=== PATIENT | male | born 1990 | race African-American/Black ===

== ENCOUNTER 2018-01-08 19:04 | Inpatient (IN) | payer OTHER ==
[2018-01-08] MEDS ORDERED: SODIUM CHLORIDE 0.9% 1000 ML INFUS.BAG IV STA (20:13)
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
[2018-01-08] MEDS ORDERED: VANCOMYCIN 2,000 MG in DEXTROSE 5%-WATER - 250 ML IVPB ONE ×2 (20:24→22:30)
[2018-01-08] MEDS ORDERED: PIPERACILLIN/TAZOB 4.5 GM 4.5 GM in DEXTROSE 5%-WATER 100 ML IVPB ONE (20:25)
[2018-01-08] MEDS ORDERED: PIPERACILLIN/TAZOB 4.5 GM 4.5 GM/100 ML BAG IVPB ONE (21:28)
[2018-01-08] MEDS ORDERED: morphine CARPU-JECT 4 MG/1 ML DISP.SYRIN IVPUSH ONE (22:14)
[2018-01-08] MEDS ORDERED: SODIUM CHLORIDE 0.9% 500 ML INFUS.BAG IV ONE (22:19)
[2018-01-08] MEDS ORDERED: morphine SULFATE 4 MG/ML VIAL ONE (22:28)
[2018-01-08] MEDS ORDERED: VANCOMYCIN 2,000 MG in DEXTROSE 5%-WATER - 500 ML IVPB ONE (22:30)
[2018-01-08] MEDS ORDERED: diphenhydrAMINE HCL 25 MG CAPSULE (FP) PO ONE ×2 (23:06)
[2018-01-08] MEDS ORDERED: ONDANSETRON 4 MG/2 ML VIAL IVPUSH ONE (23:10)
[2018-01-08] MEDS ORDERED: ONDANSETRON 4 MG/2 ML VIAL ONE (23:10)
[2018-01-08 23:13] LABS: EOS % 0.2 % (0-4.5); HEMATOCRIT 24.7 % (35.4-49); LYMPH % 13.5 % (8-40); MCH 26.9 pg (25.7-33.7); MCHC 32.4 g/dl (32.0-35.9); MEAN CELL VOLUME 83.1 fl (80-96); MEAN PLT VOLUME 7.8 fl (7.5-11.1); MONO % 5.1 % (3.8-10.2); NEUT % 80.2 % (42.8-82.8); PLATELET COUNT 456 K/MM3 (134-434); RBC 2.97 M/mm3 (4.00-5.60); RDW 19.1 % (11.9-15.9); WHITE BLOOD COUNT 14.6 K/mm3 (4.0-10.0)
[2018-01-08] MEDS ORDERED: FAMOTIDINE 20 MG/50 ML IVPB 20 MG/50 ML MG IVPB ONE (23:22)
[2018-01-08] MEDS ORDERED: methylPREDNISolone NA SUCC 125 MG/2 ML VIAL ONE (23:22)
[2018-01-08 23:24] LABS: INR 1.12 (0.83-1.09); PROTHROMBIN TIME (PATIENT) 12.7 SEC (9.7-13.0)
[2018-01-08 23:27] LABS: ACTIVATED PTT 36.8 SECONDS (25.2-36.5)
[2018-01-08 23:34] LABS: ALBUMIN 1.5 g/dl (3.4-5.0); ANION GAP 10 MMOL/L (8-16); BILIRUBIN,TOTAL 0.3 mg/dL (0.2-1.0); BLOOD UREA NITROGEN 55 mg/dL (7-18); CALCIUM 7.9 mg/dL (8.5-10.1); CHLORIDE 96 mmol/L (98-107); CO2 29 mmol/L (21-32); CREATININE 7.4 mg/dL (0.7-1.3); GLUCOSE,RANDOM 146 mg/dL (74-106); POTASSIUM 4.2 mmol/L (3.5-5.1); SGOT/AST 26 U/L (15-37); SGPT/ALT 17 U/L (12-78); SODIUM 135 mmol/L (136-145)
[2018-01-08 23:35] LABS: ALK PHOS 359 U/L (45-117)
[2018-01-08] MEDS ORDERED: EPINEPHrine 1:1,000 0.3 MG/0.3 ML SYR IM ONE (23:44)
[2018-01-08] MEDS ORDERED: RACEPINEPHRINE IH SOL 2.25% 11.25 MG/0.5 ML VIAL IH ONE (23:45)
[2018-01-08] MEDS ORDERED: EPINEPHrine/PF 1 MG/1 ML (1:1,000) AMPULE ONE (23:55)
[2018-01-09] MEDS ORDERED: methylPREDNISolone NA SUCC 125 MG/2 ML VIAL IVPUSH ONE (00:32)
[2018-01-09] MEDS ORDERED: ACETAMINOPHEN 1000 MG/100 ML VIAL (NON FORMULARY) IVPB ONE ×2 (01:17→17:11)
--- NOTE | 2018-01-09 01:27 | HP ---
CHIEF COMPLAINT: sacral wound ulcers with increased drainage and pain PCP: HISTORY OF PRESENT ILLNESS: 27 y/o male with PMH of ESRD on HD (T//), HTN, HLD, IDDM, presented to the ED from [facility] with increased drainage and tenderness of his sacral/buttock wounds. Patient was originally at [facility] 2 months where he got a AKA, where he started to feel fevers and chills and a boil developing. He was then started on vanc and zosyn at the hospital, then switched to gentamycin. He was discharged to [facility], where they noticed he was having increased drainage from the regions. According to the patient, [facility] does not have the proper supplies to properly take care of his wound care needs. Patient is no longer experiencing any fevers or chills, denies any N/V or diarrhea. Patient was supposed to have dialysis yesterday however he refused. Patient received morphine for pain in the ED and shortly after developed an allergic reaction with angioedema of the lips and tongue with associated nausea. Patient states that he has gotten morphine in the past and this has never happened to him before. ER course was notable for: (1)WBC 14.6 (2)patient received vanc and zosyn (3) patient received morphine for pain and soon developed an allergic reaction with associated angioedema of lips and swelling of tongue; no associated dyspnea Recent Travel: none PAST MEDICAL HISTORY: see above PAST SURGICAL HISTORY: R AKA; R permacath for dialysis Social History: Smoking:none Alcohol:none Drugs: none Family History: both mother and father have DM and HTN Allergies No Known Allergies Allergy (Verified 01/08/18 19:31) HOME MEDICATIONS: Home Medications Medication Instructions Recorded Acetaminophen [Pain Relief] 650 mg PO DAILY 01/08/18 Ascorbic Acid [C-500] 500 mg PO DAILY 01/08/18 Atorvastatin Calcium 80 mg PO DAILY 01/08/18 Calcium Acetate [Phoslo -] 667 mg PO TIDCM 01/08/18 Ergocalciferol (Vitamin D2) 50,000 unit PO DAILY 01/08/18 [Drisdol] Folic Acid 1 mg PO DAILY 01/08/18 Gabapentin 100 mg PO DAILY 01/08/18 Gentamicin in NaCl, Iso-Osm 80 mg IV DAILY 01/08/18 [Gentamicin 80 mg/Ns 100 ml Pb] Hydralazine HCl 50 mg PO DAILY 01/08/18 Insulin (Levemir) [Levemir Vial] 12 unit SQ DAILY 01/08/18 Isosorbide Mononitrate [Isosorbide 30 mg PO DAILY 01/08/18 Mononitrate ER] Levothyroxine [Synthroid -] 50 mcg PO DAILY 01/08/18 Metoprolol Succinate 200 mg PO DAILY 01/08/18 Multivitamin [One Daily] 1 each PO DAILY 01/08/18 Oxycodone HCl 10 mg PO QID 01/08/18 Sennosides [Senna] 8.6 mg PO DAILY 01/08/18 Tuberculin,Purif.prot.deriv. 5 tub ID DAILY 01/08/18 [Tubersol] REVIEW OF SYSTEMS CONSTITUTIONAL: Absent: fever, chills, diaphoresis, generalized weakness, malaise, loss of appetite, weight change HEENT: Absent: rhinorrhea, nasal congestion, throat pain, throat swelling, difficulty swallowing, mouth swelling, ear pain, eye pain, visual changes CARDIOVASCULAR: Absent: chest pain, syncope, palpitations, irregular heart rate, lightheadedness , peripheral edema RESPIRATORY: Absent: cough, shortness of breath, dyspnea with exertion, orthopnea, wheezing, stridor, hemoptysis GASTROINTESTINAL: Absent: abdominal pain, abdominal distension, nausea, vomiting, diarrhea, constipation, melena, hematochezia GENITOURINARY: Present: sacral pain Absent: dysuria, frequency, urgency, hesitancy, hematuria, flank pain, genital pain MUSCULOSKELETAL: Absent: myalgia, arthralgia, joint swelling, back pain, neck pain SKIN: Absent: rash, itching, pallor HEMATOLOGIC/IMMUNOLOGIC: Absent: easy bleeding, easy bruising, lymphadenopathy, frequent infections ENDOCRINE: Absent: unexplained weight gain, unexplained weight loss, heat intolerance, cold intolerance NEUROLOGIC: Absent: headache, focal weakness or paresthesias, dizziness, unsteady gait, seizure, mental status changes, bladder or bowel incontinence PSYCHIATRIC: Absent: anxiety, depression, suicidal or homicidal ideation, hallucinations. PHYSICAL EXAMINATION Vital Signs - 24 hr 01/08/18 19:31 Temperature 99.0 F Pulse Rate 96 H Respiratory 18 Rate Blood Pressure 123/43 O2 Sat by Pulse 96 Oximetry (%) GENERAL: Awake, alert, and fully oriented, in no acute distress. EYES: Pupils equal, round and reactive to light, extraocular movements intact, sclera anicteric, conjunctiva clear. No lid lag. EARS, NOSE, THROAT: lip and tongue swelling, NECK:no JVD appreciated LUNGS: lungs CTA B/L; no rales,rhonchi or wheezing HEART: Regular rate and rhythm, normal S1 and S2 without murmur, rub or gallop. ABDOMEN: soft; N/T, N/D +BS in all four quadrants . BACK: deep gluteal cleft wound with surrounding erythema and yellow/white fluid draining; left buttock wound with slight erythema and tenderness packed with krillex MUSCULOSKELETAL: no CVA tenderness; EXTREMITIES: R aka healing well skin intact no surrounding erythema or drainage ; L leg- warm; well perfused trace edema NEUROLOGICAL: Cranial nerves II-XII intact. Normal speech. Normal gait. PSYCHIATRIC: Cooperative. Good eye contact. Appropriate mood and affect. SKIN: Warm, dry, normal turgor, no rashes or lesions noted, normal capillary refill. Laboratory Results - last 24 hr 01/08/18 01/08/18 01/08/18 22:56 22:56 22:56 WBC 14.6 H RBC 2.97 L Hgb 8.0 L Hct 24.7 L MCV 83.1 MCH 26.9 MCHC 32.4 RDW 19.1 H Plt Count 456 H MPV 7.8 Absolute Neuts (auto) 11.7 H Neutrophils % 80.2 Lymphocytes % 13.5 Monocytes % 5.1 Eosinophils % 0.2 Basophils % 1.0 Nucleated RBC % 0 PT with INR 12.70 INR 1.12 H PTT (Actin FS) 36.8 H Sodium 135 L Potassium 4.2 Chloride 96 L Carbon Dioxide 29 Anion Gap 10 BUN 55 H Creatinine 7.4 H Creat Clearance w eGFR 8.83 Random Glucose 146 H Lactic Acid Calcium 7.9 L Total Bilirubin 0.3 AST 26 ALT 17 Alkaline Phosphatase 359 H Troponin I Total Protein 6.0 L Albumin 1.5 L 01/08/18 01/08/18 22:56 22:56 WBC RBC Hgb Hct MCV MCH MCHC RDW Plt Count MPV Absolute Neuts (auto) Neutrophils % Lymphocytes % Monocytes % Eosinophils % Basophils % Nucleated RBC % PT with INR INR PTT (Actin FS) Sodium Potassium Chloride Carbon Dioxide Anion Gap BUN #Creatinine Creat Clearance w eGFR Random Glucose Lactic Acid 0.6 Calcium Total Bilirubin AST ALT Alkaline Phosphatase Troponin I 0.02 Total Protein Albumin ASSESSMENT/PLAN: 27 y.o male with PMH of ESRD on HD, HTN, HLD, IDDM presents to the ED from [facility] with increased drainage and tenderness from sacral/ buttock ulcers. #1: Sacral/buttock ulcers -patient received zosyn 4.5g and vancomycin 2grams in the ED -not giving patient anymore abx until ID sees him given his ESRD -blood and wound cx pending -CT pelvis w.o contrast -ESR/CRP pending -wound care consulted -will try and have day team get records from [facility] #2: ESRD -patient usually on a // schedule however he refused dialysis yesterday -nephro consulted -avoid nephrotoxic drugs #3: Anemia -patient came in with a Hgb of 8 and baseline Hgb is unknown -iron/ferritin/ retic studies ordered #4 Diabetes: -started patient on ISS -restarting levemir 12 units -HBA1c is ordered #5: HTN -restarting patient on metoprolol succiante 200 and hydralazine 50 #6: HLD -restarting patient on atorvastatin 80 F/E/N not on standing fluids replete electrolytes diabetic diet dispo: ICU monitoring given severe reaction to morphine Problem List - Problem (1) Allergic reaction Code(s): T78.40XA - ALLERGY, UNSPECIFIED, INITIAL ENCOUNTER (2) ESRD on hemodialysis Code(s): N18.6 - END STAGE RENAL DISEASE; Z99.2 - DEPENDENCE ON RENAL DIALYSIS (3) Wound of buttock Code(s): S31.809A - UNSPECIFIED OPEN WOUND OF UNSPECIFIED BUTTOCK, INIT ENCNTR Visit type - Emergency Visit Emergency Visit: Yes ED Registration Date: 01/08/18 Care time: The patient presented to the Emergency Department on the above date and was hospitalized for further evaluation of their emergent condition. - New Patient This patient is new to me today: Yes Date on this admission: 01/09/18 - Critical Care Critical Care patient: No Hospitalist Screening - Colonoscopy Questionnaire Colonoscopy Questionnaire: Colonoscopy Questionnaire - Patient: 50 - 75 years old and never had a screening colonoscopy: Unknown History of colon or rectal polyps, or CA: Unknown History of IBD, Crohn's disease or UC: Unknown History of abdominal radiation therapy as a child: Unknown - Relative: 1 with colon or rectal CA, or polyps at age 60 or younger: Unknown Colon or rectal CA diagnosed at age 45 or younger: Unknown Multiple relatives with colon or rectal CA: Unknown - Outcome: Screening Result: Negative Screen
[2018-01-09] MEDS ORDERED: ACETAMINOPHEN INJECTION 100 ML IVPB ONE (01:54)
--- NOTE | 2018-01-09 02:16 | PN ---
Teaching Attending Note Name of Resident: Sofía Hernandez ATTENDING PHYSICIAN STATEMENT I saw and evaluated the patient. Chart, data, imaging reviewed. I reviewed the resident's note and discussed the case with the resident. I agree with the resident's findings and plan as documented. SUBJECTIVE: 27 YOM with h/o ESRD on HD right permacath and right AKA, HD T//Sa at [facility] , HTN, HLD, IDDM sent from [facility] for buttock/sacral wound infection and discharge. Recently admitted at [facility] x 2 months, s/p course of IV abx (vancomycin and zosyn, then on gentamicin. Unclear treatment course as we do not have any records from [facility]. Sent from [facility] to this hospital because of inability to perform proper wound care. Here in ER, patient developed angioedema of face and tongue after receiving morphine, subsequently received solumedrol, benadryl, epinephrine IV. OBJECTIVE: Last Vital Signs Temp Pulse Resp BP Pulse Ox 100.6 F H 114 H 19 160/84 95 01/09/18 01:05 01/09/18 01:05 01/09/18 01:05 01/09/18 01:05 01/09/18 01:05 general - nontoxic, morbidly obese heent- angioedema involving face, tongue cv -s1+s2+rrr chest- clear, no wheezing, right permacath abdomen - obese ext - right AKA, healing well sacrum - 2 sacrum ulcers left one is packed with gauze, visible puss, right sided one also with visible discharge Abnormal Lab Results 01/08/18 01/08/18 01/08/18 22:56 22:56 22:56 WBC 14.6 H RBC 2.97 L Hgb 8.0 L Hct 24.7 L RDW 19.1 H Plt Count 456 H Absolute Neuts (auto) 11.7 H INR 1.12 H PTT (Actin FS) 36.8 H Sodium 135 L Chloride 96 L BUN 55 H Creatinine 7.4 H Random Glucose 146 H Calcium 7.9 L Alkaline Phosphatase 359 H Total Protein 6.0 L Albumin 1.5 L ASSESSMENT AND PLAN: 27yo man with 2 infected sacral decubitus ulcers. Osteomyelitis should be ruled out. S/p Zosyn and vancomycin IV in ER. -obtain medial records from [facility] -ID consult -blood cultures x2 -wound culture from sacral ulcer -esr, crp -CT of abdomen/pelvis -local wound care #Severe angioedema to morphine -swelling to face and tongue. Currently protecting airway. S/p Epinephrine IM, IV solumedrol, benadryl. -admit to ICU for airway monitoring -solumedrol 40mg IV q8hrs -benadryl 25mg IV q8hrs -monitor VS closely -avoid opiates #ESRD -renal consult to continue HD -continue home renal meds -c/w regular home meds for chronic medical problems, see resident note for details -heparin sc for dvt ppx
--- NOTE | 2018-01-09 02:27 | CONSULT ---
Consultation: CONSULT REQUEST: We have been asked to medically evaluate this patient for critical care. HISTORY OF PRESENT ILLNESS: 27 y/o M w/PMH of ESRD (HD TTS), HTN, HLD, DM, chronic LE edema presented to ER from [facility] for further management of his gluteal and L buttock wound. He was treated at [facility] for 2 months before being discharged to [facility] and he states that they did not have the supplies to take care of his wounds there and they sent him here. During that hospitalization he also had a R AKA. He gets dialyzed thru a permacath in R chest wall and does not have a fistula or graft. Permacath placed 4 months ago and has been getting dialysis for 3 months. He had been having fevers and chills prior to arrival. Pt received morphine in the ER (which he states he's gotten in the past) after which he developed angioedema. He was treated in the ER with IV and PO benadryl , Epi-pen, Pepcid 20mg IV, epi inhalation, solu-medrol 125 mg IV. Currently he states that he feels better, he is breathing without issue, not drooling, able to swallow without issue, and feels as though the swelling has improved since it first occurred. Denies N/V, CP, SOB, dysuria, penile discharge, abd pain. REVIEW OF SYSTEMS: CONSTITUTIONAL: +fevers, chills HEENT: +angioedema. CARDIOVASCULAR: +chronic peripheral LE edema Absent: chest pain RESPIRATORY: Absent: cough, shortness of breath GASTROINTESTINAL: Absent: abdominal pain GENITOURINARY: Absent: dysuria, discharge SKIN: +L buttock and gluteal wound PHYSICAL EXAMINATION Vital Signs - 24 hr 01/08/18 01/09/18 19:31 01:05 Temperature 99.0 F 100.6 F H Pulse Rate 96 H Pulse Rate [ 114 H Right Apical] Respiratory 18 19 Rate Blood Pressure 123/43 Blood Pressure 160/84 [Right Arm] O2 Sat by Pulse 96 95 Oximetry (%) GENERAL: Awake, alert, and fully oriented, in no acute distress. +Angioedema. Able to speak in full sentences without issue. HEAD: Normal with no signs of trauma. +Angioedema EYES: +Periorobital edema EARS, NOSE, THROAT: +angioedema LUNGS: Breath sounds equal, clear to auscultation bilaterally. HEART: Regular rate and rhythm ABDOMEN: Soft, nontender, not distended LOWER EXTREMITIES: warm, well-perfused. No calf tenderness. 2+ LLE edema. RLE s/ p AKA. PSYCHIATRIC: Cooperative. SKIN: L gluteal wound approximately 2.5 by 0.5 inches, tender, packed. Sacral/ gluteal cleft wound approximately 1 inch by 0.75 inches - with yellow non- viscous drainage within wound. Laboratory Results - last 24 hr 01/08/18 01/08/18 01/08/18 22:56 22:56 22:56 WBC 14.6 H RBC 2.97 L Hgb 8.0 L Hct 24.7 L MCV 83.1 MCH 26.9 MCHC 32.4 RDW 19.1 H Plt Count 456 H MPV 7.8 Absolute Neuts (auto) 11.7 H Neutrophils % 80.2 Lymphocytes % 13.5 Monocytes % 5.1 Eosinophils % 0.2 Basophils % 1.0 Nucleated RBC % 0 PT with INR 12.70 INR 1.12 H PTT (Actin FS) 36.8 H Sodium 135 L Potassium 4.2 Chloride 96 L Carbon Dioxide 29 Anion Gap 10 BUN 55 H Creatinine 7.4 H Creat Clearance w eGFR 8.83 Random Glucose 146 H Lactic Acid Calcium 7.9 L Total Bilirubin 0.3 AST 26 ALT 17 Alkaline Phosphatase 359 H Troponin I Total Protein 6.0 L Albumin 1.5 L 01/08/18 01/08/18 22:56 22:56 WBC RBC Hgb Hct MCV MCH MCHC RDW Plt Count MPV Absolute Neuts (auto) Neutrophils % Lymphocytes % Monocytes % Eosinophils % Basophils % Nucleated RBC % PT with INR INR PTT (Actin FS) Sodium Potassium Chloride Carbon Dioxide Anion Gap BUN Creatinine Creat Clearance w eGFR Random Glucose Lactic Acid 0.6 Calcium Total Bilirubin AST ALT Alkaline Phosphatase Troponin I 0.02 Total Protein Albumin Active Medications Generic Name Dose Route Start Last Admin Trade Name Freq PRN Reason Stop Dose Admin Chlorhexidine Gluconate 1 applic 01/09/18 22:00 Hibiclens For Decolonization - TP HS NOA Heparin Sodium (Porcine) 5,000 unit 01/09/18 06:00 Heparin - SQ TID NOA Vancomycin HCl 2,000 mg/ 500 mls @ 250 mls/2 hr 01/08/18 22:30 01/08/18 22:54 Dextrose IVPB 01/09/18 02:29 250 mls/2 hr ONCE ONE Administration Protocol Insulin Aspart 1 vial 01/09/18 07:00 Novolog Vial Sliding Scale - SQ ACHS [facility] Protocol Insulin Detemir 12 units 01/09/18 22:00 Levemir Vial SQ HS [facility] Mupirocin 1 applic 01/09/18 10:00 Bactroban Ointment (For Decolonization) - NS 01/14/18 09:59 BID [facility] ASSESSMENT/PLAN: 27 y/o M w/PMH of ESRD (HD TTS), HTN, HLD, DM, chronic LE edema presented to ER from [facility] for further management of his gluteal and L buttock wound. Admitted to ICU for airway monitoring s/p angioedema likely secondary to morphine. -Neuro: -AAOx3 -C/V -HTN: c/w hzn, metoprolol -HLD: c/w atorvastatin -Resp: -Angioedema secondary to morphine -Monitor airway -resolving. s/p epi IH and IM, solu-medrol, benadryl IV and PO, Pepcid IV in ER -O2 supplementation to keep O2 saturation above 90% -ID -L buttock and sacral/gluteal cleft wounds -given zosyn and vanco -ID on board -c/w abx as per ID -pain control. No morphine. -wound care consult -Renal -ESRD on HD TTS -HD per nephro -Endocrine -DM -ISS, BGM, Levemir -Hypothyroidism -c/w synthroid -FEN -no fluids at this time -Monitor electrolytes -diabetic diet -Dispo: Will monitor in the ICU. If airway remains stable/improves can likely transfer to floors soon. Visit type - Emergency Visit Emergency Visit: Yes ED Registration Date: 01/08/18 Care time: The patient presented to the Emergency Department on the above date and was hospitalized for further evaluation of their emergent condition. - New Patient This patient is new to me today: Yes Date on this admission: 01/09/18 - Critical Care Critical Care patient: Yes Total Critical Care Time (in minutes): 48 Critical Care Statement: The care of this patient involved high complexity decision making to prevent further life threatening deterioration of the patient 's condition and/or to evaluate & treat vital organ system(s) failure or risk of failure.
[2018-01-09 02:59] LABS: VENOUS PC02 46.4 mmHg (38-52); VENOUS PH 7.36 (7.32-7.42)
[2018-01-09 03:00] LABS: VENOUS PO2 45.6 mmHg (28-48)
[2018-01-09] MEDS ORDERED: methylPREDNISolone NA SUCC 40 MG/1 ML VIAL ONE (03:18)
[2018-01-09] MEDS: methylPREDNISolone NA SUCC 40 MG/1 ML VIAL IVPUSH SCH ×3 (03:22→18:00)
[2018-01-09] MEDS ORDERED: INSULIN (NOVOLOG) ASPART 100 UNITS/ML 10ML VIAL ONE ×3 (06:07→13:34)
[2018-01-09] MEDS: INSULIN SLIDING SCALE (NOVOLOG) 1 VIAL SQ SCH ×4 (06:08→21:35)
[2018-01-09] MEDS: LEVOTHYROXINE NA 25 MCG TABLET (FP) PO SCH (06:09)
[2018-01-09] MEDS: HEPARIN NA (PORCINE) 5,000 UNITS/ML 1ML VIAL SQ SCH ×3 (06:09→21:36)
[2018-01-09 06:20] LABS: BASO % 0.2 % (0-2.0); HEMATOCRIT 29.7 % (35.4-49); HEMOGLOBIN 9.2 GM/dL (11.7-16.9); LYMPH % 1.6 % (8-40); MCH 26.2 pg (25.7-33.7); MCHC 31.1 g/dl (32.0-35.9); MEAN CELL VOLUME 84.1 fl (80-96); MONO % 0.6 % (3.8-10.2); NEUT % 97.6 % (42.8-82.8); PLATELET COUNT 475 K/MM3 (134-434); RBC 3.53 M/mm3 (4.00-5.60); RDW 19.2 % (11.9-15.9)
[2018-01-09 06:46] LABS: ALBUMIN 1.6 g/dl (3.4-5.0); ANION GAP 12 MMOL/L (8-16); BLOOD UREA NITROGEN 57 mg/dL (7-18); CHLORIDE 95 mmol/L (98-107); CO2 26 mmol/L (21-32); GLUCOSE,RANDOM 259 mg/dL (74-106); POTASSIUM 5.1 mmol/L (3.5-5.1); SODIUM 133 mmol/L (136-145)
[2018-01-09] MEDS ORDERED: INSULIN REGULAR HUMAN 100 UNITS/ML *VIAL ONE (06:46)
[2018-01-09] MEDS ORDERED: PT OWN MED DRAWER 7, Y5N ONE ×4 (06:47→20:44)
[2018-01-09 06:50] LABS: ALK PHOS 358 U/L (45-117); BILIRUBIN,TOTAL 0.4 mg/dL (0.2-1.0); CHOLESTEROL 86 mg/dL (50-200); HDL CHOLESTEROL 37 mg/dL (40-60); PHOSPHOROUS 5.1 mg/dL (2.5-4.9); SGOT/AST 26 U/L (15-37); SGPT/ALT 17 U/L (12-78); TOT PROT 6.4 g/dl (6.4-8.2); TRIGLYCERIDES 82 mg/dL (35-160)
[2018-01-09 07:11] LABS: CREATININE 7.6 mg/dL (0.7-1.3)
--- NOTE | 2018-01-09 07:30 | PN ---
Physical Exam: SUBJECTIVE: Patient seen and examined this morning. Pt was sleeping prone with snoring respirations, appearing diaphoretic. Pt awoken easily, he states he was sleeping prone so that he would not be lying on the wound area. Pt states the facial and oral swelling has decreased, and he has no SOB, difficulty breathing or swallowing, drooling, or chest pain. He denies any pain near the sacral area nor on his penis. Pt missed dialysis on Sunday. He refused treatment because "they kept switching his dialysis days". OBJECTIVE: Vital Signs Period Temp Pulse Resp BP Sys/Chan Pulse Ox Last 24 Hr 98.4 F-100.6 F 92-114 10-19 123-160/43-89 95-96 GENERAL: The patient is awake, alert, and fully oriented. He is diaphoretic, but can speak clearly in full sentences and handling secretions. Vitals stable. HEAD: Normal with no signs of trauma. EYES: PERRL, extraocular movements intact, sclera anicteric, conjunctiva clear. No ptosis. periorbital edema. ENT: External ears normal, nares patent, oropharynx clear without exudates, moist mucous membranes. perioral edema, no significant pharyngeal erythema. NECK: Trachea midline, full range of motion, supple. LUNGS: Breath sounds equal, clear to auscultation bilaterally, no accessory muscle use. Wheezing in posterior bases b/l. R permacath in R chest wall. HEART: Regular rate and rhythm, S1, S2 without murmur, rub or gallop. ABDOMEN: Soft, nontender, nondistended, normoactive bowel sounds, no guarding, no rebound, no hepatosplenomegaly, no masses. EXTREMITIES: 2+ pulses, warm, well-perfused, no edema. R AKA. NEUROLOGICAL: Cranial nerves II through XII grossly intact. Normal speech, gait not observed. PSYCH: Normal mood, normal affect. SKIN: Warm, dry, normal turgor. Bandages over sacrum and gluteus clean and dry. Induration over surrounding tissue, no crepitus. Laboratory Results - last 24 hr 01/08/18 01/08/18 01/08/18 22:56 22:56 22:56 WBC 14.6 H RBC 2.97 L Hgb 8.0 L Hct 24.7 L MCV 83.1 MCH 26.9 MCHC 32.4 RDW 19.1 H Plt Count 456 H MPV 7.8 Absolute Neuts (auto) 11.7 H Neutrophils % 80.2 Lymphocytes % 13.5 Monocytes % 5.1 Eosinophils % 0.2 Basophils % 1.0 Nucleated RBC % 0 PT with INR 12.70 INR 1.12 H PTT (Actin FS) 36.8 H VBG pH POC VBG pCO2 POC VBG pO2 Mixed VBG HCO3 Sodium 135 L Potassium 4.2 Chloride 96 L Carbon Dioxide 29 Anion Gap 10 BUN 55 H Creatinine 7.4 H Creat Clearance w eGFR 8.83 POC Glucometer Random Glucose 146 H Hemoglobin A1c % Lactic Acid Calcium 7.9 L Phosphorus Magnesium Ferritin Total Bilirubin 0.3 AST 26 ALT 17 Alkaline Phosphatase 359 H Troponin I C-Reactive Protein Total Protein 6.0 L Albumin 1.5 L Triglycerides Cholesterol Total LDL Cholesterol HDL Cholesterol 01/08/18 01/08/18 01/09/18 22:56 22:56 02:49 WBC RBC Hgb Hct MCV MCH MCHC RDW Plt Count MPV Absolute Neuts (auto) Neutrophils % Lymphocytes % Monocytes % Eosinophils % Basophils % Nucleated RBC % PT with INR INR PTT (Actin FS) VBG pH 7.36 POC VBG pCO2 46.4 POC VBG pO2 45.6 Mixed VBG HCO3 25.2 H Sodium Potassium Chloride Carbon Dioxide Anion Gap BUN Creatinine Creat Clearance w eGFR POC Glucometer Random Glucose Hemoglobin A1c % Lactic Acid 0.6 Calcium Phosphorus Magnesium Ferritin Total Bilirubin AST ALT Alkaline Phosphatase Troponin I 0.02 C-Reactive Protein Total Protein Albumin Triglycerides Cholesterol Total LDL Cholesterol HDL Cholesterol 01/09/18 01/09/18 01/09/18 02:49 05:30 05:30 WBC 29.0 H RBC 3.53 L Hgb 9.2 L Hct 29.7 L D MCV 84.1 MCH 26.2 MCHC 31.1 L RDW 19.2 H Plt Count 475 H MPV 8.0 Absolute Neuts (auto) 28.4 H Neutrophils % 97.6 H D Lymphocytes % 1.6 L D Monocytes % 0.6 L D Eosinophils % 0.0 D Basophils % 0.2 Nucleated RBC % 0 PT with INR INR PTT (Actin FS) VBG pH POC VBG pCO2 POC VBG pO2 Mixed VBG HCO3 Sodium 133 L Potassium 5.1 D Chloride 95 L Carbon Dioxide 26 Anion Gap 12 BUN 57 H Creatinine 7.6 H* Creat Clearance w eGFR 8.57 POC Glucometer Random Glucose 259 H D Hemoglobin A1c % Lactic Acid 0.8 Calcium 8.0 L Phosphorus 5.1 H Magnesium 2.0 Ferritin 1451.0 H Total Bilirubin 0.4 AST 26 ALT 17 Alkaline Phosphatase 358 H Troponin I C-Reactive Protein Total Protein 6.4 Albumin 1.6 L Triglycerides 82 Cholesterol 86 Total LDL Cholesterol 47 HDL Cholesterol 37 L 01/09/18 01/09/18 01/09/18 05:30 05:30 05:30 WBC RBC Hgb Hct MCV MCH MCHC RDW Plt Count MPV Absolute Neuts (auto) Neutrophils % Lymphocytes % Monocytes % Eosinophils % Basophils % Nucleated RBC % PT with INR INR PTT (Actin FS) VBG pH POC VBG pCO2 POC VBG pO2 Mixed VBG HCO3 Sodium Potassium Chloride Carbon Dioxide Anion Gap BUN Creatinine Creat Clearance w eGFR POC Glucometer Random Glucose Hemoglobin A1c % 7.2 H Lactic Acid Calcium Phosphorus Magnesium Ferritin Cancelled Total Bilirubin AST ALT Alkaline Phosphatase Troponin I C-Reactive Protein 8.2 H Total Protein Albumin Triglycerides Cholesterol Total LDL Cholesterol HDL Cholesterol 01/09/18 01/09/18 05:30 05:36 WBC RBC Hgb Hct MCV MCH MCHC RDW Plt Count MPV Absolute Neuts (auto) Neutrophils % Lymphocytes % Monocytes % Eosinophils % Basophils % Nucleated RBC % PT with INR INR PTT (Actin FS) VBG pH POC VBG pCO2 POC VBG pO2 Mixed VBG HCO3 Sodium Potassium Chloride Carbon Dioxide Anion Gap BUN Creatinine Creat Clearance w eGFR POC Glucometer [phone] Random Glucose Hemoglobin A1c % Lactic Acid Calcium Phosphorus Magnesium Ferritin Total Bilirubin AST ALT Alkaline Phosphatase Troponin I C-Reactive Protein Total Protein Albumin Triglycerides Cancelled Cholesterol Cancelled Total LDL Cholesterol Cancelled HDL Cholesterol Cancelled Active Medications Generic Name Dose Route Start Last Admin Trade Name Freq PRN Reason Stop Dose Admin Acetaminophen 650 mg 01/09/18 10:00 Tylenol - PO DAILY [facility] Ascorbic Acid 500 mg 01/09/18 10:00 Vitamin C - PO DAILY [facility] Atorvastatin Calcium 80 mg 01/09/18 22:00 Lipitor - PO HS [facility] Chlorhexidine Gluconate 1 applic 01/09/18 22:00 Hibiclens For Decolonization - TP HS [facility] Diphenhydramine HCl 25 mg 01/09/18 02:33 Benadryl Injection - IVPUSH Q8H PRN FOR ITCHING Folic Acid 1 mg 01/09/18 10:00 Folic Acid - PO DAILY [facility] Gabapentin 100 mg 01/09/18 10:00 Neurontin - PO DAILY [facility] Heparin Sodium (Porcine) 5,000 unit 01/09/18 06:00 01/09/18 06:09 Heparin - SQ 5,000 unit TID NOA Administration Hydralazine HCl 50 mg 01/09/18 10:00 Apresoline - PO DAILY NOA Insulin Aspart 1 vial 01/09/18 07:00 01/09/18 06:08 Novolog Vial Sliding Scale - SQ 8 units ACHS NOA Administration Protocol Insulin Detemir 12 units 01/09/18 22:00 Levemir Vial SQ HS NOA Isosorbide Mononitrate 30 mg 01/09/18 10:00 Imdur - PO DAILY [facility] Levothyroxine Sodium 50 mcg 01/09/18 07:00 01/09/18 06:09 Synthroid - PO 50 mcg 0700 NOA Administration Methylprednisolone Sodium Succinate 40 mg 01/09/18 02:45 01/09/18 03:22 Solu-Medrol - IVPUSH 40 mg Q8H-IV NOA Administration Metoprolol Succinate 200 mg 01/09/18 10:00 Toprol Xl - PO DAILY [facility] Multivitamins/Minerals/Vitamin C 1 tab 01/09/18 10:00 Tab-A-Vit - PO DAILY [facility] Mupirocin 1 applic 01/09/18 10:00 Bactroban Ointment (For Decolonization) - NS 01/14/18 09:59 BID [facility] ASSESSMENT/PLAN: Pt is a 27 yo M with PMH of ESRD (HD T//Sat w/ R chest permacath), R AKA, HTN, HLD, and DM, who presented to the ER from [facility] with leukocytosis likely 2/2 to pilonidal and gluteal abscess, complicated by angioedema 2/2 to morphine administration. 1. Angioedema -Benadryl, Epi, Epi-pen, Pepcid, and 125 mg Solumedrol provided in ER -40 Solumedrol Q8Hr -Pt states periorbital and perioral swelling has improved 2. Sacral/Gluteal Ulcer/MSK -2 g Vanc and 4.5 g Zosyn provided in ER with 4 L NS; Providing Zosyn 2.25 g Q8hr. -ID following (Dr. Ratliff/[place]) -No surgical intervention at this point, Dr. Olson to follow. Wound vac in place with sterile dressings applied. -Lactic acid has been WNL. Blood, urine, and wound site cultures pending. -Leukocytosis 29 today. -ESR [address] Pelvis showed no sign of osteomyelitis. 2 areas of air bubbles/soft tissue swelling w/n L buttocks and L gluteus radha. -Gabapentin 100 mg Qday -R AKA site clean and intact. 3. ESRD -HD today, pt currently receiving. -BUN/Cr 57/7.6 today, pt states Cr was 2.1 after last HD session on Sunday -Hep B and Hep C Panels pending -Continue to monitor BUN/Cr and electrolytes, will replete or reduce as needed. 4. HTN/HLD -Atorvastatin 80 mg HS -Hydralazine 50 mg Qday and Metoprolol 200 Qday -BP meds held for HD today 5. DM -Insulin sliding scale and Levemir 12 u HS -Glucose from CMP 239 today. Following with bedside glucose checks. -Diabetic diet until any surgical intervention, will switch to NPO if needed 6. Prophylaxis -Heparin 5000 TID Problem List - Problems (1) Allergic reaction Code(s): T78.40XA - ALLERGY, UNSPECIFIED, INITIAL ENCOUNTER (2) ESRD on hemodialysis Code(s): N18.6 - END STAGE RENAL DISEASE; Z99.2 - DEPENDENCE ON RENAL DIALYSIS (3) HTN (hypertension) Code(s): I10 - ESSENTIAL (PRIMARY) HYPERTENSION (4) Wound of buttock Code(s): S31.809A - UNSPECIFIED OPEN WOUND OF UNSPECIFIED BUTTOCK, INIT ENCNTR (5) Wound of sacral region Code(s): S31.000A - UNSP OPN WND LOW BACK AND PELV W/O PENET RETROPERITON, INIT Visit type - Emergency Visit Emergency Visit: Yes ED Registration Date: 01/08/18 Care time: The patient presented to the Emergency Department on the above date and was hospitalized for further evaluation of their emergent condition. - New Patient This patient is new to me today: Yes Date on this admission: 01/09/18 - Critical Care Critical Care patient: Yes Total Critical Care Time (in minutes): 35 Critical Care Statement: The care of this patient involved high complexity decision making to prevent further life threatening deterioration of the patient 's condition and/or to evaluate & treat vital organ system(s) failure or risk of failure. - Discharge Referral Referred to [facility].: Yes
--- NOTE | 2018-01-09 08:19 | CONSULT ---
- Consultation REQUESTING PROVIDER: Ankit Rivas - Wound Care CONSULT REQUEST: We have been asked to surgically evaluate this patient for Sacral & buttock wounds PCP: Darshana Park HPI: Called to eval 27 yo male with PMHx as noted below. Presents to [facility] ER from [facility] for further management of his gluteal and L buttock wound s/p I& P ([facility] for 2 months ago). Patient had a Pelvic CT Scan which showed 2 areas of increased soft tissue and air bubbles w/i the LEFT buttock region with extensive involvement of the LEFT gluteus muscle consistent with infectious process. No drainable abscess identified. PMHx: ESRD on HD (//), HTN, HLD, IDDM PSHx: RLE AKA October 1017, Permacath September 2017, Pilonidal & Left Buttock I & D October 2017 Home Meds: 3 Acetaminophen [Pain Relief] 650 mg PO DAILY 01/08/18 Ascorbic Acid [C-500] 500 mg PO DAILY 01/08/18 Atorvastatin Calcium 80 mg PO DAILY 01/08/18 Calcium Acetate [Phoslo -] 667 mg PO TIDCM 01/08/18 Ergocalciferol (Vitamin D2) 50,000 unit PO DAILY 01/08/18 Folic Acid 1 mg PO DAILY 01/08/18 Gabapentin 100 mg PO DAILY 01/08/18 Gentamicin in NaCl, Iso-Osm 80 mg IV DAILY 01/08/18 Hydralazine HCl 50 mg PO DAILY 01/08/18 Insulin (Levemir) [Levemir Vial] 12 unit SQ DAILY 01/08/18 Isosorbide Mononitrate [Isosorbide 30 mg PO DAILY 01/08/18 Levothyroxine [Synthroid -] 50 mcg PO DAILY 01/08/18 Metoprolol Succinate 200 mg PO DAILY 01/08/18 Multivitamin [One Daily] 1 each PO DAILY 01/08/18 Oxycodone HCl 10 mg PO QID 01/08/18 Sennosides [Senna] 8.6 mg PO DAILY 01/08/18 Tuberculin,Purif.prot.deriv. 5 tub ID DAILY 01/08/18 Allergies: Morphine (angioedema) ROS: CONSTITUTIONAL: +fevers, chills HEENT: +angioedema (while in ER) CARDIOVASCULAR: +chronic peripheral LE edema, Absent: chest pain RESPIRATORY: Absent: cough, shortness of breath GASTROINTESTINAL:Absent: abdominal pain GENITOURINARY: Absent: dysuria, discharge SKIN: See HPI PE: GENERAL: A&O HEAD: NC. AT. EYES: PERRL, sclera anicteric, conjunctiva clear. NECK: Normal ROM, supple without lymphadenopathy, JVD, or masses. LUNGS: CTA bilat anteriorly HEART: RRR ABDOMEN: Obese habitus. Soft, NT. ND. MUSCULOSKELETAL: Normal ROM at all joints. No bony deformities or tenderness. No CVA tenderness. UE: 2+ pulses, warm, well-perfused. No cyanosis. Cap refill <2 seconds. No peripheral edema. LE: RLE AKA clean. LLE with chronic edema. DP 2+, warm, well-perfused. No calf tenderness. PSYCH: Cooperative. Good eye contact. Appropriate mood and affect. SKIN: Pilonidal cleft wound packing removed...probes down to bone and undermining to 9 o'clock position. ~ 2.54 cm x 2 cm x 3.5 cm. Clean. No signs of erythema, no drainage. No foul odor emenating from wound. Left buttock wound (transverse incision) open, probes down to muscle. No undermining. No drainage or streaking erythema. No soft tissue induration/bogginess/fluctuance/crepitus. ~ 5.2 cm x 0.75 cm x 3 cm Last Vital Signs Temp Pulse Resp BP Pulse Ox 98.4 F 92 H 10 L 140/68 95 01/09/18 05:47 01/09/18 05:47 01/09/18 05:47 01/09/18 05:47 01/09/18 05:28 CBC, BMP 01/09/18 05:30 01/09/18 05:30 Hepatic Panel Total Bilirubin 0.4 mg/dL (0.2-1.0) 01/09/18 05:30 AST 26 U/L (15-37) 01/09/18 05:30 ALT 17 U/L (12-78) 01/09/18 05:30 Alkaline Phosphatase 358 U/L (45-117) H 01/09/18 05:30 Albumin 1.6 g/dl (3.4-5.0) L 01/09/18 05:30 INR, PTT INR 1.12 (0.83-1.09) H 01/08/18 22:56 Problem List - Problems (1) Wound of buttock Assessment/Plan: Patient s/p I & D pilonidal and Left gluteal abscess approx 2 months ago at [facility]. CT scan shows some air in the soft tisse (left gluteal extending laterally). At time of study, wound was packed with moist kerlix which could have trapped air. Clinically, patients wounds look clean. However, his WBC did jump significantly from 14 to 29. T max of 100F. Dressing changed on rounds with wet to dry General Surgery Consult placed for Dr. Olson Will make patient NPO in case Dr. Olson decides to take patient to OR for wound exploration/debridement/antibiotic washout Medical optimization Tight glycemic control Could benefit from wound VAC therapy Frequwnt repositioning Offload all pressure sensitive areas. Above discussed with Dr. Rivas and agrees. Code(s): S31.809A - UNSPECIFIED OPEN WOUND OF UNSPECIFIED BUTTOCK, INIT ENCNTR (2) ESRD on hemodialysis Assessment/Plan: Cont via Permacath per patient's schedule Code(s): N18.6 - END STAGE RENAL DISEASE; Z99.2 - DEPENDENCE ON RENAL DIALYSIS Visit type - Case Type Case Type: ED Admission - Emergency Emergency Visit: Yes ED Registration Date: 01/08/18 Care time: The patient presented to the Emergency Department on the above date and was hospitalized for further evaluation of their emergent condition. - New patient This patient is new to me today: Yes Date on this admission: 01/09/18
[2018-01-09] MEDS: ISOSORBIDE MONONITRATE 30 MG TAB.SR.24H (FP) PO SCH (09:51)
[2018-01-09] MEDS: ASCORBIC ACID 500 MG TABLET (FP) PO SCH (09:51)
[2018-01-09] MEDS: GABAPENTIN 100 MG CAPSULE (FP) PO SCH (09:51)
[2018-01-09] MEDS: ACETAMINOPHEN 325 MG TABLET (FP) PO SCH (09:51)
[2018-01-09] MEDS: FOLIC ACID 1 MG TABLET (FP) PO SCH (09:52)
[2018-01-09] MEDS: MULTIVITAMINS (DAILY MVI) TABLET (FP) PO SCH (09:52)
[2018-01-09] MEDS: MUPIROCIN 2% TOPICAL OINTMENT FOR DECOLONIZATION NS SCH ×2 (09:54→21:37)
[2018-01-09] MEDS ORDERED: PATIENT'S OWN MEDICATION (NON-FORMULARY) (Oxycodone Hcl [Oxycodone Hcl] 10 MG) PO SCH (10:00)
[2018-01-09] MEDS ORDERED: ERGOCALCIFEROL (VITAMIN D2) 50,000 UNIT CAPSULE (FP) PO SCH (10:00)
--- NOTE | 2018-01-09 10:02 | PN ---
Progress Note, Physician Chief Complaint: Chart noted Pt received IV Morphine in ER and developed angioedema Was recent admission to [facility] on Jan 06-- was in [facility] for 2 months - s/p right AKA and on long-term antibiotics ate food yesterday without issues No SOB states his facial swelling has decreased - Current Medication List Current Medications: Active Medications Acetaminophen (Tylenol -) 650 mg PO DAILY [facility] Ascorbic Acid (Vitamin C -) 500 mg PO DAILY [facility] Atorvastatin Calcium (Lipitor -) 80 mg PO HS [facility] Chlorhexidine Gluconate (Hibiclens For Decolonization -) 1 applic TP HS [facility] Diphenhydramine HCl (Benadryl Injection -) 25 mg IVPUSH Q8H PRN PRN Reason: FOR ITCHING Folic Acid (Folic Acid -) 1 mg PO DAILY [facility] Gabapentin (Neurontin -) 100 mg PO DAILY [facility] Heparin Sodium (Porcine) (Heparin -) 5,000 unit SQ TID [facility] Last Admin: 01/09/18 06:09 Dose: 5,000 unit Hydralazine HCl (Apresoline -) 50 mg PO DAILY [facility] Insulin Aspart (Novolog Vial Sliding Scale -) 1 vial SQ ACHS [facility]; Protocol Last Admin: 01/09/18 06:08 Dose: 8 units Insulin Detemir (Levemir Vial) 12 units SQ HS [facility] Isosorbide Mononitrate (Imdur -) 30 mg PO DAILY [facility] Levothyroxine Sodium (Synthroid -) 50 mcg PO 0700 [facility] Last Admin: 01/09/18 06:09 Dose: 50 mcg Methylprednisolone Sodium Succinate (Solu-Medrol -) 40 mg IVPUSH Q8H-IV [facility] Last Admin: 01/09/18 03:22 Dose: 40 mg Metoprolol Succinate (Toprol Xl -) 200 mg PO DAILY [facility] Multivitamins/Minerals/Vitamin C (Tab-A-Vit -) 1 tab PO DAILY [facility] Mupirocin (Bactroban Ointment (For Decolonization) -) 1 applic NS BID [facility] Stop: 01/14/18 09:59 - Objective Vital Signs: Vital Signs Temperature 97.8 F 01/09/18 08:00 Pulse Rate 90 01/09/18 08:00 Respiratory Rate 10 L 01/09/18 08:00 Blood Pressure 143/64 01/09/18 08:00 O2 Sat by Pulse Oximetry (%) 95 01/09/18 05:28 Constitutional: Yes: No Distress, Calm Eyes: Yes: Other (periorbital edema, lips edema+) Cardiovascular: Yes: Regular Rate and Rhythm Respiratory: Yes: Diminished Gastrointestinal: Yes: Normal Bowel Sounds, Soft. No: Tenderness Extremities: Yes: Amputation (right AKA) Edema: Yes Edema: LLE: 2+ Labs: CBC, BMP 01/09/18 05:30 01/09/18 05:30 INR, PTT INR 1.12 (0.83-1.09) H 01/08/18 22:56 Problem List - Problems (1) Allergic reaction Code(s): T78.40XA - ALLERGY, UNSPECIFIED, INITIAL ENCOUNTER (2) ESRD on hemodialysis Code(s): N18.6 - END STAGE RENAL DISEASE; Z99.2 - DEPENDENCE ON RENAL DIALYSIS (3) Wound of buttock Code(s): S31.809A - UNSPECIFIED OPEN WOUND OF UNSPECIFIED BUTTOCK, INIT ENCNTR (4) Wound of sacral region Code(s): S31.000A - UNSP OPN WND LOW BACK AND PELV W/O PENET RETROPERITON, INIT Assessment/Plan PLAN CT pelvis noted-- pt on long term care administrator antibiotics in [place] On Solumedrol IV ICU monitoring continue with current care DM control HD today as his last one was on Sunday
--- NOTE | 2018-01-09 10:57 | PN ---
Progress Note (short form) - Note Progress Note: records reviewed--patient was followed by Dr Pearce at [facility] [facility] will refer back to him for followup
--- NOTE | 2018-01-09 11:29 | CONSULT ---
Consult Consult Specialty:: Nephrology Reason for Consultation:: ESRD - History of Present Illness Chief Complaint: sent in for sacral infection History of Present Illness: Pt is a 27 year old male with pmhx of ESRD, right AKA, HTN an DM who was sent in from the [place] for a sacral infection. He says he was last dialyzed on Sunday. He missed HD yesterday. He denies shortness of breath or chest pain. He does not know the etiology of his kidney disease. He says the sacral infection started as a boil he sebsequently developed fevers. He says that he was getting HD in the hospital but did not get it in [facility] yet. - History Source History Provided By: Patient, Medical Record - Past Medical History Cardio/Vascular: Yes: HTN Renal/: Yes: Renal Failure, Hemodialysis Heme/Onc: Yes: Anemia Endocrine: Yes: Diabetes Mellitus - Past Surgical History Additional Surgical History: right AKA - Alcohol/Substance Use Hx Alcohol Use: No - Smoking History Smoking history: Never smoked Have you smoked in the past 12 months: No Home Medications - Allergies Allergies/Adverse Reactions: Allergies Allergy/AdvReac Type Severity Reaction Status Date / Time morphine Allergy Severe Swelling Verified 01/09/18 01:24 - Home Medications Home Medications: Ambulatory Orders Acetaminophen [Pain Relief] 650 mg PO DAILY 01/08/18 Ascorbic Acid [C-500] 500 mg PO DAILY 01/08/18 Atorvastatin Calcium 80 mg PO DAILY 01/08/18 Calcium Acetate [Phoslo -] 667 mg PO TIDCM 01/08/18 Ergocalciferol (Vitamin D2) [Drisdol] 50,000 unit PO DAILY 01/08/18 Folic Acid 1 mg PO DAILY 01/08/18 Gabapentin 100 mg PO DAILY 01/08/18 Gentamicin in NaCl, Iso-Osm [Gentamicin 80 mg/Ns 100 ml Pb] 80 mg IV DAILY 01/08 Hydralazine HCl 50 mg PO DAILY 01/08/18 Insulin (Levemir) [Levemir Vial] 12 unit SQ DAILY 01/08/18 Isosorbide Mononitrate [Isosorbide Mononitrate ER] 30 mg PO DAILY 01/08/18 Levothyroxine [Synthroid -] 50 mcg PO DAILY 01/08/18 Metoprolol Succinate 200 mg PO DAILY 01/08/18 Multivitamin [One Daily] 1 each PO DAILY 01/08/18 Oxycodone HCl 10 mg PO QID 01/08/18 Sennosides [Senna] 8.6 mg PO DAILY 01/08/18 Tuberculin,Purif.prot.deriv. [Tubersol] 5 tub ID DAILY 01/08/18 Family Disease History - Family Disease History Family History: Denies Other Family History: DM Review of Systems - Review of Systems Constitutional: reports: Malaise Eyes: reports: No Symptoms HENT: reports: No Symptoms Neck: reports: No Symptoms Cardiovascular: reports: No Symptoms Respiratory: reports: No Symptoms Gastrointestinal: reports: No Symptoms Genitourinary: reports: No Symptoms Musculoskeletal: reports: Other (right aka) Neurological: reports: No Symptoms Endocrine: reports: No Symptoms Hematology/Lymphatic: reports: No Symptoms Psychiatric: reports: No Symptoms Physical Exam Vital Signs: Vital Signs Temperature 97.8 F 01/09/18 08:00 Pulse Rate 90 01/09/18 08:00 Respiratory Rate 10 L 01/09/18 08:00 Blood Pressure 143/64 01/09/18 08:00 O2 Sat by Pulse Oximetry (%) 95 01/09/18 05:28 Constitutional: Yes: Calm Eyes: Yes: Conjunctiva Clear HENT: Yes: Atraumatic Cardiovascular: Yes: S1, S2 Respiratory: Yes: CTA Bilaterally Gastrointestinal: Yes: Soft, Abdomen, Obese Renal/: Yes: WNL Musculoskeletal: Yes: Other (right aka) Edema: Yes Edema: LLE: Trace Neurological: Yes: Oriented Psychiatric: Yes: Oriented Labs: CBC, BMP 01/09/18 05:30 01/09/18 05:30 Laboratory Tests 01/09/18 01/09/18 05:30 05:30 Sodium 133 L Potassium 5.1 D Chloride 95 L Carbon Dioxide 26 Anion Gap 12 BUN 57 H Creatinine 7.6 H* Random Glucose 259 H D Iron Pending TIBC Pending Iron Saturation Pending Imaging - Results Cat Scan: Report Reviewed Problem List - Problems (1) HTN (hypertension) Code(s): I10 - ESSENTIAL (PRIMARY) HYPERTENSION (2) ESRD on hemodialysis Code(s): N18.6 - END STAGE RENAL DISEASE; Z99.2 - DEPENDENCE ON RENAL DIALYSIS (3) Wound of buttock Code(s): S31.809A - UNSPECIFIED OPEN WOUND OF UNSPECIFIED BUTTOCK, INIT ENCNTR Assessment/Plan Current Medications Generic Name Dose Route Start Last Admin Trade Name Freq PRN Reason Stop Dose Admin Acetaminophen 650 mg 01/09/18 10:00 01/09/18 09:51 Tylenol - PO 650 mg DAILY NO[facility] Administration Ascorbic Acid 500 mg 01/09/18 10:00 01/09/18 09:51 Vitamin C - PO 500 mg DAILY NOA Administration Atorvastatin Calcium 80 mg 01/09/18 22:00 Lipitor - PO HS [facility] Chlorhexidine Gluconate 1 applic 01/09/18 22:00 Hibiclens For Decolonization - TP HS [facility] Diphenhydramine HCl 25 mg 01/09/18 02:33 Benadryl Injection - IVPUSH Q8H PRN FOR ITCHING Folic Acid 1 mg 01/09/18 10:00 01/09/18 09:52 Folic Acid - PO 1 mg DAILY NO[facility] Administration Gabapentin 100 mg 01/09/18 10:00 01/09/18 09:51 Neurontin - PO 100 mg DAILY [facility] Administration Heparin Sodium (Porcine) 5,000 unit 01/09/18 06:00 01/09/18 06:09 Heparin - SQ 5,000 unit TID [facility] Administration Hydralazine HCl 50 mg 01/09/18 10:00 Apresoline - PO DAILY [facility] Piperacillin Sod/Tazobactam 50 mls @ 100 mls/hr 01/09/18 11:15 Sod 2.25 gm/ Dextrose IVPB Q8H-IV [facility] Protocol Gentamicin Sulfate/Sodium Chloride 80 mg in 100 mls @ 100 mls/hr 01/09/18 10: 57 Garamycin 80 Mg Premixed Ivpb - IVPB 01/09/18 11:56 ONCE ONE Protocol Insulin Aspart 1 vial 01/09/18 07:00 01/09/18 06:08 Novolog Vial Sliding Scale - SQ 8 units ACHS [facility] Administration Protocol Insulin Detemir 12 units 01/09/18 22:00 Levemir Vial SQ HS [facility] Isosorbide Mononitrate 30 mg 01/09/18 10:00 01/09/18 09:51 Imdur - PO 30 mg DAILY [facility] Administration Levothyroxine Sodium 50 mcg 01/09/18 07:00 01/09/18 06:09 Synthroid - PO 50 mcg 0700 [facility] Administration Methylprednisolone Sodium Succinate 40 mg 01/09/18 02:45 01/09/18 09:52 Solu-Medrol - IVPUSH 40 mg Q8H-IV [facility] Administration Metoprolol Succinate 200 mg 01/09/18 10:00 Toprol Xl - PO DAILY [facility] Multivitamins/Minerals/Vitamin C 1 tab 01/09/18 10:00 01/09/18 09:52 Tab-A-Vit - PO 1 tab DAILY [facility] Administration Mupirocin 1 applic 01/09/18 10:00 01/09/18 09:54 Bactroban Ointment (For Decolonization) - NS 01/14/18 09:59 1 applic BID [facility] Administration Impression 1. ESRD 2. DM 3. HTN 4. anemia 5. buttock wound Plan - will arrange for HD today - called [facility] however they have not dialyzed pt - surgery eval for wound - ID eval for abx - monitor BP - will follow Dr Apodaca
--- NOTE | 2018-01-09 11:48 | PN ---
Teaching Attending Note Name of Resident: Zulma Pedroza ATTENDING PHYSICIAN STATEMENT I saw and evaluated the patient. I reviewed the resident's note and discussed the case with the resident. I agree with the resident's findings and plan as documented. SUBJECTIVE: Pt seen and examined in the ICU. States periorbital and perioral swelling improved. No dysphagia or shortness of breath. OBJECTIVE: Vital Signs Period Temp Pulse Resp BP Sys/Chan Pulse Ox Last 24 Hr 97.8 F-100.6 F 90-114 10-19 123-160/43-89 95-96 Intake & Output 01/06/18 01/07/18 01/08/18 01/09/18 23:59 23:59 23:59 23:59 Intake Total 500 Output Total 0 Balance 500 Weight 111.13 kg 115.258 kg Gen: NAD in prone position Heart: RRR Lung: decreased breath sounds at the bases Abd: soft, nontender Ext: R AKA, dressings clean CBC, BMP 01/09/18 05:30 01/09/18 05:30 Active Medications Acetaminophen (Tylenol -) 650 mg PO DAILY [facility] Last Admin: 01/09/18 09:51 Dose: 650 mg Ascorbic Acid (Vitamin C -) 500 mg PO DAILY [facility] Last Admin: 01/09/18 09:51 Dose: 500 mg Atorvastatin Calcium (Lipitor -) 80 mg PO HS [facility] Chlorhexidine Gluconate (Hibiclens For Decolonization -) 1 applic TP HS [facility] Diphenhydramine HCl (Benadryl Injection -) 25 mg IVPUSH Q8H PRN PRN Reason: FOR ITCHING Folic Acid (Folic Acid -) 1 mg PO DAILY [facility] Last Admin: 01/09/18 09:52 Dose: 1 mg Gabapentin (Neurontin -) 100 mg PO DAILY [facility] Last Admin: 01/09/18 09:51 Dose: 100 mg Heparin Sodium (Porcine) (Heparin -) 5,000 unit SQ TID [facility] Last Admin: 01/09/18 06:09 Dose: 5,000 unit Hydralazine HCl (Apresoline -) 50 mg PO DAILY [facility] Piperacillin Sod/Tazobactam (Sod 2.25 gm/ Dextrose) 50 mls @ 100 mls/hr IVPB Q8H-IV [facility]; Protocol Gentamicin Sulfate/Sodium Chloride (Garamycin 80 Mg Premixed Ivpb -) 80 mg in 100 mls @ 100 mls/hr IVPB ONCE ONE; Protocol Stop: 01/09/18 11:56 Sodium Chloride (Normal Saline -) 250 mls @ 3,000 mls/hr IV PRN PRN PRN Reason: Hypotension during Dialysis Stop: 01/10/18 11:38 Insulin Aspart (Novolog Vial Sliding Scale -) 1 vial SQ ACHS [facility]; Protocol Last Admin: 01/09/18 06:08 Dose: 8 units Insulin Detemir (Levemir Vial) 12 units SQ [facility] Isosorbide Mononitrate (Imdur -) 30 mg PO DAILY [facility] Last Admin: 01/09/18 09:51 Dose: 30 mg Levothyroxine Sodium (Synthroid -) 50 mcg PO 0700 [facility] Last Admin: 01/09/18 06:09 Dose: 50 mcg Methylprednisolone Sodium Succinate (Solu-Medrol -) 40 mg IVPUSH Q8H-IV [facility] Last Admin: 01/09/18 09:52 Dose: 40 mg Metoprolol Succinate (Toprol Xl -) 200 mg PO DAILY [facility] Multivitamins/Minerals/Vitamin C (Tab-A-Vit -) 1 tab PO DAILY [facility] Last Admin: 01/09/18 09:52 Dose: 1 tab Mupirocin (Bactroban Ointment (For Decolonization) -) 1 applic NS BID [facility] Stop: 01/14/18 09:59 Last Admin: 01/09/18 09:54 Dose: 1 applic ASSESSMENT AND PLAN: Allergic Reaction/Angioedema Sacral Decubitus/L Buttock Ulcer ESRD on HD HTN DM Hyperlipidemia - continue antibiotics - f/u cultures - wound care - HD per renal - can stop steroids after today - continue antihistamines - glucose control - DVT prophylaxis
[2018-01-09 12:03] LABS: ACANTHOCYTES 0; ANISOCYTOSIS 0; HELMET CELLS 0; HOWELL-JOLLY BODIES 0; MACROCYTOSIS 0; OVALOCYTE 0; PLATELET ESTIMATE NORMAL; ROULEAU 0; SICKELED CELLS 0; TARGET CELLS 0; TEAR DROP CELLS 0; TOXIC GRANULATION 0
[2018-01-09] MEDS ORDERED: SODIUM CHLORIDE 250 ML IV PRN (12:44)
[2018-01-09] MEDS ORDERED: GENTAMICIN 80 MG PREMIXED IVPB 80 MG/100 ML BAG IVPB ONE (12:45)
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
[2018-01-09] MEDS: hydrALAZINE HCL 50 MG TABLET (FP) PO SCH (15:21)
[2018-01-09] MEDS ORDERED: PIPERACILLIN/TAZOBACTAM 2.25 GM VIAL IVPB ONE (17:53)
[2018-01-09] MEDS ORDERED: DEXTROSE 5%-WATER - 50 ML IVPB ONE (17:54)
[2018-01-09] MEDS: PIPERACILLIN/TAZOB 2.25 GM 2.25 GM in DEXTROSE 5%-WATER - 50 ML IVPB SCH (18:00)
[2018-01-09] MEDS: CHLORHEXIDINE GLUCONATE 4% CLEANSER FOR DECOLONIZATION TP SCH (21:36)
[2018-01-09] MEDS: ATORVASTATIN CA 80 MG TABLET (FP) PO SCH (21:36)
[2018-01-09] MEDS: INSULIN (LEVEMIR) 100 UNITS/ML UNITS SQ SCH (21:36)
[2018-01-10] MEDS: methylPREDNISolone NA SUCC 40 MG/1 ML VIAL IVPUSH SCH ×2 (03:13→12:46)
[2018-01-10] MEDS ORDERED: PIPERACILLIN/TAZOBACTAM 2.25 GM VIAL IVPB ONE ×3 (03:21→17:51)
[2018-01-10] MEDS ORDERED: DEXTROSE 5%-WATER - 50 ML IVPB ONE ×3 (03:22→17:51)
[2018-01-10] MEDS: PIPERACILLIN/TAZOB 2.25 GM 2.25 GM in DEXTROSE 5%-WATER - 50 ML IVPB SCH ×4 (03:26→17:50)
[2018-01-10 06:06] LABS: HBSAG SCREEN Negative (Negative); HEP B CORE AB, TOT Negative (Negative)
[2018-01-10 06:06] LABS: SERUM IRON SATURATION 6 % (15-55); TOTAL IRON BINDING CAPACITY 205 ug/dL (250-450); UIBC 192 ug/dL (111-343)
[2018-01-10] MEDS: LEVOTHYROXINE NA 25 MCG TABLET (FP) PO SCH (06:35)
[2018-01-10 06:36] LABS: BASO % 0.3 % (0-2.0); HEMATOCRIT 26.3 % (35.4-49); HEMOGLOBIN 8.3 GM/dL (11.7-16.9); LYMPH % 6.6 % (8-40); MCH 26.4 pg (25.7-33.7); MCHC 31.6 g/dl (32.0-35.9); MEAN CELL VOLUME 83.4 fl (80-96); MEAN PLT VOLUME 7.5 fl (7.5-11.1); MONO % 2.2 % (3.8-10.2); NEUT % 90.9 % (42.8-82.8); PLATELET COUNT 464 K/MM3 (134-434); RBC 3.15 M/mm3 (4.00-5.60); RDW 19.1 % (11.9-15.9); WHITE BLOOD COUNT 16.8 K/mm3 (4.0-10.0)
[2018-01-10] MEDS: INSULIN SLIDING SCALE (NOVOLOG) 1 VIAL SQ SCH ×4 (06:37→22:01)
[2018-01-10] MEDS: HEPARIN NA (PORCINE) 5,000 UNITS/ML 1ML VIAL SQ SCH ×3 (06:37→21:56)
[2018-01-10 06:53] LABS: ALBUMIN 1.6 g/dl (3.4-5.0); ANION GAP 11 MMOL/L (8-16); BLOOD UREA NITROGEN 37 mg/dL (7-18); CALCIUM 7.7 mg/dL (8.5-10.1); CHLORIDE 100 mmol/L (98-107); CO2 28 mmol/L (21-32); GLUCOSE,RANDOM 217 mg/dL (74-106); MAGNESIUM 2.1 mg/dL (1.8-2.4); POTASSIUM 4.3 mmol/L (3.5-5.1); SODIUM 139 mmol/L (136-145)
[2018-01-10 06:58] LABS: ALK PHOS 293 U/L (45-117); BILIRUBIN,TOTAL 0.3 mg/dL (0.2-1.0); CREATININE 5.3 mg/dL (0.7-1.3); PHOSPHOROUS 4.7 mg/dL (2.5-4.9); SGOT/AST 18 U/L (15-37); SGPT/ALT 15 U/L (12-78)
[2018-01-10 07:09] LABS: INR 1.17 (0.83-1.09); PROTHROMBIN TIME (PATIENT) 13.2 SEC (9.7-13.0)
--- NOTE | 2018-01-10 07:13 | PN ---
Physical Exam: SUBJECTIVE: Patient seen and examined this morning. Pt was sleeping on his side , there was no diaphoresis today. Pt awoken easily, he says the facial and oral swelling has decreased, and he has no SOB, difficulty breathing or swallowing, drooling, or chest pain. He denies any pain near the sacral area nor on his penis. He has not had any urine or a BM in 2 days, which he states is normal for him. Pt received dialysis yesterday (Sunday). Pt missed dialysis on Sunday. He refused treatment because "they kept switching his dialysis days". OBJECTIVE: Vital Signs Period Temp Pulse Resp BP Sys/Chan Pulse Ox Last 24 Hr 97.8 F-98.9 F 75-99 10-18 119-171/46-102 100 GENERAL: The patient is awake, alert, and fully oriented. Pt can speak clearly in full sentences and handling secretions. Vitals stable. Pt agitated because we woke him for the exam. HEAD: Normal with no signs of trauma. EYES: PERRL, extraocular movements intact, sclera anicteric, conjunctiva clear. No ptosis. No periorbital edema (improved from yesterday). ENT: External ears normal, nares patent, oropharynx clear without exudates, moist mucous membranes. No perioral edema, no significant pharyngeal erythema ( improved from yesterday). NECK: Trachea midline, full range of motion, supple. LUNGS: Breath sounds equal, clear to auscultation bilaterally, no accessory muscle use. No wheezing today, anterior or posterior b/l. R permacath in R chest wall. HEART: Regular rate and rhythm, S1, S2 without murmur, rub or gallop. ABDOMEN: Soft, nontender, nondistended, normoactive bowel sounds, no guarding, no rebound, no hepatosplenomegaly, no masses. EXTREMITIES: 2+ pulses, warm, well-perfused, no edema. R AKA. NEUROLOGICAL: Cranial nerves II through XII grossly intact. Normal speech, gait not observed. PSYCH: Normal mood, normal affect. SKIN: Warm, dry, normal turgor. Wound vac over sacrum and gluteus clean and dry. Induration over surrounding tissue, no crepitus. Wound vac drained ~5 mL serosanguineous fluid. Laboratory Results - last 24 hr 01/09/18 01/09/18 01/09/18 05:30 05:30 05:30 WBC RBC Hgb Hct MCV MCH MCHC RDW Plt Count MPV Absolute Neuts (auto) Neutrophils % Neutrophils % (Manual) 97.9 H Band Neutrophils % 1.1 Lymphocytes % Lymphocytes % (Manual) 0.0 L Monocytes % Monocytes % (Manual) 0 L Eosinophils % Eosinophils % (Manual) 0.0 Basophils % Basophils % (Manual) 1.0 Myelocytes % (Man) 0 Promyelocytes % (Man) 0 Blast Cells % (Manual) 0 Nucleated RBC % Metamyelocytes 0 Hypochromia 0 Toxic Granulation 0 Dohle Bodies 0 Platelet Estimate Normal Polychromasia 0 Poikilocytosis 0 Basophilic Stippling 0 Anisocytosis 0 Microcytosis 0 Macrocytosis 0 Spherocytes 0 Sickle Cells 0 Target Cells 0 Tear Drop Cells 0 Ovalocytes 0 Stomatocytes 0 Helmet Cells 0 [place] Bodies 0 [place] Rings 0 Baylee Cells 0 Acanthocytes (Spur) 0 Rouleaux 0 Fragmented RBCs 0 Schistocytes 0 ESR Iron 13 L TIBC 205 L Iron Saturation 6 L Vitamin B12 1846 H Hepatitis A Ab Total Hep Bs Antigen Hep Bs Antibody Hep B Core Total Ab Hep C Ab Diagnostic Liver Fibrosis Interp 01/09/18 01/09/18 01/09/18 05:30 12:00 12:00 WBC RBC Hgb Hct MCV MCH MCHC RDW Plt Count MPV Absolute Neuts (auto) Neutrophils % Neutrophils % (Manual) Band Neutrophils % Lymphocytes % Lymphocytes % (Manual) Monocytes % Monocytes % (Manual) Eosinophils % Eosinophils % (Manual) Basophils % Basophils % (Manual) Myelocytes % (Man) Promyelocytes % (Man) Blast Cells % (Manual) Nucleated RBC % Metamyelocytes Hypochromia Toxic Granulation Dohle Bodies Platelet Estimate Polychromasia Poikilocytosis Basophilic Stippling Anisocytosis Microcytosis Macrocytosis Spherocytes Sickle Cells Target Cells Tear Drop Cells Ovalocytes Stomatocytes Helmet Cells [place] Bodies [place] Rings [place] Cells Acanthocytes (Spur) Rouleaux Fragmented RBCs Schistocytes ESR 113 H Iron TIBC Iron Saturation Vitamin B12 Hepatitis A Ab Total Negative Hep Bs Antigen Negative Hep Bs Antibody Non reactive Hep B Core Total Ab Negative Hep C Ab Diagnostic 0.2 Liver Fibrosis Interp 09/06/18 05:30 WBC 16.8 H RBC 3.15 L Hgb 8.3 L Hct 26.3 L MCV 83.4 MCH 26.4 MCHC 31.6 L RDW 19.1 H Plt Count 464 H MPV 7.5 Absolute Neuts (auto) 15.2 H Neutrophils % 90.9 H Neutrophils % (Manual) Band Neutrophils % Lymphocytes % 6.6 L D Lymphocytes % (Manual) Monocytes % 2.2 L D Monocytes % (Manual) Eosinophils % 0.0 Eosinophils % (Manual) Basophils % 0.3 Basophils % (Manual) Myelocytes % (Man) Promyelocytes % (Man) Blast Cells % (Manual) Nucleated RBC % 0 Metamyelocytes Hypochromia Toxic Granulation Dohle Bodies Platelet Estimate Polychromasia Poikilocytosis Basophilic Stippling Anisocytosis Microcytosis Macrocytosis Spherocytes Sickle Cells Target Cells Tear Drop Cells Ovalocytes Stomatocytes Helmet Cells [place] Bodies Leon Rings [place] Cells Acanthocytes (Spur) Rouleaux Fragmented RBCs Schistocytes ESR Iron TIBC Iron Saturation Vitamin B12 Hepatitis A Ab Total Hep Bs Antigen Hep Bs Antibody Hep B Core Total Ab Hep C Ab Diagnostic Liver Fibrosis Interp Active Medications Generic Name Dose Route Start Last Admin Trade Name Freq PRN Reason Stop Dose Admin Acetaminophen 650 mg 01/09/18 10:00 01/09/18 09:51 Tylenol - PO 650 mg DAILY NOA Administration Ascorbic Acid 500 mg 01/09/18 10:00 01/09/18 09:51 Vitamin C - PO 500 mg DAILY NOA Administration Atorvastatin Calcium 80 mg 01/09/18 22:00 01/09/18 21:36 Lipitor - PO 80 mg HS NOA Administration Chlorhexidine Gluconate 1 applic 01/09/18 22:00 01/09/18 21:36 Hibiclens For Decolonization - TP 1 applic HS NOA Administration Diphenhydramine HCl 25 mg 01/09/18 02:33 Benadryl Injection - IVPUSH Q8H PRN FOR ITCHING Folic Acid 1 mg 01/09/18 10:00 01/09/18 09:52 Folic Acid - PO 1 mg DAILY NOA Administration Gabapentin 100 mg 01/09/18 10:00 01/09/18 09:51 Neurontin - PO 100 mg DAILY NOA Administration Heparin Sodium (Porcine) 5,000 unit 01/09/18 06:00 01/10/18 06:37 Heparin - SQ 5,000 unit TID NOA Administration Hydralazine HCl 50 mg 01/09/18 10:00 01/09/18 15:21 Apresoline - PO 50 mg DAILY NOA Administration Piperacillin Sod/Tazobactam 50 mls @ 100 mls/hr 01/09/18 11:15 01/10/18 03:27 Sod 2.25 gm/ Dextrose IVPB 100 mls/hr Q8H-IV NOA Administration Protocol Sodium Chloride 250 mls @ 3,000 mls/hr 01/09/18 12:44 Normal Saline - IV 01/10/18 12:43 PRN PRN Hypotension during Dialysis Insulin Aspart 1 vial 01/09/18 07:00 01/10/18 06:37 Novolog Vial Sliding Scale - SQ 4 units ACHS NOA Administration Protocol Insulin Detemir 12 units 01/09/18 22:00 01/09/18 21:36 Levemir Vial SQ 12 units HS NOA Administration Isosorbide Mononitrate 30 mg 01/09/18 10:00 01/09/18 09:51 Imdur - PO 30 mg DAILY NOA Administration Levothyroxine Sodium 50 mcg 01/09/18 07:00 01/10/18 06:35 Synthroid - PO 50 mcg 0700 NOA Administration Methylprednisolone Sodium Succinate 40 mg 01/09/18 02:45 01/10/18 03:13 Solu-Medrol - IVPUSH 40 mg Q8H-IV NOA Administration Metoprolol Succinate 200 mg 01/09/18 10:00 01/09/18 15:20 Toprol Xl - PO 200 mg DAILY NOA Administration Multivitamins/Minerals/Vitamin C 1 tab 01/09/18 10:00 01/09/18 09:52 Tab-A-Vit - PO 1 tab DAILY NOA Administration Mupirocin 1 applic 01/09/18 10:00 01/09/18 21:37 Bactroban Ointment (For Decolonization) - NS 01/14/18 09:59 1 applic BID NOA Administration ASSESSMENT/PLAN: Pt is a 27 yo M with PMH of ESRD (HD T/Th/Sat w/ R chest permacath), R AKA, HTN, HLD, and DM, who presented to the ER from [facility] with leukocytosis likely 2/2 to pilonidal and gluteal abscess, complicated by angioedema 2/2 to morphine administration. 1. Angioedema (resolved) -Benadryl, Epi, Epi-pen, Pepcid, and 125 mg Solumedrol provided in ER -40 Solumedrol Q8Hr -Periorbital and perioral swelling has improved 2. Sacral/Gluteal Ulcer/MSK -2 g Vanc and 4.5 g Zosyn provided in ER with 4 L NS; Providing Zosyn 2.25 g Q8hr. Micro showed gram+ cocci in clusters; Added 1 g IV Vanc once. Spoke with Dr. Tabor (ID) who agreed. -ID following (Dr. Ratliff/[place]) -No surgical intervention at this point, Dr. Olson to follow. Wound vac in place with sterile dressings applied. Draining small amount of serosanguineous fluid. -Lactic acid has been WNL. Blood and wound site cultures grew Pseuodomonas and gram + cocci in clusters. Will repeat cultures tomorrow per ID. -Leukocytosis 16.8 today (improved from 29 yesterday) -- spike likely due to steroids given for angioedema. -ESR [address] Pelvis showed no sign of osteomyelitis. 2 areas of air bubbles/soft tissue swelling w/n L buttocks and L gluteus radha. -Gabapentin 100 mg Qday -R AKA site clean and intact. 3. ESRD -HD yesterday, will receive HD tomorrow. -BUN/Cr 37/5.3 today, (improved from 57/7.6 yesterday) pt states Cr was 2.1 after last HD session on Sunday. -Hep A/B/C Panels negative. -Will call [facility] for kidney biopsy results, requested by Dr. Apodaca. Request being faxed. -Continue to monitor BUN/Cr and electrolytes, will replete or reduce as needed. 4. HTN/HLD -Atorvastatin 80 mg HS -Hydralazine 50 mg Qday and Metoprolol 200 Qday 5. DM -Insulin sliding scale and Levemir 12 u HS -Glucose from CMP 217 today. Following with bedside glucose checks. -Diabetic diet until any surgical intervention, will switch to NPO if needed 6. Prophylaxis -Heparin 5000 TID Problem List - Problems (1) Allergic reaction Code(s): T78.40XA - ALLERGY, UNSPECIFIED, INITIAL ENCOUNTER (2) ESRD on hemodialysis Code(s): N18.6 - END STAGE RENAL DISEASE; Z99.2 - DEPENDENCE ON RENAL DIALYSIS (3) HTN (hypertension) Code(s): I10 - ESSENTIAL (PRIMARY) HYPERTENSION (4) Wound of buttock Code(s): S31.809A - UNSPECIFIED OPEN WOUND OF UNSPECIFIED BUTTOCK, INIT ENCNTR (5) Wound of sacral region Code(s): S31.000A - UNSP OPN WND LOW BACK AND PELV W/O PENET RETROPERITON, INIT Visit type - Emergency Visit Emergency Visit: Yes ED Registration Date: 01/08/18 Care time: The patient presented to the Emergency Department on the above date and was hospitalized for further evaluation of their emergent condition. - New Patient This patient is new to me today: No - Critical Care Critical Care patient: Yes Total Critical Care Time (in minutes): 35 Critical Care Statement: The care of this patient involved high complexity decision making to prevent further life threatening deterioration of the patient 's condition and/or to evaluate & treat vital organ system(s) failure or risk of failure. - Discharge Referral Referred to [facility] Yes
[2018-01-10] MEDS: ASCORBIC ACID 500 MG TABLET (FP) PO SCH (10:00)
[2018-01-10] MEDS: MULTIVITAMINS (DAILY MVI) TABLET (FP) PO SCH (10:00)
[2018-01-10] MEDS: ACETAMINOPHEN 325 MG TABLET (FP) PO SCH (10:00)
[2018-01-10] MEDS: FOLIC ACID 1 MG TABLET (FP) PO SCH (10:00)
--- NOTE | 2018-01-10 10:09 | PN ---
Progress Note (short form) - Note Progress Note: Progress Note, Physician Chief Complaint: no complaints No SOB states his facial swelling has decreased was seen by Surgeon yesterday-- no surgery planned-- local wound care/dressing changes Vital Signs - 24 hr 01/09/18 01/09/18 01/09/18 12:00 12:10 12:40 Temperature Pulse Rate 83 75 90 Respiratory 18 18 18 Rate Blood Pressure 149/66 143/53 119/94 O2 Sat by Pulse Oximetry (%) 01/09/18 01/09/18 01/09/18 13:10 13:40 14:00 Temperature Pulse Rate 95 H 99 H 96 H Respiratory 18 18 15 Rate Blood Pressure 127/46 127/70 170/56 O2 Sat by Pulse Oximetry (%) 01/09/18 01/09/18 01/09/18 14:10 14:40 15:10 Temperature Pulse Rate 95 H 96 H 96 H Respiratory 18 18 18 Rate Blood Pressure 171/72 157/65 162/92 O2 Sat by Pulse Oximetry (%) 01/09/18 01/09/18 01/09/18 15:25 15:45 16:00 Temperature 98.9 F Pulse Rate 96 H 93 H 93 H Respiratory 18 18 14 Rate Blood Pressure 148/80 144/59 146/61 O2 Sat by Pulse Oximetry (%) 01/09/18 01/09/18 01/09/18 18:00 20:00 21:00 Temperature Pulse Rate 98 H 85 Respiratory 13 15 15 Rate Blood Pressure 130/70 126/54 O2 Sat by Pulse 100 Oximetry (%) 01/09/18 01/10/18 01/10/18 22:00 00:00 02:00 Temperature 98.3 F 98 F Pulse Rate 81 81 78 Respiratory 15 16 15 Rate Blood Pressure 141/102 150/71 152/72 O2 Sat by Pulse Oximetry (%) 01/10/18 01/10/18 01/10/18 04:00 06:00 08:00 Temperature 98.4 F Pulse Rate 78 80 81 Respiratory 16 15 15 Rate Blood Pressure 147/74 137/67 137/67 O2 Sat by Pulse Oximetry (%) 01/10/18 08:57 Temperature 98.4 F Pulse Rate 80 Respiratory 15 Rate Blood Pressure 137/67 O2 Sat by Pulse Oximetry (%) Current Medications Generic Name Dose Route Start Last Admin Trade Name Freq PRN Reason Stop Dose Admin Acetaminophen 650 mg 01/09/18 10:00 01/09/18 09:51 Tylenol - PO 650 mg DAILY NOA Administration Ascorbic Acid 500 mg 01/09/18 10:00 01/09/18 09:51 Vitamin C - PO 500 mg DAILY NOA Administration Atorvastatin Calcium 80 mg 01/09/18 22:00 01/09/18 21:36 Lipitor - PO 80 mg HS NOA Administration Chlorhexidine Gluconate 1 applic 01/09/18 22:00 01/09/18 21:36 Hibiclens For Decolonization - TP 1 applic HS NOA Administration Diphenhydramine HCl 25 mg 01/09/18 02:33 Benadryl Injection - IVPUSH Q8H PRN FOR ITCHING Folic Acid 1 mg 01/09/18 10:00 01/09/18 09:52 Folic Acid - PO 1 mg DAILY NOA Administration Gabapentin 100 mg 01/09/18 10:00 01/09/18 09:51 Neurontin - PO 100 mg DAILY NOA Administration Heparin Sodium (Porcine) 5,000 unit 01/09/18 06:00 01/10/18 06:37 Heparin - SQ 5,000 unit TID NOA Administration Hydralazine HCl 50 mg 01/09/18 10:00 01/09/18 15:21 Apresoline - PO 50 mg DAILY NOA Administration Piperacillin Sod/Tazobactam 50 mls @ 100 mls/hr 01/09/18 11:15 01/10/18 03:27 Sod 2.25 gm/ Dextrose IVPB 100 mls/hr Q8H-IV NOA Administration Protocol Sodium Chloride 250 mls @ 3,000 mls/hr 01/09/18 12:44 Normal Saline - IV 01/10/18 12:43 PRN PRN Hypotension during Dialysis Insulin Aspart 1 vial 01/09/18 07:00 01/10/18 06:37 Novolog Vial Sliding Scale - SQ 4 units ACHS NOA Administration Protocol Insulin Detemir 12 units 01/09/18 22:00 01/09/18 21:36 Levemir Vial SQ 12 units HS NOA Administration Isosorbide Mononitrate 30 mg 01/09/18 10:00 01/09/18 09:51 Imdur - PO 30 mg DAILY NOA Administration Levothyroxine Sodium 50 mcg 01/09/18 07:00 01/10/18 06:35 Synthroid - PO 50 mcg 0700 NOA Administration Methylprednisolone Sodium Succinate 40 mg 01/09/18 02:45 01/10/18 03:13 Solu-Medrol - IVPUSH 40 mg Q8H-IV NOA Administration Metoprolol Succinate 200 mg 01/09/18 10:00 01/09/18 15:20 Toprol Xl - PO 200 mg DAILY NOA Administration Multivitamins/Minerals/Vitamin C 1 tab 01/09/18 10:00 01/09/18 09:52 Tab-A-Vit - PO 1 tab DAILY NOA Administration Mupirocin 1 applic 01/09/18 10:00 01/09/18 21:37 Bactroban Ointment (For Decolonization) - NS 01/14/18 09:59 1 applic BID NOA Administration Laboratory Results - last 24 hr 01/09/18 01/09/18 01/09/18 05:30 05:30 12:00 WBC RBC Hgb Hct MCV MCH MCHC RDW Plt Count MPV Absolute Neuts (auto) Neutrophils % Neutrophils % (Manual) 97.9 H Band Neutrophils % 1.1 Lymphocytes % Lymphocytes % (Manual) 0.0 L Monocytes % Monocytes % (Manual) 0 L Eosinophils % Eosinophils % (Manual) 0.0 Basophils % Basophils % (Manual) 1.0 Myelocytes % (Man) 0 Promyelocytes % (Man) 0 Blast Cells % (Manual) 0 Nucleated RBC % Metamyelocytes 0 Hypochromia 0 Toxic Granulation 0 Dohle Bodies 0 Platelet Estimate Normal Polychromasia 0 Poikilocytosis 0 Basophilic Stippling 0 Anisocytosis 0 Microcytosis 0 Macrocytosis 0 Spherocytes 0 Sickle Cells 0 Target Cells 0 Tear Drop Cells 0 Ovalocytes 0 Stomatocytes 0 Helmet Cells 0 [place] Bodies 0 [place] Rings 0 Baylee Cells 0 Acanthocytes (Spur) 0 Rouleaux 0 Fragmented RBCs 0 Schistocytes 0 PT with INR INR Sodium Potassium Chloride Carbon Dioxide Anion Gap BUN Creatinine Creat Clearance w eGFR Random Glucose Calcium Phosphorus Magnesium Iron 13 L TIBC 205 L Iron Saturation 6 L Total Bilirubin AST ALT Alkaline Phosphatase Total Protein Albumin Random Vancomycin Hepatitis A Ab Total Hep Bs Antigen Hep Bs Antibody Hep B Core Total Ab Hep C Ab Diagnostic 0.2 Liver Fibrosis Interp 01/09/18 01/10/18 01/10/18 12:00 05:30 05:30 WBC RBC Hgb Hct MCV MCH MCHC RDW Plt Count MPV Absolute Neuts (auto) Neutrophils % Neutrophils % (Manual) Band Neutrophils % Lymphocytes % Lymphocytes % (Manual) Monocytes % Monocytes % (Manual) Eosinophils % Eosinophils % (Manual) Basophils % Basophils % (Manual) Myelocytes % (Man) Promyelocytes % (Man) Blast Cells % (Manual) Nucleated RBC % Metamyelocytes Hypochromia Toxic Granulation Dohle Bodies Platelet Estimate Polychromasia Poikilocytosis Basophilic Stippling Anisocytosis Microcytosis Macrocytosis Spherocytes Sickle Cells Target Cells Tear Drop Cells Ovalocytes Stomatocytes Helmet Cells [place] Bodies [place] Rings [place] Cells Acanthocytes (Spur) Rouleaux Fragmented RBCs Schistocytes PT with INR 13.20 H INR 1.17 H Sodium Potassium Chloride Carbon Dioxide Anion Gap BUN Creatinine Creat Clearance w eGFR Random Glucose Calcium Phosphorus Magnesium Iron TIBC Iron Saturation Total Bilirubin AST ALT Alkaline Phosphatase Total Protein Albumin Random Vancomycin 14.49 Hepatitis A Ab Total Negative Hep Bs Antigen Negative Hep Bs Antibody Non reactive Hep B Core Total Ab Negative Hep C Ab Diagnostic Liver Fibrosis Interp 01/10/18 01/10/18 05:30 05:30 WBC 16.8 H RBC 3.15 L Hgb 8.3 L Hct 26.3 L MCV 83.4 MCH 26.4 MCHC 31.6 L RDW 19.1 H Plt Count 464 H MPV 7.5 Absolute Neuts (auto) 15.2 H Neutrophils % 90.9 H Neutrophils % (Manual) Band Neutrophils % Lymphocytes % 6.6 L D Lymphocytes % (Manual) Monocytes % 2.2 L D Monocytes % (Manual) Eosinophils % 0.0 Eosinophils % (Manual) Basophils % 0.3 Basophils % (Manual) Myelocytes % (Man) Promyelocytes % (Man) Blast Cells % (Manual) Nucleated RBC % 0 Metamyelocytes Hypochromia Toxic Granulation Dohle Bodies Platelet Estimate Polychromasia Poikilocytosis Basophilic Stippling Anisocytosis Microcytosis Macrocytosis Spherocytes Sickle Cells Target Cells Tear Drop Cells Ovalocytes Stomatocytes Helmet Cells [place] Bodies [place] Rings [place] Cells Acanthocytes (Spur) Rouleaux Fragmented RBCs Schistocytes PT with INR INR Sodium 139 Potassium 4.3 Chloride 100 Carbon Dioxide 28 Anion Gap 11 BUN 37 H Creatinine 5.3 H Creat Clearance w eGFR 12.99 Random Glucose 217 H Calcium 7.7 L Phosphorus 4.7 Magnesium 2.1 Iron TIBC Iron Saturation Total Bilirubin 0.3 AST 18 D ALT 15 Alkaline Phosphatase 293 H D Total Protein 6.0 L Albumin 1.6 L Random Vancomycin Hepatitis A Ab Total Hep Bs Antigen Hep Bs Antibody Hep B Core Total Ab Hep C Ab Diagnostic Liver Fibrosis Interp Constitutional: Yes: No Distress, Calm Eyes: Yes: Other (periorbital edema, lips edema+)-- decreased Cardiovascular: Yes: Regular Rate and Rhythm Respiratory: Yes: Diminished Gastrointestinal: Yes: Normal Bowel Sounds, Soft. No: Tenderness Extremities: Yes: Amputation (right AKA) Edema: Yes Edema: LLE: 2+ Labs: Problem List - Problems (1) Allergic reaction Code(s): T78.40XA - ALLERGY, UNSPECIFIED, INITIAL ENCOUNTER (2) ESRD on hemodialysis Code(s): N18.6 - END STAGE RENAL DISEASE; Z99.2 - DEPENDENCE ON RENAL DIALYSIS (3) Wound of buttock Code(s): S31.809A - UNSPECIFIED OPEN WOUND OF UNSPECIFIED BUTTOCK, INIT ENCNTR (4) Wound of sacral region Code(s): S31.000A - UNSP OPN WND LOW BACK AND PELV W/O PENET RETROPERITON, INIT Assessment/Plan PLAN CT pelvis noted-- pt on receiving checker antibiotics in [place] No surgical interventions planned had reviewed records from [facility]-- seen by ID - Dr Pearce there - - on GM during HD x 3 weeks On Solumedrol IV ok to transfer to the floors clinically better continue with current care DM control dialyzed yesterday Problem List - Problems (1) Allergic reaction Code(s): T78.40XA - ALLERGY, UNSPECIFIED, INITIAL ENCOUNTER (2) ESRD on hemodialysis Code(s): N18.6 - END STAGE RENAL DISEASE; Z99.2 - DEPENDENCE ON RENAL DIALYSIS (3) Wound of buttock Code(s): S31.809A - UNSPECIFIED OPEN WOUND OF UNSPECIFIED BUTTOCK, INIT ENCNTR (4) Wound of sacral region Code(s): S31.000A - UNSP OPN WND LOW BACK AND PELV W/O PENET RETROPERITON, INIT
[2018-01-10] MEDS ORDERED: VANCOMYCIN 1,500 MG in DEXTROSE 5%-WATER - 500 ML IVPB ONE (12:00)
--- NOTE | 2018-01-10 12:05 | PN ---
Teaching Attending Note Name of Resident: Zulma Pedroza ATTENDING PHYSICIAN STATEMENT I saw and evaluated the patient. I reviewed the resident's note and discussed the case with the resident. I agree with the resident's findings and plan as documented. SUBJECTIVE: Pt seen and examined in the ICU. Facial swelling resolved. No dysphagia or shortness of breath. No intervention planned by surgery. Wound vac placed. OBJECTIVE: Vital Signs Period Temp Pulse Resp BP Sys/Chan Pulse Ox Last 24 Hr 98 F-98.9 F 75-99 1018 110-171/46-102 100-100 Intake & Output 01/07/18 01/08/18 01/09/18 01/10/18 23:59 23:59 23:59 23:59 Intake Total 5280 100 Output Total 0 100 Balance 5280 0 Weight 111.13 kg 115.258 kg 113.534 kg Gen: NAD at rest Heart: RRR Lung: decreased breath sounds at the bases Abd: soft, nontender Ext: R AKA CBC, BMP 01/10/18 05:30 01/10/18 05:30 Active Medications Acetaminophen (Tylenol -) 650 mg PO DAILY [facility] Last Admin: 01/09/18 09:51 Dose: 650 mg Ascorbic Acid (Vitamin C -) 500 mg PO DAILY [facility] Last Admin: 01/09/18 09:51 Dose: 500 mg Atorvastatin Calcium (Lipitor -) 80 mg PO HS [facility] Last Admin: 01/09/18 21:36 Dose: 80 mg Chlorhexidine Gluconate (Hibiclens For Decolonization -) 1 applic TP HS [facility] Last Admin: 01/09/18 21:36 Dose: 1 applic Diphenhydramine HCl (Benadryl Injection -) 25 mg IVPUSH Q8H PRN PRN Reason: FOR ITCHING Folic Acid (Folic Acid -) 1 mg PO DAILY [facility] Last Admin: 01/09/18 09:52 Dose: 1 mg Gabapentin (Neurontin -) 100 mg PO DAILY [facility] Last Admin: 01/09/18 09:51 Dose: 100 mg Heparin Sodium (Porcine) (Heparin -) 5,000 unit SQ TID [facility] Last Admin: 01/10/18 06:37 Dose: 5,000 unit Hydralazine HCl (Apresoline -) 50 mg PO DAILY [facility] Last Admin: 01/09/18 15:21 Dose: 50 mg Piperacillin Sod/Tazobactam (Sod 2.25 gm/ Dextrose) 50 mls @ 100 mls/hr IVPB Q8H-IV NOA; Protocol Last Admin: 01/10/18 03:27 Dose: 100 mls/hr Sodium Chloride (Normal Saline -) 250 mls @ 3,000 mls/hr IV PRN PRN PRN Reason: Hypotension during Dialysis Stop: 01/10/18 12:43 Vancomycin HCl 1,500 mg/ (Dextrose) 500 mls @ 250 mls/hr IVPB ONCE ONE; Protocol Stop: 01/10/18 13:59 Insulin Aspart (Novolog Vial Sliding Scale -) 1 vial SQ ACHS [facility]; Protocol Last Admin: 01/10/18 06:37 Dose: 4 units Insulin Detemir (Levemir Vial) 12 units SQ HS [facility] Last Admin: 01/09/18 21:36 Dose: 12 units Isosorbide Mononitrate (Imdur -) 30 mg PO DAILY [facility] Last Admin: 01/09/18 09:51 Dose: 30 mg Levothyroxine Sodium (Synthroid -) 50 mcg PO 0700 [facility] Last Admin: 01/10/18 06:35 Dose: 50 mcg Methylprednisolone Sodium Succinate (Solu-Medrol -) 40 mg IVPUSH Q8H-IV [facility] Last Admin: 01/10/18 03:13 Dose: 40 mg Metoprolol Succinate (Toprol Xl -) 200 mg PO DAILY [facility] Last Admin: 01/09/18 15:20 Dose: 200 mg Multivitamins/Minerals/Vitamin C (Tab-A-Vit -) 1 tab PO DAILY [facility] Last Admin: 01/09/18 09:52 Dose: 1 tab Mupirocin (Bactroban Ointment (For Decolonization) -) 1 applic NS BID [facility] Stop: 01/14/18 09:59 Last Admin: 01/09/18 21:37 Dose: 1 applic ASSESSMENT AND PLAN: Allergic Reaction/Angioedema resolved Sacral Decubitus/L Buttock Ulcer ESRD on HD HTN DM Hyperlipidemia - continue antibiotics - f/u cultures - wound care - HD per renal - can d/c medrol - antihistamines as needed - glucose control - DVT prophylaxis - can monitor on floor
[2018-01-10] MEDS: hydrALAZINE HCL 50 MG TABLET (FP) PO SCH (12:36)
[2018-01-10] MEDS: MUPIROCIN 2% TOPICAL OINTMENT FOR DECOLONIZATION NS SCH (12:36)
[2018-01-10] MEDS: GABAPENTIN 100 MG CAPSULE (FP) PO SCH (12:38)
--- NOTE | 2018-01-10 14:39 | PN ---
Progress Note, Physician History of Present Illness: Pt seen and examined at bedside. He is awake and alert. He did have a kidney biopsy in July however says that he does not know what the results were. He was started on HD shortly after that. - Current Medication List Current Medications: Active Medications Acetaminophen (Tylenol -) 650 mg PO DAILY [facility] Last Admin: 01/10/18 10:00 Dose: 650 mg Ascorbic Acid (Vitamin C -) 500 mg PO DAILY [facility] Last Admin: 01/10/18 10:00 Dose: 500 mg Atorvastatin Calcium (Lipitor -) 80 mg PO HS [facility] Last Admin: 01/09/18 21:36 Dose: 80 mg Chlorhexidine Gluconate (Hibiclens For Decolonization -) 1 applic TP HS [facility] Last Admin: 01/09/18 21:36 Dose: 1 applic Diphenhydramine HCl (Benadryl Injection -) 25 mg IVPUSH Q8H PRN PRN Reason: FOR ITCHING Folic Acid (Folic Acid -) 1 mg PO DAILY [facility] Last Admin: 01/10/18 10:00 Dose: 1 mg Gabapentin (Neurontin -) 100 mg PO DAILY [facility] Last Admin: 01/10/18 12:38 Dose: 100 mg Heparin Sodium (Porcine) (Heparin -) 5,000 unit SQ TID [facility] Last Admin: 01/10/18 06:37 Dose: 5,000 unit Hydralazine HCl (Apresoline -) 50 mg PO DAILY [facility] Last Admin: 01/10/18 12:36 Dose: 50 mg Piperacillin Sod/Tazobactam (Sod 2.25 gm/ Dextrose) 50 mls @ 100 mls/hr IVPB Q8H-IV [facility]; Protocol Last Admin: 01/10/18 10:00 Dose: 100 mls/hr Insulin Aspart (Novolog Vial Sliding Scale -) [address] [facility]; Protocol Last Admin: 01/10/18 12:42 Dose: 8 units Insulin Detemir (Levemir Vial) 12 units SQ [facility] Last Admin: 01/09/18 21:36 Dose: 12 units Isosorbide Mononitrate (Imdur -) 30 mg PO DAILY [facility] Last Admin: 01/09/18 09:51 Dose: 30 mg Levothyroxine Sodium (Synthroid -) 50 mcg PO 0700 [facility] Last Admin: 01/10/18 06:35 Dose: 50 mcg Metoprolol Succinate (Toprol Xl -) 200 mg PO DAILY [facility] Last Admin: 01/09/18 15:20 Dose: 200 mg Multivitamins/Minerals/Vitamin C (Tab-A-Vit -) 1 tab PO DAILY [facility] Last Admin: 01/10/18 10:00 Dose: 1 tab Mupirocin (Bactroban Ointment (For Decolonization) -) 1 applic NS BID [facility] Stop: 01/14/18 09:59 Last Admin: 01/10/18 12:36 Dose: 1 applic - Objective Vital Signs: Vital Signs Temperature 98.4 F 01/10/18 08:57 Pulse Rate 82 01/10/18 13:00 Respiratory Rate 16 01/10/18 13:00 Blood Pressure 120/88 01/10/18 13:00 O2 Sat by Pulse Oximetry (%) 100 01/10/18 09:00 Constitutional: Yes: Calm Eyes: Yes: Conjunctiva Clear HENT: Yes: Atraumatic Cardiovascular: Yes: S1, S2 Respiratory: Yes: CTA Bilaterally Gastrointestinal: Yes: Soft, Abdomen, Obese Genitourinary: Yes: WNL Musculoskeletal: Yes: WNL Edema: No Integumentary: Yes: Tattoos Neurological: Yes: Oriented Psychiatric: Yes: Oriented Labs: CBC, BMP 01/10/18 05:30 01/10/18 05:30 INR, PTT INR 1.17 (0.83-1.09) H 01/10/18 05:30 Problem List - Problems (1) HTN (hypertension) Code(s): I10 - ESSENTIAL (PRIMARY) HYPERTENSION (2) ESRD on hemodialysis Code(s): N18.6 - END STAGE RENAL DISEASE; Z99.2 - DEPENDENCE ON RENAL DIALYSIS (3) Wound of buttock Code(s): S31.809A - UNSPECIFIED OPEN WOUND OF UNSPECIFIED BUTTOCK, INIT ENCNTR Assessment/Plan Current Medications Generic Name Dose Route Start Last Admin Trade Name Freq PRN Reason Stop Dose Admin Acetaminophen 650 mg 01/09/18 10:00 01/10/18 10:00 Tylenol - PO 650 mg DAILY [facility] Administration Ascorbic Acid 500 mg 01/09/18 10:00 01/10/18 10:00 Vitamin C - PO 500 mg DAILY [facility] Administration Atorvastatin Calcium 80 mg 01/09/18 22:00 01/09/18 21:36 Lipitor - PO 80 mg HS [facility] Administration Chlorhexidine Gluconate 1 applic 01/09/18 22:00 01/09/18 21:36 Hibiclens For Decolonization - TP 1 applic HS [facility] Administration Diphenhydramine HCl 25 mg 01/09/18 02:33 Benadryl Injection - IVPUSH Q8H PRN FOR ITCHING Folic Acid 1 mg 01/09/18 10:00 01/10/18 10:00 Folic Acid - PO 1 mg DAILY [facility] Administration Gabapentin 100 mg 01/09/18 10:00 01/10/18 12:38 Neurontin - PO 100 mg DAILY [facility] Administration Heparin Sodium (Porcine) 5,000 unit 01/09/18 06:00 01/10/18 06:37 Heparin - SQ 5,000 unit TID [facility] Administration Hydralazine HCl 50 mg 01/09/18 10:00 01/10/18 12:36 Apresoline - PO 50 mg DAILY [facility] Administration Piperacillin Sod/Tazobactam 50 mls @ 100 mls/hr 01/09/18 11:15 01/10/18 10:00 Sod 2.25 gm/ Dextrose IVPB 100 mls/hr Q8H-IV [facility] Administration Protocol Insulin Aspart 1 vial 01/09/18 07:00 01/10/18 12:42 Novolog Vial Sliding Scale - SQ 8 units ACHS [facility] Administration Protocol Insulin Detemir 12 units 01/09/18 22:00 01/09/18 21:36 Levemir Vial SQ 12 units HS [facility] Administration Isosorbide Mononitrate 30 mg 01/09/18 10:00 01/09/18 09:51 Imdur - PO 30 mg DAILY [facility] Administration Levothyroxine Sodium 50 mcg 01/09/18 07:00 01/10/18 06:35 Synthroid - PO 50 mcg 0700 [facility] Administration Metoprolol Succinate 200 mg 01/09/18 10:00 01/09/18 15:20 Toprol Xl - PO 200 mg DAILY [facility] Administration Multivitamins/Minerals/Vitamin C 1 tab 01/09/18 10:00 01/10/18 10:00 Tab-A-Vit - PO 1 tab DAILY [facility] Administration Mupirocin 1 applic 01/09/18 10:00 01/10/18 12:36 Bactroban Ointment (For Decolonization) - NS 01/14/18 09:59 1 applic BID [facility] Administration Microbiology 01/08/18 23:38 Buttock - Left Gram Stain - Final 01/08/18 23:38 Back Gram Stain - Final 01/08/18 23:38 Buttock - Left Wound Culture - Preliminary Pseudomonas Species 01/08/18 23:38 Back Wound Culture - Preliminary Pseudomonas Species Lactose Fermenting Neg Bacilli 01/08/18 22:56 Blood - Peripheral Venous Blood Culture - Preliminary Pending Organism 01/08/18 22:56 Blood - Peripheral Venous Blood Culture - Preliminary Pending Organism Impression 1. ESRD 2. DM 3. HTN 4. anemia 5. buttock wound 6. allergic reaction Plan - next HD tomorrow - will try to get records from facility [facility] to see what kidney biopsy showed - will need a fistula once infection is clear - abx per ID - ICU monitoring - discussed with family - monitor BP - will follow Dr Apodaca
[2018-01-10] MEDS: ISOSORBIDE MONONITRATE 30 MG TAB.SR.24H (FP) PO SCH (15:23)
--- NOTE | 2018-01-10 15:28 | CON.ID ---
Consult - History of Present Illness History of Present Illness: Asked to evaluate this 27 yr old male with PMH of ESRD on HD (//Sun) via permacath, HTN, HLD, IDDM, s/p Rt AKA who was hospitalized for an extended period of time at [facility] during which he underwent debridement of Lt buttock/midline DU/Abscess. He was discharged on Zosyn/Vancomycin/Gentamicin as per pt to complete 3 more weeks of antibiotics. Pt was transferred to [facility] but wound care was not available and pt came to the ER. In the interim pt missed one HD session. In the ER pt noted to develop periorbital/perioral swelling/rash after morphine administration. Pt is currently in the ICU with resolution of symptoms. He is alert, afebrile, without acute distress. He has been evaluated by surgery who decided no further surgical management was necessary. A wound vac has been applied to the Lt buttock/sacral region. - History Source History Provided By: Patient Limitations to Obtaining History: No Limitations - Past Medical History Cardio/Vascular: Yes: HTN Renal/: Yes: Renal Failure, Hemodialysis Endocrine: Yes: Diabetes Mellitus - Past Surgical History Additional Surgical History: right AKA - Alcohol/Substance Use Hx Alcohol Use: No - Smoking History Smoking history: Never smoked Have you smoked in the past 12 months: No Home Medications - Allergies Allergies/Adverse Reactions: Allergies Allergy/AdvReac Type Severity Reaction Status Date / Time morphine Allergy Severe Swelling Verified 01/09/18 01:24 - Home Medications Home Medications: Ambulatory Orders Acetaminophen [Pain Relief] 650 mg PO DAILY 01/08/18 Ascorbic Acid [C-500] 500 mg PO DAILY 01/08/18 Atorvastatin Calcium 80 mg PO DAILY 01/08/18 Calcium Acetate [Phoslo -] 667 mg PO TIDCM 01/08/18 Ergocalciferol (Vitamin D2) [Drisdol] 50,000 unit PO DAILY 01/08/18 Folic Acid 1 mg PO DAILY 01/08/18 Gabapentin 100 mg PO DAILY 01/08/18 Gentamicin in NaCl, Iso-Osm [Gentamicin 80 mg/Ns 100 ml Pb] 80 mg IV DAILY 01/08 Hydralazine HCl 50 mg PO DAILY 01/08/18 Insulin (Levemir) [Levemir Vial] 12 unit SQ DAILY 01/08/18 Isosorbide Mononitrate [Isosorbide Mononitrate ER] 30 mg PO DAILY 01/08/18 Levothyroxine [Synthroid -] 50 mcg PO DAILY 01/08/18 Metoprolol Succinate 200 mg PO DAILY 01/08/18 Multivitamin [One Daily] 1 each PO DAILY 01/08/18 Oxycodone HCl 10 mg PO QID 01/08/18 Sennosides [Senna] 8.6 mg PO DAILY 01/08/18 Tuberculin,Purif.prot.deriv. [Tubersol] 5 tub ID DAILY 01/08/18 Family Disease History - Family Disease History Other Family History: DM Review of Systems - Review of Systems Constitutional: reports: No Symptoms Eyes: reports: No Symptoms HENT: reports: No Symptoms Neck: reports: No Symptoms Cardiovascular: reports: No Symptoms Respiratory: reports: No Symptoms Gastrointestinal: reports: No Symptoms Genitourinary: reports: No Symptoms Musculoskeletal: reports: No Symptoms Integumentary: reports: Other (Sacral/Lt buttock wound) Neurological: reports: No Symptoms Endocrine: reports: No Symptoms Psychiatric: reports: No Symptoms Physical Exam Vital Signs: Vital Signs Temperature 98.4 F 01/10/18 08:57 Pulse Rate 82 01/10/18 13:00 Respiratory Rate 16 01/10/18 13:00 Blood Pressure 120/88 01/10/18 13:00 O2 Sat by Pulse Oximetry (%) 100 01/10/18 09:00 Constitutional: Yes: No Distress, Calm Cardiovascular: Yes: Regular Rate and Rhythm Respiratory: Yes: CTA Bilaterally Gastrointestinal: Yes: Normal Bowel Sounds, Soft Musculoskeletal: Yes: WNL Extremities: Yes: Amputation (Rt AKA stump healed) Edema: No Integumentary: Yes: WNL Wound/Incision: Yes: Other (wound vac to left buttock/sacral region) Neurological: Yes: Alert, Oriented Psychiatric: Yes: Alert Labs: CBC, BMP 01/10/18 05:30 01/10/18 05:30 Laboratory Results - last 24 hr 01/09/18 01/09/18 01/09/18 05:30 12:00 12:00 WBC RBC Hgb Hct MCV MCH MCHC RDW Plt Count MPV Absolute Neuts (auto) Neutrophils % Lymphocytes % Monocytes % Eosinophils % Basophils % Nucleated RBC % PT with INR INR Sodium Potassium Chloride Carbon Dioxide Anion Gap BUN Creatinine Creat Clearance w eGFR POC Glucometer Random Glucose Calcium Phosphorus Magnesium Iron 13 L TIBC 205 L Iron Saturation 6 L Total Bilirubin AST ALT Alkaline Phosphatase Total Protein Albumin Random Vancomycin Hepatitis A Ab Total Negative Hep Bs Antigen Negative Hep Bs Antibody Non reactive Hep B Core Total Ab Negative Hep C Ab Diagnostic 0.2 Liver Fibrosis Interp 01/09/18 01/09/18 01/09/18 13:11 18:03 21:27 WBC RBC Hgb Hct MCV MCH MCHC RDW Plt Count MPV Absolute Neuts (auto) Neutrophils % Lymphocytes % Monocytes % Eosinophils % Basophils % Nucleated RBC % PT with INR INR Sodium Potassium Chloride Carbon Dioxide Anion Gap BUN Creatinine Creat Clearance w eGFR POC Glucometer [phone] Random Glucose Calcium Phosphorus Magnesium Iron TIBC Iron Saturation Total Bilirubin AST ALT Alkaline Phosphatase Total Protein Albumin Random Vancomycin Hepatitis A Ab Total Hep Bs Antigen Hep Bs Antibody Hep B Core Total Ab Hep C Ab Diagnostic Liver Fibrosis Interp 01/10/18 01/10/18 01/10/18 05:30 05:30 05:30 WBC 16.8 H RBC 3.15 L Hgb 8.3 L Hct 26.3 L MCV 83.4 MCH 26.4 MCHC 31.6 L RDW 19.1 H Plt Count 464 H MPV 7.5 Absolute Neuts (auto) 15.2 H Neutrophils % 90.9 H Lymphocytes % 6.6 L D Monocytes % 2.2 L D Eosinophils % 0.0 Basophils % 0.3 Nucleated RBC % 0 PT with INR 13.20 H INR 1.17 H Sodium Potassium Chloride Carbon Dioxide Anion Gap BUN Creatinine Creat Clearance w eGFR POC Glucometer Random Glucose Calcium Phosphorus Magnesium Iron TIBC Iron Saturation Total Bilirubin AST ALT Alkaline Phosphatase Total Protein Albumin Random Vancomycin 14.49 Hepatitis A Ab Total Hep Bs Antigen Hep Bs Antibody Hep B Core Total Ab Hep C Ab Diagnostic Liver Fibrosis Interp 01/10/18 01/10/18 01/10/18 05:30 06:07 12:14 WBC RBC Hgb Hct MCV MCH MCHC RDW Plt Count MPV Absolute Neuts (auto) Neutrophils % Lymphocytes % Monocytes % Eosinophils % Basophils % Nucleated RBC % PT with INR INR Sodium 139 Potassium 4.3 Chloride 100 Carbon Dioxide 28 Anion Gap 11 BUN 37 H Creatinine 5.3 H Creat Clearance w eGFR 12.99 POC Glucometer [phone] Random Glucose 217 H Calcium 7.7 L Phosphorus 4.7 Magnesium 2.1 Iron TIBC Iron Saturation Total Bilirubin 0.3 AST 18 D ALT 15 Alkaline Phosphatase 293 H D Total Protein 6.0 L Albumin 1.6 L Random Vancomycin Hepatitis A Ab Total Hep Bs Antigen Hep Bs Antibody Hep B Core Total Ab Hep C Ab Diagnostic Liver Fibrosis Interp Microbiology 01/08/18 22:56 Blood - Peripheral Venous Blood Culture - Preliminary Pending Organism 01/08/18 22:56 Blood - Peripheral Venous Blood Culture - Preliminary Pending Organism 01/08/18 23:38 Back Gram Stain - Final 01/08/18 23:38 Back Wound Culture - Preliminary Pseudomonas Species Lactose Fermenting Neg Bacilli 01/08/18 23:38 Buttock - Left Gram Stain - Final 01/08/18 23:38 Buttock - Left Wound Culture - Preliminary Pseudomonas Species Imaging - Results Cat Scan: Report Reviewed Problem List - Problems (1) Allergic reaction Code(s): T78.40XA - ALLERGY, UNSPECIFIED, INITIAL ENCOUNTER (2) ESRD on hemodialysis Code(s): N18.6 - END STAGE RENAL DISEASE; Z99.2 - DEPENDENCE ON RENAL DIALYSIS (3) HTN (hypertension) Code(s): I10 - ESSENTIAL (PRIMARY) HYPERTENSION (4) Wound of buttock Code(s): S31.809A - UNSPECIFIED OPEN WOUND OF UNSPECIFIED BUTTOCK, INIT ENCNTR (5) Wound of sacral region Code(s): S31.000A - UNSP OPN WND LOW BACK AND PELV W/O PENET RETROPERITON, INIT Assessment/Plan 27 y.o. male with PMH of ESRD on HD, HTN, HLD, Rt AKA, IDDM with Lt buttock/ sacral abscess/wounds s/p debridement at [facility] who has been on IV Antibiotics initially transferred for wound care supplies noted to have fever 100.6 and leukocytosis. Pt given dose of morphine and developed facial edema and transferred to the ICU. He is currently stable, afebrile, with resolution of allergic symptoms. Infected Sacral DU/Lt gluteal abscess s/p drainage/debridement Angioedema ESRD on HD IDDM -- continue Zosyn IV Q8hr, Vancomycin/Gentamicin post HD -- surgical consult noted -- wound vac applied -- f/u wound culture results -- continue monitor wbc/vitals pt appears stable at this time
[2018-01-10] MEDS: ATORVASTATIN CA 80 MG TABLET (FP) PO SCH (21:56)
[2018-01-10] MEDS: INSULIN (LEVEMIR) 100 UNITS/ML UNITS SQ SCH (22:02)
[2018-01-10] MEDS: CHLORHEXIDINE GLUCONATE 4% CLEANSER FOR DECOLONIZATION TP SCH (22:02)
[2018-01-11] MEDS ORDERED: DEXTROSE 5%-WATER - 50 ML IVPB ONE ×3 (02:19→20:51)
[2018-01-11] MEDS ORDERED: PIPERACILLIN/TAZOBACTAM 2.25 GM VIAL IVPB ONE ×3 (02:19→20:51)
[2018-01-11] MEDS: PIPERACILLIN/TAZOB 2.25 GM 2.25 GM in DEXTROSE 5%-WATER - 50 ML IVPB SCH ×3 (02:51→20:53)
[2018-01-11 06:10] LABS: BASO % 0.4 % (0-2.0); EOS % 0.1 % (0-4.5); HEMOGLOBIN 8.4 GM/dL (11.7-16.9); LYMPH % 13.3 % (8-40); MCH 26.1 pg (25.7-33.7); MCHC 31.3 g/dl (32.0-35.9); MEAN CELL VOLUME 83.4 fl (80-96); MEAN PLT VOLUME 7.4 fl (7.5-11.1); MONO % 4.8 % (3.8-10.2); NEUT % 81.4 % (42.8-82.8); PLATELET COUNT 485 K/MM3 (134-434); RBC 3.24 M/mm3 (4.00-5.60); RDW 18.9 % (11.9-15.9); WHITE BLOOD COUNT 19.3 K/mm3 (4.0-10.0)
[2018-01-11] MEDS: LEVOTHYROXINE NA 25 MCG TABLET (FP) PO SCH (06:13)
[2018-01-11] MEDS: HEPARIN NA (PORCINE) 5,000 UNITS/ML 1ML VIAL SQ SCH ×3 (06:13→21:13)
[2018-01-11] MEDS: INSULIN SLIDING SCALE (NOVOLOG) 1 VIAL SQ SCH ×4 (06:14→21:29)
[2018-01-11 06:32] LABS: ALBUMIN 1.6 g/dl (3.4-5.0); ANION GAP 11 MMOL/L (8-16); BLOOD UREA NITROGEN 52 mg/dL (7-18); CALCIUM 7.6 mg/dL (8.5-10.1); CHLORIDE 100 mmol/L (98-107); CO2 27 mmol/L (21-32); CREATININE 6.1 mg/dL (0.7-1.3); GLUCOSE,RANDOM 241 mg/dL (74-106); SGOT/AST 17 U/L (15-37); SODIUM 138 mmol/L (136-145)
[2018-01-11 06:39] LABS: ALK PHOS 267 U/L (45-117); BILIRUBIN,TOTAL 0.2 mg/dL (0.2-1.0); SGPT/ALT 15 U/L (12-78)
--- NOTE | 2018-01-11 08:26 | PROC ---
Procedure Note Procedure: WOUND VAC APPLICATION Black sponge placed within pilonidal cleft wound as well as left glute incision to help encourage wound contracture along with granulation. Occlusive dressing applied. Foam bridge then applied to connect both wounds and traverse to patient's right hip as he lays on his left hip. Suction disc applied. Wound VAC set to 125mmHg. Good seal as evidenced by black sponge collapse. Change VAC -- (ordered)
--- NOTE | 2018-01-11 09:37 | PN ---
Physical Exam: SUBJECTIVE: Patient seen and examined this morning. Pt has been sleeping on his left side, no diaphoresis. Pt awoken easily, he says the facial and oral swelling has decreased, and he has no SOB, difficulty breathing or swallowing, drooling, or chest pain. He denies any pain near the sacral area nor on his penis. He produced urine yesterday into the urinal (~200 mL yellow urine). He has not had a BM. Pt will receive dialysis today. His wound vac was repositioned today as it had not been draining properly. It has now drained ~40- 50 mL serosanguineous fluid. Pt did feel "itchy in his throat" ~11:00 am today, was provided 25 mg Benadryl and he improved. No facial swelling or difficulty swallowing noted. I/O: 843/200 OBJECTIVE: Vital Signs Period Temp Pulse Resp BP Sys/Chan Pulse Ox Last 24 Hr 97.8 F-98.5 F 70-88 9-20 110-155/59-94 100 GENERAL: The patient is awake, alert, and fully oriented. Pt can speak clearly in full sentences and handling secretions. Vitals stable. Pt agitated because we woke him for the exam. HEAD: Normal with no signs of trauma. EYES: Extraocular movements intact, sclera anicteric, conjunctiva clear. No ptosis. No periorbital edema (improved from yesterday). ENT: External ears normal, nares patent, oropharynx clear without exudates, moist mucous membranes. No perioral edema, no significant pharyngeal erythema ( improved from yesterday). NECK: Trachea midline, full range of motion, supple. LUNGS: Breath sounds equal, clear to auscultation bilaterally, no accessory muscle use. No wheezing today, anterior or posterior b/l. R permacath in R chest wall. HEART: Regular rate and rhythm, S1, S2 without murmur, rub or gallop. ABDOMEN: Soft, nontender, nondistended, normoactive bowel sounds, no guarding, no rebound, no hepatosplenomegaly, no masses. EXTREMITIES: 2+ pulses, warm, well-perfused, no edema. R AKA. NEUROLOGICAL: Cranial nerves II through XII grossly intact. Normal speech, gait not observed. PSYCH: Normal mood, normal affect. SKIN: Warm, dry, normal turgor. Wound vac over sacrum and gluteus clean and dry. Induration over surrounding tissue, no crepitus. Wound vac drained ~40-50 mL serosanguineous fluid. Laboratory Results - last 24 hr 01/09/18 01/09/18 01/09/18 13:11 18:03 21:27 WBC RBC Hgb Hct MCV MCH MCHC RDW Plt Count MPV Absolute Neuts (auto) Neutrophils % Lymphocytes % Monocytes % Eosinophils % Basophils % Nucleated RBC % Sodium Potassium Chloride Carbon Dioxide Anion Gap BUN Creatinine Creat Clearance w eGFR POC Glucometer [phone] Random Glucose Calcium Phosphorus Magnesium Total Bilirubin AST ALT Alkaline Phosphatase Total Protein Albumin Vancomycin Pre-Dose 01/10/18 01/10/18 01/10/18 06:07 12:14 17:19 WBC RBC Hgb Hct MCV MCH MCHC RDW Plt Count MPV Absolute Neuts (auto) Neutrophils % Lymphocytes % Monocytes % Eosinophils % Basophils % Nucleated RBC % Sodium Potassium Chloride Carbon Dioxide Anion Gap BUN Creatinine Creat Clearance w eGFR POC Glucometer [phone] Random Glucose Calcium Phosphorus Magnesium Total Bilirubin AST ALT Alkaline Phosphatase Total Protein Albumin Vancomycin Pre-Dose 01/10/18 01/11/18 01/11/18 22:01 05:30 05:30 WBC 19.3 H RBC 3.24 L Hgb 8.4 L Hct 27.0 L MCV 83.4 MCH 26.1 MCHC 31.3 L RDW 18.9 H Plt Count 485 H MPV 7.4 L Absolute Neuts (auto) 15.7 H Neutrophils % 81.4 Lymphocytes % 13.3 D Monocytes % 4.8 D Eosinophils % 0.1 D Basophils % 0.4 Nucleated RBC % 0 Sodium Potassium Chloride Carbon Dioxide Anion Gap BUN Creatinine Creat Clearance w eGFR POC Glucometer [phone] Random Glucose Calcium Phosphorus Magnesium Total Bilirubin AST ALT Alkaline Phosphatase Total Protein Albumin Vancomycin Pre-Dose 27.30 H* 01/11/18 01/11/18 05:30 05:55 WBC RBC Hgb Hct MCV MCH MCHC RDW Plt Count MPV Absolute Neuts (auto) Neutrophils % Lymphocytes % Monocytes % Eosinophils % Basophils % Nucleated RBC % Sodium 138 Potassium 4.0 Chloride 100 Carbon Dioxide 27 Anion Gap 11 BUN 52 H Creatinine 6.1 H Creat Clearance w eGFR 11.04 POC Glucometer [phone] Random Glucose 241 H Calcium 7.6 L Phosphorus 5.0 H Magnesium 2.0 Total Bilirubin 0.2 AST 17 ALT 15 Alkaline Phosphatase 267 H D Total Protein 6.0 L Albumin 1.6 L Vancomycin Pre-Dose Active Medications Generic Name Dose Route Start Last Admin Trade Name Freq PRN Reason Stop Dose Admin Acetaminophen 650 mg 01/09/18 10:00 01/10/18 10:00 Tylenol - PO 650 mg DAILY NOA Administration Ascorbic Acid 500 mg 01/09/18 10:00 01/10/18 10:00 Vitamin C - PO 500 mg DAILY NOA Administration Atorvastatin Calcium 80 mg 01/09/18 22:00 01/10/18 21:56 Lipitor - PO 80 mg HS NOA Administration Chlorhexidine Gluconate 1 applic 01/09/18 22:00 01/10/18 22:02 Hibiclens For Decolonization - TP 1 applic HS NOA Administration Diphenhydramine HCl 25 mg 01/09/18 02:33 Benadryl Injection - IVPUSH Q8H PRN FOR ITCHING Folic Acid 1 mg 01/09/18 10:00 01/10/18 10:00 Folic Acid - PO 1 mg DAILY NOA Administration Gabapentin 100 mg 01/09/18 10:00 01/10/18 12:38 Neurontin - PO 100 mg DAILY NOA Administration Heparin Sodium (Porcine) 5,000 unit 01/09/18 06:00 01/11/18 06:13 Heparin - SQ 5,000 unit TID NOA Administration Hydralazine HCl 50 mg 01/09/18 10:00 01/10/18 12:36 Apresoline - PO 50 mg DAILY NOA Administration Piperacillin Sod/Tazobactam 50 mls @ 100 mls/hr 01/09/18 11:15 01/11/18 02:51 Sod 2.25 gm/ Dextrose IVPB 100 mls/hr Q8H-IV NOA Administration Protocol Vancomycin HCl 1,500 mg/ 500 mls @ 250 mls/hr 01/11/18 12:00 Dextrose IVPB [facility] Protocol Gentamicin Sulfate/Sodium Chloride 80 mg in 100 mls @ 100 mls/hr 01/11/18 12: 00 Garamycin 80 Mg Premixed Ivpb - IVPB [facility] Protocol Insulin Aspart 1 vial 01/09/18 07:00 01/11/18 06:14 Novolog Vial Sliding Scale - SQ 6 units ACHS NOA Administration Protocol Insulin Detemir 12 units 01/09/18 22:00 01/10/18 22:02 Levemir Vial SQ 12 units HS NOA Administration Isosorbide Mononitrate 30 mg 01/09/18 10:00 01/10/18 15:23 Imdur - PO 30 mg DAILY NOA Administration Levothyroxine Sodium 50 mcg 01/09/18 07:00 01/11/18 06:13 Synthroid - PO 50 mcg 0700 NOA Administration Metoprolol Succinate 200 mg 01/09/18 10:00 01/10/18 15:22 Toprol Xl - PO 200 mg DAILY NOA Administration Multivitamins/Minerals/Vitamin C 1 tab 01/09/18 10:00 01/10/18 10:00 Tab-A-Vit - PO 1 tab DAILY NOA Administration Mupirocin 1 applic 01/09/18 10:00 01/11/18 00:00 Bactroban Ointment (For Decolonization) - NS 01/14/18 09:59 1 applic BID NOA Administration ASSESSMENT/PLAN: Pt is a 27 yo M with PMH of ESRD (HD T/Th/Sat w/ R chest permacath), R AKA, HTN, HLD, and DM, who presented to the ER from [facility] with leukocytosis likely 2/2 to pilonidal and gluteal abscess, complicated by angioedema 2/2 to morphine administration (resolved). 1. Angioedema (resolved) -Benadryl, Epi, Epi-pen, Pepcid, and 125 mg Solumedrol provided in ER -40 Solumedrol Q8Hr -Periorbital and perioral swelling has improved Pt had "itchy throat" today, was provided 25 mg PO benadryl and it improved 2. Sacral/Gluteal Ulcer/MSK -2 g Vanc and 4.5 g Zosyn provided in ER with 4 L NS; Providing Zosyn 2.25 g Q8hr. Micro showed gram+ cocci in clusters; Added 1.5 g IV Vanc, and 80 Gentamycin (double coverage for pseudomonas). Vanc trough today was 27.3. Vanc held before hemodialysis. Dr. Tabor will see the pt and possibly give reduced Vanc dose if necessary. Dr. Tabor will follow. Vanc trough will be monitored in conjunction with hemodialysis to determine frequency of Vanc doses. -ID following (Dr. Pearce/Sharona) -No surgical intervention at this point, Dr. Olson to follow. Wound vac in place with sterile dressings applied. Draining more serosanguineous fluid (~40- 50 mL) after wound vac was repositioned. -Lactic acid has been WNL. Wound site cultures grew Pseuodomonas/lactose fermenting neg bacilli. Blood culture grew Staph coagulase negative. Repeated blood cultures, pending. -Leukocytosis 19.3 today (16.8 yesterday) - ID following -ESR [address] Pelvis showed no sign of osteomyelitis. 2 areas of air bubbles/soft tissue swelling w/n L buttocks and L gluteus radha. -Gabapentin 100 mg Qday -R AKA site clean and intact. 3. ESRD -Will receive HD today -BUN/Cr 37/5.3 today, (improved from 57/7.6 yesterday) pt states Cr was 2.1 after last HD session on Sunday. -Hep A/B/C Panels negative. -Will call [facility] for kidney biopsy results, requested by Dr. Apodaca. Request was faxed, waiting for results. -Continue to monitor BUN/Cr and electrolytes, will replete or reduce as needed. 4. HTN/HLD -Atorvastatin 80 mg HS -Hydralazine 50 mg Qday and Metoprolol 200 Qday -BP today 129/63. Will hold metoprolol before the HD today and will reassess. 5. Endocrine - IDDM and Hypothyroidism -Insulin sliding scale and Levemir 12 u HS -Glucose from CMP 241 today. Following with bedside glucose checks and ISS. -Diabetic diet until any surgical intervention, will switch to NPO if needed -Levothyroxine 50 mcg Qday 6. Prophylaxis -Heparin 5000 TID Problem List - Problems (1) Allergic reaction Code(s): T78.40XA - ALLERGY, UNSPECIFIED, INITIAL ENCOUNTER (2) ESRD on hemodialysis Code(s): N18.6 - END STAGE RENAL DISEASE; Z99.2 - DEPENDENCE ON RENAL DIALYSIS (3) HTN (hypertension) Code(s): I10 - ESSENTIAL (PRIMARY) HYPERTENSION (4) Wound of buttock Code(s): S31.809A - UNSPECIFIED OPEN WOUND OF UNSPECIFIED BUTTOCK, INIT ENCNTR (5) Wound of sacral region Code(s): S31.000A - UNSP OPN WND LOW BACK AND PELV W/O PENET RETROPERITON, INIT Visit type - Emergency Visit Emergency Visit: Yes ED Registration Date: 01/08/18 Care time: The patient presented to the Emergency Department on the above date and was hospitalized for further evaluation of their emergent condition. - New Patient This patient is new to me today: No - Critical Care Critical Care patient: Yes Total Critical Care Time (in minutes): 30 Critical Care Statement: The care of this patient involved high complexity decision making to prevent further life threatening deterioration of the patient 's condition and/or to evaluate & treat vital organ system(s) failure or risk of failure. - Discharge Referral Referred to [facility] Med P.C.: Yes
--- NOTE | 2018-01-11 09:41 | PN ---
Teaching Attending Note Name of Resident: Zulma Pedroza ATTENDING PHYSICIAN STATEMENT I saw and evaluated the patient. I reviewed the resident's note and discussed the case with the resident. I agree with the resident's findings and plan as documented. SUBJECTIVE: Pt seen and examined in the ICU. No fevers overnight. Wound vac re-adjusted. Blood cultures growing gram positive cocci. OBJECTIVE: Vital Signs Period Temp Pulse Resp BP Sys/Chan Pulse Ox Last 24 Hr 97.8 F-98.5 F 70-88 9-20 110-155/59-94 100 Intake & Output 01/08/18 01/09/18 01/10/18 01/11/18 23:59 23:59 23:59 23:59 Intake Total 5280 843 50 Output Total 0 200 Balance 5280 643 50 Weight 111.13 kg 115.258 kg 113.398 kg 118 kg Gen: NAD at rest Heart: RRR Lung: decreased breath sounds at the bases Abd: soft, nontender Ext: R AKA CBC, BMP 01/11/18 05:30 01/11/18 05:30 Active Medications Acetaminophen (Tylenol -) 650 mg PO DAILY [facility] Last Admin: 01/10/18 10:00 Dose: 650 mg Ascorbic Acid (Vitamin C -) 500 mg PO DAILY [facility] Last Admin: 01/10/18 10:00 Dose: 500 mg Atorvastatin Calcium (Lipitor -) 80 mg PO HS [facility] Last Admin: 01/10/18 21:56 Dose: 80 mg Chlorhexidine Gluconate (Hibiclens For Decolonization -) 1 applic TP HS [facility] Last Admin: 01/10/18 22:02 Dose: 1 applic Diphenhydramine HCl (Benadryl Injection -) 25 mg IVPUSH Q8H PRN PRN Reason: FOR ITCHING Folic Acid (Folic Acid -) 1 mg PO DAILY [facility] Last Admin: 01/10/18 10:00 Dose: 1 mg Gabapentin (Neurontin -) 100 mg PO DAILY [facility] Last Admin: 01/10/18 12:38 Dose: 100 mg Heparin Sodium (Porcine) (Heparin -) 5,000 unit SQ TID [facility] Last Admin: 01/11/18 06:13 Dose: 5,000 unit Hydralazine HCl (Apresoline -) 50 mg PO DAILY [facility] Last Admin: 01/10/18 12:36 Dose: 50 mg Piperacillin Sod/Tazobactam (Sod 2.25 gm/ Dextrose) 50 mls @ 100 mls/hr IVPB Q8H-IV [facility]; Protocol Last Admin: 01/11/18 02:51 Dose: 100 mls/hr Vancomycin HCl 1,500 mg/ (Dextrose) 500 mls @ 250 mls/hr IVPB [facility]; Protocol Gentamicin Sulfate/Sodium Chloride (Garamycin 80 Mg Premixed Ivpb -) 80 mg in 100 mls @ 100 mls/hr IVPB [facility]; Protocol Insulin Aspart (Novolog Vial Sliding Scale -) 1 vial SQ ACHS [facility]; Protocol Last Admin: 01/11/18 06:14 Dose: 6 units Insulin Detemir (Levemir Vial) 12 units SQ HS [facility] Last Admin: 01/10/18 22:02 Dose: 12 units Isosorbide Mononitrate (Imdur -) 30 mg PO DAILY [facility] Last Admin: 01/10/18 15:23 Dose: 30 mg Levothyroxine Sodium (Synthroid -) 50 mcg PO 0700 [facility] Last Admin: 01/11/18 06:13 Dose: 50 mcg Metoprolol Succinate (Toprol Xl -) 200 mg PO DAILY [facility] Last Admin: 01/10/18 15:22 Dose: 200 mg Multivitamins/Minerals/Vitamin C (Tab-A-Vit -) 1 tab PO DAILY [facility] Last Admin: 01/10/18 10:00 Dose: 1 tab Mupirocin (Bactroban Ointment (For Decolonization) -) 1 applic NS BID [facility] Stop: 01/14/18 09:59 Last Admin: 01/11/18 00:00 Dose: 1 applic ASSESSMENT AND PLAN: Allergic Reaction/Angioedema resolved Sacral Decubitus/L Buttock Ulcer ESRD on HD HTN DM Hyperlipidemia - continue antibiotics - f/u cultures - wound care - HD per renal - antihistamines as needed - glucose control - DVT prophylaxis - can monitor on floor
[2018-01-11] MEDS: ISOSORBIDE MONONITRATE 30 MG TAB.SR.24H (FP) PO SCH (09:49)
[2018-01-11] MEDS: MUPIROCIN 2% TOPICAL OINTMENT FOR DECOLONIZATION NS SCH ×2 (09:49)
[2018-01-11] MEDS: ASCORBIC ACID 500 MG TABLET (FP) PO SCH (09:49)
[2018-01-11] MEDS: FOLIC ACID 1 MG TABLET (FP) PO SCH (09:49)
[2018-01-11] MEDS: ACETAMINOPHEN 325 MG TABLET (FP) PO SCH (09:49)
[2018-01-11] MEDS: GABAPENTIN 100 MG CAPSULE (FP) PO SCH (09:49)
[2018-01-11] MEDS: hydrALAZINE HCL 50 MG TABLET (FP) PO SCH (09:49)
[2018-01-11] MEDS ORDERED: INSULIN (LEVEMIR) 100 UNITS/ML UNITS SQ SCH (09:54)
--- NOTE | 2018-01-11 09:57 | PN ---
Progress Note (short form) - Note Progress Note: Pt seen/ examined in icu chart reviewed. awake/ comfortable no complains Vital Signs Temp 97.8 F 01/11/18 06:00 Pulse 74 01/11/18 08:00 Resp 18 01/11/18 08:00 BP 139/59 01/11/18 08:00 Pulse Ox 100 01/10/18 20:42 Intake & Output 01/10/18 01/10/18 01/11/18 11:59 23:59 11:59 Intake Total 100 743 50 Output Total 100 100 Balance 0 643 50 Weight 250 lb 4.8 oz 250 lb 260 lb 2.327 oz Intake: IVPB 50 743 50 Oral 50 Output: Urine 100 100 Void 100 100 Other: Voiding Method Urinal Urinal # Unmeasured Voids Void 1 1 Bowel Movement No No Height 5 ft 9 in Body Mass Index (BMI) 36.9 Weight Measurement Method Built in Bedscale Built in Bedscale Active Medications Acetaminophen (Tylenol -) 650 mg PO DAILY [facility] Last Admin: 01/10/18 10:00 Dose: 650 mg Ascorbic Acid (Vitamin C -) 500 mg PO DAILY [facility] Last Admin: 01/10/18 10:00 Dose: 500 mg Atorvastatin Calcium (Lipitor -) 80 mg PO HS [facility] Last Admin: 01/10/18 21:56 Dose: 80 mg Chlorhexidine Gluconate (Hibiclens For Decolonization -) 1 applic TP HS [facility] Last Admin: 01/10/18 22:02 Dose: 1 applic Diphenhydramine HCl (Benadryl Injection -) 25 mg IVPUSH Q8H PRN PRN Reason: FOR ITCHING Folic Acid (Folic Acid -) 1 mg PO DAILY [facility] Last Admin: 01/10/18 10:00 Dose: 1 mg Gabapentin (Neurontin -) 100 mg PO DAILY [facility] Last Admin: 01/10/18 12:38 Dose: 100 mg Heparin Sodium (Porcine) (Heparin -) 5,000 unit SQ TID [facility] Last Admin: 01/11/18 06:13 Dose: 5,000 unit Hydralazine HCl (Apresoline -) 50 mg PO DAILY [facility] Last Admin: 01/10/18 12:36 Dose: 50 mg Piperacillin Sod/Tazobactam (Sod 2.25 gm/ Dextrose) 50 mls @ 100 mls/hr IVPB Q8H-IV [facility]; Protocol Last Admin: 01/11/18 02:51 Dose: 100 mls/hr Vancomycin HCl 1,500 mg/ (Dextrose) 500 mls @ 250 mls/hr IVPB [facility]; Protocol Gentamicin Sulfate/Sodium Chloride (Garamycin 80 Mg Premixed Ivpb -) 80 mg in 100 mls @ 100 mls/hr IVPB [facility]; Protocol Insulin Aspart (Novolog Vial Sliding Scale -) 1 vial SQ ACHS [facility]; Protocol Last Admin: 01/11/18 06:14 Dose: 6 units Insulin Detemir (Levemir Vial) 15 units SQ [facility] Isosorbide Mononitrate (Imdur -) 30 mg PO DAILY [facility] Last Admin: 01/10/18 15:23 Dose: 30 mg Levothyroxine Sodium (Synthroid -) 50 mcg PO 0700 [facility] Last Admin: 01/11/18 06:13 Dose: 50 mcg Metoprolol Succinate (Toprol Xl -) 200 mg PO DAILY [facility] Last Admin: 01/10/18 15:22 Dose: 200 mg Multivitamins/Minerals/Vitamin C (Tab-A-Vit -) 1 tab PO DAILY [facility] Last Admin: 01/10/18 10:00 Dose: 1 tab Mupirocin (Bactroban Ointment (For Decolonization) -) 1 applic NS BID [facility] Stop: 01/14/18 09:59 Last Admin: 01/11/18 00:00 Dose: 1 applic CBC, BMP 01/11/18 05:30 01/11/18 05:30 Microbiology 01/08/18 22:56 Blood Culture - Preliminary Blood - Peripheral Venous Pending Organism 01/08/18 22:56 Blood Culture - Preliminary Blood - Peripheral Venous Pending Organism 01/08/18 23:38 Gram Stain - Final Back Wound Culture - Preliminary Pseudomonas Species Lactose Fermenting Neg Bacilli 01/08/18 23:38 Gram Stain - Final Buttock - Left Wound Culture - Preliminary Pseudomonas Species bgm - reviewed-- uncontrolled Physical Exam Gen: Comfortable. Obese Heart: S1, S2 rrr Lung: decreased breath sounds at the bases Abd: soft, obese . Ext: R AKA. Neuro- Alert/ awake. ASSESSMENT AND PLAN: Allergic Reaction/Angioedema --resolved Sacral Decubitus/L Buttock Ulcer ESRD on HD HTN DM Hyperlipidemia - continue antibiotics - - wound care - HD per renal - antihistamines as needed-- pt complains of itching -Increase levemir - Monitor bgm - off steroids - DVT prophylaxis - continue other meds - will follow - can transfer to floor - discussed with nursing staff Problem List - Problems (1) Allergic reaction Code(s): T78.40XA - ALLERGY, UNSPECIFIED, INITIAL ENCOUNTER (2) ESRD on hemodialysis Code(s): N18.6 - END STAGE RENAL DISEASE; Z99.2 - DEPENDENCE ON RENAL DIALYSIS (3) HTN (hypertension) Code(s): I10 - ESSENTIAL (PRIMARY) HYPERTENSION (4) Wound of buttock Code(s): S31.809A - UNSPECIFIED OPEN WOUND OF UNSPECIFIED BUTTOCK, INIT ENCNTR (5) Wound of sacral region Code(s): S31.000A - UNSP OPN WND LOW BACK AND PELV W/O PENET RETROPERITON, INIT
[2018-01-11] MEDS: MULTIVITAMINS (DAILY MVI) TABLET (FP) PO SCH (10:02)
[2018-01-11] MEDS ORDERED: GENTAMICIN 80 MG PREMIXED IVPB 80 MG/100 ML BAG IVPB SCH ×3 (12:00→18:00)
[2018-01-11] MEDS ORDERED: VANCOMYCIN 1,500 MG in DEXTROSE 5%-WATER - 500 ML IVPB SCH (12:00)
--- NOTE | 2018-01-11 12:10 | PN ---
Progress Note, Physician History of Present Illness: Pt is doing well. Remains afebrile. Has no new complaints. Wound vac changed, reported to be draining serosanguinous fluid. - Current Medication List Current Medications: Active Medications Acetaminophen (Tylenol -) 650 mg PO DAILY [facility] Last Admin: 01/11/18 09:49 Dose: 650 mg Ascorbic Acid (Vitamin C -) 500 mg PO DAILY [facility] Last Admin: 01/11/18 09:49 Dose: 500 mg Atorvastatin Calcium (Lipitor -) 80 mg PO [facility] Last Admin: 01/10/18 21:56 Dose: 80 mg Chlorhexidine Gluconate (Hibiclens For Decolonization -) 1 applic TP [facility] Last Admin: 01/10/18 22:02 Dose: 1 applic Diphenhydramine HCl (Benadryl Injection -) 25 mg IVPUSH Q8H PRN PRN Reason: FOR ITCHING Last Admin: 01/11/18 10:21 Dose: 25 mg Folic Acid (Folic Acid -) 1 mg PO DAILY [facility] Last Admin: 01/11/18 09:49 Dose: 1 mg Gabapentin (Neurontin -) 100 mg PO DAILY [facility] Last Admin: 01/11/18 09:49 Dose: 100 mg Heparin Sodium (Porcine) (Heparin -) 5,000 unit SQ TID [facility] Last Admin: 01/11/18 06:13 Dose: 5,000 unit Hydralazine HCl (Apresoline -) 50 mg PO DAILY [facility] Last Admin: 01/11/18 09:49 Dose: 50 mg Piperacillin Sod/Tazobactam (Sod 2.25 gm/ Dextrose) 50 mls @ 100 mls/hr IVPB Q8H-IV [facility]; Protocol Last Admin: 01/11/18 09:50 Dose: 100 mls/hr Vancomycin HCl 1,500 mg/ (Dextrose) 500 mls @ 250 mls/hr IVPB [facility]; Protocol Gentamicin Sulfate/Sodium Chloride (Garamycin 80 Mg Premixed Ivpb -) 80 mg in 100 mls @ 100 mls/hr IVPB [facility]; Protocol Insulin Aspart (Novolog Vial Sliding Scale -) 1 vial SQ [facility]; Protocol Last Admin: 01/11/18 06:14 Dose: 6 units Insulin Detemir (Levemir Vial) 15 units SQ [facility] Isosorbide Mononitrate (Imdur -) 30 mg PO DAILY [facility] Last Admin: 01/11/18 09:49 Dose: 30 mg Levothyroxine Sodium (Synthroid -) 50 mcg PO 0700 [facility] Last Admin: 01/11/18 06:13 Dose: 50 mcg Metoprolol Succinate (Toprol Xl -) 200 mg PO DAILY [facility] Last Admin: 01/10/18 15:22 Dose: 200 mg Multivitamins/Minerals/Vitamin C (Tab-A-Vit -) 1 tab PO DAILY [facility] Last Admin: 01/11/18 10:02 Dose: 1 tab Mupirocin (Bactroban Ointment (For Decolonization) -) 1 applic NS BID [facility] Stop: 01/14/18 09:59 Last Admin: 01/11/18 09:49 Dose: 1 applic - Objective Vital Signs: Vital Signs Temperature 97.8 F 01/11/18 06:00 Pulse Rate 82 01/11/18 11:52 Respiratory Rate 20 01/11/18 11:52 Blood Pressure 129/63 01/11/18 11:52 O2 Sat by Pulse Oximetry (%) 100 01/11/18 11:46 Constitutional: Yes: No Distress, Calm Cardiovascular: Yes: Regular Rate and Rhythm Respiratory: Yes: CTA Bilaterally Gastrointestinal: Yes: Normal Bowel Sounds, Soft Extremities: Yes: Amputation (AKA site healed) Wound/Incision: Yes: Other (wound vac in sacral and buttock areas) Labs: CBC, BMP 01/11/18 05:30 01/11/18 05:30 INR, PTT INR 1.17 (0.83-1.09) H 01/10/18 05:30 Microbiology 01/08/18 22:56 Blood - Peripheral Venous Blood Culture - Preliminary Staphylococcus Coagulase Neg 01/08/18 22:56 Blood - Peripheral Venous Blood Culture - Preliminary Staphylococcus Coagulase Neg 01/08/18 23:38 Back Gram Stain - Final 01/08/18 23:38 Back Wound Culture - Preliminary Pseudomonas Species Lactose Fermenting Neg Bacilli 01/08/18 23:38 Buttock - Left Gram Stain - Final 01/08/18 23:38 Buttock - Left Wound Culture - Preliminary Pseudomonas Species - ....Imaging Chest X-ray: Report Reviewed Problem List - Problems (1) Allergic reaction Code(s): T78.40XA - ALLERGY, UNSPECIFIED, INITIAL ENCOUNTER (2) ESRD on hemodialysis Code(s): N18.6 - END STAGE RENAL DISEASE; Z99.2 - DEPENDENCE ON RENAL DIALYSIS (3) HTN (hypertension) Code(s): I10 - ESSENTIAL (PRIMARY) HYPERTENSION (4) Wound of buttock Code(s): S31.809A - UNSPECIFIED OPEN WOUND OF UNSPECIFIED BUTTOCK, INIT ENCNTR (5) Wound of sacral region Code(s): S31.000A - UNSP OPN WND LOW BACK AND PELV W/O PENET RETROPERITON, INIT Assessment/Plan 27 y.o. male with PMH of ESRD on HD, HTN, HLD, Rt AKA, IDDM with Lt buttock/ sacral abscess/wounds s/p debridement at [facility] who has been on IV Antibiotics initially transferred for wound care supplies noted to have fever 100.6 and leukocytosis. Pt given dose of morphine and developed facial edema and transferred to the ICU. He is currently stable, afebrile, with resolution of allergic symptoms. Infected Sacral DU/ gluteal abscess s/p drainage/debridement Angioedema ESRD on HD IDDM Gram + bacteremia - coag neg. Staph, suspect contamination -- continue Zosyn IV Q8hr -- Vancomycin level above target range this a.m., Vancomycin held for now -- draw Vancomycin/Gentamicin level during HD prior to gentamicin dose -- monitor wbc trend -- wound vac applied -- f/u wound culture results(pseudomonas isolated so far) , repeat blood culture results -- continue monitor vitals pt appears stable at this time
--- NOTE | 2018-01-11 16:01 | ECHO ---
Name: WOODY, LILIA Exam:Adult Echocardiogram Study Date: 01/11/2018 02:06 PM Age: 27 yrs Reason For Study: BACTEREMIA Height: 69 in Weight: 260 lb BSA: 2.3 m2 BP: 65/32 mmHg MMode/2D Measurements & Calculations IVSd: 1.6 cm LA dimension: 3.2 cm LVIDd: 4.7 cm LVIDs: 3.5 cm LVPWd: 1.8 cm EDV(Teich): 102.4 ml ESV(Teich): 49.4 ml Doppler Measurements & Calculations TR max miguel: 300.0 cm/sec PI end-d miguel: 183.2 cm/sec TR max P.2 mmHg Med Peak E' Miguel: 5.1 cm/sec Lat Peak E' Miguel: 6.6 cm/sec Left Ventricle There is moderate concentric left ventricular hypertrophy. Left ventricular systolic function is bord adrián reduced. Ejection Fraction = 45-50%. Right Ventricle The right ventricle is grossly normal size. The right ventricular systolic function is normal. Atria Normal left and right atrial size and function. Mitral Valve The mitral valve is grossly normal. There is no mitral valve stenosis. There is no mitral regurgitati on noted. Tricuspid Valve The tricuspid valve is normal in structure and function. There is mild to moderate tricuspid regurgit ation. Right ventricular systolic pressure is elevated at 40-50mmHg. Aortic Valve The aortic valve opens well. No hemodynamically significant valvular aortic stenosis. No aortic regur gitation is present. Pulmonic Valve The pulmonic valve is not well seen, but is grossly normal. There is no pulmonic valvular stenosis. T race pulmonic valvular regurgitation. Great Vessels The aortic root is normal size. Pericardium/Pleura Small pericardial effusion (<1cm). Interpretation Summary There is moderate concentric left ventricular hypertrophy. Left ventricular systolic function is borderline reduced. Ejection Fraction = 45-50%. There is mild to moderate tricuspid regurgitation. Right ventricular systolic pressure is elevated at 40-50mmHg. Small pericardial effusion (<1cm) MD Cristhian Meyers 01/11/2018 03:37 PM
--- NOTE | 2018-01-11 16:15 | PN ---
Progress Note, Physician History of Present Illness: Pt seen and examined at bedside. He is awake and alert. He denies shortness of breath. - Current Medication List Current Medications: Active Medications Acetaminophen (Tylenol -) 650 mg PO DAILY [facility] Ascorbic Acid (Vitamin C -) 500 mg PO DAILY [facility] Atorvastatin Calcium (Lipitor -) 80 mg PO HS NO[facility] Chlorhexidine Gluconate (Hibiclens For Decolonization -) 1 applic TP HS NO[facility] Diphenhydramine HCl (Benadryl Injection -) 25 mg IVPUSH Q8H PRN PRN Reason: FOR ITCHING Folic Acid (Folic Acid -) 1 mg PO DAILY [facility] Gabapentin (Neurontin -) 100 mg PO DAILY [facility] Heparin Sodium (Porcine) (Heparin -) 5,000 unit SQ TID NO[facility] Hydralazine HCl (Apresoline -) 50 mg PO DAILY [facility] Piperacillin Sod/Tazobactam (Sod 2.25 gm/ Dextrose) 50 mls @ 100 mls/hr IVPB Q8H-IV [facility]; Protocol Vancomycin HCl 1,500 mg/ (Dextrose) 500 mls @ 250 mls/hr IVPB MOWEFR [facility]; Protocol Gentamicin Sulfate/Sodium Chloride (Garamycin 80 Mg Premixed Ivpb -) 80 mg in 100 mls @ 100 mls/hr IVPB MOWEFR [facility]; Protocol Insulin Aspart (Novolog Vial Sliding Scale -) 1 vial SQ ACHS [facility]; Protocol Insulin Detemir (Levemir Vial) 15 units SQ HS [facility] Isosorbide Mononitrate (Imdur -) 30 mg PO DAILY [facility] Levothyroxine Sodium (Synthroid -) 50 mcg PO 0700 [facility] Metoprolol Succinate (Toprol Xl -) 200 mg PO DAILY [facility] Multivitamins/Minerals/Vitamin C (Tab-A-Vit -) 1 tab PO DAILY [facility] Mupirocin (Bactroban Ointment (For Decolonization) -) 1 applic NS BID [facility] Stop: 01/14/18 09:59 - Objective Vital Signs: Vital Signs Temperature 98.3 F 01/11/18 14:00 Pulse Rate 79 01/11/18 14:00 Respiratory Rate 20 01/11/18 14:00 Blood Pressure 133/57 01/11/18 14:00 O2 Sat by Pulse Oximetry (%) 100 01/11/18 11:46 Constitutional: Yes: Calm Eyes: Yes: Conjunctiva Clear HENT: Yes: Atraumatic Neck: Yes: Supple Cardiovascular: Yes: S1, S2 Respiratory: Yes: CTA Bilaterally Gastrointestinal: Yes: Normal Bowel Sounds, Soft, Abdomen, Obese Genitourinary: Yes: WNL Edema: Yes Integumentary: Yes: Tattoos Neurological: Yes: Oriented Psychiatric: Yes: Oriented Labs: CBC, BMP 01/11/18 05:30 01/11/18 05:30 INR, PTT INR 1.17 (0.83-1.09) H 01/10/18 05:30 Problem List - Problems (1) HTN (hypertension) Code(s): I10 - ESSENTIAL (PRIMARY) HYPERTENSION (2) ESRD on hemodialysis Code(s): N18.6 - END STAGE RENAL DISEASE; Z99.2 - DEPENDENCE ON RENAL DIALYSIS (3) Wound of buttock Code(s): S31.809A - UNSPECIFIED OPEN WOUND OF UNSPECIFIED BUTTOCK, INIT ENCNTR Assessment/Plan Current Medications Generic Name Dose Route Start Last Admin Trade Name Freq PRN Reason Stop Dose Admin Acetaminophen 650 mg 01/12/18 10:00 Tylenol - PO DAILY [facility] Ascorbic Acid 500 mg 01/12/18 10:00 Vitamin C - PO DAILY [facility] Atorvastatin Calcium 80 mg 01/11/18 22:00 Lipitor - PO HS [facility] Chlorhexidine Gluconate 1 applic 01/11/18 22:00 Hibiclens For Decolonization - TP HS [facility] Diphenhydramine HCl 25 mg 01/11/18 14:13 Benadryl Injection - IVPUSH Q8H PRN FOR ITCHING Folic Acid 1 mg 01/12/18 10:00 Folic Acid - PO DAILY [facility] Gabapentin 100 mg 01/12/18 10:00 Neurontin - PO DAILY [facility] Heparin Sodium (Porcine) 5,000 unit 01/11/18 22:00 Heparin - SQ TID [facility] Hydralazine HCl 50 mg 01/12/18 10:00 Apresoline - PO DAILY [facility] Piperacillin Sod/Tazobactam 50 mls @ 100 mls/hr 01/11/18 18:00 Sod 2.25 gm/ Dextrose IVPB Q8H-IV [facility] Protocol Vancomycin HCl 1,500 mg/ 500 mls @ 250 mls/hr 01/14/18 18:00 Dextrose IVPB MOWEFR [facility] Protocol Gentamicin Sulfate/Sodium Chloride 80 mg in 100 mls @ 100 mls/hr 01/11/18 18: 00 Garamycin 80 Mg Premixed Ivpb - IVPB MOWEFR [facility] Protocol Sodium Chloride 250 mls @ 3,000 mls/hr 01/11/18 16:10 Normal Saline - IV 01/12/18 16:10 PRN PRN Hypotension during Dialysis Insulin Aspart 1 vial 01/11/18 16:30 Novolog Vial Sliding Scale - SQ ACHS [facility] Protocol Insulin Detemir 15 units 01/11/18 22:00 Levemir Vial SQ HS [facility] Isosorbide Mononitrate 30 mg 01/12/18 10:00 Imdur - PO DAILY [facility] Levothyroxine Sodium 50 mcg 01/12/18 07:00 Synthroid - PO 0700 [facility] Metoprolol Succinate 200 mg 01/12/18 10:00 Toprol Xl - PO DAILY [facility] Multivitamins/Minerals/Vitamin C 1 tab 01/12/18 10:00 Tab-A-Vit - PO DAILY [facility] Mupirocin 1 applic 01/11/18 22:00 Bactroban Ointment (For Decolonization) - NS 01/14/18 09:59 BID NOA Impression 1. ESRD 2. DM 3. HTN 4. anemia 5. buttock wound 6. allergic reaction Plan - HD today - abx per ID - waiting for chart from [facility] - will need a fistula once infection is clear - monitor BP - epogen for anemia - will follow Dr Apodaca
[2018-01-11] MEDS ORDERED: SODIUM CHLORIDE 250 ML IV PRN (17:20)
[2018-01-11] MEDS ORDERED: EPOETIN ALFA 3,000 UNIT/1 ML ML IVPUSH ONE (17:30)
[2018-01-11] MEDS: ATORVASTATIN CA 80 MG TABLET (FP) PO SCH (21:13)
[2018-01-11] MEDS ORDERED: POLYETHYLENE GLYCOL 3350 119 GM BTL PO ONE (21:16)
[2018-01-11] MEDS: INSULIN (LEVEMIR) 100 UNITS/ML UNITS SQ SCH (21:28)
[2018-01-11] MEDS ORDERED: SENNOSIDES/DOCUSATE COMBO (SENNA PLUS) TABLET (UD) PO PRN (23:23)
[2018-01-12] MEDS ORDERED: PIPERACILLIN/TAZOBACTAM 2.25 GM VIAL IVPB ONE ×3 (03:23→14:28)
[2018-01-12] MEDS ORDERED: DEXTROSE 5%-WATER - 50 ML IVPB ONE ×3 (03:23→14:28)
[2018-01-12] MEDS: PIPERACILLIN/TAZOB 2.25 GM 2.25 GM in DEXTROSE 5%-WATER - 50 ML IVPB SCH ×3 (03:27→17:38)
[2018-01-12] MEDS: LEVOTHYROXINE NA 25 MCG TABLET (FP) PO SCH (06:20)
[2018-01-12] MEDS: HEPARIN NA (PORCINE) 5,000 UNITS/ML 1ML VIAL SQ SCH ×3 (06:20→21:56)
[2018-01-12 06:33] LABS: BASO % 0.8 % (0-2.0); EOS % 0.5 % (0-4.5); HEMATOCRIT 27.8 % (35.4-49); HEMOGLOBIN 8.7 GM/dL (11.7-16.9); LYMPH % 16.1 % (8-40); MCH 26.1 pg (25.7-33.7); MCHC 31.2 g/dl (32.0-35.9); MEAN CELL VOLUME 83.6 fl (80-96); MEAN PLT VOLUME 7.4 fl (7.5-11.1); MONO % 6.5 % (3.8-10.2); NEUT % 76.1 % (42.8-82.8); PLATELET COUNT 437 K/MM3 (134-434); RBC 3.33 M/mm3 (4.00-5.60); WHITE BLOOD COUNT 15.8 K/mm3 (4.0-10.0)
[2018-01-12] MEDS: INSULIN SLIDING SCALE (NOVOLOG) 1 VIAL SQ SCH ×4 (06:41→22:04)
[2018-01-12 06:50] LABS: ALBUMIN 1.5 g/dl (3.4-5.0); ALK PHOS 233 U/L (45-117); ANION GAP 10 MMOL/L (8-16); BILIRUBIN,TOTAL 0.3 mg/dL (0.2-1.0); BLOOD UREA NITROGEN 36 mg/dL (7-18); CALCIUM 7.2 mg/dL (8.5-10.1); CHLORIDE 101 mmol/L (98-107); CO2 31 mmol/L (21-32); CREATININE 4.2 mg/dL (0.7-1.3); GLUCOSE,RANDOM 126 mg/dL (74-106); MAGNESIUM 1.7 mg/dL (1.8-2.4); PHOSPHOROUS 3.1 mg/dL (2.5-4.9); POTASSIUM 3.8 mmol/L (3.5-5.1); SGOT/AST 18 U/L (15-37); SGPT/ALT 15 U/L (12-78); SODIUM 142 mmol/L (136-145); TOT PROT 5.6 g/dl (6.4-8.2)
--- NOTE | 2018-01-12 08:25 | PN ---
Progress Note (short form) - Note Progress Note: Seen and examined in the ICU Remains afebrile and hemodynamically stable awaiting blood culture speciation repeat blood cultures cleared wound w/ PSA Denies: CABRERA/CP/n/v/c/f/SOB Active Medications Acetaminophen (Tylenol -) 650 mg PO DAILY [facility] Ascorbic Acid (Vitamin C -) 500 mg PO DAILY [facility] Atorvastatin Calcium (Lipitor -) 80 mg PO HS [facility] Last Admin: 01/11/18 21:13 Dose: 80 mg Chlorhexidine Gluconate (Hibiclens For Decolonization -) 1 applic TP HS [facility] Last Admin: 01/12/18 00:00 Dose: 1 applic Diphenhydramine HCl (Benadryl Injection -) 25 mg IVPUSH Q8H PRN PRN Reason: FOR ITCHING Last Admin: 01/12/18 04:27 Dose: 25 mg Folic Acid (Folic Acid -) 1 mg PO DAILY [facility] Gabapentin (Neurontin -) 100 mg PO DAILY [facility] Heparin Sodium (Porcine) (Heparin -) 5,000 unit SQ TID [facility] Last Admin: 01/12/18 06:20 Dose: 5,000 unit Hydralazine HCl (Apresoline -) 50 mg PO DAILY [facility] Piperacillin Sod/Tazobactam (Sod 2.25 gm/ Dextrose) 50 mls @ 100 mls/hr IVPB Q8H-IV [facility]; Protocol Last Admin: 01/12/18 03:27 Dose: 100 mls/hr Vancomycin HCl 1,500 mg/ (Dextrose) 500 mls @ 250 mls/hr IVPB MOWEFR [facility]; Protocol Gentamicin Sulfate/Sodium Chloride (Garamycin 80 Mg Premixed Ivpb -) 80 mg in 100 mls @ 100 mls/hr IVPB MOWEFR [facility]; Protocol Last Admin: 01/11/18 20:53 Dose: 100 mls/hr Sodium Chloride (Normal Saline -) 250 mls @ 3,000 mls/hr IV PRN PRN PRN Reason: Hypotension during Dialysis Stop: 01/12/18 17:19 Insulin Aspart (Novolog Vial Sliding Scale -) 1 vial SQ ACHS [facility]; Protocol Last Admin: 01/12/18 06:41 Dose: 2 units Insulin Detemir (Levemir Vial) 15 units SQ HS [facility] Last Admin: 01/11/18 21:28 Dose: 15 units Isosorbide Mononitrate (Imdur -) 30 mg PO DAILY [facility] Levothyroxine Sodium (Synthroid -) 50 mcg PO 0700 [facility] Last Admin: 01/12/18 06:20 Dose: 50 mcg Metoprolol Succinate (Toprol Xl -) 200 mg PO DAILY [facility] Multivitamins/Minerals/Vitamin C (Tab-A-Vit -) 1 tab PO DAILY [facility] Mupirocin (Bactroban Ointment (For Decolonization) -) 1 applic NS BID [facility] Stop: 01/14/18 09:59 Last Admin: 01/12/18 00:00 Dose: 1 applic Senna/Docusate Sodium (Pericolace -) 2 tablet PO HS PRN PRN Reason: CONSTIPATION Last Admin: 01/11/18 23:35 Dose: 2 tablet Vital Signs Period Temp Pulse Resp BP Sys/Chan Pulse Ox Last 24 Hr 98.2 F-98.3 F 79-89 18-20 125-158/57-98 100-100 Intake & Output 01/09/18 01/10/18 01/11/18 01/12/18 23:59 23:59 23:59 23:59 Intake Total 5280 843 200 200 Output Total 0 200 100 50 Balance 5280 643 100 150 Weight 115.258 kg 113.398 kg 118 kg 117.5 kg Exam: in bed w/o distress General: in bed without distress HEENT: PERRL CV: RRR Pulm: CTA Abd: SNTND Ext: WWP, stump c/d/i Skin: wound vac in place Neuro: AOx3, RACHEL CBC, BMP 01/12/18 05:30 01/12/18 05:30 Microbiology 01/11/18 07:35 Blood - Peripheral Venous Blood Culture - Preliminary NO GROWTH OBTAINED AFTER 24 HOURS, INCUBATION TO CONTINUE FOR 4 DAYS. 01/11/18 05:30 Blood - Peripheral Venous Blood Culture - Preliminary NO GROWTH OBTAINED AFTER 24 HOURS, INCUBATION TO CONTINUE FOR 4 DAYS. 01/08/18 23:38 Buttock - Left Gram Stain - Final 01/08/18 23:38 Buttock - Left Wound Culture - Final Pseudomonas Aeruginosa 01/08/18 23:38 Back Gram Stain - Final 01/08/18 23:38 Back Wound Culture - Preliminary Pseudomonas Aeruginosa Lactose Fermenting Neg Bacilli 01/08/18 22:56 Blood - Peripheral Venous Blood Culture - Preliminary Staphylococcus Coagulase Neg 01/08/18 22:56 Blood - Peripheral Venous Blood Culture - Preliminary Staphylococcus Coagulase Neg ASSESSMENT AND PLAN: Allergic Reaction/Angioedema resolved Sacral Decubitus/L Buttock Ulcer ESRD on HD HTN DM Hyperlipidemia - continue antibiotics per ID - dose vanco post HD - f/u cultures - wound care-> vac dressing - HD per renal - antihistamines as needed - glucose control - DVT prophylaxis - can monitor on floor Boerem ACNP Pulm/CCM CCT: 35m
[2018-01-12] MEDS: MUPIROCIN 2% TOPICAL OINTMENT FOR DECOLONIZATION NS SCH ×3 (09:57→22:00)
[2018-01-12] MEDS: MULTIVITAMINS (DAILY MVI) TABLET (FP) PO SCH (09:58)
[2018-01-12] MEDS: ACETAMINOPHEN 325 MG TABLET (FP) PO SCH (09:58)
[2018-01-12] MEDS: ASCORBIC ACID 500 MG TABLET (FP) PO SCH (09:59)
[2018-01-12] MEDS: FOLIC ACID 1 MG TABLET (FP) PO SCH (09:59)
[2018-01-12] MEDS: hydrALAZINE HCL 50 MG TABLET (FP) PO SCH (10:00)
[2018-01-12] MEDS: ISOSORBIDE MONONITRATE 30 MG TAB.SR.24H (FP) PO SCH (10:00)
[2018-01-12] MEDS: GABAPENTIN 100 MG CAPSULE (FP) PO SCH (10:00)
--- NOTE | 2018-01-12 10:00 | PN ---
Progress Note (short form) - Note Progress Note: Progress Note, Physician Chief Complaint: no complaints No SOB wants to go back to [place] has slight itching at iv site when he gets Zosyn constipated Vital Signs - 24 hr 01/11/18 01/11/18 01/11/18 11:46 11:52 12:00 Temperature Pulse Rate 82 80 Respiratory 18 20 20 Rate Blood Pressure 129/63 131/98 O2 Sat by Pulse 100 Oximetry (%) 01/11/18 01/11/18 01/11/18 14:00 15:50 16:00 Temperature 98.3 F Pulse Rate 79 80 84 Respiratory 20 18 20 Rate Blood Pressure 133/57 145/69 147/70 O2 Sat by Pulse Oximetry (%) 01/11/18 01/11/18 01/11/18 16:30 17:00 17:30 Temperature Pulse Rate 83 83 84 Respiratory 18 18 18 Rate Blood Pressure 145/59 152/81 147/70 O2 Sat by Pulse Oximetry (%) 01/11/18 01/11/18 01/11/18 18:00 18:30 19:00 Temperature Pulse Rate 85 85 85 Respiratory 18 18 18 Rate Blood Pressure 140/61 146/81 134/95 O2 Sat by Pulse Oximetry (%) 01/11/18 01/11/18 01/11/18 19:15 19:40 19:56 Temperature Pulse Rate 85 87 89 Respiratory 18 18 18 Rate Blood Pressure 155/78 145/64 155/78 O2 Sat by Pulse Oximetry (%) 01/11/18 01/11/18 01/12/18 19:57 22:00 00:00 Temperature 98.2 F Pulse Rate 88 85 Respiratory 20 18 Rate Blood Pressure 158/69 146/77 O2 Sat by Pulse 100 Oximetry (%) 01/12/18 01/12/18 01/12/18 02:00 04:00 06:43 Temperature 98.3 F Pulse Rate 85 88 80 Respiratory 20 18 20 Rate Blood Pressure 142/71 125/60 O2 Sat by Pulse Oximetry (%) Current Medications Generic Name Dose Route Start Last Admin Trade Name Freq PRN Reason Stop Dose Admin Acetaminophen 650 mg 01/12/18 10:00 01/12/18 09:58 Tylenol - PO 650 mg DAILY NO[facility] Administration Ascorbic Acid 500 mg 01/12/18 10:00 01/12/18 09:59 Vitamin C - PO 500 mg DAILY NO[facility] Administration Atorvastatin Calcium 80 mg 01/11/18 22:00 01/11/18 21:13 Lipitor - PO 80 mg HS NOA Administration Chlorhexidine Gluconate 1 applic 01/11/18 22:00 01/12/18 00:00 Hibiclens For Decolonization - TP 1 applic HS NOA Administration Diphenhydramine HCl 25 mg 01/11/18 14:13 01/12/18 09:54 Benadryl Injection - IVPUSH 25 mg Q8H PRN Administration FOR ITCHING Folic Acid 1 mg 01/12/18 10:00 01/12/18 09:59 Folic Acid - PO 1 mg DAILY NO[facility] Administration Gabapentin 100 mg 01/12/18 10:00 01/12/18 10:00 Neurontin - PO 100 mg DAILY NO[facility] Administration Heparin Sodium (Porcine) 5,000 unit 01/11/18 22:00 01/12/18 06:20 Heparin - SQ 5,000 unit TID NOA Administration Hydralazine HCl 50 mg 01/12/18 10:00 01/12/18 10:00 Apresoline - PO 50 mg DAILY [facility] Administration Piperacillin Sod/Tazobactam 50 mls @ 100 mls/hr 01/11/18 18:00 01/12/18 10:01 Sod 2.25 gm/ Dextrose IVPB 100 mls/hr Q8H-IV NOA Administration Protocol Vancomycin HCl 1,500 mg/ 500 mls @ 250 mls/hr 01/14/18 18:00 Dextrose IVPB MOWEFR [facility] Protocol Gentamicin Sulfate/Sodium Chloride 80 mg in 100 mls @ 100 mls/hr 01/11/18 18: 00 01/11/18 20:53 Garamycin 80 Mg Premixed Ivpb - IVPB 100 mls/hr MOWEFR NO[facility] Administration Protocol Sodium Chloride 250 mls @ 3,000 mls/hr 01/11/18 17:20 Normal Saline - IV 01/12/18 17:19 PRN PRN Hypotension during Dialysis Insulin Aspart 1 vial 01/11/18 16:30 01/12/18 06:41 Novolog Vial Sliding Scale - SQ 2 units ACHS NOA Administration Protocol Insulin Detemir 15 units 01/11/18 22:00 01/11/18 21:28 Levemir Vial SQ 15 units HS NOA Administration Isosorbide Mononitrate 30 mg 01/12/18 10:00 01/12/18 10:00 Imdur - PO 30 mg DAILY NO[facility] Administration Levothyroxine Sodium 50 mcg 01/12/18 07:00 01/12/18 06:20 Synthroid - PO 50 mcg 0700 NO[facility] Administration Metoprolol Succinate 200 mg 01/12/18 10:00 01/12/18 09:59 Toprol Xl - PO 200 mg DAILY NO[facility] Administration Multivitamins/Minerals/Vitamin C 1 tab 01/12/18 10:00 01/12/18 09:58 Tab-A-Vit - PO 1 tab DAILY [facility] Administration Mupirocin 1 applic 01/11/18 22:00 01/12/18 09:57 Bactroban Ointment (For Decolonization) - NS 01/14/18 09:59 1 applic BID NOA Administration Senna/Docusate Sodium 2 tablet 01/11/18 23:23 01/11/18 23:35 Pericolace - PO 2 tablet HS PRN Administration CONSTIPATION Constitutional: Yes: No Distress, Calm Eyes: Yes: Other (periorbital edema, lips edema+)-- decreased Cardiovascular: Yes: Regular Rate and Rhythm Respiratory: Yes: Diminished Gastrointestinal: Yes: Normal Bowel Sounds, Soft. 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-- seen by ID - Dr Pearce there - - on GM during HD x 3 weeks On Solumedrol IV-- dc ok to transfer to the floors clinically better po benadryl psuedomonas sensitive to Gentamicin and tobramycin repeat blood cultures negative continue with current care DM control dialyzed yesterday Problem List - Problems (1) Allergic reaction Code(s): T78.40XA - ALLERGY, UNSPECIFIED, INITIAL ENCOUNTER (2) ESRD on hemodialysis Code(s): N18.6 - END STAGE RENAL DISEASE; Z99.2 - DEPENDENCE ON RENAL DIALYSIS (3) Wound of buttock Code(s): S31.809A - UNSPECIFIED OPEN WOUND OF UNSPECIFIED BUTTOCK, INIT ENCNTR (4) Wound of sacral region Code(s): S31.000A - UNSP OPN WND LOW BACK AND PELV W/O PENET RETROPERITON, INIT
[2018-01-12] MEDS ORDERED: diphenhydrAMINE HCL 25 MG CAPSULE (FP) PO PRN (10:16)
--- NOTE | 2018-01-12 10:21 | PN ---
Progress Note (short form) - Note Progress Note: 1. ESRD 2. DM 3. HTN 4. anemia 5. buttock wound 6. allergic reaction Active Medications Acetaminophen (Tylenol -) 650 mg PO DAILY [facility] Last Admin: 01/12/18 09:58 Dose: 650 mg Ascorbic Acid (Vitamin C -) 500 mg PO DAILY [facility] Last Admin: 01/12/18 09:59 Dose: 500 mg Atorvastatin Calcium (Lipitor -) 80 mg PO HS [facility] Last Admin: 01/11/18 21:13 Dose: 80 mg Chlorhexidine Gluconate (Hibiclens For Decolonization -) 1 applic TP HS [facility] Last Admin: 01/12/18 00:00 Dose: 1 applic Diphenhydramine HCl (Benadryl Injection -) 25 mg IVPUSH Q8H PRN PRN Reason: FOR ITCHING Last Admin: 01/12/18 09:54 Dose: 25 mg Folic Acid (Folic Acid -) 1 mg PO DAILY [facility] Last Admin: 01/12/18 09:59 Dose: 1 mg Gabapentin (Neurontin -) 100 mg PO DAILY [facility] Last Admin: 01/12/18 10:00 Dose: 100 mg Heparin Sodium (Porcine) (Heparin -) 5,000 unit SQ TID [facility] Last Admin: 01/12/18 06:20 Dose: 5,000 unit Hydralazine HCl (Apresoline -) 50 mg PO DAILY [facility] Last Admin: 01/12/18 10:00 Dose: 50 mg Piperacillin Sod/Tazobactam (Sod 2.25 gm/ Dextrose) 50 mls @ 100 mls/hr IVPB Q8H-IV [facility]; Protocol Last Admin: 01/12/18 10:01 Dose: 100 mls/hr Vancomycin HCl 1,500 mg/ (Dextrose) 500 mls @ 250 mls/hr IVPB MOWEFR [facility]; Protocol Gentamicin Sulfate/Sodium Chloride (Garamycin 80 Mg Premixed Ivpb -) 80 mg in 100 mls @ 100 mls/hr IVPB MOWEFR [facility]; Protocol Last Admin: 01/11/18 20:53 Dose: 100 mls/hr Sodium Chloride (Normal Saline -) 250 mls @ 3,000 mls/hr IV PRN PRN PRN Reason: Hypotension during Dialysis Stop: 01/12/18 17:19 Insulin Aspart (Novolog Vial Sliding Scale -) 1 vial SQ ACHS [facility]; Protocol Last Admin: 01/12/18 06:41 Dose: 2 units Insulin Detemir (Levemir Vial) 15 units SQ HS [facility] Last Admin: 01/11/18 21:28 Dose: 15 units Isosorbide Mononitrate (Imdur -) 30 mg PO DAILY [facility] Last Admin: 01/12/18 10:00 Dose: 30 mg Levothyroxine Sodium (Synthroid -) 50 mcg PO 0700 [facility] Last Admin: 01/12/18 06:20 Dose: 50 mcg Metoprolol Succinate (Toprol Xl -) 200 mg PO DAILY [facility] Last Admin: 01/12/18 09:59 Dose: 200 mg Multivitamins/Minerals/Vitamin C (Tab-A-Vit -) 1 tab PO DAILY [facility] Last Admin: 01/12/18 09:58 Dose: 1 tab Mupirocin (Bactroban Ointment (For Decolonization) -) 1 applic NS BID [facility] Stop: 01/14/18 09:59 Last Admin: 01/12/18 09:57 Dose: 1 applic Senna/Docusate Sodium (Pericolace -) 2 tablet PO PRN PRN Reason: CONSTIPATION Last Admin: 01/11/18 23:35 Dose: 2 tablet Last Vital Signs Temp Pulse Resp BP Pulse Ox 98.3 F 80 20 125/60 100 01/12/18 06:43 01/12/18 06:43 01/12/18 06:43 01/12/18 06:43 01/11/18 19:57 Lungs clear Heart reg Ext LLE chronic edema CBC, BMP 01/12/18 05:30 01/12/18 05:30 IMP- stable esrd For HD on Sunday
[2018-01-12] MEDS: DOCUSATE SODIUM 100 MG CAPSULE (FP) PO SCH ×2 (14:37→22:00)
--- NOTE | 2018-01-12 15:41 | PN ---
Progress Note, Physician History of Present Illness: Pt remains alert, afebrile, without distress. Has no specific complaints. - Current Medication List Current Medications: Active Medications Acetaminophen (Tylenol -) 650 mg PO DAILY [facility] Last Admin: 01/12/18 09:58 Dose: 650 mg Ascorbic Acid (Vitamin C -) 500 mg PO DAILY [facility] Last Admin: 01/12/18 09:59 Dose: 500 mg Atorvastatin Calcium (Lipitor -) 80 mg PO [facility] Last Admin: 01/11/18 21:13 Dose: 80 mg Chlorhexidine Gluconate (Hibiclens For Decolonization -) 1 applic TP HS [facility] Last Admin: 01/12/18 00:00 Dose: 1 applic Diphenhydramine HCl (Benadryl -) 25 mg PO Q6H PRN PRN Reason: FOR ITCHING Docusate Sodium (Colace -) 100 mg PO TID [facility] Last Admin: 01/12/18 14:37 Dose: 100 mg Folic Acid (Folic Acid -) 1 mg PO DAILY [facility] Last Admin: 01/12/18 09:59 Dose: 1 mg Gabapentin (Neurontin -) 100 mg PO DAILY [facility] Last Admin: 01/12/18 10:00 Dose: 100 mg Heparin Sodium (Porcine) (Heparin -) 5,000 unit SQ TID [facility] Last Admin: 01/12/18 14:36 Dose: 5,000 unit Hydralazine HCl (Apresoline -) 50 mg PO DAILY [facility] Last Admin: 01/12/18 10:00 Dose: 50 mg Piperacillin Sod/Tazobactam (Sod 2.25 gm/ Dextrose) 50 mls @ 100 mls/hr IVPB Q8H-IV [facility]; Protocol Last Admin: 01/12/18 10:01 Dose: 100 mls/hr Vancomycin HCl 1,500 mg/ (Dextrose) 500 mls @ 250 mls/hr IVPB MOWEFR [facility]; Protocol Gentamicin Sulfate/Sodium Chloride (Garamycin 80 Mg Premixed Ivpb -) 80 mg in 100 mls @ 100 mls/hr IVPB MOWEFR [facility]; Protocol Last Admin: 01/11/18 20:53 Dose: 100 mls/hr Sodium Chloride (Normal Saline -) 250 mls @ 3,000 mls/hr IV PRN PRN PRN Reason: Hypotension during Dialysis Stop: 01/12/18 17:19 Insulin Aspart (Novolog Vial Sliding Scale -) 1 vial SQ [facility]; Protocol Last Admin: 01/12/18 11:45 Dose: 2 units Insulin Detemir (Levemir Vial) 15 units SQ [facility] Last Admin: 01/11/18 21:28 Dose: 15 units Isosorbide Mononitrate (Imdur -) 30 mg PO DAILY [facility] Last Admin: 01/12/18 10:00 Dose: 30 mg Levothyroxine Sodium (Synthroid -) 50 mcg PO 0700 [facility] Last Admin: 01/12/18 06:20 Dose: 50 mcg Metoprolol Succinate (Toprol Xl -) 200 mg PO DAILY [facility] Last Admin: 01/12/18 09:59 Dose: 200 mg Multivitamins/Minerals/Vitamin C (Tab-A-Vit -) 1 tab PO DAILY [facility] Last Admin: 01/12/18 09:58 Dose: 1 tab Mupirocin (Bactroban Ointment (For Decolonization) -) 1 applic NS BID [facility] Stop: 01/14/18 09:59 Last Admin: 01/12/18 09:57 Dose: 1 applic Senna/Docusate Sodium (Pericolace -) 2 tablet PO PRN PRN Reason: CONSTIPATION Last Admin: 01/11/18 23:35 Dose: 2 tablet - Objective Vital Signs: Vital Signs Temperature 98.4 F 01/12/18 14:00 Pulse Rate 85 01/12/18 14:00 Respiratory Rate 17 01/12/18 14:00 Blood Pressure 130/50 01/12/18 14:00 O2 Sat by Pulse Oximetry (%) 100 01/12/18 09:00 Constitutional: Yes: No Distress, Calm Cardiovascular: Yes: Regular Rate and Rhythm Respiratory: Yes: Regular Gastrointestinal: Yes: Normal Bowel Sounds, Soft Musculoskeletal: Yes: WNL Extremities: Yes: Amputation Wound/Incision: Yes: Other (sacral/buttock wound vax) Neurological: Yes: Alert, Oriented Labs: CBC, BMP 01/12/18 05:30 01/12/18 05:30 INR, PTT INR 1.17 (0.83-1.09) H 01/10/18 05:30 Microbiology 01/08/18 23:38 Back Gram Stain - Final 01/08/18 23:38 Back Wound Culture - Final Pseudomonas Aeruginosa Escherichia Coli 01/08/18 22:56 Blood - Peripheral Venous Blood Culture - Preliminary Staphylococcus Coagulase Neg 01/11/18 07:35 Blood - Peripheral Venous Blood Culture - Preliminary NO GROWTH OBTAINED AFTER 24 HOURS, INCUBATION TO CONTINUE FOR 4 DAYS. 01/11/18 05:30 Blood - Peripheral Venous Blood Culture - Preliminary NO GROWTH OBTAINED AFTER 24 HOURS, INCUBATION TO CONTINUE FOR 4 DAYS. 01/08/18 23:38 Buttock - Left Gram Stain - Final 01/08/18 23:38 Buttock - Left Wound Culture - Final Pseudomonas Aeruginosa 01/08/18 22:56 Blood - Peripheral Venous Blood Culture - Preliminary Staphylococcus Coagulase Neg Problem List - Problems (1) Allergic reaction Code(s): T78.40XA - ALLERGY, UNSPECIFIED, INITIAL ENCOUNTER (2) ESRD on hemodialysis Code(s): N18.6 - END STAGE RENAL DISEASE; Z99.2 - DEPENDENCE ON RENAL DIALYSIS (3) HTN (hypertension) Code(s): I10 - ESSENTIAL (PRIMARY) HYPERTENSION (4) Wound of buttock Code(s): S31.809A - UNSPECIFIED OPEN WOUND OF UNSPECIFIED BUTTOCK, INIT ENCNTR (5) Wound of sacral region Code(s): S31.000A - UNSP OPN WND LOW BACK AND PELV W/O PENET RETROPERITON, INIT Assessment/Plan 27 y.o. male with PMH of ESRD on HD, HTN, HLD, Rt AKA, IDDM with Lt buttock/ sacral abscess/wounds s/p debridement at [facility] who has been on IV Antibiotics initially transferred for wound care supplies noted to have fever 100.6 and leukocytosis. Pt given dose of morphine and developed facial edema and transferred to the ICU. He is currently stable, afebrile, with resolution of allergic symptoms. Infected Sacral DU/ gluteal abscess s/p drainage/debridement Angioedema ESRD on HD IDDM Gram + bacteremia - coag neg. Staph, suspect contamination, repeat blood cultures no growth 24hr -- wound/blood culture results reviewed -- continue Zosyn IV Q8hr -- Gentamicin, Vancomycin by level, give post HD -- monitor wbc trend - decreased from yesterday -- wound vac applied -- continue monitor vitals cc time: 40 min
[2018-01-12] MEDS: INSULIN (LEVEMIR) 100 UNITS/ML UNITS SQ SCH (21:58)
[2018-01-12] MEDS: ATORVASTATIN CA 80 MG TABLET (FP) PO SCH (21:58)
[2018-01-12] MEDS: CHLORHEXIDINE GLUCONATE 4% CLEANSER FOR DECOLONIZATION TP SCH ×2 (22:00)
[2018-01-13] MEDS: PIPERACILLIN/TAZOB 2.25 GM 2.25 GM in DEXTROSE 5%-WATER - 50 ML IVPB SCH ×3 (02:00→17:04)
[2018-01-13] MEDS ORDERED: DEXTROSE 5%-WATER - 50 ML IVPB ONE ×3 (03:18→16:04)
[2018-01-13] MEDS ORDERED: PIPERACILLIN/TAZOBACTAM 2.25 GM VIAL IVPB ONE ×3 (03:18→16:04)
[2018-01-13] MEDS: HEPARIN NA (PORCINE) 5,000 UNITS/ML 1ML VIAL SQ SCH ×3 (05:51→22:19)
[2018-01-13 06:29] LABS: HEMATOCRIT 25.1 % (35.4-49); HEMOGLOBIN 7.8 GM/dL (11.7-16.9); MCH 26.1 pg (25.7-33.7); MCHC 31.2 g/dl (32.0-35.9); MEAN CELL VOLUME 83.7 fl (80-96); MEAN PLT VOLUME 7.3 fl (7.5-11.1); PLATELET COUNT 405 K/MM3 (134-434); RBC 2.99 M/mm3 (4.00-5.60); RDW 19.1 % (11.9-15.9); WHITE BLOOD COUNT 14.5 K/mm3 (4.0-10.0)
[2018-01-13 06:41] LABS: ANION GAP 11 MMOL/L (8-16); BLOOD UREA NITROGEN 48 mg/dL (7-18); CALCIUM 7.5 mg/dL (8.5-10.1); CHLORIDE 102 mmol/L (98-107); CO2 29 mmol/L (21-32); CREATININE 5.4 mg/dL (0.7-1.3); GLUCOSE,RANDOM 105 mg/dL (74-106); MAGNESIUM 1.7 mg/dL (1.8-2.4); PHOSPHOROUS 3.6 mg/dL (2.5-4.9); SODIUM 142 mmol/L (136-145)
[2018-01-13] MEDS: INSULIN SLIDING SCALE (NOVOLOG) 1 VIAL SQ SCH ×4 (06:46→22:36)
[2018-01-13] MEDS: DOCUSATE SODIUM 100 MG CAPSULE (FP) PO SCH ×3 (06:46→22:21)
[2018-01-13] MEDS: LEVOTHYROXINE NA 25 MCG TABLET (FP) PO SCH (06:47)
[2018-01-13] MEDS: MULTIVITAMINS (DAILY MVI) TABLET (FP) PO SCH (09:09)
[2018-01-13] MEDS: FOLIC ACID 1 MG TABLET (FP) PO SCH (09:09)
[2018-01-13] MEDS: ACETAMINOPHEN 325 MG TABLET (FP) PO SCH (09:10)
[2018-01-13] MEDS: GABAPENTIN 100 MG CAPSULE (FP) PO SCH (09:10)
[2018-01-13] MEDS: ASCORBIC ACID 500 MG TABLET (FP) PO SCH (09:14)
[2018-01-13] MEDS: ISOSORBIDE MONONITRATE 30 MG TAB.SR.24H (FP) PO SCH (09:15)
[2018-01-13] MEDS: hydrALAZINE HCL 50 MG TABLET (FP) PO SCH (09:16)
[2018-01-13] MEDS: MUPIROCIN 2% TOPICAL OINTMENT FOR DECOLONIZATION NS SCH ×2 (09:17→22:57)
--- NOTE | 2018-01-13 09:31 | PN ---
Progress Note (short form) - Note Progress Note: Seen and examined in the ICU remains afebrile awaiting floor bed Current Medications Acetaminophen (Tylenol -) 650 mg PO DAILY [facility] Last Admin: 01/13/18 09:10 Dose: 650 mg Ascorbic Acid (Vitamin C -) 500 mg PO DAILY [facility] Last Admin: 01/13/18 09:14 Dose: 500 mg Atorvastatin Calcium (Lipitor -) 80 mg PO [facility] Last Admin: 01/12/18 21:58 Dose: 80 mg Chlorhexidine Gluconate (Hibiclens For Decolonization -) 1 applic TP [facility] Last Admin: 01/12/18 22:00 Dose: 1 applic Diphenhydramine HCl (Benadryl -) 25 mg PO Q6H PRN PRN Reason: FOR ITCHING Last Admin: 01/13/18 03:28 Dose: 25 mg Docusate Sodium (Colace -) 100 mg PO TID [facility] Last Admin: 01/13/18 06:46 Dose: Not Given Folic Acid (Folic Acid -) 1 mg PO DAILY [facility] Last Admin: 01/13/18 09:09 Dose: 1 mg Gabapentin (Neurontin -) 100 mg PO DAILY [facility] Last Admin: 01/13/18 09:10 Dose: 100 mg Heparin Sodium (Porcine) (Heparin -) 5,000 unit SQ TID [facility] Last Admin: 01/13/18 05:51 Dose: 5,000 unit Hydralazine HCl (Apresoline -) 50 mg PO DAILY [facility] Last Admin: 01/13/18 09:16 Dose: 50 mg Piperacillin Sod/Tazobactam (Sod 2.25 gm/ Dextrose) 50 mls @ 100 mls/hr IVPB Q8H-IV [facility]; Protocol Last Admin: 01/13/18 09:06 Dose: 100 mls/hr Vancomycin HCl 1,500 mg/ (Dextrose) 500 mls @ 250 mls/hr IVPB MOWEFR [facility]; Protocol Gentamicin Sulfate/Sodium Chloride (Garamycin 80 Mg Premixed Ivpb -) 80 mg in 100 mls @ 100 mls/hr IVPB MOWEFR [facility]; Protocol Last Admin: 01/11/18 20:53 Dose: 100 mls/hr Insulin Aspart (Novolog Vial Sliding Scale -) 1 vial SQ ACHS [facility]; Protocol Last Admin: 01/13/18 06:46 Dose: Not Given Insulin Detemir (Levemir Vial) 15 units SQ HS [facility] Last Admin: 01/12/18 21:58 Dose: 15 units Isosorbide Mononitrate (Imdur -) 30 mg PO DAILY [facility] Last Admin: 01/13/18 09:15 Dose: 30 mg Levothyroxine Sodium (Synthroid -) 50 mcg PO 0700 [facility] Last Admin: 01/13/18 06:47 Dose: 50 mcg Metoprolol Succinate (Toprol Xl -) 200 mg PO DAILY [facility] Last Admin: 01/13/18 09:08 Dose: 200 mg Multivitamins/Minerals/Vitamin C (Tab-A-Vit -) 1 tab PO DAILY [facility] Last Admin: 01/13/18 09:09 Dose: 1 tab Mupirocin (Bactroban Ointment (For Decolonization) -) 1 applic NS BID [facility] Stop: 01/14/18 09:59 Last Admin: 01/13/18 09:17 Dose: 1 applic Senna/Docusate Sodium (Pericolace -) 2 tablet PO PRN PRN Reason: CONSTIPATION Last Admin: 01/11/18 23:35 Dose: 2 tablet Vital Signs Period Temp Pulse Resp BP Sys/Chan Pulse Ox Last 24 Hr 98 F-98.6 F 78-89 16-20 116-150/50-109 100 Intake & Output 01/10/18 01/11/18 01/12/18 01/13/18 23:59 23:59 23:59 23:59 Intake Total 843 200 960 200 Output Total 200 100 50 650 Balance 643 100 910 -450 Weight 113.398 kg 118 kg 117.5 kg 117.5 kg Exam: in bed w/o distress General: in bed without distress HEENT: PERRL CV: RRR Pulm: CTA Abd: SNTND Ext: WWP, stump c/d/i Skin: wound vac in place Neuro: AOx3, RACHEL CBC, BMP 01/13/18 05:30 01/13/18 05:30 Microbiology 01/11/18 07:35 Blood - Peripheral Venous Blood Culture - Preliminary NO GROWTH OBTAINED AFTER 24 HOURS, INCUBATION TO CONTINUE FOR 4 DAYS. 01/11/18 05:30 Blood - Peripheral Venous Blood Culture - Preliminary NO GROWTH OBTAINED AFTER 24 HOURS, INCUBATION TO CONTINUE FOR 4 DAYS. 01/08/18 23:38 Buttock - Left Gram Stain - Final 01/08/18 23:38 Buttock - Left Wound Culture - Final Pseudomonas Aeruginosa 01/08/18 23:38 Back Gram Stain - Final 01/08/18 23:38 Back Wound Culture - Preliminary Pseudomonas Aeruginosa Lactose Fermenting Neg Bacilli 01/08/18 22:56 Blood - Peripheral Venous Blood Culture - Preliminary Staphylococcus Coagulase Neg 01/08/18 22:56 Blood - Peripheral Venous Blood Culture - Preliminary Staphylococcus Coagulase Neg ASSESSMENT AND PLAN: Allergic Reaction/Angioedema resolved Sacral Decubitus/L Buttock Ulcer ESRD on HD HTN DM Hyperlipidemia - continue antibiotics per ID - dose vanco post HD - f/u cultures - wound care-> vac dressing - HD per renal - antihistamines as needed - glucose control - DVT prophylaxis - can monitor on floor Ashley BOCANEGRA Pulm/CCM CCT: 35m
--- NOTE | 2018-01-13 11:58 | PN ---
Progress Note (short form) - Note Progress Note: Progress Note, Physician Chief Complaint: no complaints No SOB [place] to go back to [place] has slight itching at iv site when he gets Zosyn- better with Benadryl had a bm yesterday Vital Signs - 24 hr 01/12/18 01/12/18 01/12/18 14:00 17:34 20:00 Temperature 98.4 F 98.0 F Pulse Rate 85 78 87 Respiratory 17 17 16 Rate Blood Pressure 130/50 131/61 116/94 O2 Sat by Pulse Oximetry (%) 01/12/18 01/12/18 01/13/18 21:00 22:00 00:00 Temperature 98 F Pulse Rate 87 87 Respiratory 16 17 17 Rate Blood Pressure 129/90 O2 Sat by Pulse 100 Oximetry (%) 01/13/18 01/13/18 01/13/18 02:00 04:00 06:00 Temperature 98.6 F Pulse Rate 85 86 86 Respiratory 17 17 17 Rate Blood Pressure 125/109 O2 Sat by Pulse Oximetry (%) 01/13/18 08:00 Temperature Pulse Rate 83 Respiratory 18 Rate Blood Pressure 145/79 O2 Sat by Pulse Oximetry (%) Current Medications Generic Name Dose Route Start Last Admin Trade Name Freq PRN Reason Stop Dose Admin Acetaminophen 650 mg 01/12/18 10:00 01/13/18 09:10 Tylenol - PO 650 mg DAILY [facility] Administration Ascorbic Acid 500 mg 01/12/18 10:00 01/13/18 09:14 Vitamin C - PO 500 mg DAILY [facility] Administration Atorvastatin Calcium 80 mg 01/11/18 22:00 01/12/18 21:58 Lipitor - PO 80 mg HS [facility] Administration Chlorhexidine Gluconate 1 applic 01/11/18 22:00 01/12/18 22:00 Hibiclens For Decolonization - TP 1 applic HS [facility] Administration Diphenhydramine HCl 25 mg 01/12/18 10:16 01/13/18 03:28 Benadryl - PO 25 mg Q6H PRN Administration FOR ITCHING Docusate Sodium 100 mg 01/12/18 14:00 01/13/18 06:46 Colace - PO Not Given TID [facility] Folic Acid 1 mg 01/12/18 10:00 01/13/18 09:09 Folic Acid - PO 1 mg DAILY [facility] Administration Gabapentin 100 mg 01/12/18 10:00 01/13/18 09:10 Neurontin - PO 100 mg DAILY [facility] Administration Heparin Sodium (Porcine) 5,000 unit 01/11/18 22:00 01/13/18 05:51 Heparin - SQ 5,000 unit TID [facility] Administration Hydralazine HCl 50 mg 01/12/18 10:00 01/13/18 09:16 Apresoline - PO 50 mg DAILY [facility] Administration Piperacillin Sod/Tazobactam 50 mls @ 100 mls/hr 01/11/18 18:00 01/13/18 09:06 Sod 2.25 gm/ Dextrose IVPB 100 mls/hr Q8H-IV [facility] Administration Protocol Vancomycin HCl 1,500 mg/ 500 mls @ 250 mls/hr 01/14/18 18:00 Dextrose IVPB MOWEFR [facility] Protocol Gentamicin Sulfate/Sodium Chloride 80 mg in 100 mls @ 100 mls/hr 01/11/18 18: 00 01/11/18 20:53 Garamycin 80 Mg Premixed Ivpb - IVPB 100 mls/hr MOWEFR [facility] Administration Protocol Insulin Aspart 1 vial 01/11/18 16:30 01/13/18 06:46 Novolog Vial Sliding Scale - SQ Not Given ACHS [facility] Protocol Insulin Detemir 15 units 01/11/18 22:00 01/12/18 21:58 Levemir Vial SQ 15 units HS [facility] Administration Isosorbide Mononitrate 30 mg 01/12/18 10:00 01/13/18 09:15 Imdur - PO 30 mg DAILY [facility] Administration Levothyroxine Sodium 50 mcg 01/12/18 07:00 01/13/18 06:47 Synthroid - PO 50 mcg 0700 [facility] Administration Metoprolol Succinate 200 mg 01/12/18 10:00 01/13/18 09:08 Toprol Xl - PO 200 mg DAILY [facility] Administration Multivitamins/Minerals/Vitamin C 1 tab 01/12/18 10:00 01/13/18 09:09 Tab-A-Vit - PO 1 tab DAILY [facility] Administration Mupirocin 1 applic 01/11/18 22:00 01/13/18 09:17 Bactroban Ointment (For Decolonization) - NS 01/14/18 09:59 1 applic BID [facility] Administration Senna/Docusate Sodium 2 tablet 01/11/18 23:23 01/11/18 23:35 Pericolace - PO 2 tablet HS PRN Administration CONSTIPATION Laboratory Results - last 24 hr 01/13/18 01/13/18 05:30 05:30 WBC 14.5 H RBC 2.99 L Hgb 7.8 L Hct 25.1 L MCV 83.7 MCH 26.1 MCHC 31.2 L RDW 19.1 H Plt Count 405 MPV 7.3 L Sodium 142 Potassium 4.0 Chloride 102 Carbon Dioxide 29 Anion Gap 11 BUN 48 H Creatinine 5.4 H Creat Clearance w eGFR 12.71 Random Glucose 105 Calcium 7.5 L Phosphorus 3.6 Magnesium 1.7 L Constitutional: Yes: No Distress, Calm Eyes: Yes: Other (periorbital edema, lips edema+)-- decreased Cardiovascular: Yes: Regular Rate and Rhythm Respiratory: Yes: Diminished Gastrointestinal: Yes: Normal Bowel Sounds, Soft. No: Tenderness Extremities: Yes: Amputation (right AKA) Edema: Yes Edema: LLE: decreased no rash noted on right hand Labs: Problem List - Problems (1) Allergic reaction Code(s): T78.40XA - ALLERGY, UNSPECIFIED, INITIAL ENCOUNTER (2) ESRD on hemodialysis Code(s): N18.6 - END STAGE RENAL DISEASE; Z99.2 - DEPENDENCE ON RENAL DIALYSIS (3) Wound of buttock Code(s): S31.809A - UNSPECIFIED OPEN WOUND OF UNSPECIFIED BUTTOCK, INIT ENCNTR (4) Wound of sacral region Code(s): S31.000A - UNSP OPN WND LOW BACK AND PELV W/O PENET RETROPERITON, INIT Assessment/Plan PLAN CT pelvis noted-- pt on snf antibiotics in [place] No surgical interventions planned continue with local wound care po benadryl wound cultures--psuedomonas sensitive to Gentamicin and tobramycin repeat blood cultures negative continue with current care DM control Problem List - Problems (1) Allergic reaction Code(s): T78.40XA - ALLERGY, UNSPECIFIED, INITIAL ENCOUNTER (2) ESRD on hemodialysis Code(s): N18.6 - END STAGE RENAL DISEASE; Z99.2 - DEPENDENCE ON RENAL DIALYSIS (3) Wound of buttock Code(s): S31.809A - UNSPECIFIED OPEN WOUND OF UNSPECIFIED BUTTOCK, INIT ENCNTR (4) Wound of sacral region Code(s): S31.000A - UNSP OPN WND LOW BACK AND PELV W/O PENET RETROPERITON, INIT
--- NOTE | 2018-01-13 13:17 | PN ---
Progress Note (short form) - Note Progress Note: 1. ESRD 2. DM 3. HTN 4. anemia 5. buttock wound 6. allergic reaction Current Medications Acetaminophen (Tylenol -) 650 mg PO DAILY [facility] Last Admin: 01/13/18 09:10 Dose: 650 mg Ascorbic Acid (Vitamin C -) 500 mg PO DAILY [facility] Last Admin: 01/13/18 09:14 Dose: 500 mg Atorvastatin Calcium (Lipitor -) 80 mg PO HS [facility] Last Admin: 01/12/18 21:58 Dose: 80 mg Chlorhexidine Gluconate (Hibiclens For Decolonization -) 1 applic TP HS [facility] Last Admin: 01/12/18 22:00 Dose: 1 applic Diphenhydramine HCl (Benadryl -) 25 mg PO Q6H PRN PRN Reason: FOR ITCHING Last Admin: 01/13/18 03:28 Dose: 25 mg Docusate Sodium (Colace -) 100 mg PO TID [facility] Last Admin: 01/13/18 06:46 Dose: Not Given Epoetin Horacio (Procrit -) 10,000 unit SQ ONCE ONE Stop: 01/13/18 13:09 Folic Acid (Folic Acid -) 1 mg PO DAILY [facility] Last Admin: 01/13/18 09:09 Dose: 1 mg Gabapentin (Neurontin -) 100 mg PO DAILY [facility] Last Admin: 01/13/18 09:10 Dose: 100 mg Heparin Sodium (Porcine) (Heparin -) 5,000 unit SQ TID [facility] Last Admin: 01/13/18 05:51 Dose: 5,000 unit Hydralazine HCl (Apresoline -) 50 mg PO DAILY [facility] Last Admin: 01/13/18 09:16 Dose: 50 mg Piperacillin Sod/Tazobactam (Sod 2.25 gm/ Dextrose) 50 mls @ 100 mls/hr IVPB Q8H-IV [facility]; Protocol Last Admin: 01/13/18 09:06 Dose: 100 mls/hr Vancomycin HCl 1,500 mg/ (Dextrose) 500 mls @ 250 mls/hr IVPB MOWEFR [facility]; Protocol Gentamicin Sulfate/Sodium Chloride (Garamycin 80 Mg Premixed Ivpb -) 80 mg in 100 mls @ 100 mls/hr IVPB MOWEFR [facility]; Protocol Last Admin: 01/11/18 20:53 Dose: 100 mls/hr Sodium Chloride (Normal Saline -) 250 mls @ 3,000 mls/hr IV PRN PRN PRN Reason: Hypotension during Dialysis Stop: 01/14/18 13:09 Insulin Aspart (Novolog Vial Sliding Scale -) [address] [facility]; Protocol Last Admin: 01/13/18 06:46 Dose: Not Given Insulin Detemir (Levemir Vial) 15 units SQ HS [facility] Last Admin: 01/12/18 21:58 Dose: 15 units Isosorbide Mononitrate (Imdur -) 30 mg PO DAILY [facility] Last Admin: 01/13/18 09:15 Dose: 30 mg Levothyroxine Sodium (Synthroid -) 50 mcg PO 0700 [facility] Last Admin: 01/13/18 06:47 Dose: 50 mcg Metoprolol Succinate (Toprol Xl -) 200 mg PO DAILY [facility] Last Admin: 01/13/18 09:08 Dose: 200 mg Multivitamins/Minerals/Vitamin C (Tab-A-Vit -) 1 tab PO DAILY [facility] Last Admin: 01/13/18 09:09 Dose: 1 tab Mupirocin (Bactroban Ointment (For Decolonization) -) 1 applic NS BID [facility] Stop: 01/14/18 09:59 Last Admin: 01/13/18 09:17 Dose: 1 applic Senna/Docusate Sodium (Pericolace -) 2 tablet PO HS PRN PRN Reason: CONSTIPATION Last Admin: 01/11/18 23:35 Dose: 2 tablet Last Vital Signs Temp Pulse Resp BP Pulse Ox 98.2 F 81 17 146/71 100 01/13/18 12:00 01/13/18 12:00 01/13/18 12:00 01/13/18 12:00 01/13/18 09:00 Lungs clear Heart reg Ext LLE chronic edema CBC, BMP 01/13/18 05:30 01/13/18 05:30 IMP- stable esrd anemia For HD on Sunday
[2018-01-13] MEDS: CHLORHEXIDINE GLUCONATE 4% CLEANSER FOR DECOLONIZATION TP SCH (22:21)
[2018-01-13] MEDS: INSULIN (LEVEMIR) 100 UNITS/ML UNITS SQ SCH (22:22)
[2018-01-13] MEDS: ATORVASTATIN CA 80 MG TABLET (FP) PO SCH (22:22)
[2018-01-14] MEDS ORDERED: PIPERACILLIN/TAZOBACTAM 2.25 GM VIAL IVPB ONE ×3 (00:12→16:13)
[2018-01-14] MEDS ORDERED: DEXTROSE 5%-WATER - 50 ML IVPB ONE ×3 (00:12→16:13)
[2018-01-14] MEDS: PIPERACILLIN/TAZOB 2.25 GM 2.25 GM in DEXTROSE 5%-WATER - 50 ML IVPB SCH ×3 (01:26→17:22)
[2018-01-14] MEDS: LEVOTHYROXINE NA 25 MCG TABLET (FP) PO SCH (06:03)
[2018-01-14] MEDS: HEPARIN NA (PORCINE) 5,000 UNITS/ML 1ML VIAL SQ SCH ×3 (06:03→22:20)
[2018-01-14] MEDS: DOCUSATE SODIUM 100 MG CAPSULE (FP) PO SCH ×3 (06:04→22:20)
[2018-01-14] MEDS: INSULIN SLIDING SCALE (NOVOLOG) 1 VIAL SQ SCH ×4 (06:17→22:22)
[2018-01-14 06:51] LABS: HEMOGLOBIN 8.9 GM/dL (11.7-16.9); MCH 26.5 pg (25.7-33.7); MCHC 31.6 g/dl (32.0-35.9); MEAN CELL VOLUME 83.6 fl (80-96); MEAN PLT VOLUME 7.4 fl (7.5-11.1); PLATELET COUNT 478 K/MM3 (134-434); RBC 3.35 M/mm3 (4.00-5.60); RDW 19.4 % (11.9-15.9); WHITE BLOOD COUNT 16.4 K/mm3 (4.0-10.0)
[2018-01-14 07:16] LABS: ANION GAP 8 MMOL/L (8-16); BLOOD UREA NITROGEN 62 mg/dL (7-18); CALCIUM 7.9 mg/dL (8.5-10.1); CHLORIDE 101 mmol/L (98-107); CO2 30 mmol/L (21-32); GLUCOSE,RANDOM 100 mg/dL (74-106); MAGNESIUM 1.9 mg/dL (1.8-2.4); POTASSIUM 4.2 mmol/L (3.5-5.1); SODIUM 139 mmol/L (136-145)
[2018-01-14 07:19] LABS: PHOSPHOROUS 4.2 mg/dL (2.5-4.9)
--- NOTE | 2018-01-14 08:19 | PN ---
Progress Note (short form) - Note Progress Note: No acute events per RN notes. Resting in position of comfort. Now able to lay supine. Still prefers not to use any pain meds as he is terrified of what morphine did to him in the ED (angioedema). Denies n/v/f/c, CP, SOB Last Vital Signs Temp Pulse Resp BP Pulse Ox 98.3 F 85 13 136/82 100 01/14/18 06:00 01/14/18 06:00 01/14/18 06:00 01/14/18 06:00 01/13/18 20:59 WBC / BUN/Cr TREND 01/12/18 01/13/18 01/13/18 01/14/18 05:30 05:30 05:30 05:30 WBC 14.5 H 16.4 BUN 36 H 48 H 62 Creatinine 4.2 H 5.4 H 7.0 Gen: nad Skin: VAC removed on rounds and wound inspected. Pilonidal 2.25 cm x 1 cm x 4 cm --> clean, beefy red with + granulation tissue. Left glute 7.25 cm x 1.2 cm x 2 cm --> clean, beefy red with + granulation tissue. Problem List - Problems (1) Wound of buttock Assessment/Plan: New VAC dressing applied to Lt gluteal and Pilonidal regions and bridged over to his right hip so he doesn't lay on suction disc. VAC dressing orders (M-W-F) placed. Cont VAC therapy while in hospital. HD per his schedule as needed. If plans to dc patient soon, would recommend cont VAC therapy as out-patient due to his: 1. morbid obesity 2. DM (compromised wound healing status). Case management - VAC papers Above discussed with Dr. Olson and agrees. Code(s): S31.809A - UNSPECIFIED OPEN WOUND OF UNSPECIFIED BUTTOCK, INIT ENCNTR (2) ESRD on hemodialysis Code(s): N18.6 - END STAGE RENAL DISEASE; Z99.2 - DEPENDENCE ON RENAL DIALYSIS
[2018-01-14] MEDS ORDERED: MUPIROCIN 2% TOPICAL OINTMENT FOR DECOLONIZATION NS SCH (10:00)
[2018-01-14] MEDS ORDERED: PT OWN MED DRAWER 7, Y5N ONE ×2 (10:09→16:14)
--- NOTE | 2018-01-14 10:28 | PN ---
Progress Note (short form) - Note Progress Note: pt seen/ examined comfortable no complains offered denies pain. denies itching Vital Signs Temp 98.3 F 01/14/18 06:00 Pulse 84 01/14/18 08:00 Resp 14 01/14/18 08:00 BP 154/75 01/14/18 08:00 Pulse Ox 100 01/13/18 20:59 Intake & Output 01/13/18 01/13/18 01/14/18 11:59 23:59 11:59 Intake Total 370 590 50 Output Total 650 400 300 Balance -280 190 -250 Weight 259 lb 0.69 oz 262 lb 3.2 oz Intake: IVPB 150 50 50 Oral 220 540 Output: Urine 650 400 300 Void 650 400 300 Other: Voiding Method Urinal Urinal Bowel Movement No No # Bowel Movements 2 Weight Measurement Method Built in Bedscale Built in Bedscale Active Medications Acetaminophen (Tylenol -) 650 mg PO DAILY [facility] Ascorbic Acid (Vitamin C -) 500 mg PO DAILY [facility] Atorvastatin Calcium (Lipitor -) 80 mg PO HS [facility] Chlorhexidine Gluconate (Hibiclens For Decolonization -) 1 applic TP HS [facility] Diphenhydramine HCl (Benadryl -) 25 mg PO Q6H PRN PRN Reason: FOR ITCHING Last Admin: 01/13/18 03:28 Dose: 25 mg Docusate Sodium (Colace -) 100 mg PO TID [facility] Last Admin: 01/14/18 06:04 Dose: 100 mg Epoetin Horacio (Procrit -) 10,000 unit SQ ONCE ONE Stop: 01/13/18 13:09 Folic Acid (Folic Acid -) 1 mg PO DAILY [facility] Gabapentin (Neurontin -) 100 mg PO DAILY [facility] Heparin Sodium (Porcine) (Heparin -) 5,000 unit SQ TID [facility] Hydralazine HCl (Apresoline -) 50 mg PO DAILY [facility] Sodium Chloride (Normal Saline -) 250 mls @ 3,000 mls/hr IV PRN PRN PRN Reason: Hypotension during Dialysis Stop: 01/14/18 13:09 Gentamicin Sulfate/Sodium Chloride (Garamycin 80 Mg Premixed Ivpb -) 80 mg in 100 mls @ 100 mls/hr IVPB [facility]; Protocol Vancomycin HCl 1,500 mg/ (Dextrose) 500 mls @ 250 mls/hr IVPB [facility]; Protocol Piperacillin Sod/Tazobactam (Sod 2.25 gm/ Dextrose) 50 mls @ 100 mls/hr IVPB Q8H-IV [facility]; Protocol Insulin Aspart (Novolog Vial Sliding Scale -) 1 vial SQ ACHS [facility]; Protocol Insulin Detemir (Levemir Vial) 15 units SQ HS [facility] Isosorbide Mononitrate (Imdur -) 30 mg PO DAILY [facility] Levothyroxine Sodium (Synthroid -) 50 mcg PO 0700 [facility] Metoprolol Succinate (Toprol Xl -) 200 mg PO DAILY [facility] Multivitamins/Minerals/Vitamin C (Tab-A-Vit -) 1 tab PO DAILY [facility] Senna/Docusate Sodium (Pericolace -) 2 tablet PO HS PRN PRN Reason: CONSTIPATION Last Admin: 01/11/18 23:35 Dose: 2 tablet CBC, BMP 01/14/18 05:30 01/14/18 05:30 Microbiology 01/11/18 07:35 Blood Culture - Preliminary Blood - Peripheral Venous NO GROWTH OBTAINED AFTER 72 HOURS, INCUBATION TO CONTINUE FOR 2 DAYS. 01/11/18 05:30 Blood Culture - Preliminary Blood - Peripheral Venous NO GROWTH OBTAINED AFTER 72 HOURS, INCUBATION TO CONTINUE FOR 2 DAYS. 01/08/18 22:56 Blood Culture - Final Blood - Peripheral Venous Staphylococcus Epidermidis Physical Exam Constitutional: Yes: No Distress, Calm and comfortable. Eyes: Yes:no icterus Cardiovascular: Yes: Regular Rate and Rhythm Respiratory: Yes: Diminished Gastrointestinal: Yes: Normal Bowel Sounds, Soft. No: Tenderness Extremities: Yes: Amputation (right AKA) Edema: LLE: decreased Problem List - Problems (1) Allergic reaction Code(s): T78.40XA - ALLERGY, UNSPECIFIED, INITIAL ENCOUNTER (2) ESRD on hemodialysis Code(s): N18.6 - END STAGE RENAL DISEASE; Z99.2 - DEPENDENCE ON RENAL DIALYSIS (3) Wound of buttock Code(s): S31.809A - UNSPECIFIED OPEN WOUND OF UNSPECIFIED BUTTOCK, INIT ENCNTR (4) Wound of sacral region Code(s): S31.000A - UNSP OPN WND LOW BACK AND PELV W/O PENET RETROPERITON, INIT Assessment/Plan Abx per i/d continue with local wound care repeat blood cultures negative continue with current care transfer to floor will follow Problem List - Problems (1) Allergic reaction Code(s): T78.40XA - ALLERGY, UNSPECIFIED, INITIAL ENCOUNTER (2) ESRD on hemodialysis Code(s): N18.6 - END STAGE RENAL DISEASE; Z99.2 - DEPENDENCE ON RENAL DIALYSIS (3) HTN (hypertension) Code(s): I10 - ESSENTIAL (PRIMARY) HYPERTENSION (4) Wound of buttock Code(s): S31.809A - UNSPECIFIED OPEN WOUND OF UNSPECIFIED BUTTOCK, INIT ENCNTR (5) Wound of sacral region Code(s): S31.000A - UNSP OPN WND LOW BACK AND PELV W/O PENET RETROPERITON, INIT
[2018-01-14] MEDS: MULTIVITAMINS (DAILY MVI) TABLET (FP) PO SCH (11:26)
[2018-01-14] MEDS: ISOSORBIDE MONONITRATE 30 MG TAB.SR.24H (FP) PO SCH (11:26)
[2018-01-14] MEDS: FOLIC ACID 1 MG TABLET (FP) PO SCH (11:26)
[2018-01-14] MEDS: ASCORBIC ACID 500 MG TABLET (FP) PO SCH (11:27)
[2018-01-14] MEDS: GABAPENTIN 100 MG CAPSULE (FP) PO SCH (11:29)
[2018-01-14] MEDS: hydrALAZINE HCL 50 MG TABLET (FP) PO SCH (11:29)
[2018-01-14] MEDS ORDERED: INSULIN (NOVOLOG) ASPART 100 UNITS/ML 10ML VIAL ONE (12:34)
[2018-01-14] MEDS: ACETAMINOPHEN 325 MG TABLET (FP) PO SCH (12:37)
--- NOTE | 2018-01-14 13:07 | PN ---
Progress Note, Physician History of Present Illness: Pt seen and examined a bedside. He is awake and alert. He denies shortness of breath. - Current Medication List Current Medications: Active Medications Acetaminophen (Tylenol -) 650 mg PO DAILY [facility] Last Admin: 01/14/18 12:37 Dose: 650 mg Ascorbic Acid (Vitamin C -) 500 mg PO DAILY [facility] Last Admin: 01/14/18 11:27 Dose: 500 mg Atorvastatin Calcium (Lipitor -) 80 mg PO HS [facility] Chlorhexidine Gluconate (Hibiclens For Decolonization -) 1 applic TP HS [facility] Diphenhydramine HCl (Benadryl -) 25 mg PO Q6H PRN PRN Reason: FOR ITCHING Last Admin: 01/13/18 03:28 Dose: 25 mg Docusate Sodium (Colace -) 100 mg PO TID [facility] Last Admin: 01/14/18 06:04 Dose: 100 mg Epoetin Horacio (Procrit -) 10,000 unit SQ ONCE ONE Stop: 01/13/18 13:09 Folic Acid (Folic Acid -) 1 mg PO DAILY [facility] Last Admin: 01/14/18 11:26 Dose: 1 mg Gabapentin (Neurontin -) 100 mg PO DAILY [facility] Last Admin: 01/14/18 11:29 Dose: 100 mg Heparin Sodium (Porcine) (Heparin -) 5,000 unit SQ TID [facility] Hydralazine HCl (Apresoline -) 50 mg PO DAILY [facility] Last Admin: 01/14/18 11:29 Dose: 50 mg Sodium Chloride (Normal Saline -) 250 mls @ 3,000 mls/hr IV PRN PRN PRN Reason: Hypotension during Dialysis Stop: 01/14/18 13:09 Gentamicin Sulfate/Sodium Chloride (Garamycin 80 Mg Premixed Ivpb -) 80 mg in 100 mls @ 100 mls/hr IVPB MOWEFR [facility]; Protocol Vancomycin HCl 1,500 mg/ (Dextrose) 500 mls @ 250 mls/hr IVPB MOWEFR [facility]; Protocol Piperacillin Sod/Tazobactam (Sod 2.25 gm/ Dextrose) 50 mls @ 100 mls/hr IVPB Q8H-IV [facility]; Protocol Last Admin: 01/14/18 11:27 Dose: 100 mls/hr Insulin Aspart (Novolog Vial Sliding Scale -) 1 vial SQ ACHS [facility]; Protocol Last Admin: 01/14/18 12:37 Dose: 2 units Insulin Detemir (Levemir Vial) 15 units SQ HS [facility] Isosorbide Mononitrate (Imdur -) 30 mg PO DAILY [facility] Last Admin: 01/14/18 11:26 Dose: 30 mg Levothyroxine Sodium (Synthroid -) 50 mcg PO 0700 [facility] Metoprolol Succinate (Toprol Xl -) 200 mg PO DAILY [facility] Last Admin: 01/14/18 11:28 Dose: 200 mg Multivitamins/Minerals/Vitamin C (Tab-A-Vit -) 1 tab PO DAILY [facility] Last Admin: 01/14/18 11:26 Dose: 1 tab Senna/Docusate Sodium (Pericolace -) 2 tablet PO HS PRN PRN Reason: CONSTIPATION Last Admin: 01/11/18 23:35 Dose: 2 tablet - Objective Vital Signs: Vital Signs Temperature 97.6 F 01/14/18 10:00 Pulse Rate 84 01/14/18 12:00 Respiratory Rate 14 01/14/18 12:00 Blood Pressure 153/62 01/14/18 12:00 O2 Sat by Pulse Oximetry (%) 100 01/13/18 20:59 Constitutional: Yes: Calm Eyes: Yes: Conjunctiva Clear HENT: Yes: Atraumatic Cardiovascular: Yes: S1, S2 Respiratory: Yes: CTA Bilaterally Gastrointestinal: Yes: Soft Genitourinary: Yes: WNL Edema: Yes Integumentary: Yes: Tattoos Neurological: Yes: Oriented Psychiatric: Yes: Oriented Labs: CBC, BMP 01/14/18 05:30 01/14/18 05:30 INR, PTT INR 1.17 (0.83-1.09) H 01/10/18 05:30 Problem List - Problems (1) HTN (hypertension) Code(s): I10 - ESSENTIAL (PRIMARY) HYPERTENSION (2) ESRD on hemodialysis Code(s): N18.6 - END STAGE RENAL DISEASE; Z99.2 - DEPENDENCE ON RENAL DIALYSIS (3) Wound of buttock Code(s): S31.809A - UNSPECIFIED OPEN WOUND OF UNSPECIFIED BUTTOCK, INIT ENCNTR Assessment/Plan Impression 1. ESRD 2. DM 3. HTN 4. anemia 5. buttock wound 6. allergic reaction Plan - pt getting HD today - pt never had a kidney biopsy, records show that he had an ultrasound - cont wound care - abx per ID - renal diet - will need a fistula once infection is clear - epogen for anemia - will follow Dr Apodaca
[2018-01-14 13:11] VITALS: BMI 38.7
--- NOTE | 2018-01-14 13:33 | PN ---
Progress Note (short form) - Note Progress Note: Resting in NAD. No CP or SOB. No acute events overnight. Intake & Output 01/11/18 01/12/18 01/13/18 01/14/18 23:59 23:59 23:59 23:59 Intake Total 200 960 960 50 Output Total 885 60 3192 700 Balance 100 910 -90 -650 Weight 260 lb 2.327 oz 259 lb 0.69 oz 259 lb 0.69 oz 262 lb 3.2 oz Last Vital Signs Temp Pulse Resp BP Pulse Ox 97.8 F 82 14 153/62 100 01/14/18 13:06 01/14/18 13:06 01/14/18 13:06 01/14/18 12:00 01/14/18 09:00 Active Medications Acetaminophen (Tylenol -) 650 mg PO DAILY [facility] Last Admin: 01/14/18 12:37 Dose: 650 mg Ascorbic Acid (Vitamin C -) 500 mg PO DAILY [facility] Last Admin: 01/14/18 11:27 Dose: 500 mg Atorvastatin Calcium (Lipitor -) 80 mg PO HS [facility] Chlorhexidine Gluconate (Hibiclens For Decolonization -) 1 applic TP HS [facility] Diphenhydramine HCl (Benadryl -) 25 mg PO Q6H PRN PRN Reason: FOR ITCHING Last Admin: 01/13/18 03:28 Dose: 25 mg Docusate Sodium (Colace -) 100 mg PO TID [facility] Last Admin: 01/14/18 06:04 Dose: 100 mg Epoetin Horacio (Procrit -) 10,000 unit SQ ONCE ONE Stop: 01/13/18 13:09 Folic Acid (Folic Acid -) 1 mg PO DAILY [facility] Last Admin: 01/14/18 11:26 Dose: 1 mg Gabapentin (Neurontin -) 100 mg PO DAILY [facility] Last Admin: 01/14/18 11:29 Dose: 100 mg Heparin Sodium (Porcine) (Heparin -) 5,000 unit SQ TID [facility] Hydralazine HCl (Apresoline -) 50 mg PO DAILY [facility] Last Admin: 01/14/18 11:29 Dose: 50 mg Sodium Chloride (Normal Saline -) 250 mls @ 3,000 mls/hr IV PRN PRN PRN Reason: Hypotension during Dialysis Stop: 01/14/18 13:09 Gentamicin Sulfate/Sodium Chloride (Garamycin 80 Mg Premixed Ivpb -) 80 mg in 100 mls @ 100 mls/hr IVPB MOWEFR [facility]; Protocol Vancomycin HCl 1,500 mg/ (Dextrose) 500 mls @ 250 mls/hr IVPB [facility]; Protocol Piperacillin Sod/Tazobactam (Sod 2.25 gm/ Dextrose) 50 mls @ 100 mls/hr IVPB Q8H-IV [facility]; Protocol Last Admin: 01/14/18 11:27 Dose: 100 mls/hr Insulin Aspart (Novolog Vial Sliding Scale -) 1 vial SQ ACHS [facility]; Protocol Last Admin: 01/14/18 12:37 Dose: 2 units Insulin Detemir (Levemir Vial) 15 units SQ HS [facility] Isosorbide Mononitrate (Imdur -) 30 mg PO DAILY [facility] Last Admin: 01/14/18 11:26 Dose: 30 mg Levothyroxine Sodium (Synthroid -) 50 mcg PO 0700 [facility] Metoprolol Succinate (Toprol Xl -) 200 mg PO DAILY [facility] Last Admin: 01/14/18 11:28 Dose: 200 mg Multivitamins/Minerals/Vitamin C (Tab-A-Vit -) 1 tab PO DAILY [facility] Last Admin: 01/14/18 11:26 Dose: 1 tab Senna/Docusate Sodium (Pericolace -) 2 tablet PO HS PRN PRN Reason: CONSTIPATION Last Admin: 01/11/18 23:35 Dose: 2 tablet Constitutional: Yes: NAD Eyes: Yes: Conjunctiva Clear HENT: Yes: Atraumatic Cardiovascular: Yes: S1, S2 Respiratory: Yes: Clear Gastrointestinal: Yes: Soft Genitourinary: Yes: WNL Edema: Yes Integumentary: Yes: Tattoos Neurological: Yes: Oriented Psychiatric: Yes: Oriented Labs: Laboratory Results - last 24 hr 01/09/18 01/13/18 01/13/18 12:00 11:40 16:48 WBC RBC Hgb Hct MCV MCH MCHC RDW Plt Count MPV Sodium Potassium Chloride Carbon Dioxide Anion Gap BUN Creatinine Creat Clearance w eGFR POC Glucometer 159.14074 195.55799 Random Glucose Calcium Phosphorus Magnesium Gentamicin Trough Vancomycin Pre-Dose Hepatitis C RNA No Result Required. HCV RNA PCR w/[employer] R[employer]x No Result Required. Blood Type Antibody Screen 01/13/18 01/14/18 01/14/18 22:26 05:30 05:30 WBC 16.4 H RBC 3.35 L Hgb 8.9 L Hct 28.0 L MCV 83.6 MCH 26.5 MCHC 31.6 L RDW 19.4 H Plt Count 478 H MPV 7.4 L Sodium Potassium Chloride Carbon Dioxide Anion Gap BUN Creatinine Creat Clearance w eGFR POC Glucometer [phone] Random Glucose Calcium Phosphorus Magnesium Gentamicin Trough Vancomycin Pre-Dose 16.44 H* D Hepatitis C RNA HCV RNA PCR w/[employer] Rflx Blood Type Antibody Screen 01/14/18 01/14/18 01/14/18 05:30 05:30 06:08 WBC RBC Hgb Hct MCV MCH MCHC RDW Plt Count MPV Sodium 139 Potassium 4.2 Chloride 101 Carbon Dioxide 30 Anion Gap 8 BUN 62 H Creatinine 7.0 H Creat Clearance w eGFR 9.42 POC Glucometer [phone] Random Glucose 100 Calcium 7.9 L Phosphorus 4.2 Magnesium 1.9 Gentamicin Trough Vancomycin Pre-Dose Hepatitis C RNA HCV RNA PCR w/[employer] Blood Type A POSITIVE Antibody Screen Negative 01/14/18 01/14/18 09:20 12:21 WBC RBC Hgb Hct MCV MCH MCHC RDW Plt Count MPV Sodium Potassium Chloride Carbon Dioxide Anion Gap BUN Creatinine Creat Clearance w eGFR POC Glucometer [phone] Random Glucose Calcium Phosphorus Magnesium Gentamicin Trough 1.3 Vancomycin Pre-Dose Hepatitis C RNA HCV RNA PCR w/[employer] Rflx Blood Type Antibody Screen Problem List - Problems (1) HTN (hypertension) Code(s): I10 - ESSENTIAL (PRIMARY) HYPERTENSION (2) ESRD on hemodialysis Code(s): N18.6 - END STAGE RENAL DISEASE; Z99.2 - DEPENDENCE ON RENAL DIALYSIS (3) Wound of buttock Code(s): S31.809A - UNSPECIFIED OPEN WOUND OF UNSPECIFIED BUTTOCK, INIT ENCNTR Assessment/Plan ESRD on HD DM HTN Anemia Buttock wound Allergic reaction Plan HD per Renal O2 as needed Local wound care ABX per ID Normal transfusion thresholds Floor Dr Horne
[2018-01-14] MEDS ORDERED: SODIUM CHLORIDE 250 ML IV PRN (14:52)
[2018-01-14] MEDS ORDERED: EPOETIN ALFA 10,000 UNIT/1 ML VIAL IVPUSH ONE (15:00)
--- NOTE | 2018-01-14 16:08 | PN ---
Progress Note, Physician History of Present Illness: Pt remains alert, afebrile. Currently receiving HD. Wound evaluation note reviewed. Wound vac in place. - Current Medication List Current Medications: Active Medications Acetaminophen (Tylenol -) 650 mg PO DAILY [facility] Last Admin: 01/14/18 12:37 Dose: 650 mg Ascorbic Acid (Vitamin C -) 500 mg PO DAILY [facility] Last Admin: 01/14/18 11:27 Dose: 500 mg Atorvastatin Calcium (Lipitor -) 80 mg PO [facility] Chlorhexidine Gluconate (Hibiclens For Decolonization -) 1 applic TP [facility] Diphenhydramine HCl (Benadryl -) 25 mg PO Q6H PRN PRN Reason: FOR ITCHING Last Admin: 01/13/18 03:28 Dose: 25 mg Docusate Sodium (Colace -) 100 mg PO TID [facility] Last Admin: 01/14/18 06:04 Dose: 100 mg Folic Acid (Folic Acid -) 1 mg PO DAILY [facility] Last Admin: 01/14/18 11:26 Dose: 1 mg Gabapentin (Neurontin -) 100 mg PO DAILY [facility] Last Admin: 01/14/18 11:29 Dose: 100 mg Heparin Sodium (Porcine) (Heparin -) 5,000 unit SQ TID [facility] Hydralazine HCl (Apresoline -) 50 mg PO DAILY [facility] Last Admin: 01/14/18 11:29 Dose: 50 mg Sodium Chloride (Normal Saline -) 250 mls @ 3,000 mls/hr IV PRN PRN PRN Reason: Hypotension during Dialysis Stop: 01/14/18 22:00 Gentamicin Sulfate/Sodium Chloride (Garamycin 80 Mg Premixed Ivpb -) 80 mg in 100 mls @ 100 mls/hr IVPB MOWEFR [facility]; Protocol Vancomycin HCl 1,500 mg/ (Dextrose) 500 mls @ 250 mls/hr IVPB [facility]OW[facility]FR [facility]; Protocol Piperacillin Sod/Tazobactam (Sod 2.25 gm/ Dextrose) 50 mls @ 100 mls/hr IVPB Q8H-IV [facility]; Protocol Last Admin: 01/14/18 11:27 Dose: 100 mls/hr Insulin Aspart (Novolog Vial Sliding Scale -) 1 vial SQ [facility]; Protocol Last Admin: 01/14/18 12:37 Dose: 2 units Insulin Detemir (Levemir Vial) 15 units SQ [facility] Isosorbide Mononitrate (Imdur -) 30 mg PO DAILY [facility] Last Admin: 01/14/18 11:26 Dose: 30 mg Levothyroxine Sodium (Synthroid -) 50 mcg PO 0700 [facility] Metoprolol Succinate (Toprol Xl -) 200 mg PO DAILY [facility] Last Admin: 01/14/18 11:28 Dose: 200 mg Multivitamins/Minerals/Vitamin C (Tab-A-Vit -) 1 tab PO DAILY [facility] Last Admin: 01/14/18 11:26 Dose: 1 tab Senna/Docusate Sodium (Pericolace -) 2 tablet PO HS PRN PRN Reason: CONSTIPATION Last Admin: 01/11/18 23:35 Dose: 2 tablet - Objective Vital Signs: Vital Signs Temperature 97.8 F 01/14/18 13:06 Pulse Rate 85 01/14/18 15:25 Respiratory Rate 18 01/14/18 15:25 Blood Pressure 152/69 01/14/18 15:25 O2 Sat by Pulse Oximetry (%) 100 01/14/18 09:00 Constitutional: Yes: No Distress, Calm Cardiovascular: Yes: Regular Rate and Rhythm Respiratory: Yes: Regular Gastrointestinal: Yes: Normal Bowel Sounds, Soft Genitourinary: Yes: Anuria Extremities: Yes: Amputation (AKA) Integumentary: Yes: WNL Wound/Incision: Yes: Other (sacral / buttock wound vac) Neurological: Yes: Alert, Oriented Labs: CBC, BMP 01/14/18 05:30 01/14/18 05:30 INR, PTT INR 1.17 (0.83-1.09) H 01/10/18 05:30 Microbiology 01/08/18 22:56 Blood - Peripheral Venous Blood Culture - Final Staphylococcus Coagulase Neg 01/11/18 07:35 Blood - Peripheral Venous Blood Culture - Preliminary NO GROWTH OBTAINED AFTER 72 HOURS, INCUBATION TO CONTINUE FOR 2 DAYS. 01/11/18 05:30 Blood - Peripheral Venous Blood Culture - Preliminary NO GROWTH OBTAINED AFTER 72 HOURS, INCUBATION TO CONTINUE FOR 2 DAYS. 01/08/18 22:56 Blood - Peripheral Venous Blood Culture - Final Staphylococcus Epidermidis 01/08/18 23:38 Back Gram Stain - Final 01/08/18 23:38 Back Wound Culture - Final Pseudomonas Aeruginosa Escherichia Coli 01/08/18 23:38 Buttock - Left Gram Stain - Final 01/08/18 23:38 Buttock - Left Wound Culture - Final Pseudomonas Aeruginosa Problem List - Problems (1) Allergic reaction Code(s): T78.40XA - ALLERGY, UNSPECIFIED, INITIAL ENCOUNTER (2) ESRD on hemodialysis Code(s): N18.6 - END STAGE RENAL DISEASE; Z99.2 - DEPENDENCE ON RENAL DIALYSIS (3) HTN (hypertension) Code(s): I10 - ESSENTIAL (PRIMARY) HYPERTENSION (4) Wound of buttock Code(s): S31.809A - UNSPECIFIED OPEN WOUND OF UNSPECIFIED BUTTOCK, INIT ENCNTR (5) Wound of sacral region Code(s): S31.000A - UNSP OPN WND LOW BACK AND PELV W/O PENET RETROPERITON, INIT Assessment/Plan 27 y.o. male with PMH of ESRD on HD, HTN, HLD, Rt AKA, IDDM with Lt buttock/ sacral abscess/wounds s/p debridement at [facility] who has been on IV Antibiotics initially transferred for wound care supplies noted to have fever 100.6 and leukocytosis. Pt given dose of morphine and developed facial edema and transferred to the ICU. He is currently stable, afebrile, with resolution of allergic symptoms. Infected Sacral DU/ gluteal abscess s/p drainage/debridement - resistant Pseudomonas/E.coli isolated Angioedema - resolved ESRD on HD IDDM Gram + bacteremia - coag neg. Staph- likely contamination, repeat blood cultures neg - continue Zosyn/Gentamicin/Vancomycin, levels noted -- wbc remains elevated but stable, afebrile -- wound vac applied -- continue monitor cc time: 40 min
[2018-01-14] MEDS: VANCOMYCIN 1,500 MG in DEXTROSE 5%-WATER - 500 ML IVPB SCH (17:21)
[2018-01-14] MEDS: GENTAMICIN 80 MG PREMIXED IVPB 80 MG/100 ML BAG IVPB SCH (17:39)
[2018-01-14] MEDS ORDERED: VANCOMYCIN 1,500 MG in DEXTROSE 5%-WATER - 500 ML IVPB SCH (18:00)
[2018-01-14] MEDS ORDERED: CHLORHEXIDINE GLUCONATE 4% CLEANSER FOR DECOLONIZATION TP SCH (22:00)
[2018-01-14] MEDS: ATORVASTATIN CA 80 MG TABLET (FP) PO SCH (22:21)
[2018-01-14] MEDS: INSULIN (LEVEMIR) 100 UNITS/ML UNITS SQ SCH (22:21)
[2018-01-15] MEDS ORDERED: PIPERACILLIN/TAZOBACTAM 2.25 GM VIAL IVPB ONE ×2 (00:45→09:04)
[2018-01-15] MEDS ORDERED: DEXTROSE 5%-WATER - 50 ML IVPB ONE ×2 (00:45→09:04)
[2018-01-15] MEDS: PIPERACILLIN/TAZOB 2.25 GM 2.25 GM in DEXTROSE 5%-WATER - 50 ML IVPB SCH ×2 (02:50→09:13)
[2018-01-15] MEDS: HEPARIN NA (PORCINE) 5,000 UNITS/ML 1ML VIAL SQ SCH ×3 (06:21→21:56)
[2018-01-15] MEDS: DOCUSATE SODIUM 100 MG CAPSULE (FP) PO SCH ×4 (06:21→21:59)
[2018-01-15] MEDS: LEVOTHYROXINE NA 50 MCG TABLET (FP) PO SCH (06:21)
[2018-01-15] MEDS: INSULIN SLIDING SCALE (NOVOLOG) 1 VIAL SQ SCH ×4 (06:26→22:50)
[2018-01-15] MEDS: ASCORBIC ACID 500 MG TABLET (FP) PO SCH (09:11)
[2018-01-15] MEDS: FOLIC ACID 1 MG TABLET (FP) PO SCH (09:11)
[2018-01-15] MEDS: hydrALAZINE HCL 50 MG TABLET (FP) PO SCH (09:12)
[2018-01-15] MEDS: ACETAMINOPHEN 325 MG TABLET (FP) PO SCH (09:12)
[2018-01-15] MEDS: ISOSORBIDE MONONITRATE 30 MG TAB.SR.24H (FP) PO SCH (09:12)
[2018-01-15] MEDS: GABAPENTIN 100 MG CAPSULE (FP) PO SCH (09:12)
[2018-01-15] MEDS: MULTIVITAMINS (DAILY MVI) TABLET (FP) PO SCH (09:12)
--- NOTE | 2018-01-15 11:19 | PN ---
Progress Note (short form) - Note Progress Note: Progress Note, Physician Chief Complaint: no complaints No SOB no fever Vital Signs - 24 hr 01/14/18 01/14/18 01/15/18 21:00 22:00 00:18 Temperature 98.1 F 98.7 F Pulse Rate 86 89 Respiratory 18 20 20 Rate Blood Pressure 128/73 146/62 O2 Sat by Pulse 100 Oximetry (%) 01/15/18 01/15/18 01/15/18 06:00 10:00 15:18 Temperature 98.4 F 98.3 F 98.3 F Pulse Rate 86 86 86 Respiratory 20 Rate Blood Pressure 158/89 133/95 O2 Sat by Pulse Oximetry (%) Current Medications Generic Name Dose Route Start Last Admin Trade Name Freq PRN Reason Stop Dose Admin Acetaminophen 650 mg 01/14/18 10:00 01/15/18 09:12 Tylenol - PO 650 mg DAILY [facility] Administration Ascorbic Acid 500 mg 01/14/18 10:00 01/15/18 09:11 Vitamin C - PO 500 mg DAILY [facility] Administration Atorvastatin Calcium 80 mg 01/14/18 22:00 01/14/18 22:21 Lipitor - PO 80 mg HS [facility] Administration Diphenhydramine HCl 25 mg 01/12/18 10:16 01/13/18 03:28 Benadryl - PO 25 mg Q6H PRN Administration FOR ITCHING Docusate Sodium 100 mg 01/12/18 14:00 01/15/18 14:22 Colace - PO 100 mg TID [facility] Administration Epoetin Horacio 10,000 unit 01/16/18 11:51 Procrit - IVPUSH 01/16/18 11:52 ONCE ONE Folic Acid 1 mg 01/14/18 10:00 01/15/18 09:11 Folic Acid - PO 1 mg DAILY [facility] Administration Gabapentin 100 mg 01/14/18 10:00 01/15/18 09:12 Neurontin - PO 100 mg DAILY [facility] Administration Heparin Sodium (Porcine) 5,000 unit 01/14/18 14:00 01/15/18 14:20 Heparin - SQ 5,000 unit TID [facility] Administration Heparin Sodium (Porcine) 1,000 unit 01/16/18 11:51 Heparin - IVPUSH 01/16/18 11:52 ONCE ONE Hydralazine HCl 50 mg 01/14/18 10:00 01/15/18 09:12 Apresoline - PO 50 mg DAILY [facility] Administration Gentamicin Sulfate/Sodium Chloride 80 mg in 100 mls @ 100 mls/hr 01/14/18 08: 33 01/14/18 17:39 Garamycin 80 Mg Premixed Ivpb - IVPB 100 mls/hr MOWEFR [facility] Administration Protocol Vancomycin HCl 1,500 mg/ 500 mls @ 250 mls/hr 01/14/18 18:00 01/14/18 17:21 Dextrose IVPB 250 mls/hr MOWEFR [facility] Administration Protocol Sodium Chloride 250 mls @ 3,000 mls/hr 01/15/18 11:51 Normal Saline - IV 01/16/18 11:51 PRN PRN Hypotension during Dialysis Meropenem 500 mg/ Dextrose 100 mls @ 200 mls/hr 01/15/18 14:30 01/15/18 16:22 IVPB 200 mls/hr Q12H [facility] Administration Insulin Aspart 1 vial 01/14/18 11:00 01/15/18 17:10 Novolog Vial Sliding Scale - SQ 2 units ACHS [facility] Administration Protocol Insulin Detemir 15 units 01/14/18 22:00 01/14/18 22:21 Levemir Vial SQ 15 units HS [facility] Administration Isosorbide Mononitrate 30 mg 01/14/18 10:00 01/15/18 09:12 Imdur - PO 30 mg DAILY [facility] Administration Levothyroxine Sodium 50 mcg 01/15/18 07:00 01/15/18 06:21 Synthroid - PO 50 mcg 0700 [facility] Administration Metoprolol Succinate 200 mg 01/14/18 10:00 01/15/18 09:12 Toprol Xl - PO 200 mg DAILY [facility] Administration Multivitamins/Minerals/Vitamin C 1 tab 01/14/18 10:00 01/15/18 09:12 Tab-A-Vit - PO 1 tab DAILY [facility] Administration Senna/Docusate Sodium 2 tablet 01/11/18 23:23 01/11/18 23:35 Pericolace - PO 2 tablet HS PRN Administration CONSTIPATION Constitutional: Yes: No Distress, Calm Eyes: Yes: Other (periorbital edema, lips edema+)-- decreased Cardiovascular: Yes: Regular Rate and Rhythm Respiratory: Yes: Diminished Gastrointestinal: Yes: Normal Bowel Sounds, Soft. No: Tenderness Extremities: Yes: Amputation (right AKA) Edema: Yes Edema: LLE: decreased no rash noted on right hand Labs: Problem List - Problems (1) Allergic reaction Code(s): T78.40XA - ALLERGY, UNSPECIFIED, INITIAL ENCOUNTER (2) ESRD on hemodialysis Code(s): N18.6 - END STAGE RENAL DISEASE; Z99.2 - DEPENDENCE ON RENAL DIALYSIS (3) Wound of buttock Code(s): S31.809A - UNSPECIFIED OPEN WOUND OF UNSPECIFIED BUTTOCK, INIT ENCNTR (4) Wound of sacral region Code(s): S31.000A - UNSP OPN WND LOW BACK AND PELV W/O PENET RETROPERITON, INIT Assessment/Plan PLAN iv antibiotics-- duration? No surgical interventions planned continue with local wound care po benadryl wound cultures--psuedomonas sensitive to Gentamicin and tobramycin repeat blood cultures negative continue with current care DM control dc planning Problem List - Problems (1) Allergic reaction Code(s): T78.40XA - ALLERGY, UNSPECIFIED, INITIAL ENCOUNTER (2) ESRD on hemodialysis Code(s): N18.6 - END STAGE RENAL DISEASE; Z99.2 - DEPENDENCE ON RENAL DIALYSIS (3) Wound of buttock Code(s): S31.809A - UNSPECIFIED OPEN WOUND OF UNSPECIFIED BUTTOCK, INIT ENCNTR (4) Wound of sacral region Code(s): S31.000A - UNSP OPN WND LOW BACK AND PELV W/O PENET RETROPERITON, INIT
[2018-01-15] MEDS ORDERED: SODIUM CHLORIDE 250 ML IV PRN (11:51)
--- NOTE | 2018-01-15 11:51 | PN ---
Progress Note, Physician History of Present Illness: Pt seen and examined at bedside. He is awake and alert. He denies fevers or chills. - Current Medication List Current Medications: Active Medications Acetaminophen (Tylenol -) 650 mg PO DAILY [facility] Last Admin: 01/15/18 09:12 Dose: 650 mg Ascorbic Acid (Vitamin C -) 500 mg PO DAILY [facility] Last Admin: 01/15/18 09:11 Dose: 500 mg Atorvastatin Calcium (Lipitor -) 80 mg PO HS [facility] Last Admin: 01/14/18 22:21 Dose: 80 mg Diphenhydramine HCl (Benadryl -) 25 mg PO Q6H PRN PRN Reason: FOR ITCHING Last Admin: 01/13/18 03:28 Dose: 25 mg Docusate Sodium (Colace -) 100 mg PO TID [facility] Last Admin: 01/15/18 06:31 Dose: Not Given Folic Acid (Folic Acid -) 1 mg PO DAILY [facility] Last Admin: 01/15/18 09:11 Dose: 1 mg Gabapentin (Neurontin -) 100 mg PO DAILY [facility] Last Admin: 01/15/18 09:12 Dose: 100 mg Heparin Sodium (Porcine) (Heparin -) 5,000 unit SQ TID [facility] Last Admin: 01/15/18 06:21 Dose: 5,000 unit Hydralazine HCl (Apresoline -) 50 mg PO DAILY [facility] Last Admin: 01/15/18 09:12 Dose: 50 mg Gentamicin Sulfate/Sodium Chloride (Garamycin 80 Mg Premixed Ivpb -) 80 mg in 100 mls @ 100 mls/hr IVPB [facility]EFR [facility]; Protocol Last Admin: 01/14/18 17:39 Dose: 100 mls/hr Vancomycin HCl 1,500 mg/ (Dextrose) 500 mls @ 250 mls/hr IVPB [facility]; Protocol Last Admin: 01/14/18 17:21 Dose: 250 mls/hr Piperacillin Sod/Tazobactam (Sod 2.25 gm/ Dextrose) 50 mls @ 100 mls/hr IVPB Q8H-IV [facility]; Protocol Last Admin: 01/15/18 09:13 Dose: 100 mls/hr Insulin Aspart (Novolog Vial Sliding Scale -) 1 vial SQ ACHS [facility]; Protocol Last Admin: 01/15/18 06:26 Dose: Not Given Insulin Detemir (Levemir Vial) 15 units SQ HS [facility] Last Admin: 01/14/18 22:21 Dose: 15 units Isosorbide Mononitrate (Imdur -) 30 mg PO DAILY [facility] Last Admin: 01/15/18 09:12 Dose: 30 mg Levothyroxine Sodium (Synthroid -) 50 mcg PO 0700 [facility] Last Admin: 01/15/18 06:21 Dose: 50 mcg Metoprolol Succinate (Toprol Xl -) 200 mg PO DAILY [facility] Last Admin: 01/15/18 09:12 Dose: 200 mg Multivitamins/Minerals/Vitamin C (Tab-A-Vit -) 1 tab PO DAILY [facility] Last Admin: 01/15/18 09:12 Dose: 1 tab Senna/Docusate Sodium (Pericolace -) 2 tablet PO HS PRN PRN Reason: CONSTIPATION Last Admin: 01/11/18 23:35 Dose: 2 tablet - Objective Vital Signs: Vital Signs Temperature 98.3 F 01/15/18 10:00 Pulse Rate 86 01/15/18 10:00 Respiratory Rate 20 01/15/18 10:00 Blood Pressure 133/95 01/15/18 10:00 O2 Sat by Pulse Oximetry (%) 100 01/14/18 21:00 Constitutional: Yes: Calm Eyes: Yes: Conjunctiva Clear HENT: Yes: Atraumatic Neck: Yes: Supple Cardiovascular: Yes: S1, S2 Respiratory: Yes: CTA Bilaterally Gastrointestinal: Yes: Soft Genitourinary: Yes: WNL Musculoskeletal: Yes: Other (leg amputation) Edema: Yes Integumentary: Yes: Tattoos, Venous Stasis Changes Neurological: Yes: Oriented Psychiatric: Yes: Oriented Labs: CBC, BMP 01/14/18 05:30 01/14/18 05:30 INR, PTT INR 1.17 (0.83-1.09) H 01/10/18 05:30 Problem List - Problems (1) HTN (hypertension) Code(s): I10 - ESSENTIAL (PRIMARY) HYPERTENSION (2) ESRD on hemodialysis Code(s): N18.6 - END STAGE RENAL DISEASE; Z99.2 - DEPENDENCE ON RENAL DIALYSIS (3) Wound of buttock Code(s): S31.809A - UNSPECIFIED OPEN WOUND OF UNSPECIFIED BUTTOCK, INIT ENCNTR Assessment/Plan Current Medications Generic Name Dose Route Start Last Admin Trade Name Freq PRN Reason Stop Dose Admin Acetaminophen 650 mg 01/14/18 10:00 01/15/18 09:12 Tylenol - PO 650 mg DAILY [facility] Administration Ascorbic Acid 500 mg 01/14/18 10:00 01/15/18 09:11 Vitamin C - PO 500 mg DAILY NOA Administration Atorvastatin Calcium 80 mg 01/14/18 22:00 01/14/18 22:21 Lipitor - PO 80 mg HS NOA Administration Diphenhydramine HCl 25 mg 01/12/18 10:16 01/13/18 03:28 Benadryl - PO 25 mg Q6H PRN Administration FOR ITCHING Docusate Sodium 100 mg 01/12/18 14:00 01/15/18 06:31 Colace - PO Not Given TID NOA Folic Acid 1 mg 01/14/18 10:00 01/15/18 09:11 Folic Acid - PO 1 mg DAILY NOA Administration Gabapentin 100 mg 01/14/18 10:00 01/15/18 09:12 Neurontin - PO 100 mg DAILY [facility] Administration Heparin Sodium (Porcine) 5,000 unit 01/14/18 14:00 01/15/18 06:21 Heparin - SQ 5,000 unit TID [facility] Administration Hydralazine HCl 50 mg 01/14/18 10:00 01/15/18 09:12 Apresoline - PO 50 mg DAILY [facility] Administration Gentamicin Sulfate/Sodium Chloride 80 mg in 100 mls @ 100 mls/hr 01/14/18 08: 33 01/14/18 17:39 Garamycin 80 Mg Premixed Ivpb - IVPB 100 mls/hr [facility]EFR [facility] Administration Protocol Vancomycin HCl 1,500 mg/ 500 mls @ 250 mls/hr 01/14/18 18:00 01/14/18 17:21 Dextrose IVPB 250 mls/hr [facility] Administration Protocol Piperacillin Sod/Tazobactam 50 mls @ 100 mls/hr 01/14/18 10:00 01/15/18 09:13 Sod 2.25 gm/ Dextrose IVPB 100 mls/hr Q8H-IV [facility] Administration Protocol Insulin Aspart 1 vial 01/14/18 11:00 01/15/18 06:26 Novolog Vial Sliding Scale - SQ Not Given ACHS [facility] Protocol Insulin Detemir 15 units 01/14/18 22:00 01/14/18 22:21 Levemir Vial SQ 15 units HS [facility] Administration Isosorbide Mononitrate 30 mg 01/14/18 10:00 01/15/18 09:12 Imdur - PO 30 mg DAILY [facility] Administration Levothyroxine Sodium 50 mcg 01/15/18 07:00 01/15/18 06:21 Synthroid - PO 50 mcg 0700 [facility] Administration Metoprolol Succinate 200 mg 01/14/18 10:00 01/15/18 09:12 Toprol Xl - PO 200 mg DAILY [facility] Administration Multivitamins/Minerals/Vitamin C 1 tab 01/14/18 10:00 01/15/18 09:12 Tab-A-Vit - PO 1 tab DAILY [facility] Administration Senna/Docusate Sodium 2 tablet 01/11/18 23:23 01/11/18 23:35 Pericolace - PO 2 tablet HS PRN Administration CONSTIPATION Impression 1. ESRD 2. DM 3. HTN 4. anemia 5. buttock wound 6. allergic reaction Plan - HD in am - ax per ID - cont wound care - will need fistula placement, once infection is cleared, can be done as outpt - renal diet - epogen for anemia - will follow Dr Apodaca
--- NOTE | 2018-01-15 14:25 | PN ---
Progress Note, Physician History of Present Illness: Pt is alert, afebrile. No new complaints. Wound vac in place. - Current Medication List Current Medications: Active Medications Acetaminophen (Tylenol -) 650 mg PO DAILY [facility] Last Admin: 01/15/18 09:12 Dose: 650 mg Ascorbic Acid (Vitamin C -) 500 mg PO DAILY [facility] Last Admin: 01/15/18 09:11 Dose: 500 mg Atorvastatin Calcium (Lipitor -) 80 mg PO HS [facility] Last Admin: 01/14/18 22:21 Dose: 80 mg Diphenhydramine HCl (Benadryl -) 25 mg PO Q6H PRN PRN Reason: FOR ITCHING Last Admin: 01/13/18 03:28 Dose: 25 mg Docusate Sodium (Colace -) 100 mg PO TID [facility] Last Admin: 01/15/18 14:22 Dose: 100 mg Epoetin Horacio (Procrit -) 10,000 unit IVPUSH ONCE ONE Stop: 01/16/18 11:52 Folic Acid (Folic Acid -) 1 mg PO DAILY [facility] Last Admin: 01/15/18 09:11 Dose: 1 mg Gabapentin (Neurontin -) 100 mg PO DAILY [facility] Last Admin: 01/15/18 09:12 Dose: 100 mg Heparin Sodium (Porcine) (Heparin -) 5,000 unit SQ TID [facility] Last Admin: 01/15/18 14:20 Dose: 5,000 unit Heparin Sodium (Porcine) (Heparin -) 1,000 unit IVPUSH ONCE ONE Stop: 01/16/18 11:52 Hydralazine HCl (Apresoline -) 50 mg PO DAILY [facility] Last Admin: 01/15/18 09:12 Dose: 50 mg Gentamicin Sulfate/Sodium Chloride (Garamycin 80 Mg Premixed Ivpb -) 80 mg in 100 mls @ 100 mls/hr IVPB [facility]; Protocol Last Admin: 01/14/18 17:39 Dose: 100 mls/hr Vancomycin HCl 1,500 mg/ (Dextrose) 500 mls @ 250 mls/hr IVPB [facility]; Protocol Last Admin: 01/14/18 17:21 Dose: 250 mls/hr Sodium Chloride (Normal Saline -) 250 mls @ 3,000 mls/hr IV PRN PRN PRN Reason: Hypotension during Dialysis Stop: 01/16/18 11:51 Insulin Aspart (Novolog Vial Sliding Scale -) 1 vial SQ [facility]; Protocol Last Admin: 01/15/18 06:26 Dose: Not Given Insulin Detemir (Levemir Vial) 15 units SQ HS [facility] Last Admin: 01/14/18 22:21 Dose: 15 units Isosorbide Mononitrate (Imdur -) 30 mg PO DAILY [facility] Last Admin: 01/15/18 09:12 Dose: 30 mg Levothyroxine Sodium (Synthroid -) 50 mcg PO 0700 [facility] Last Admin: 01/15/18 06:21 Dose: 50 mcg Metoprolol Succinate (Toprol Xl -) 200 mg PO DAILY [facility] Last Admin: 01/15/18 09:12 Dose: 200 mg Multivitamins/Minerals/Vitamin C (Tab-A-Vit -) 1 tab PO DAILY [facility] Last Admin: 01/15/18 09:12 Dose: 1 tab Senna/Docusate Sodium (Pericolace -) 2 tablet PO HS PRN PRN Reason: CONSTIPATION Last Admin: 01/11/18 23:35 Dose: 2 tablet - Objective Vital Signs: Vital Signs Temperature 98.3 F 01/15/18 10:00 Pulse Rate 86 01/15/18 10:00 Respiratory Rate 20 01/15/18 10:00 Blood Pressure 133/95 01/15/18 10:00 O2 Sat by Pulse Oximetry (%) 100 01/14/18 21:00 Constitutional: Yes: No Distress, Calm Cardiovascular: Yes: Regular Rate and Rhythm Respiratory: Yes: Regular Gastrointestinal: Yes: Normal Bowel Sounds, Soft, Abdomen, Obese Genitourinary: Yes: Anuria Extremities: Yes: Amputation (AKA site healed) Integumentary: Yes: WNL Neurological: Yes: Alert, Oriented Labs: CBC, BMP 01/14/18 05:30 01/14/18 05:30 INR, PTT INR 1.17 (0.83-1.09) H 01/10/18 05:30 Problem List - Problems (1) Allergic reaction Code(s): T78.40XA - ALLERGY, UNSPECIFIED, INITIAL ENCOUNTER (2) ESRD on hemodialysis Code(s): N18.6 - END STAGE RENAL DISEASE; Z99.2 - DEPENDENCE ON RENAL DIALYSIS (3) HTN (hypertension) Code(s): I10 - ESSENTIAL (PRIMARY) HYPERTENSION (4) Wound of buttock Code(s): S31.809A - UNSPECIFIED OPEN WOUND OF UNSPECIFIED BUTTOCK, INIT ENCNTR (5) Wound of sacral region Code(s): S31.000A - UNSP OPN WND LOW BACK AND PELV W/O PENET RETROPERITON, INIT Assessment/Plan 27 y.o. male with PMH of ESRD on HD, HTN, HLD, Rt AKA, IDDM with Lt buttock/ sacral abscess/wounds s/p debridement at [facility] who has been on IV Antibiotics initially transferred for wound care supplies noted to have fever 100.6 and leukocytosis. Pt given dose of morphine and developed facial edema and transferred to the ICU. He is currently stable, afebrile, with resolution of allergic symptoms. Infected Sacral DU/ gluteal abscess s/p drainage/debridement - resistant Pseudomonas/E.coli isolated Angioedema - resolved ESRD on HD IDDM Persistent Leukocytosis- no evidence of drainable abscess/OM on pelvic CT - continue Vancomycin/Gentamicin post HD - d/c Zosyn, start Meropenem instead -- wbc remains elevated but stable, afebrile- continue monitor -- wound vac applied -- continue monitor - will need 2 more weeks of antibiotics
[2018-01-15] MEDS: MEROPENEM 500 MG in DEXTROSE 5%-WATER 100 ML IVPB SCH (16:22)
[2018-01-15] MEDS ORDERED: INSULIN (NOVOLOG) ASPART 100 UNITS/ML 10ML VIAL ONE ×2 (17:00→21:35)
[2018-01-15] MEDS: INSULIN (LEVEMIR) 100 UNITS/ML UNITS SQ SCH (21:56)
[2018-01-15] MEDS: ATORVASTATIN CA 80 MG TABLET (FP) PO SCH (21:56)
[2018-01-15] MEDS ORDERED: PT OWN MED DRAWER 7, Y5N ONE (21:57)
[2018-01-16] MEDS ORDERED: PT OWN MED DRAWER 7, Y5N ONE ×2 (02:45→16:52)
[2018-01-16] MEDS: MEROPENEM 500 MG in DEXTROSE 5%-WATER 100 ML IVPB SCH ×2 (03:08→13:42)
[2018-01-16] MEDS: DOCUSATE SODIUM 100 MG CAPSULE (FP) PO SCH ×4 (06:10→22:08)
[2018-01-16] MEDS: HEPARIN NA (PORCINE) 5,000 UNITS/ML 1ML VIAL SQ SCH ×3 (06:10→22:08)
[2018-01-16] MEDS: INSULIN SLIDING SCALE (NOVOLOG) 1 VIAL SQ SCH ×4 (06:11→22:09)
[2018-01-16] MEDS: LEVOTHYROXINE NA 50 MCG TABLET (FP) PO SCH (06:15)
[2018-01-16 09:33] LABS: HEMATOCRIT 26.6 % (35.4-49); HEMOGLOBIN 8.4 GM/dL (11.7-16.9); MCH 26.4 pg (25.7-33.7); MCHC 31.5 g/dl (32.0-35.9); MEAN CELL VOLUME 83.8 fl (80-96); MEAN PLT VOLUME 7.3 fl (7.5-11.1); PLATELET COUNT 438 K/MM3 (134-434); RBC 3.18 M/mm3 (4.00-5.60); RDW 19.7 % (11.9-15.9); WHITE BLOOD COUNT 13.9 K/mm3 (4.0-10.0)
[2018-01-16] MEDS ORDERED: HEPARIN NA (PORCINE) 5,000 UNITS/ML 1ML VIAL IVPUSH ONE (10:00)
[2018-01-16] MEDS ORDERED: EPOETIN ALFA 10,000 UNIT/1 ML VIAL IVPUSH ONE (10:00)
[2018-01-16 10:05] LABS: ANION GAP 10 MMOL/L (8-16); BLOOD UREA NITROGEN 43 mg/dL (7-18); CHLORIDE 101 mmol/L (98-107); CO2 27 mmol/L (21-32); CREATININE 5.8 mg/dL (0.7-1.3); GLUCOSE,RANDOM 95 mg/dL (74-106); SODIUM 138 mmol/L (136-145)
--- NOTE | 2018-01-16 11:15 | PN ---
Problem List - Problems (1) Allergic reaction Code(s): T78.40XA - ALLERGY, UNSPECIFIED, INITIAL ENCOUNTER (2) ESRD on hemodialysis Code(s): N18.6 - END STAGE RENAL DISEASE; Z99.2 - DEPENDENCE ON RENAL DIALYSIS (3) Wound of buttock Code(s): S31.809A - UNSPECIFIED OPEN WOUND OF UNSPECIFIED BUTTOCK, INIT ENCNTR (4) Wound of sacral region Code(s): S31.000A - UNSP OPN WND LOW BACK AND PELV W/O PENET RETROPERITON, INIT
--- NOTE | 2018-01-16 11:39 | DS ---
Physical Examination Vital Signs: Vital Signs Temperature 98.3 F 01/16/18 09:00 Pulse Rate 85 01/16/18 10:25 Respiratory Rate 18 01/16/18 10:25 Blood Pressure 153/67 01/16/18 10:25 O2 Sat by Pulse Oximetry (%) 100 01/16/18 09:00 Constitutional: Yes: No Distress, Calm Cardiovascular: Yes: Regular Rate and Rhythm Respiratory: Yes: Diminished Gastrointestinal: Yes: Normal Bowel Sounds, Soft. No: Tenderness Extremities: Yes: Amputation Edema: No Labs: CBC, BMP 01/16/18 09:00 01/16/18 09:00 Discharge Summary Reason For Visit: WOUND OF SACRAL REGION Current Active Problems Allergic reaction (Acute) ESRD on hemodialysis (Acute) HTN (hypertension) (Acute) Wound of buttock (Acute) Wound of sacral region (Acute) Hospital Course: Sent from [facility] for wound care and pt received Morphine in ER and developed Angioedema-- was initially in ICU for monitoring. Pt was seen by ID - wound care consult- placed wound vac No surgical interventions Pt needs 14 days more of iv antibiotics-- Meropenum BID and Vanco and Gentamicin after dialysis wound care -- pt to go to wound clinic at [facility] once a week Change wound vac three times weekly stable for dc to NH Condition: Improved - Instructions Diet, Activity, Other Instructions: Discussion at the bedside with patient and family. Pt has capacity to make medical decisions. Discussed indications for treatment and admission, management plan, risks and benefits. There is no evidence of psychosis, altered mental status or intoxication. Pt understands the nature of condition and treatment plan, including potential risks but not limited to: cardiac arrest, severe infection, dehydration, myocardial infarction, stroke, respiratory failure, coma, severe disability and . Pt will be treated with close follow up with primary care doctor with reevaluation. Return precautions advised , call 911 immediately if severe life threatening symptoms or concerns.. Pt has verbalized understanding of information provided, questions answered. Disposition: [facility] - Home Medications Comprehensive Discharge Medication List: Ambulatory Orders Acetaminophen [Pain Relief] 650 mg PO DAILY 01/08/18 Ascorbic Acid [C-500] 500 mg PO DAILY 01/08/18 Atorvastatin Calcium 80 mg PO DAILY 01/08/18 Calcium Acetate [Phoslo -] 667 mg PO TIDCM 01/08/18 Ergocalciferol (Vitamin D2) [Drisdol] 50,000 unit PO DAILY 01/08/18 Folic Acid 1 mg PO DAILY 01/08/18 Gabapentin 100 mg PO DAILY 01/08/18 Hydralazine HCl 50 mg PO DAILY 01/08/18 Insulin (Levemir) [Levemir Vial] 12 unit SQ DAILY 01/08/18 Isosorbide Mononitrate [Isosorbide Mononitrate ER] 30 mg PO DAILY 01/08/18 Levothyroxine [Synthroid -] 50 mcg PO DAILY 01/08/18 Metoprolol Succinate 200 mg PO DAILY 01/08/18 Multivitamin [One Daily] 1 each PO DAILY 01/08/18 Sennosides [Senna] 8.6 mg PO DAILY 01/08/18 Gentamicin in NaCl, Iso-Osm [Gentamicin 80 mg/Ns 100 ml Pb] 80 mg IV Q48H #0 vial 01/16/18 Insulin (Levemir) [Levemir Vial] 15 units SQ HS #30 units 01/16/18 Meropenem [Merrem (Restricted To Id) -] 500 mg IVPB Q12H #28 vial 01/16/18 Vancomycin 1,500 mg IVPB [facility] #14 vial 01/16/18
--- NOTE | 2018-01-16 12:39 | PN ---
Progress Note, Physician History of Present Illness: Pt seen and examined at bedside. He is awake and alert. He is tolerating HD. - Current Medication List Current Medications: Active Medications Acetaminophen (Tylenol -) 650 mg PO DAILY [facility] Last Admin: 01/15/18 09:12 Dose: 650 mg Ascorbic Acid (Vitamin C -) 500 mg PO DAILY [facility] Last Admin: 01/15/18 09:11 Dose: 500 mg Atorvastatin Calcium (Lipitor -) 80 mg PO HS [facility] Last Admin: 01/15/18 21:56 Dose: 80 mg Diphenhydramine HCl (Benadryl -) 25 mg PO Q6H PRN PRN Reason: FOR ITCHING Last Admin: 01/13/18 03:28 Dose: 25 mg Docusate Sodium (Colace -) 100 mg PO TID [facility] Last Admin: 01/16/18 06:15 Dose: Not Given Folic Acid (Folic Acid -) 1 mg PO DAILY [facility] Last Admin: 01/15/18 09:11 Dose: 1 mg Gabapentin (Neurontin -) 100 mg PO DAILY [facility] Last Admin: 01/15/18 09:12 Dose: 100 mg Heparin Sodium (Porcine) (Heparin -) 5,000 unit SQ TID [facility] Last Admin: 01/16/18 06:10 Dose: 5,000 unit Hydralazine HCl (Apresoline -) 50 mg PO DAILY [facility] Last Admin: 01/15/18 09:12 Dose: 50 mg Gentamicin Sulfate/Sodium Chloride (Garamycin 80 Mg Premixed Ivpb -) 80 mg in 100 mls @ 100 mls/hr IVPB [facility]; Protocol Last Admin: 01/14/18 17:39 Dose: 100 mls/hr Vancomycin HCl 1,500 mg/ (Dextrose) 500 mls @ 250 mls/hr IVPB [facility]; Protocol Last Admin: 01/14/18 17:21 Dose: 250 mls/hr Meropenem 500 mg/ Dextrose 100 mls @ 200 mls/hr IVPB Q12H [facility] Last Admin: 01/16/18 03:08 Dose: 200 mls/hr Insulin Aspart (Novolog Vial Sliding Scale -) 1 vial SQ [facility]; Protocol Last Admin: 01/16/18 12:01 Dose: Not Given Insulin Detemir (Levemir Vial) 15 units SQ [facility] Last Admin: 01/15/18 21:56 Dose: 15 units Isosorbide Mononitrate (Imdur -) 30 mg PO DAILY [facility] Last Admin: 01/15/18 09:12 Dose: 30 mg Levothyroxine Sodium (Synthroid -) 50 mcg PO 0700 [facility] Last Admin: 01/16/18 06:15 Dose: 50 mcg Metoprolol Succinate (Toprol Xl -) 200 mg PO DAILY [facility] Last Admin: 01/15/18 09:12 Dose: 200 mg Multivitamins/Minerals/Vitamin C (Tab-A-Vit -) 1 tab PO DAILY [facility] Last Admin: 01/15/18 09:12 Dose: 1 tab Senna/Docusate Sodium (Pericolace -) 2 tablet PO HS PRN PRN Reason: CONSTIPATION Last Admin: 01/11/18 23:35 Dose: 2 tablet - Objective Vital Signs: Vital Signs Temperature 98.3 F 01/16/18 09:00 Pulse Rate 85 01/16/18 10:25 Respiratory Rate 18 01/16/18 10:25 Blood Pressure 153/67 01/16/18 10:25 O2 Sat by Pulse Oximetry (%) 100 01/16/18 09:00 Constitutional: Yes: Calm Eyes: Yes: Conjunctiva Clear HENT: Yes: Atraumatic Neck: Yes: Supple Cardiovascular: Yes: S1, S2 Respiratory: Yes: CTA Bilaterally Gastrointestinal: Yes: Normal Bowel Sounds, Soft Genitourinary: Yes: WNL Musculoskeletal: Yes: WNL Edema: Yes Integumentary: Yes: Venous Stasis Changes Neurological: Yes: Oriented Psychiatric: Yes: Oriented Labs: CBC, BMP 01/16/18 09:00 01/16/18 09:00 INR, PTT INR 1.17 (0.83-1.09) H 01/10/18 05:30 Problem List - Problems (1) HTN (hypertension) Code(s): I10 - ESSENTIAL (PRIMARY) HYPERTENSION (2) ESRD on hemodialysis Code(s): N18.6 - END STAGE RENAL DISEASE; Z99.2 - DEPENDENCE ON RENAL DIALYSIS (3) Wound of buttock Code(s): S31.809A - UNSPECIFIED OPEN WOUND OF UNSPECIFIED BUTTOCK, INIT ENCNTR Assessment/Plan Current Medications Generic Name Dose Route Start Last Admin Trade Name Freq PRN Reason Stop Dose Admin Acetaminophen 650 mg 01/14/18 10:00 01/15/18 09:12 Tylenol - PO 650 mg DAILY NO[facility] Administration Ascorbic Acid 500 mg 01/14/18 10:00 01/15/18 09:11 Vitamin C - PO 500 mg DAILY NO[facility] Administration Atorvastatin Calcium 80 mg 01/14/18 22:00 01/15/18 21:56 Lipitor - PO 80 mg HS NOA Administration Diphenhydramine HCl 25 mg 01/12/18 10:16 01/13/18 03:28 Benadryl - PO 25 mg Q6H PRN Administration FOR ITCHING Docusate Sodium 100 mg 01/12/18 14:00 01/16/18 06:15 Colace - PO Not Given TID NOA Folic Acid 1 mg 01/14/18 10:00 01/15/18 09:11 Folic Acid - PO 1 mg DAILY NOA Administration Gabapentin 100 mg 01/14/18 10:00 01/15/18 09:12 Neurontin - PO 100 mg DAILY NOA Administration Heparin Sodium (Porcine) 5,000 unit 01/14/18 14:00 01/16/18 06:10 Heparin - SQ 5,000 unit TID NO[facility] Administration Hydralazine HCl 50 mg 01/14/18 10:00 01/15/18 09:12 Apresoline - PO 50 mg DAILY [facility] Administration Gentamicin Sulfate/Sodium Chloride 80 mg in 100 mls @ 100 mls/hr 01/14/18 08: 33 01/14/18 17:39 Garamycin 80 Mg Premixed Ivpb - IVPB 100 mls/hr [facility] Administration Protocol Vancomycin HCl 1,500 mg/ 500 mls @ 250 mls/hr 01/14/18 18:00 01/14/18 17:21 Dextrose IVPB 250 mls/hr [facility] Administration Protocol Meropenem 500 mg/ Dextrose 100 mls @ 200 mls/hr 01/15/18 14:30 01/16/18 03:08 IVPB 200 mls/hr Q12H [facility] Administration Insulin Aspart 1 vial 01/14/18 11:00 01/16/18 12:01 Novolog Vial Sliding Scale - SQ Not Given ACHS [facility] Protocol Insulin Detemir 15 units 01/14/18 22:00 01/15/18 21:56 Levemir Vial SQ 15 units HS [facility] Administration Isosorbide Mononitrate 30 mg 01/14/18 10:00 01/15/18 09:12 Imdur - PO 30 mg DAILY [facility] Administration Levothyroxine Sodium 50 mcg 01/15/18 07:00 01/16/18 06:15 Synthroid - PO 50 mcg 0700 [facility] Administration Metoprolol Succinate 200 mg 01/14/18 10:00 01/15/18 09:12 Toprol Xl - PO 200 mg DAILY [facility] Administration Multivitamins/Minerals/Vitamin C 1 tab 01/14/18 10:00 01/15/18 09:12 Tab-A-Vit - PO 1 tab DAILY [facility] Administration Senna/Docusate Sodium 2 tablet 01/11/18 23:23 01/11/18 23:35 Pericolace - PO 2 tablet HS PRN Administration CONSTIPATION Impression 1. ESRD 2. DM 3. HTN 4. anemia 5. buttock wound 6. allergic reaction Plan - HD today - abx per ID - cont wound care - pt has HD set up as outpt - will need fistula placement, can be done as outpt - renal diet - epogen for anemia - will follow Dr Apodaca
[2018-01-16] MEDS: ASCORBIC ACID 500 MG TABLET (FP) PO SCH (12:51)
[2018-01-16] MEDS: FOLIC ACID 1 MG TABLET (FP) PO SCH (12:51)
[2018-01-16] MEDS: GABAPENTIN 100 MG CAPSULE (FP) PO SCH (12:51)
[2018-01-16] MEDS: ISOSORBIDE MONONITRATE 30 MG TAB.SR.24H (FP) PO SCH (12:51)
[2018-01-16] MEDS: ACETAMINOPHEN 325 MG TABLET (FP) PO SCH (12:51)
[2018-01-16] MEDS: hydrALAZINE HCL 50 MG TABLET (FP) PO SCH (12:52)
[2018-01-16] MEDS: MULTIVITAMINS (DAILY MVI) TABLET (FP) PO SCH (12:52)
[2018-01-16] MEDS: GENTAMICIN 80 MG PREMIXED IVPB 80 MG/100 ML BAG IVPB SCH (13:03)
--- NOTE | 2018-01-16 13:03 | PN ---
Progress Note, Physician History of Present Illness: Pt is alert, afebrile. Has been started on Meropenem instead of Zosyn. Tolerating well so far. Denies rash/shortness of breath. Remains afebrile, without any new complaints. - Current Medication List Current Medications: Active Medications Acetaminophen (Tylenol -) 650 mg PO DAILY [facility] Last Admin: 01/16/18 12:51 Dose: 650 mg Ascorbic Acid (Vitamin C -) 500 mg PO DAILY [facility] Last Admin: 01/16/18 12:51 Dose: 500 mg Atorvastatin Calcium (Lipitor -) 80 mg PO HS [facility] Last Admin: 01/15/18 21:56 Dose: 80 mg Diphenhydramine HCl (Benadryl -) 25 mg PO Q6H PRN PRN Reason: FOR ITCHING Last Admin: 01/13/18 03:28 Dose: 25 mg Docusate Sodium (Colace -) 100 mg PO TID [facility] Last Admin: 01/16/18 06:15 Dose: Not Given Folic Acid (Folic Acid -) 1 mg PO DAILY [facility] Last Admin: 01/16/18 12:51 Dose: 1 mg Gabapentin (Neurontin -) 100 mg PO DAILY [facility] Last Admin: 01/16/18 12:51 Dose: 100 mg Heparin Sodium (Porcine) (Heparin -) 5,000 unit SQ TID [facility] Last Admin: 01/16/18 06:10 Dose: 5,000 unit Hydralazine HCl (Apresoline -) 50 mg PO DAILY [facility] Last Admin: 01/16/18 12:52 Dose: 50 mg Gentamicin Sulfate/Sodium Chloride (Garamycin 80 Mg Premixed Ivpb -) 80 mg in 100 mls @ 100 mls/hr IVPB [facility]EFR [facility]; Protocol Last Admin: 01/14/18 17:39 Dose: 100 mls/hr Vancomycin HCl 1,500 mg/ (Dextrose) 500 mls @ 250 mls/hr IVPB [facility]EFR [facility]; Protocol Last Admin: 01/14/18 17:21 Dose: 250 mls/hr Meropenem 500 mg/ Dextrose 100 mls @ 200 mls/hr IVPB Q12H [facility] Last Admin: 01/16/18 03:08 Dose: 200 mls/hr Insulin Aspart (Novolog Vial Sliding Scale -) 1 vial SQ ACHS [facility]; Protocol Last Admin: 01/16/18 12:01 Dose: Not Given Insulin Detemir (Levemir Vial) 15 units SQ HS [facility] Last Admin: 01/15/18 21:56 Dose: 15 units Isosorbide Mononitrate (Imdur -) 30 mg PO DAILY [facility] Last Admin: 01/16/18 12:51 Dose: 30 mg Levothyroxine Sodium (Synthroid -) 50 mcg PO 0700 [facility] Last Admin: 01/16/18 06:15 Dose: 50 mcg Metoprolol Succinate (Toprol Xl -) 200 mg PO DAILY [facility] Last Admin: 01/16/18 12:51 Dose: 200 mg Multivitamins/Minerals/Vitamin C (Tab-A-Vit -) 1 tab PO DAILY [facility] Last Admin: 01/16/18 12:52 Dose: 1 tab Senna/Docusate Sodium (Pericolace -) 2 tablet PO PRN PRN Reason: CONSTIPATION Last Admin: 01/11/18 23:35 Dose: 2 tablet - Objective Vital Signs: Vital Signs Temperature 98.3 F 01/16/18 09:00 Pulse Rate 85 01/16/18 10:25 Respiratory Rate 18 01/16/18 10:25 Blood Pressure 153/67 01/16/18 10:25 O2 Sat by Pulse Oximetry (%) 100 01/16/18 09:00 Constitutional: Yes: No Distress, Calm Cardiovascular: Yes: Regular Rate and Rhythm Respiratory: Yes: Regular Gastrointestinal: Yes: Normal Bowel Sounds, Soft Genitourinary: Yes: Anuria Extremities: Yes: Amputation Wound/Incision: Yes: Other (wound vac in place) Neurological: Yes: Alert, Oriented Labs: CBC, BMP 01/16/18 09:00 01/16/18 09:00 INR, PTT INR 1.17 (0.83-1.09) H 01/10/18 05:30 Problem List - Problems (1) Allergic reaction Code(s): T78.40XA - ALLERGY, UNSPECIFIED, INITIAL ENCOUNTER (2) ESRD on hemodialysis Code(s): N18.6 - END STAGE RENAL DISEASE; Z99.2 - DEPENDENCE ON RENAL DIALYSIS (3) HTN (hypertension) Code(s): I10 - ESSENTIAL (PRIMARY) HYPERTENSION (4) Wound of buttock Code(s): S31.809A - UNSPECIFIED OPEN WOUND OF UNSPECIFIED BUTTOCK, INIT ENCNTR (5) Wound of sacral region Code(s): S31.000A - UNSP OPN WND LOW BACK AND PELV W/O PENET RETROPERITON, INIT Assessment/Plan 27 y.o. male with PMH of ESRD on HD, HTN, HLD, Rt AKA, IDDM with Lt buttock/ sacral abscess/wounds s/p debridement at [facility] who has been on IV Antibiotics initially transferred for wound care supplies noted to have fever 100.6 and leukocytosis. Pt given dose of morphine and developed facial edema and transferred to the ICU. He is currently stable, afebrile, with resolution of allergic symptoms. Infected Sacral DU/ gluteal abscess s/p drainage/debridement - resistant Pseudomonas/E.coli isolated Angioedema - resolved ESRD on HD IDDM Leukocytosis- no evidence of drainable abscess/OM on pelvic CT -- continue Meropenem/Vancomycin/Gentamicin -- wbc decreased from yesterday -- wound vac in place -- continue monitor - will need 2 more weeks of antibiotics
[2018-01-16] MEDS ORDERED: INSULIN (NOVOLOG) ASPART 100 UNITS/ML 10ML VIAL ONE ×2 (18:12→21:17)
[2018-01-16] MEDS: VANCOMYCIN 1,500 MG in DEXTROSE 5%-WATER - 500 ML IVPB SCH (22:06)
[2018-01-16] MEDS: ATORVASTATIN CA 80 MG TABLET (FP) PO SCH (22:08)
[2018-01-16] MEDS: INSULIN (LEVEMIR) 100 UNITS/ML UNITS SQ SCH (22:09)
[2018-01-17] MEDS ORDERED: PT OWN MED DRAWER 7, Y5N ONE ×2 (02:30→13:51)
[2018-01-17] MEDS: MEROPENEM 500 MG in DEXTROSE 5%-WATER 100 ML IVPB SCH ×2 (03:17→13:58)
[2018-01-17] MEDS: DOCUSATE SODIUM 100 MG CAPSULE (FP) PO SCH ×3 (06:27→13:58)
[2018-01-17] MEDS: HEPARIN NA (PORCINE) 5,000 UNITS/ML 1ML VIAL SQ SCH ×2 (06:27→13:58)
[2018-01-17] MEDS: LEVOTHYROXINE NA 50 MCG TABLET (FP) PO SCH ×2 (06:28→07:32)
[2018-01-17] MEDS: INSULIN SLIDING SCALE (NOVOLOG) 1 VIAL SQ SCH ×3 (06:28→16:43)
[2018-01-17] MEDS ORDERED: INSULIN (NOVOLOG) ASPART 100 UNITS/ML 10ML VIAL ONE ×3 (06:56→16:31)
[2018-01-17] MEDS: ASCORBIC ACID 500 MG TABLET (FP) PO SCH (10:25)
[2018-01-17] MEDS: ISOSORBIDE MONONITRATE 30 MG TAB.SR.24H (FP) PO SCH (10:25)
[2018-01-17] MEDS: hydrALAZINE HCL 50 MG TABLET (FP) PO SCH (10:25)
[2018-01-17] MEDS: FOLIC ACID 1 MG TABLET (FP) PO SCH (10:26)
[2018-01-17] MEDS: ACETAMINOPHEN 325 MG TABLET (FP) PO SCH (10:26)
[2018-01-17] MEDS: GABAPENTIN 100 MG CAPSULE (FP) PO SCH (10:26)
[2018-01-17] MEDS: MULTIVITAMINS (DAILY MVI) TABLET (FP) PO SCH (10:26)
--- NOTE | 2018-01-17 12:35 | PN ---
Progress Note (short form) - Note Progress Note: Progress Note, Physician Chief Complaint: no complaints No SOB no fever pt feels well awaiting fro transfer to [place] -- waiting for authorization from insurance Vital Signs - 24 hr 01/16/18 01/16/18 01/16/18 15:25 20:45 23:44 Temperature 99.1 F 99.2 F Pulse Rate 86 91 H Respiratory 20 20 20 Rate Blood Pressure 156/63 140/46 O2 Sat by Pulse 100 Oximetry (%) 01/17/18 05:30 Temperature 99.0 F Pulse Rate 85 Respiratory Rate Blood Pressure 153/79 O2 Sat by Pulse Oximetry (%) Current Medications Generic Name Dose Route Start Last Admin Trade Name Freq PRN Reason Stop Dose Admin Acetaminophen 650 mg 01/14/18 10:00 01/17/18 10:26 Tylenol - PO 650 mg DAILY NOA Administration Ascorbic Acid 500 mg 01/14/18 10:00 01/17/18 10:25 Vitamin C - PO 500 mg DAILY NOA Administration Atorvastatin Calcium 80 mg 01/14/18 22:00 01/16/18 22:08 Lipitor - PO 80 mg HS NOA Administration Diphenhydramine HCl 25 mg 01/12/18 10:16 01/13/18 03:28 Benadryl - PO 25 mg Q6H PRN Administration FOR ITCHING Docusate Sodium 100 mg 01/12/18 14:00 01/17/18 07:31 Colace - PO Not Given TID NOA Folic Acid 1 mg 01/14/18 10:00 01/17/18 10:26 Folic Acid - PO 1 mg DAILY NOA Administration Gabapentin 100 mg 01/14/18 10:00 01/17/18 10:26 Neurontin - PO 100 mg DAILY NOA Administration Heparin Sodium (Porcine) 5,000 unit 01/14/18 14:00 01/17/18 06:27 Heparin - SQ 5,000 unit TID NOA Administration Hydralazine HCl 50 mg 01/14/18 10:00 01/17/18 10:25 Apresoline - PO 50 mg DAILY NOA Administration Gentamicin Sulfate/Sodium Chloride 80 mg in 100 mls @ 100 mls/hr 01/14/18 08: 33 01/16/18 13:03 Garamycin 80 Mg Premixed Ivpb - IVPB 100 mls/hr MOWEFR NOA Administration Protocol Vancomycin HCl 1,500 mg/ 500 mls @ 250 mls/hr 01/14/18 18:00 01/16/18 22:06 Dextrose IVPB 250 mls/hr MOWEFR NOA Administration Protocol Meropenem 500 mg/ Dextrose 100 mls @ 200 mls/hr 01/15/18 14:30 01/17/18 03:17 IVPB 200 mls/hr Q12H NOA Administration Insulin Aspart 1 vial 01/14/18 11:00 01/17/18 10:38 Novolog Vial Sliding Scale - SQ Not Given ACHS [facility] Protocol Insulin Detemir 15 units 01/14/18 22:00 01/16/18 22:09 Levemir Vial SQ 15 units HS NOA Administration Isosorbide Mononitrate 30 mg 01/14/18 10:00 01/17/18 10:25 Imdur - PO 30 mg DAILY NOA Administration Levothyroxine Sodium 50 mcg 01/15/18 07:00 01/17/18 07:32 Synthroid - PO Not Given 0700 [facility] Metoprolol Succinate 200 mg 01/14/18 10:00 01/17/18 10:25 Toprol Xl - PO 200 mg DAILY NOA Administration Multivitamins/Minerals/Vitamin C 1 tab 01/14/18 10:00 01/17/18 10:26 Tab-A-Vit - PO 1 tab DAILY NOA Administration Senna/Docusate Sodium 2 tablet 01/11/18 23:23 01/11/18 23:35 Pericolace - PO 2 tablet HS PRN Administration CONSTIPATION Constitutional: Yes: No Distress, Calm Eyes: Yes: Other (periorbital edema, lips edema+)-- decreased Cardiovascular: Yes: Regular Rate and Rhythm Respiratory: Yes: Diminished Gastrointestinal: Yes: Normal Bowel Sounds, Soft. No: Tenderness Extremities: Yes: Amputation (right AKA) Edema: Yes Edema: LLE: decreased no rash noted on right hand Labs: Problem List - Problems (1) Allergic reaction Code(s): T78.40XA - ALLERGY, UNSPECIFIED, INITIAL ENCOUNTER (2) ESRD on hemodialysis Code(s): N18.6 - END STAGE RENAL DISEASE; Z99.2 - DEPENDENCE ON RENAL DIALYSIS (3) Wound of buttock Code(s): S31.809A - UNSPECIFIED OPEN WOUND OF UNSPECIFIED BUTTOCK, INIT ENCNTR (4) Wound of sacral region Code(s): S31.000A - UNSP OPN WND LOW BACK AND PELV W/O PENET RETROPERITON, INIT Assessment/Plan PLAN iv antibiotics-- 13 days more No surgical interventions planned continue with local wound care po benadryl wound cultures--psuedomonas sensitive to Gentamicin and tobramycin repeat blood cultures negative continue with current care DM control dc to [place] once authorized by insurance Problem List - Problems (1) Allergic reaction Code(s): T78.40XA - ALLERGY, UNSPECIFIED, INITIAL ENCOUNTER (2) ESRD on hemodialysis Code(s): N18.6 - END STAGE RENAL DISEASE; Z99.2 - DEPENDENCE ON RENAL DIALYSIS (3) Wound of buttock Code(s): S31.809A - UNSPECIFIED OPEN WOUND OF UNSPECIFIED BUTTOCK, INIT ENCNTR (4) Wound of sacral region Code(s): S31.000A - UNSP OPN WND LOW BACK AND PELV W/O PENET RETROPERITON, INIT
[2018-01-17] MEDS ORDERED: SODIUM CHLORIDE 250 ML IV PRN (14:01)
--- NOTE | 2018-01-17 14:01 | PN ---
Progress Note, Physician History of Present Illness: Pt seen and examined at bedside. He is awake and alert. He denies shortness of breath. - Current Medication List Current Medications: Active Medications Acetaminophen (Tylenol -) 650 mg PO DAILY [facility] Last Admin: 01/17/18 10:26 Dose: 650 mg Ascorbic Acid (Vitamin C -) 500 mg PO DAILY [facility] Last Admin: 01/17/18 10:25 Dose: 500 mg Atorvastatin Calcium (Lipitor -) 80 mg PO HS [facility] Last Admin: 01/16/18 22:08 Dose: 80 mg Diphenhydramine HCl (Benadryl -) 25 mg PO Q6H PRN PRN Reason: FOR ITCHING Last Admin: 01/13/18 03:28 Dose: 25 mg Docusate Sodium (Colace -) 100 mg PO TID [facility] Last Admin: 01/17/18 07:31 Dose: Not Given Folic Acid (Folic Acid -) 1 mg PO DAILY [facility] Last Admin: 01/17/18 10:26 Dose: 1 mg Gabapentin (Neurontin -) 100 mg PO DAILY [facility] Last Admin: 01/17/18 10:26 Dose: 100 mg Heparin Sodium (Porcine) (Heparin -) 5,000 unit SQ TID [facility] Last Admin: 01/17/18 06:27 Dose: 5,000 unit Hydralazine HCl (Apresoline -) 50 mg PO DAILY [facility] Last Admin: 01/17/18 10:25 Dose: 50 mg Gentamicin Sulfate/Sodium Chloride (Garamycin 80 Mg Premixed Ivpb -) 80 mg in 100 mls @ 100 mls/hr IVPB [facility]FR [facility]; Protocol Last Admin: 01/16/18 13:03 Dose: 100 mls/hr Vancomycin HCl 1,500 mg/ (Dextrose) 500 mls @ 250 mls/hr IVPB [facility]; Protocol Last Admin: 01/16/18 22:06 Dose: 250 mls/hr Meropenem 500 mg/ Dextrose 100 mls @ 200 mls/hr IVPB Q12H [facility] Last Admin: 01/17/18 03:17 Dose: 200 mls/hr Insulin Aspart (Novolog Vial Sliding Scale -) [address] [facility]; Protocol Last Admin: 01/17/18 10:38 Dose: Not Given Insulin Detemir (Levemir Vial) [address] [facility] Last Admin: 01/16/18 22:09 Dose: 15 units Isosorbide Mononitrate (Imdur -) 30 mg PO DAILY [facility] Last Admin: 01/17/18 10:25 Dose: 30 mg Levothyroxine Sodium (Synthroid -) 50 mcg PO 0700 [facility] Last Admin: 01/17/18 07:32 Dose: Not Given Metoprolol Succinate (Toprol Xl -) 200 mg PO DAILY [facility] Last Admin: 01/17/18 10:25 Dose: 200 mg Multivitamins/Minerals/Vitamin C (Tab-A-Vit -) 1 tab PO DAILY [facility] Last Admin: 01/17/18 10:26 Dose: 1 tab Senna/Docusate Sodium (Pericolace -) 2 tablet PO HS PRN PRN Reason: CONSTIPATION Last Admin: 01/11/18 23:35 Dose: 2 tablet - Objective Vital Signs: Vital Signs Temperature 99.0 F 01/17/18 05:30 Pulse Rate 85 01/17/18 05:30 Respiratory Rate 20 01/16/18 23:44 Blood Pressure 153/79 01/17/18 05:30 O2 Sat by Pulse Oximetry (%) 100 01/16/18 20:45 Constitutional: Yes: Calm Eyes: Yes: Conjunctiva Clear HENT: Yes: Atraumatic Neck: Yes: Supple Cardiovascular: Yes: S1, S2 Respiratory: Yes: CTA Bilaterally Gastrointestinal: Yes: Soft, Abdomen, Obese Genitourinary: Yes: WNL Musculoskeletal: Yes: Other (amputation) Edema: Yes Neurological: Yes: Oriented Psychiatric: Yes: Oriented Labs: CBC, BMP 01/16/18 09:00 01/16/18 09:00 INR, PTT INR 1.17 (0.83-1.09) H 01/10/18 05:30 Problem List - Problems (1) HTN (hypertension) Code(s): I10 - ESSENTIAL (PRIMARY) HYPERTENSION (2) ESRD on hemodialysis Code(s): N18.6 - END STAGE RENAL DISEASE; Z99.2 - DEPENDENCE ON RENAL DIALYSIS (3) Wound of buttock Code(s): S31.809A - UNSPECIFIED OPEN WOUND OF UNSPECIFIED BUTTOCK, INIT ENCNTR Assessment/Plan Current Medications Generic Name Dose Route Start Last Admin Trade Name Freq PRN Reason Stop Dose Admin Acetaminophen 650 mg 01/14/18 10:00 01/17/18 10:26 Tylenol - PO 650 mg DAILY NOA Administration Ascorbic Acid 500 mg 01/14/18 10:00 01/17/18 10:25 Vitamin C - PO 500 mg DAILY NOA Administration Atorvastatin Calcium 80 mg 01/14/18 22:00 01/16/18 22:08 Lipitor - PO 80 mg HS NOA Administration Diphenhydramine HCl 25 mg 01/12/18 10:16 01/13/18 03:28 Benadryl - PO 25 mg Q6H PRN Administration FOR ITCHING Docusate Sodium 100 mg 01/12/18 14:00 01/17/18 13:58 Colace - PO 100 mg TID [facility] Administration Folic Acid 1 mg 01/14/18 10:00 01/17/18 10:26 Folic Acid - PO 1 mg DAILY NOA Administration Gabapentin 100 mg 01/14/18 10:00 01/17/18 10:26 Neurontin - PO 100 mg DAILY [facility] Administration Heparin Sodium (Porcine) 5,000 unit 01/14/18 14:00 01/17/18 13:58 Heparin - SQ 5,000 unit TID [facility] Administration Hydralazine HCl 50 mg 01/14/18 10:00 01/17/18 10:25 Apresoline - PO 50 mg DAILY [facility] Administration Gentamicin Sulfate/Sodium Chloride 80 mg in 100 mls @ 100 mls/hr 01/14/18 08: 33 01/16/18 13:03 Garamycin 80 Mg Premixed Ivpb - IVPB 100 mls/hr [facility]FR [facility] Administration Protocol Vancomycin HCl 1,500 mg/ 500 mls @ 250 mls/hr 01/14/18 18:00 01/16/18 22:06 Dextrose IVPB 250 mls/hr [facility] Administration Protocol Meropenem 500 mg/ Dextrose 100 mls @ 200 mls/hr 01/15/18 14:30 01/17/18 13:58 IVPB 200 mls/hr Q12H NOA Administration Insulin Aspart 1 vial 01/14/18 11:00 01/17/18 10:38 Novolog Vial Sliding Scale - SQ Not Given ACHS [facility] Protocol Insulin Detemir 15 units 01/14/18 22:00 01/16/18 22:09 Levemir Vial SQ 15 units HS [facility] Administration Isosorbide Mononitrate 30 mg 01/14/18 10:00 01/17/18 10:25 Imdur - PO 30 mg DAILY NOA Administration Levothyroxine Sodium 50 mcg 01/15/18 07:00 01/17/18 07:32 Synthroid - PO Not Given 07 [facility] Metoprolol Succinate 200 mg 01/14/18 10:00 01/17/18 10:25 Toprol Xl - PO 200 mg DAILY NOA Administration Multivitamins/Minerals/Vitamin C 1 tab 01/14/18 10:00 01/17/18 10:26 Tab-A-Vit - PO 1 tab DAILY NOA Administration Senna/Docusate Sodium 2 tablet 01/11/18 23:23 01/11/18 23:35 Pericolace - PO 2 tablet HS PRN Administration CONSTIPATION Impression 1. ESRD 2. DM 3. HTN 4. anemia 5. buttock wound 6. allergic reaction Plan - HD in am - will write orders - pt has HD set up as outpt - will need fistula placement, can be done as outpt - renal diet - epogen for anemia - cont wound care - will follow Dr Apodaca
--- NOTE | 2018-01-17 15:29 | PN ---
Progress Note, Physician History of Present Illness: Pt is alert. Denies having any complaints. - Current Medication List Current Medications: Active Medications Acetaminophen (Tylenol -) 650 mg PO DAILY [facility] Last Admin: 01/17/18 10:26 Dose: 650 mg Ascorbic Acid (Vitamin C -) 500 mg PO DAILY [facility] Last Admin: 01/17/18 10:25 Dose: 500 mg Atorvastatin Calcium (Lipitor -) 80 mg PO HS [facility] Last Admin: 01/16/18 22:08 Dose: 80 mg Diphenhydramine HCl (Benadryl -) 25 mg PO Q6H PRN PRN Reason: FOR ITCHING Last Admin: 01/13/18 03:28 Dose: 25 mg Docusate Sodium (Colace -) 100 mg PO TID [facility] Last Admin: 01/17/18 13:58 Dose: 100 mg Epoetin Horacio (Procrit -) 10,000 unit IVPUSH ONCE ONE Stop: 01/18/18 14:02 Folic Acid (Folic Acid -) 1 mg PO DAILY [facility] Last Admin: 01/17/18 10:26 Dose: 1 mg Gabapentin (Neurontin -) 100 mg PO DAILY [facility] Last Admin: 01/17/18 10:26 Dose: 100 mg Heparin Sodium (Porcine) (Heparin -) 5,000 unit SQ TID [facility] Last Admin: 01/17/18 13:58 Dose: 5,000 unit Heparin Sodium (Porcine) (Heparin -) 1,000 unit IVPUSH ONCE ONE Stop: 01/18/18 14:02 Hydralazine HCl (Apresoline -) 50 mg PO DAILY [facility] Last Admin: 01/17/18 10:25 Dose: 50 mg Gentamicin Sulfate/Sodium Chloride (Garamycin 80 Mg Premixed Ivpb -) 80 mg in 100 mls @ 100 mls/hr IVPB [facility]EFR [facility]; Protocol Last Admin: 01/16/18 13:03 Dose: 100 mls/hr Vancomycin HCl 1,500 mg/ (Dextrose) 500 mls @ 250 mls/hr IVPB [facility]FR [facility]; Protocol Last Admin: 01/16/18 22:06 Dose: 250 mls/hr Meropenem 500 mg/ Dextrose 100 mls @ 200 mls/hr IVPB Q12H [facility] Last Admin: 01/17/18 13:58 Dose: 200 mls/hr Sodium Chloride (Normal Saline -) 250 mls @ 3,000 mls/hr IV PRN PRN PRN Reason: Hypotension during Dialysis Stop: 01/18/18 14:01 Insulin Aspart (Novolog Vial Sliding Scale -) 1 vial SQ [facility]; Protocol Last Admin: 01/17/18 10:38 Dose: Not Given Insulin Detemir (Levemir Vial) 15 units SQ HS [facility] Last Admin: 01/16/18 22:09 Dose: 15 units Isosorbide Mononitrate (Imdur -) 30 mg PO DAILY [facility] Last Admin: 01/17/18 10:25 Dose: 30 mg Levothyroxine Sodium (Synthroid -) 50 mcg PO 0700 [facility] Last Admin: 01/17/18 07:32 Dose: Not Given Metoprolol Succinate (Toprol Xl -) 200 mg PO DAILY [facility] Last Admin: 01/17/18 10:25 Dose: 200 mg Multivitamins/Minerals/Vitamin C (Tab-A-Vit -) 1 tab PO DAILY [facility] Last Admin: 01/17/18 10:26 Dose: 1 tab Senna/Docusate Sodium (Pericolace -) 2 tablet PO HS PRN PRN Reason: CONSTIPATION Last Admin: 01/11/18 23:35 Dose: 2 tablet - Objective Vital Signs: Vital Signs Temperature 99.0 F 01/17/18 05:30 Pulse Rate 85 01/17/18 05:30 Respiratory Rate 20 01/16/18 23:44 Blood Pressure 153/79 01/17/18 05:30 O2 Sat by Pulse Oximetry (%) 100 01/16/18 20:45 Constitutional: Yes: No Distress, Calm Cardiovascular: Yes: Regular Rate and Rhythm Respiratory: Yes: CTA Bilaterally Gastrointestinal: Yes: Normal Bowel Sounds, Soft Extremities: Yes: Amputation Integumentary: Yes: WNL Wound/Incision: Yes: Other (wound vac) Neurological: Yes: Alert, Oriented Labs: CBC, BMP 01/16/18 09:00 01/16/18 09:00 INR, PTT INR 1.17 (0.83-1.09) H 01/10/18 05:30 Problem List - Problems (1) Allergic reaction Code(s): T78.40XA - ALLERGY, UNSPECIFIED, INITIAL ENCOUNTER (2) ESRD on hemodialysis Code(s): N18.6 - END STAGE RENAL DISEASE; Z99.2 - DEPENDENCE ON RENAL DIALYSIS (3) HTN (hypertension) Code(s): I10 - ESSENTIAL (PRIMARY) HYPERTENSION (4) Wound of buttock Code(s): S31.809A - UNSPECIFIED OPEN WOUND OF UNSPECIFIED BUTTOCK, INIT ENCNTR (5) Wound of sacral region Code(s): S31.000A - UNSP OPN WND LOW BACK AND PELV W/O PENET RETROPERITON, INIT Assessment/Plan 27 y.o. male with PMH of ESRD on HD, HTN, HLD, Rt AKA, IDDM with Lt buttock/ sacral abscess/wounds s/p debridement at [facility] who has been on IV Antibiotics initially transferred for wound care supplies noted to have fever 100.6 and leukocytosis. Pt given dose of morphine and developed facial edema and transferred to the ICU. He is currently stable, afebrile, with resolution of allergic symptoms. Infected Sacral DU/ gluteal abscess s/p drainage/debridement - resistant Pseudomonas/E.coli isolated Angioedema - resolved ESRD on HD IDDM Leukocytosis- no evidence of drainable abscess/OM on pelvic CT -- continue Meropenem/Vancomycin/Gentamicin -- repeat cbc, monitor temps -- wound vac in place - will need 13 more days of antibiotics
[2018-01-17 20:24] VITALS: BP 161/73; PULSE 88; TEMP 98.5
[2018-01-18] MEDS ORDERED: EPOETIN ALFA 10,000 UNIT/1 ML VIAL IVPUSH ONE (14:01)
[2018-01-18] MEDS ORDERED: HEPARIN NA (PORCINE) 5,000 UNITS/ML 1ML VIAL IVPUSH ONE (14:01)
== END 2018-01-17 20:32 | DRG 721 ==
LOC: JER 19:04 → JERBED 22:19 → UNDOADMIN 23:47 → JERBED 23:47 → JICU 01-09 03:53 → J6S 01-14 23:38
PROVIDERS: ADMIT Internal Medicine; ATTEND Internal Medicine
PROC: 2W15X6Z Compression of Back using Pressure Dressing (ICD-10-PCS; 2018-01-11)
PROC: 5A1D70Z Performance of Urinary Filtration, Intermittent, Less than 6 Hours Per Day (ICD-10-PCS; principal; 2018-01-16)
DX: T81.4XXA Infection following a procedure, initial encounter (principal); I12.0 Hypertensive chronic kidney disease with stage 5 chronic kidney disease or end stage renal disease; E11.22 Type 2 diabetes mellitus with diabetic chronic kidney disease; N18.6 End stage renal disease; Z99.2 Dependence on renal dialysis; E78.5 Hyperlipidemia, unspecified; D72.829 Elevated white blood cell count, unspecified; Z79.4 Long term (current) use of insulin; T78.3XXA Angioneurotic edema, initial encounter; D64.9 Anemia, unspecified; T40.2X5A Adverse effect of other opioids, initial encounter; S31.809A Unspecified open wound of unspecified buttock, initial encounter; S31.000A Unspecified open wound of lower back and pelvis without penetration into retroperitoneum, initial encounter; E66.9 Obesity, unspecified; Z68.37 Body mass index [BMI] 37.0-37.9, adult; B96.5 Pseudomonas (aeruginosa) (mallei) (pseudomallei) as the cause of diseases classified elsewhere; Y83.9 Surgical procedure, unspecified as the cause of abnormal reaction of the patient, or of later complication, without mention of misadventure at the time of the procedure; Z89.611 Acquired absence of right leg above knee
CPT/HCPCS: 36415; 72192-TC; 80048; 80053; 80061; 82607; 82728; 82803; 82962; 83036; 83540; 83550; 83605; 83721; 83735; 84100; 84484; 85025; 85027; 85610; 85651; 85730; 86140; 86704; 86706; 86708; 86803; 86850; 86900; 86901; 87040; 87070; 87186; 87205; 87340; 93306-TC; 97162-GP; 99284-25; G0480; J0131; J0885; J1644

== ENCOUNTER 2018-05-20 09:18 | Inpatient (IN) | payer OTHER ==
--- NOTE | 2018-05-20 09:30 | PDOC ---
History of Present Illness - General Stated Complaint: RIGHT FOOT WOUND Time Seen by Provider: 05/20/18 09:26 - History of Present Illness Initial Comments: The patient is a 27M w/ a history of ESRD (iHD WMF), s/p R AKA, hx of sacral wound, and L heel wound who presents from [facility] for evaluation of worsening of his L heel wound. The patient reports that he has been receiving Vancomycin w / dialysis and Amoxicillin daily. The patient denies any acute change in the wound that he has noticed. Reports daily dressing changes. He states that he was examined by a physician that comes weekly to the facility who was concerned about his wound today and had the pt transferred here for further evaluation. Denies fevers/chills, CABRERA, vision changes, chest pain, shortness of breath, abdominal pain, N?V/C/D, or changes in sensation 05/20/18 10:10 Past History - Past Medical History Allergies/Adverse Reactions: Allergies Allergy/AdvReac Type Severity Reaction Status Date / Time morphine Allergy Severe Swelling Verified 05/20/18 10:27 piperacillin [From Zosyn] AdvReac Mild Itching Verified 05/20/18 12:18 tazobactam [From Zosyn] AdvReac Mild Itching Verified 05/20/18 12:18 Home Medications: Ambulatory Orders Acetaminophen [Pain Relief] 650 mg PO DAILY 01/08/18 Calcium Acetate [Phoslo -] 667 mg PO TIDCM 01/08/18 Folic Acid 1 mg PO DAILY 01/08/18 Gabapentin 100 mg PO DAILY 01/08/18 Hydralazine HCl 50 mg PO DAILY 01/08/18 Isosorbide Mononitrate [Isosorbide Mononitrate ER] 30 mg PO DAILY 01/08/18 Levothyroxine [Synthroid -] 50 mcg PO DAILY 01/08/18 Metoprolol Succinate 200 mg PO DAILY 01/08/18 Sennosides [Senna] 8.6 mg PO DAILY 01/08/18 Vancomycin 1,000 mg IVPB MOWEFR 04/19/18 Nystatin 100,000 units TP DAILY 04/26/18 Santyl 250 units TP DAILY 04/26/18 Amoxicillin - [Amoxicillin 500mg Capsule -] 500 mg PO TID 05/20/18 Aspirin [ASA -] 81 mg PO DAILY 05/20/18 Insulin Glargine,Hum.rec.anlog [Basaglar Kwikpen U-100] 12 unit SQ DAILY Insulin Glargine,Hum.rec.anlog [Basaglar Kwikpen U-100] 15 unit SQ HS 05/20/18 Omeprazole Magnesium [Prilosec Otc] 20 mg PO PRN 05/20/18 Vitamin B Comp W-C [Nephro-Rebecca -] 1 tablet PO DAILY 05/20/18 COPD: No Diabetes: Yes Dialysis: Yes ([facility], permacath R chest) Disorders: Yes (ESRD-MWF) HTN: Yes Hypercholesterolemia: Yes - Suicide/Smoking/Psychosocial Hx Smoking History: Never smoked Have you smoked in the past 12 months: No Hx Alcohol Use: No Drug/Substance Use Hx: No Substance Use Type: None Review of Systems - Review of Systems Able to Perform ROS?: Yes Comments:: GENERAL/CONSTITUTIONAL: No fever or chills. No weakness HEAD, EYES, EARS, NOSE AND THROAT: No change in vision. No ear pain or discharge. No sore throat CARDIOVASCULAR: No chest pain or shortness of breath RESPIRATORY: Denies cough, hemoptysis GASTROINTESTINAL: No nausea, vomiting, diarrhea or constipation GENITOURINARY: No dysuria, frequency, or change in urination MUSCULOSKELETAL: per HPI SKIN: +L heel wound NEUROLOGIC: No headache, vertigo, loss of consciousness, or change in strength/ sensation ENDOCRINE: No increased thirst. No abnormal weight change HEMATOLOGIC/LYMPHATIC: No anemia, easy bleeding, or history of blood clots ALLERGIC/IMMUNOLOGIC: No hives or skin allergy 05/20/18 10:32 Is the patient limited Tajik proficient: No *Physical Exam - Vital Signs 05/20/18 09:56 Vital Signs Temp Pulse Resp BP Pulse Ox 98 F 80 17 182/58 H 95 05/20/18 09:37 05/20/18 09:37 05/20/18 09:37 05/20/18 09:37 05/20/18 09:37 - Physical Exam Comments: GENERAL: Awake, alert, and fully oriented, in no acute distress HEAD: No signs of trauma, normocephalic, atraumatic EYES: PERRLA, EOMI, sclera anicteric, conjunctiva clear ENT: Hearing grossly normal, nares patent, oropharynx clear without exudates. Moist mucosa LUNGS: No distress, speaks full sentences, clear to auscultation bilaterally HEART: Regular rate and rhythm, normal S1 and S2, no murmurs appreciated, peripheral pulses normal and equal bilaterally ABDOMEN: Soft, nontender, normoactive bowel sounds. No guarding, no rebound EXTREMITIES: R AKA, L heel dry gangrene with central fluctuance, no purulent material expressed, LLE 4+ edema, no erythema NEUROLOGICAL: Cranial nerves II through XII grossly intact. Normal speech, no focal sensorimotor deficits SKIN: Warm, Dry, wound as above 05/20/18 09:56 ED Treatment Course - LABORATORY CBC & Chemistry Diagram: 05/20/18 10:20 05/20/18 10:20 Medical Decision Making - Medical Decision Making The patient is a 27M w/ ESRD (iHD MWF), s/p R AKA, HTN, and L foot wound on Vanc /amoxicillin presenting from [facility] for concern of worsening condition of his L heel wound ED Course CMP, CBC Wound culture sent Pt examined by the wound acute care physical therapist who stated that his wound has worsening dry gangrene and new-onset 'bogginess' over his heel. Recommended admission to inpatient for further evaluation/therapy, including an MRI to evaluate for osteomyelitis. Plan for admission to dialysis floor for IV abx and further wound evaluation Patient in agreement and verbalizes understanding 05/20/18 10:22 Zosyn 3.375mg x1 Patient to get Vanc w/ iHD Mild leukocytosis Anemia, at baseline 05/20/18 11:14 Plan for admission for further evaluation of foot wound MRI ordered Dispo: admit 05/20/18 18:57 *DC/Admit/Observation/Transfer Diagnosis at time of Disposition: Above knee amputation of right lower extremity, ESRD on hemodialysis, Non healing left heel wound - Discharge Dispostion Condition at time of disposition: Good Decision to Admit order: Yes - Referrals - Patient Instructions - Post Discharge Activity
--- NOTE | 2018-05-20 10:37 | PDOC ---
Attending Attestation - Resident Resident Name: CarmenjoseMarilynCamron - ED Attending Attestation I have performed the following: I have examined & evaluated the patient, The case was reviewed & discussed with the resident, I agree w/resident's findings & plan - HPI HPI: 05/20/18 10:33 27 y.o. male with PMH of ESRD on HD (), HTN, HLD, Rt AKA, IDDM with Lt buttock/sacral abscess/wounds s/p debridement at [facility] who has been on IV Antibiotics, PROLONGED admission at [facility] for IV abx and wound care ( zosyn ? meropenem, gentamicin, vancomycin), now with chronic left foot heel ulcerative wound where he is taking amoxicillin and IV vancomycin dosed with his HD - Physicial Exam PE: 05/20/18 10:33 NAD, well appearing, blind. PERRL, EOMI; neck supple. right chest tunnel catheter. lungs clear, RRR, abdomen soft nontender. lower sacrum with heeled ulcerative wound site. No peripheral edema. normal color for ethnicity, WWP. right AKA. Left leg/food with pitting edema, no calf tenderness. +left calcaneal large dry ulcer, no purulence or warmth/erythema. very dry flaky skin 05/20/18 10:35 05/20/18 10:35 05/20/18 11:14 - Medical Decision Making 05/20/18 10:35 hpi as documented VS wnl. no fever labs and lytes_wbc ct 11k, baseline anemia, stable labs. ESRD, Cr elevation. wound culture from heel ulcer, no drainage though. prior wound cultures reviewed, WITH pseudomonas and E. coli called vascular surg Dr Rivas team, wound care nurse came to see. wound appears different than usual. concern for superimposed infection on left heel wound/acute on chronic. r/o osteomyelitis with additional imaging. on abx already, amox and IV vanco (dosed with HD). HD for today ( schedule) via tunneled cath. also awaiting to initiate hyperbarics for wound care additionally renal dose of vanco and zosyn for heel wound/with prior culture. Dispo: admit for wound care. MRI to r/o osteomyelitis. Vasc cs with Dr Rivas and team as well. 05/20/18 10:35 05/20/18 11:10 05/20/18 11:15 05/20/18 11:15
[2018-05-20 10:39] LABS: BASO % 1.4 % (0-2.0); EOS % 3.3 % (0-4.5); HEMATOCRIT 31.9 % (35.4-49); HEMOGLOBIN 10.8 GM/dL (11.7-16.9); LYMPH % 10.8 % (8-40); MCH 30.1 pg (25.7-33.7); MCHC 33.7 g/dl (32.0-35.9); MEAN CELL VOLUME 89.1 fl (80-96); MEAN PLT VOLUME 7.1 fl (7.5-11.1); MONO % 5.6 % (3.8-10.2); NEUT % 78.9 % (42.8-82.8); PLATELET COUNT 458 K/MM3 (134-434); RBC 3.59 M/mm3 (4.00-5.60); RDW 21.2 % (11.9-15.9); WHITE BLOOD COUNT 11.3 K/mm3 (4.0-10.0)
[2018-05-20] MEDS ORDERED: PIPERACILLIN/TAZOB 3.375 GM 3.375 GM in DEXTROSE 5%-WATER - 50 ML IVPB ONE (11:12)
[2018-05-20 11:23] LABS: ANISOCYTOSIS 2+; MACROCYTOSIS 2+; PLATELET ESTIMATE NORMAL; TARGET CELLS 1+; TEAR DROP CELLS 1+
[2018-05-20] MEDS ORDERED: PIPERACILLIN/TAZOB 3.375 GM 3.375 GM/50 ML BAG IVPB ONE (11:24)
[2018-05-20 11:30] LABS: ALBUMIN 2.6 g/dl (3.4-5.0); ALK PHOS 458 U/L (45-117); ANION GAP 12 MMOL/L (8-16); BILIRUBIN,TOTAL 1.2 mg/dL (0.2-1); BLOOD UREA NITROGEN 81 mg/dL (7-18); CALCIUM 9.1 mg/dL (8.5-10.1); CHLORIDE 96 mmol/L (98-107); CO2 25 mmol/L (21-32); GLUCOSE,RANDOM 157 mg/dL (74-106); POTASSIUM 5.3 mmol/L (3.5-5.1); SGOT/AST 36 U/L (15-37); SGPT/ALT 45 U/L (13-61); SODIUM 132 mmol/L (136-145); TOT PROT 7.8 g/dl (6.4-8.2)
[2018-05-20] MEDS ORDERED: diphenhydrAMINE HCL 25 MG CAPSULE (FP) PO ONE ×2 (11:40)
[2018-05-20 12:06] LABS: CREATININE 8.7 mg/dL (0.55-1.3)
--- NOTE | 2018-05-20 12:57 | EKG ---
Test Reason : Blood Pressure : / mmHG Vent. Rate : 081 BPM Atrial Rate : 081 BPM P-R Int : 166 ms QRS Dur : 090 ms QT Int : 398 ms P-R-T Axes : 061 -36 111 degrees QTc Int : 462 ms NORMAL SINUS RHYTHM LEFT AXIS DEVIATION CANNOT RULE OUT ANTERIOR INFARCT , AGE UNDETERMINED T WAVE ABNORMALITY, CONSIDER LATERAL ISCHEMIA ABNORMAL ECG NO PREVIOUS ECGS AVAILABLE Confirmed by FABIÁN SOLANO MD ([id number]) on 05/20/2018 12:57:09 PM Referred By: Confirmed By:FABIÁN SOLANO MD
--- NOTE | 2018-05-20 13:23 | HP ---
Admitting History and Physical - Primary Care Physician PCP: Darshana [facility] - Admission History of Present Illness: patient seen and examined in the emergency room chart reviewed Emergency room records reviewed/[facility] records reviewed In summary--- as per ER records The patient is a 27M w/ a history of ESRD (iHD WMF), --right chest permacath--s /p R AKA, hx of sacral wound, insulin-dependent diabetes, legally blind and L heel wound who presents from [facility] for evaluation of worsening of his L heel wound. The patient reports that he has been receiving Vancomycin w/ dialysis and Amoxicillin daily. The patient denies any acute change in the wound that he has noticed. Reports daily dressing changes. He states that he was examined by a physician that comes weekly to the facility who was concerned about his wound today and had the pt transferred here for further evaluation. Denies fevers/chills, CABRERA, vision changes, chest pain, shortness of breath, abdominal pain, N?V/C/D, or changes in sensation patient given Zosyn--- in the emergency room--- developed some itching--- no complaints now--- at the time of my examination--- given Benadryl Awake and comfortable Denies chest pain Denies fever or chills History Source: Patient, Medical Record Limitations to Obtaining History: No Limitations - Past Medical History Cardiovascular: Yes: HTN Renal/: Yes: Renal Failure, Hemodialysis Heme/Onc: Yes: Anemia Endocrine: Yes: Diabetes Mellitus - Smoking History Smoking history: Never smoked Have you smoked in the past 12 months: No - Alcohol/Substance Use Hx Alcohol Use: No Home Medications - Allergies Allergies/Adverse Reactions: Allergies Allergy/AdvReac Type Severity Reaction Status Date / Time morphine Allergy Severe Swelling Verified 05/20/18 10:27 piperacillin [From Zosyn] AdvReac Mild Itching Verified 05/20/18 12:18 tazobactam [From Zosyn] AdvReac Mild Itching Verified 05/20/18 12:18 - Home Medications Home Medications: Ambulatory Orders Acetaminophen [Pain Relief] 650 mg PO DAILY 01/08/18 Calcium Acetate [Phoslo -] 667 mg PO TIDCM 01/08/18 Folic Acid 1 mg PO DAILY 01/08/18 Gabapentin 100 mg PO DAILY 01/08/18 Hydralazine HCl 50 mg PO DAILY 01/08/18 Isosorbide Mononitrate [Isosorbide Mononitrate ER] 30 mg PO DAILY 01/08/18 Levothyroxine [Synthroid -] 50 mcg PO DAILY 01/08/18 Metoprolol Succinate 200 mg PO DAILY 01/08/18 Sennosides [Senna] 8.6 mg PO DAILY 01/08/18 Vancomycin 1,000 mg IVPB MOWEFR 04/19/18 Nystatin 100,000 units TP DAILY 04/26/18 Santyl 250 units TP DAILY 04/26/18 Amoxicillin - [Amoxicillin 500mg Capsule -] 500 mg PO TID 05/20/18 Aspirin [ASA -] 81 mg PO DAILY 05/20/18 Insulin Glargine,Hum.rec.anlog [Basaglar Kwikpen U-100] 12 unit SQ DAILY Insulin Glargine,Hum.rec.anlog [Basaglar Kwikpen U-100] 15 unit SQ HS 05/20/18 Omeprazole Magnesium [Prilosec Otc] 20 mg PO PRN 05/20/18 Vitamin B Comp W-C [Nephro-Rebecca -] 1 tablet PO DAILY 05/20/18 Review of Systems - Review of Systems Constitutional: reports: No Symptoms Eyes: reports: Other (legally blind) HENT: reports: No Symptoms Neck: reports: No Symptoms Cardiovascular: reports: No Symptoms Respiratory: reports: No Symptoms Gastrointestinal: reports: No Symptoms Neurological: reports: No Symptoms Psychiatric: reports: No Symptoms Physical Examination Vital Signs: Vital Signs Temperature 98.5 F 05/20/18 12:37 Pulse Rate 79 05/20/18 12:37 Respiratory Rate 18 05/20/18 12:37 Blood Pressure 173/81 H 05/20/18 12:37 O2 Sat by Pulse Oximetry (%) 94 L 05/20/18 12:37 Constitutional: Yes: No Distress, Calm Eyes: Yes: Conjunctiva Clear Neck: Yes: Supple Cardiovascular: Yes: Regular Rate and Rhythm Respiratory: Yes: CTA Bilaterally Gastrointestinal: Yes: Normal Bowel Sounds, Soft Edema: No Wound/Incision: Yes: Dressing Dry and Intact, Other (status post right AKA Left foot dressing present) Labs: CBC, BMP 05/20/18 10:20 05/20/18 10:20 Imaging - Results Chest X-ray: Report Reviewed EKG: Report Reviewed Problem List - Problems (1) Insulin dependent diabetes mellitus Code(s): E11.9 - TYPE 2 DIABETES MELLITUS WITHOUT COMPLICATIONS; Z79.4 - [facility] (CURRENT) USE OF INSULIN (2) Legally blind Code(s): H54.8 - LEGAL BLINDNESS, DEFINED IN [place] (3) Above knee amputation of right lower extremity Code(s): Z89.611 - ACQUIRED ABSENCE OF RIGHT LEG ABOVE KNEE (4) ESRD on hemodialysis Code(s): N18.6 - END STAGE RENAL DISEASE; Z99.2 - DEPENDENCE ON RENAL DIALYSIS (5) Non healing left heel wound Code(s): S91.302A - UNSPECIFIED OPEN WOUND, LEFT FOOT, INITIAL ENCOUNTER (6) HTN (hypertension) Code(s): I10 - ESSENTIAL (PRIMARY) HYPERTENSION Assessment/Plan discussed with patient Unfortunate young male with multiple medical issues--- being admitted due to non -healing left foot wound Antibiotics patient received with dialysis yesterday ID consult/ vascular consult monitor blood sugar dialysis as per renal Medications orders written-- DVT prophylaxis Further recommendations as per clinical course Will follow Discussed with nursing staff also
--- NOTE | 2018-05-20 15:30 | CON.ID ---
Consult Consult Specialty:: infectious diseases Referred by:: Reason for Consultation:: left foot non healing wound - History of Present Illness Chief Complaint: non healing wound History of Present Illness: 27M w/ a history of ESRD on dialysis with rt neck permacath and with dm legally blind who came to the hospital because of non healing of the left heel wound which has worsened patient was on vanco and amoxicillin according tot he patient it seems on examination wound was not healing well and patient looks like needed iv abx patient otherwise stable - History Source History Provided By: Patient Limitations to Obtaining History: No Limitations - Past Medical History Cardio/Vascular: Yes: HTN Renal/: Yes: Renal Failure, Hemodialysis Endocrine: Yes: Diabetes Mellitus - Alcohol/Substance Use Hx Alcohol Use: No - Smoking History Smoking history: Never smoked Have you smoked in the past 12 months: No Home Medications - Allergies Allergies/Adverse Reactions: Allergies Allergy/AdvReac Type Severity Reaction Status Date / Time morphine Allergy Severe Swelling Verified 05/20/18 10:27 piperacillin [From Zosyn] AdvReac Mild Itching Verified 05/20/18 12:18 tazobactam [From Zosyn] AdvReac Mild Itching Verified 05/20/18 12:18 - Home Medications Home Medications: Ambulatory Orders Acetaminophen [Pain Relief] 650 mg PO DAILY 01/08/18 Calcium Acetate [Phoslo -] 667 mg PO TIDCM 01/08/18 Folic Acid 1 mg PO DAILY 01/08/18 Gabapentin 100 mg PO DAILY 01/08/18 Hydralazine HCl 50 mg PO DAILY 01/08/18 Isosorbide Mononitrate [Isosorbide Mononitrate ER] 30 mg PO DAILY 01/08/18 Levothyroxine [Synthroid -] 50 mcg PO DAILY 01/08/18 Metoprolol Succinate 200 mg PO DAILY 01/08/18 Sennosides [Senna] 8.6 mg PO DAILY 01/08/18 Vancomycin 1,000 mg IVPB MOWEFR 04/19/18 Nystatin 100,000 units TP DAILY 04/26/18 Santyl 250 units TP DAILY 04/26/18 Amoxicillin - [Amoxicillin 500mg Capsule -] 500 mg PO TID 05/20/18 Aspirin [ASA -] 81 mg PO DAILY 05/20/18 Insulin Glargine,Hum.rec.anlog [Jocelinaglar Kwikpen U-100] 12 unit SQ DAILY Insulin Glargine,Hum.rec.anlog [Basaglar Kwikpen U-100] 15 unit SQ HS 05/20/18 Omeprazole Magnesium [Prilosec Otc] 20 mg PO PRN 05/20/18 Vitamin B Comp W-C [Nephro-Rebecca -] 1 tablet PO DAILY 05/20/18 Review of Systems - Review of Systems Constitutional: reports: No Symptoms Eyes: reports: No Symptoms HENT: reports: No Symptoms Neck: reports: No Symptoms Cardiovascular: reports: No Symptoms Respiratory: reports: No Symptoms Gastrointestinal: reports: No Symptoms Genitourinary: reports: No Symptoms Musculoskeletal: reports: Other Integumentary: reports: Wound (non healing) Neurological: reports: No Symptoms Endocrine: reports: No Symptoms Hematology/Lymphatic: reports: No Symptoms Psychiatric: reports: No Symptoms Physical Exam Vital Signs: Vital Signs Temperature 98.5 F 05/20/18 12:37 Pulse Rate 79 05/20/18 12:37 Respiratory Rate 18 05/20/18 12:37 Blood Pressure 173/81 H 05/20/18 12:37 O2 Sat by Pulse Oximetry (%) 94 L 05/20/18 12:37 Constitutional: Yes: Well Nourished, No Distress, Calm Eyes: Yes: Conjunctiva Clear Neck: Yes: Supple, Other (rt sided permacath in place) Cardiovascular: Yes: Regular Rate and Rhythm Respiratory: Yes: Regular, CTA Bilaterally Gastrointestinal: Yes: Normal Bowel Sounds, Soft Musculoskeletal: Yes: WNL Extremities: Yes: Other Neurological: Yes: Alert, Oriented Psychiatric: Yes: Alert, Oriented Labs: CBC, BMP 05/20/18 10:20 05/20/18 10:20 Imaging - Results Chest X-ray: Report Reviewed, Image Reviewed Assessment/Plan 1. ESRD 2. DM 3. HTN 4. anemia 5. left leg ulcer 6. hypothyroidism looking at the history patient probably has osteo plan will continue zosyn wound care mri rest as per the team
[2018-05-20] MEDS ORDERED: SODIUM CHLORIDE 250 ML IV PRN (16:04)
--- NOTE | 2018-05-20 16:13 | CONSULT ---
Consult Consult Specialty:: Nephrology Reason for Consultation:: ESRD - History of Present Illness Chief Complaint: sent in from [facility] for left heal wound History of Present Illness: Pt is a 27 year old male with pmhx of ESRD, DM, and Right aka who was sent in from [facility] for eval or left heel ulcer. He is on HD and is on a MWF schedule. He was last dialyzed on Sunday and is due for HD today. He denies shortness of breath. He denies fevers or chills. He says he was on vanco and augmentin however they were not helping. He is awake and alert. He says that he always has left leg edema. - History Source History Provided By: Patient, Medical Record - Past Medical History Cardio/Vascular: Yes: HTN Renal/: Yes: Renal Failure, Hemodialysis Endocrine: Yes: Diabetes Mellitus, Hypothyroidism - Alcohol/Substance Use Hx Alcohol Use: No - Smoking History Smoking history: Never smoked Have you smoked in the past 12 months: No Home Medications - Allergies Allergies/Adverse Reactions: Allergies Allergy/AdvReac Type Severity Reaction Status Date / Time morphine Allergy Severe Swelling Verified 05/20/18 10:27 piperacillin [From Zosyn] AdvReac Mild Itching Verified 05/20/18 12:18 tazobactam [From Zosyn] AdvReac Mild Itching Verified 05/20/18 12:18 - Home Medications Home Medications: Ambulatory Orders Acetaminophen [Pain Relief] 650 mg PO DAILY 01/08/18 Calcium Acetate [Phoslo -] 667 mg PO TIDCM 01/08/18 Folic Acid 1 mg PO DAILY 01/08/18 Gabapentin 100 mg PO DAILY 01/08/18 Hydralazine HCl 50 mg PO DAILY 01/08/18 Isosorbide Mononitrate [Isosorbide Mononitrate ER] 30 mg PO DAILY 01/08/18 Levothyroxine [Synthroid -] 50 mcg PO DAILY 01/08/18 Metoprolol Succinate 200 mg PO DAILY 01/08/18 Sennosides [Senna] 8.6 mg PO DAILY 01/08/18 Vancomycin 1,000 mg IVPB MOWEFR 04/19/18 Nystatin 100,000 units TP DAILY 04/26/18 Santyl 250 units TP DAILY 04/26/18 Amoxicillin - [Amoxicillin 500mg Capsule -] 500 mg PO TID 05/20/18 Aspirin [ASA -] 81 mg PO DAILY 05/20/18 Insulin Glargine,Hum.rec.anlog [Basaglar Kwikpen U-100] 12 unit SQ DAILY Insulin Glargine,Hum.rec.anlog [Basaglar Kwikpen U-100] 15 unit SQ HS 05/20/18 Omeprazole Magnesium [Prilosec Otc] 20 mg PO PRN 05/20/18 Vitamin B Comp W-C [Nephro-Rebecca -] 1 tablet PO DAILY 05/20/18 Family Disease History - Family Disease History Family History: Denies Review of Systems - Review of Systems Constitutional: reports: Malaise Eyes: reports: No Symptoms HENT: reports: No Symptoms Neck: reports: No Symptoms Cardiovascular: reports: No Symptoms Respiratory: reports: No Symptoms Gastrointestinal: reports: No Symptoms Genitourinary: reports: No Symptoms Musculoskeletal: reports: Other (right aka) Integumentary: reports: Erythema Neurological: reports: No Symptoms Endocrine: reports: No Symptoms Hematology/Lymphatic: reports: No Symptoms Psychiatric: reports: No Symptoms Physical Exam Vital Signs: Vital Signs Temperature 98.5 F 05/20/18 12:37 Pulse Rate 79 05/20/18 12:37 Respiratory Rate 18 05/20/18 12:37 Blood Pressure 173/81 H 05/20/18 12:37 O2 Sat by Pulse Oximetry (%) 94 L 05/20/18 12:37 Constitutional: Yes: Calm Eyes: Yes: Conjunctiva Clear HENT: Yes: Atraumatic Neck: Yes: Supple Cardiovascular: Yes: S1, S2 Respiratory: Yes: CTA Bilaterally Gastrointestinal: Yes: Soft, Abdomen, Obese Renal/: Yes: WNL Extremities: Yes: Other (right aka) Neurological: Yes: Oriented Psychiatric: Yes: Oriented Labs: CBC, BMP 05/20/18 10:20 05/20/18 10:20 Laboratory Tests 05/20/18 05/20/18 10:20 10:20 WBC 11.3 H Hgb 10.8 L Sodium 132 L Potassium 5.3 H BUN 81 H Creatinine 8.7 H* Imaging - Results Chest X-ray: Report Reviewed Problem List - Problems (1) ESRD on hemodialysis Code(s): N18.6 - END STAGE RENAL DISEASE; Z99.2 - DEPENDENCE ON RENAL DIALYSIS (2) Non healing left heel wound Code(s): S91.302A - UNSPECIFIED OPEN WOUND, LEFT FOOT, INITIAL ENCOUNTER (3) HTN (hypertension) Code(s): I10 - ESSENTIAL (PRIMARY) HYPERTENSION Assessment/Plan Current Medications Generic Name Dose Route Start Last Admin Trade Name Freq PRN Reason Stop Dose Admin Acetaminophen 650 mg 05/21/18 10:00 Tylenol - PO DAILY [facility] Aspirin 81 mg 05/21/18 10:00 Asa - PO DAILY [facility] Calcium Acetate 667 mg 05/20/18 17:30 Phoslo - PO TIDCM NOA Epoetin Horacio 5,000 unit 05/20/18 16:04 Epogen - IVPUSH 05/20/18 16:05 ONCE ONE Folic Acid 1 mg 05/21/18 10:00 Folic Acid - PO DAILY [facility] Gabapentin 100 mg 05/21/18 10:00 Neurontin - PO DAILY [facility] Heparin Sodium (Porcine) 5,000 unit 05/20/18 22:00 Heparin - SQ BID [facility] Hydralazine HCl 50 mg 05/21/18 10:00 Apresoline - PO DAILY [facility] Piperacillin Sod/Tazobactam 50 mls @ 100 mls/hr 05/20/18 18:00 Sod 2.25 gm/ Dextrose IVPB Q8H-IV [facility] Protocol Sodium Chloride 250 mls @ 3,000 mls/hr 05/20/18 16:04 Normal Saline - IV 05/21/18 16:04 PRN PRN Hypotension during Dialysis Insulin Detemir 15 units 05/20/18 22:00 Levemir Vial SQ HS [facility] Isosorbide Mononitrate 30 mg 05/21/18 10:00 Imdur - PO DAILY [facility] Levothyroxine Sodium 50 mcg 05/21/18 07:00 Synthroid - PO AM [facility] Metoprolol Succinate 200 mg 05/21/18 10:00 Toprol Xl - PO DAILY [facility] Multivit/Ca Carb/B Cmplx/FA/Prenat 1 tablet 05/21/18 10:00 Nephro-Rebecca - PO DAILY [facility] Non-Formulary Medication 100,000 units 05/21/18 10:00 Nystatin TP DAILY NOA Non-Formulary Medication 250 units 05/21/18 10:00 Santyl TP DAILY [facility] Pantoprazole Sodium 20 mg 05/21/18 10:00 Protonix - PO DAILY [facility] Senna 1 tab 05/21/18 10:00 Senna - PO DAILY NO[facility] Impression 1. ESRD 2. DM 3. HTN 4. anemia 5. left leg ulcer 6. hypothyroidism Plan - will arrange for HD today - ID eval - will UF fluid on HD as he appears overloaded - will still need fistula once stable - epogen for anemia - cont wound care - will follow Dr Apodaca
[2018-05-20] MEDS ORDERED: EPOETIN ALFA 2,000 UNIT/1 ML VIAL IVPUSH ONE (17:45)
[2018-05-20] MEDS ORDERED: HEPARIN NA (PORCINE) 5,000 UNITS/ML 1ML VIAL ONE (21:40)
[2018-05-20] MEDS ORDERED: INSULIN (LEVEMIR) 100 UNITS/ML UNITS SQ ONE (21:41)
[2018-05-20] MEDS: CALCIUM ACETATE 667 MG CAPSULE (FP) PO SCH (21:52)
[2018-05-20] MEDS: INSULIN (LEVEMIR) 100 UNITS/ML UNITS SQ SCH (21:52)
[2018-05-20] MEDS: HEPARIN NA (PORCINE) 5,000 UNITS/ML 1ML VIAL SQ SCH (21:52)
[2018-05-21] MEDS ORDERED: LEVOTHYROXINE NA 25 MCG TABLET (FP) ONE (06:30)
[2018-05-21] MEDS: LEVOTHYROXINE NA 50 MCG TABLET (FP) PO SCH (06:38)
[2018-05-21 06:59] LABS: BASO % 0.9 % (0-2.0); EOS % 2.5 % (0-4.5); HEMATOCRIT 31.1 % (35.4-49); HEMOGLOBIN 9.7 GM/dL (11.7-16.9); LYMPH % 11.6 % (8-40); MCH 28.1 pg (25.7-33.7); MCHC 31.2 g/dl (32.0-35.9); MEAN PLT VOLUME 7.5 fl (7.5-11.1); MONO % 5.8 % (3.8-10.2); NEUT % 79.2 % (42.8-82.8); PLATELET COUNT 401 K/MM3 (134-434); RBC 3.46 M/mm3 (4.00-5.60); RDW 21.5 % (11.9-15.9); WHITE BLOOD COUNT 12.8 K/mm3 (4.0-10.0)
--- NOTE | 2018-05-21 08:14 | PN ---
Progress Note (short form) - Note Progress Note: Pt examined in ER no pain in foot Vital Signs - 24 hr 05/20/18 05/20/18 05/20/18 12:37 16:19 16:40 Temperature 98.5 F 98.6 F 98.5 F Pulse Rate 86 Pulse Rate [ 79 89 Left Radial] Respiratory 18 18 18 Rate Blood Pressure 160/99 Blood Pressure 173/81 H 159/79 [Left Arm] O2 Sat by Pulse 94 L 96 Oximetry (%) 05/20/18 05/20/18 05/20/18 16:45 17:15 17:45 Temperature Pulse Rate 88 90 89 Pulse Rate [ Left Radial] Respiratory 18 18 18 Rate Blood Pressure 158/92 186/100 H 148/102 H Blood Pressure [Left Arm] O2 Sat by Pulse Oximetry (%) 05/20/18 05/20/18 05/20/18 18:15 18:45 19:15 Temperature Pulse Rate 98 H 90 90 Pulse Rate [ Left Radial] Respiratory 18 18 18 Rate Blood Pressure 148/60 153/103 H 123/78 Blood Pressure [Left Arm] O2 Sat by Pulse Oximetry (%) 05/20/18 05/20/18 05/20/18 19:45 20:15 20:30 Temperature Pulse Rate 94 H 90 92 H Pulse Rate [ Left Radial] Respiratory 18 18 18 Rate Blood Pressure 142/100 138/99 142/89 Blood Pressure [Left Arm] O2 Sat by Pulse Oximetry (%) 05/20/18 05/21/18 20:42 06:38 Temperature Pulse Rate 90 Pulse Rate [ 89 Left Radial] Respiratory 18 20 Rate Blood Pressure 145/80 Blood Pressure 188/50 H [Left Arm] O2 Sat by Pulse 100 Oximetry (%) Current Medications Generic Name Dose Route Start Last Admin Trade Name Freq PRN Reason Stop Dose Admin Acetaminophen 650 mg 05/21/18 10:00 Tylenol - PO DAILY [facility] Aspirin 81 mg 05/21/18 10:00 Asa - PO DAILY [facility] Calcium Acetate 667 mg 05/20/18 17:30 05/20/18 21:52 Phoslo - PO 667 mg TIDCM [facility] Administration Collagenase 1 applic 05/21/18 10:00 Santyl - TP DAILY [facility] Folic Acid 1 mg 05/21/18 10:00 Folic Acid - PO DAILY [facility] Gabapentin 100 mg 05/21/18 10:00 Neurontin - PO DAILY [facility] Heparin Sodium (Porcine) 5,000 unit 05/20/18 22:00 05/20/18 21:52 Heparin - SQ 5,000 unit BID [facility] Administration Hydralazine HCl 50 mg 05/21/18 10:00 Apresoline - PO DAILY [facility] Piperacillin Sod/Tazobactam 50 mls @ 100 mls/hr 05/20/18 18:00 05/21/18 08:57 Sod 2.25 gm/ Dextrose IVPB Not Given Q8H-IV [facility] Protocol Sodium Chloride 250 mls @ 3,000 mls/hr 05/20/18 16:04 Normal Saline - IV 05/21/18 16:04 PRN PRN Hypotension during Dialysis Insulin Detemir 15 units 05/20/18 22:00 05/20/18 21:52 Levemir Vial SQ 15 unit HS [facility] Administration Isosorbide Mononitrate 30 mg 05/21/18 10:00 Imdur - PO DAILY [facility] Levothyroxine Sodium 50 mcg 05/21/18 07:00 05/21/18 06:38 Synthroid - PO 50 mcg AM [facility] Administration Metoprolol Succinate 200 mg 05/21/18 10:00 Toprol Xl - PO DAILY [facility] Multivit/Ca Carb/B Cmplx/FA/Prenat 1 tablet 05/21/18 10:00 Nephro-Rebecca - PO DAILY [facility] Nystatin 1 applic 05/21/18 10:00 Mycostatin Cream - TP DAILY [facility] Pantoprazole Sodium 20 mg 05/21/18 10:00 Protonix - PO DAILY [facility] Senna 1 tab 05/21/18 10:00 Senna - PO DAILY [facility] Laboratory Results - last 24 hr 05/20/18 05/20/18 05/20/18 10:20 10:20 11:30 WBC 11.3 H RBC 3.59 L Hgb 10.8 L Hct 31.9 L D MCV 89.1 MCH 30.1 D MCHC 33.7 RDW 21.2 H Plt Count 458 H MPV 7.1 L Absolute Neuts (auto) 8.9 H Neutrophils % 78.9 Lymphocytes % 10.8 D Monocytes % 5.6 Eosinophils % 3.3 D Basophils % 1.4 Nucleated RBC % 0 Hypochromia 0 Platelet Estimate Normal Platelet Comment Present Polychromasia 1+ Poikilocytosis 1+ Anisocytosis 2+ Microcytosis 1+ Macrocytosis 2+ Spherocytes 2+ Target Cells 1+ Tear Drop Cells 1+ Sodium 132 L Potassium 5.3 H Chloride 96 L Carbon Dioxide 25 Anion Gap 12 BUN 81 H Creatinine 8.7 H* Creat Clearance w eGFR 7.33 Random Glucose 157 H Hemoglobin A1c % Calcium 9.1 Total Bilirubin 1.2 H AST 36 ALT 45 Alkaline Phosphatase 458 H Total Protein 7.8 Albumin 2.6 L Triglycerides Cholesterol Total LDL Cholesterol HDL Cholesterol TSH Random Vancomycin 10.0 L Vancomycin Pre-Dose 05/21/18 05/21/18 05/21/18 05:15 05:15 05:15 WBC 12.8 H RBC 3.46 L Hgb 9.7 L Hct 31.1 L MCV 90.0 MCH 28.1 MCHC 31.2 L RDW 21.5 H Plt Count 401 MPV 7.5 Absolute Neuts (auto) 10.2 H Neutrophils % 79.2 Lymphocytes % 11.6 Monocytes % 5.8 Eosinophils % 2.5 Basophils % 0.9 Nucleated RBC % 0 Hypochromia Platelet Estimate Platelet Comment Polychromasia Poikilocytosis Anisocytosis Microcytosis Macrocytosis Spherocytes Target Cells Tear Drop Cells Sodium Potassium Chloride Carbon Dioxide Anion Gap BUN Creatinine Creat Clearance w eGFR Random Glucose Hemoglobin A1c % Calcium Total Bilirubin AST ALT Alkaline Phosphatase Total Protein Albumin Triglycerides 71 Cholesterol 124 Total LDL Cholesterol 60 HDL Cholesterol 45 TSH 1.99 Random Vancomycin Vancomycin Pre-Dose 7.3 L 05/21/18 05:15 WBC RBC Hgb Hct MCV MCH MCHC RDW Plt Count MPV Absolute Neuts (auto) Neutrophils % Lymphocytes % Monocytes % Eosinophils % Basophils % Nucleated RBC % Hypochromia Platelet Estimate Platelet Comment Polychromasia Poikilocytosis Anisocytosis Microcytosis Macrocytosis Spherocytes Target Cells Tear Drop Cells Sodium Potassium Chloride Carbon Dioxide Anion Gap BUN Creatinine Creat Clearance w eGFR Random Glucose Hemoglobin A1c % 7.7 H Calcium Total Bilirubin AST ALT Alkaline Phosphatase Total Protein Albumin Triglycerides Cholesterol Total LDL Cholesterol HDL Cholesterol TSH Random Vancomycin Vancomycin Pre-Dose S1 S2 RRR Lungs decreased Permacath+ Abd- soft, NT left foot dressing in place Rt AKA PLAN IV antibiotics wound cultres ID eval noted HD per renal vascular /wound care eval Problem List - Problems (1) Above knee amputation of right lower extremity Code(s): Z89.611 - ACQUIRED ABSENCE OF RIGHT LEG ABOVE KNEE (2) ESRD on hemodialysis Code(s): N18.6 - END STAGE RENAL DISEASE; Z99.2 - DEPENDENCE ON RENAL DIALYSIS (3) Insulin dependent diabetes mellitus Code(s): E11.9 - TYPE 2 DIABETES MELLITUS WITHOUT COMPLICATIONS; 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
[2018-05-21] MEDS: PIPERACILLIN/TAZOB 2.25 GM 2.25 GM in DEXTROSE 5%-WATER - 50 ML IVPB SCH ×4 (08:56→17:23)
[2018-05-21] MEDS: FOLIC ACID 1 MG TABLET (FP) PO SCH (09:56)
[2018-05-21] MEDS: HEPARIN NA (PORCINE) 5,000 UNITS/ML 1ML VIAL SQ SCH ×2 (09:56→21:52)
[2018-05-21] MEDS: CALCIUM ACETATE 667 MG CAPSULE (FP) PO SCH ×3 (09:56→18:34)
[2018-05-21] MEDS: ASPIRIN 81 MG CHEWABLE TABLETS PO SCH (09:56)
[2018-05-21] MEDS: hydrALAZINE HCL 50 MG TABLET (FP) PO SCH (09:56)
[2018-05-21] MEDS: PANTOPRAZOLE 20 MG TABLET (FP) PO SCH (09:57)
[2018-05-21] MEDS: SENNOSIDES 8.6MG TABLET (FP) PO SCH (09:57)
[2018-05-21] MEDS: ISOSORBIDE MONONITRATE 30 MG TAB.SR.24H (FP) PO SCH (09:57)
[2018-05-21] MEDS: ACETAMINOPHEN 325 MG TABLET (FP) PO SCH (09:57)
[2018-05-21] MEDS: GABAPENTIN 100 MG CAPSULE (FP) PO SCH (09:57)
[2018-05-21] MEDS: VITAMIN B COMP W-C 1 EA TABLET PO SCH (09:57)
[2018-05-21] MEDS: COLLAGENASE CLOSTRIDIUM HIST. 30 GRAMS TUBE TP SCH (10:17)
[2018-05-21] MEDS: NYSTATIN 100,000 UNIT/GM TOPICAL CREAM 15 GM TUBE TP SCH (10:18)
--- NOTE | 2018-05-21 14:30 | PN ---
Progress Note, Physician History of Present Illness: Pt seen and examined at bedside. He tolerated HD last night. He denies shortness of breath. - Current Medication List Current Medications: Active Medications Acetaminophen (Tylenol -) 650 mg PO DAILY [facility] Last Admin: 05/21/18 09:57 Dose: 650 mg Aspirin (Asa -) 81 mg PO DAILY [facility] Last Admin: 05/21/18 09:56 Dose: 81 mg Calcium Acetate (Phoslo -) 667 mg PO TIDCM [facility] Last Admin: 05/21/18 12:26 Dose: 667 mg Collagenase (Santyl -) 1 applic TP DAILY [facility] Last Admin: 05/21/18 10:17 Dose: Not Given Folic Acid (Folic Acid -) 1 mg PO DAILY [facility] Last Admin: 05/21/18 09:56 Dose: 1 mg Gabapentin (Neurontin -) 100 mg PO DAILY [facility] Last Admin: 05/21/18 09:57 Dose: 100 mg Heparin Sodium (Porcine) (Heparin -) 5,000 unit SQ BID [facility] Last Admin: 05/21/18 09:56 Dose: 5,000 unit Hydralazine HCl (Apresoline -) 50 mg PO DAILY [facility] Last Admin: 05/21/18 09:56 Dose: 50 mg Piperacillin Sod/Tazobactam (Sod 2.25 gm/ Dextrose) 50 mls @ 100 mls/hr IVPB Q8H-IV [facility]; Protocol Last Admin: 05/21/18 10:18 Dose: Not Given Sodium Chloride (Normal Saline -) 250 mls @ 3,000 mls/hr IV PRN PRN PRN Reason: Hypotension during Dialysis Stop: 05/21/18 16:04 Insulin Detemir (Levemir Vial) 15 units SQ HS [facility] Last Admin: 05/20/18 21:52 Dose: 15 unit Isosorbide Mononitrate (Imdur -) 30 mg PO DAILY [facility] Last Admin: 05/21/18 09:57 Dose: 30 mg Levothyroxine Sodium (Synthroid -) 50 mcg PO AM [facility] Last Admin: 05/21/18 06:38 Dose: 50 mcg Metoprolol Succinate (Toprol Xl -) 200 mg PO DAILY [facility] Last Admin: 05/21/18 09:57 Dose: 200 mg Multivit/Ca Carb/B Cmplx/FA/Prenat (Nephro-Rebecca -) 1 tablet PO DAILY [facility] Last Admin: 05/21/18 09:57 Dose: 1 tablet Nystatin (Mycostatin Cream -) 1 applic TP DAILY [facility] Last Admin: 05/21/18 10:18 Dose: Not Given Pantoprazole Sodium (Protonix -) 20 mg PO DAILY [facility] Last Admin: 05/21/18 09:57 Dose: 20 mg Senna (Senna -) 1 tab PO DAILY [facility] Last Admin: 05/21/18 09:57 Dose: Not Given - Objective Vital Signs: Vital Signs Temperature 98.5 F 05/20/18 16:40 Pulse Rate 80 05/21/18 13:34 Respiratory Rate 18 05/21/18 13:34 Blood Pressure 159/97 05/21/18 13:34 O2 Sat by Pulse Oximetry (%) 93 L 05/21/18 13:34 Constitutional: Yes: Calm Eyes: Yes: Conjunctiva Clear HENT: Yes: Atraumatic Cardiovascular: Yes: S1, S2 Respiratory: Yes: CTA Bilaterally Gastrointestinal: Yes: Normal Bowel Sounds, Soft Genitourinary: Yes: WNL Musculoskeletal: Yes: Other (aka) Edema: Yes Neurological: Yes: Oriented Psychiatric: Yes: Oriented Labs: CBC, BMP 05/21/18 05:15 05/20/18 10:20 Problem List - Problems (1) ESRD on hemodialysis Code(s): N18.6 - END STAGE RENAL DISEASE; Z99.2 - DEPENDENCE ON RENAL DIALYSIS (2) Non healing left heel wound Code(s): S91.302A - UNSPECIFIED OPEN WOUND, LEFT FOOT, INITIAL ENCOUNTER (3) HTN (hypertension) Code(s): I10 - ESSENTIAL (PRIMARY) HYPERTENSION Assessment/Plan Current Medications Generic Name Dose Route Start Last Admin Trade Name Lien PRN Reason Stop Dose Admin Acetaminophen 650 mg 05/21/18 10:00 05/21/18 09:57 Tylenol - PO 650 mg DAILY [facility] Administration Aspirin 81 mg 05/21/18 10:00 05/21/18 09:56 Asa - PO 81 mg DAILY [facility] Administration Calcium Acetate 667 mg 05/20/18 17:30 05/21/18 12:26 Phoslo - PO 667 mg TIDCM [facility] Administration Collagenase 1 applic 05/21/18 10:00 05/21/18 10:17 Santyl - TP Not Given DAILY [facility] Folic Acid 1 mg 05/21/18 10:00 05/21/18 09:56 Folic Acid - PO 1 mg DAILY [facility] Administration Gabapentin 100 mg 05/21/18 10:00 05/21/18 09:57 Neurontin - PO 100 mg DAILY [facility] Administration Heparin Sodium (Porcine) 5,000 unit 05/20/18 22:00 05/21/18 09:56 Heparin - SQ 5,000 unit BID [facility] Administration Hydralazine HCl 50 mg 05/21/18 10:00 05/21/18 09:56 Apresoline - PO 50 mg DAILY [facility] Administration Piperacillin Sod/Tazobactam 50 mls @ 100 mls/hr 05/20/18 18:00 05/21/18 10:18 Sod 2.25 gm/ Dextrose IVPB Not Given Q8H-IV [facility] Protocol Sodium Chloride 250 mls @ 3,000 mls/hr 05/20/18 16:04 Normal Saline - IV 05/21/18 16:04 PRN PRN Hypotension during Dialysis Insulin Detemir 15 units 05/20/18 22:00 05/20/18 21:52 Levemir Vial SQ 15 unit HS [facility] Administration Isosorbide Mononitrate 30 mg 05/21/18 10:00 05/21/18 09:57 Imdur - PO 30 mg DAILY [facility] Administration Levothyroxine Sodium 50 mcg 05/21/18 07:00 05/21/18 06:38 Synthroid - PO 50 mcg AM [facility] Administration Metoprolol Succinate 200 mg 05/21/18 10:00 05/21/18 09:57 Toprol Xl - PO 200 mg DAILY [facility] Administration Multivit/Ca Carb/B Cmplx/FA/Prenat 1 tablet 05/21/18 10:00 05/21/18 09:57 Nephro-Rebecca - PO 1 tablet DAILY [facility] Administration Nystatin 1 applic 05/21/18 10:00 05/21/18 10:18 Mycostatin Cream - TP Not Given DAILY [facility] Pantoprazole Sodium 20 mg 05/21/18 10:00 05/21/18 09:57 Protonix - PO 20 mg DAILY [facility] Administration Senna 1 tab 05/21/18 10:00 05/21/18 09:57 Senna - PO Not Given DAILY [facility] Impression 1. ESRD 2. DM 3. HTN 4. anemia 5. left leg ulcer 6. hypothyroidism Plan - HD in am - will still need fistula once stable - epogen for anemia - cont wound care - ID follow up - will follow Dr Apodaca
[2018-05-21] MEDS ORDERED: SODIUM CHLORIDE 250 ML IV PRN (14:32)
--- NOTE | 2018-05-21 15:02 | PN ---
Progress Note, Physician History of Present Illness: patient stable tolerated hd no complaints - Current Medication List Current Medications: Active Medications Acetaminophen (Tylenol -) 650 mg PO DAILY [facility] Last Admin: 05/21/18 09:57 Dose: 650 mg Aspirin (Asa -) 81 mg PO DAILY [facility] Last Admin: 05/21/18 09:56 Dose: 81 mg Calcium Acetate (Phoslo -) 667 mg PO TIDCM [facility] Last Admin: 05/21/18 12:26 Dose: 667 mg Collagenase (Santyl -) 1 applic TP DAILY [facility] Last Admin: 05/21/18 10:17 Dose: Not Given Epoetin Horacio (Procrit -) 7,000 unit IVPUSH ONCE ONE Stop: 05/22/18 14:33 Folic Acid (Folic Acid -) 1 mg PO DAILY [facility] Last Admin: 05/21/18 09:56 Dose: 1 mg Gabapentin (Neurontin -) 100 mg PO DAILY [facility] Last Admin: 05/21/18 09:57 Dose: 100 mg Heparin Sodium (Porcine) (Heparin -) 5,000 unit SQ BID [facility] Last Admin: 05/21/18 09:56 Dose: 5,000 unit Heparin Sodium (Porcine) (Heparin -) 1,000 unit IVPUSH ONCE ONE Stop: 05/22/18 14:33 Hydralazine HCl (Apresoline -) 50 mg PO DAILY [facility] Last Admin: 05/21/18 09:56 Dose: 50 mg Piperacillin Sod/Tazobactam (Sod 2.25 gm/ Dextrose) 50 mls @ 100 mls/hr IVPB Q8H-IV [facility]; Protocol Last Admin: 05/21/18 10:18 Dose: Not Given Sodium Chloride (Normal Saline -) 250 mls @ 3,000 mls/hr IV PRN PRN PRN Reason: Hypotension during Dialysis Stop: 05/21/18 16:04 Sodium Chloride (Normal Saline -) 250 mls @ 3,000 mls/hr IV PRN PRN PRN Reason: Hypotension during Dialysis Stop: 05/22/18 14:32 Insulin Detemir (Levemir Vial) 15 units SQ HS [facility] Last Admin: 05/20/18 21:52 Dose: 15 unit Isosorbide Mononitrate (Imdur -) 30 mg PO DAILY [facility] Last Admin: 05/21/18 09:57 Dose: 30 mg Levothyroxine Sodium (Synthroid -) 50 mcg PO AM [facility] Last Admin: 05/21/18 06:38 Dose: 50 mcg Metoprolol Succinate (Toprol Xl -) 200 mg PO DAILY [facility] Last Admin: 05/21/18 09:57 Dose: 200 mg Multivit/Ca Carb/B Cmplx/FA/Prenat (Nephro-Rebecca -) 1 tablet PO DAILY [facility] Last Admin: 05/21/18 09:57 Dose: 1 tablet Nystatin (Mycostatin Cream -) 1 applic TP DAILY [facility] Last Admin: 05/21/18 10:18 Dose: Not Given Pantoprazole Sodium (Protonix -) 20 mg PO DAILY [facility] Last Admin: 05/21/18 09:57 Dose: 20 mg Senna (Senna -) 1 tab PO DAILY [facility] Last Admin: 05/21/18 09:57 Dose: Not Given - Objective Vital Signs: Vital Signs Temperature 98.5 F 05/20/18 16:40 Pulse Rate 80 05/21/18 13:34 Respiratory Rate 18 05/21/18 13:34 Blood Pressure 159/97 05/21/18 13:34 O2 Sat by Pulse Oximetry (%) 93 L 05/21/18 13:34 Constitutional: Yes: No Distress, Calm, Obese Cardiovascular: Yes: Regular Rate and Rhythm Respiratory: Yes: Regular, Poor Air Entry (bases) Gastrointestinal: Yes: Normal Bowel Sounds, Soft Musculoskeletal: Yes: Other Extremities: Yes: Other Wound/Incision: Yes: Dressing Dry and Intact Neurological: Yes: Alert, Oriented Psychiatric: Yes: Alert, Oriented Labs: CBC, BMP 05/21/18 05:15 05/20/18 10:20 Assessment/Plan 1. ESRD 2. DM 3. HTN 4. anemia 5. left leg ulcer 6. hypothyroidism all cx results noted await for sensitivities and identifications of the organism plan will continue abx dialysis wound care rest as per the team
[2018-05-21 19:10] VITALS: BMI 37.5
[2018-05-21] MEDS: ERTAPENEM SODIUM 1 GM in SODIUM CHLORIDE 50 ML IVPB SCH (21:47)
[2018-05-21] MEDS: INSULIN (LEVEMIR) 100 UNITS/ML UNITS SQ SCH (21:55)
[2018-05-22 05:18] LABS: HBSAG SCREEN Negative (Negative); HEP B CORE AB, TOT Negative (Negative)
[2018-05-22] MEDS: LEVOTHYROXINE NA 50 MCG TABLET (FP) PO SCH (07:29)
[2018-05-22] MEDS: CALCIUM ACETATE 667 MG CAPSULE (FP) PO SCH ×3 (08:47→17:38)
--- NOTE | 2018-05-22 09:09 | PN ---
Progress Note, Physician History of Present Illness: patient had mild reaction to zosyn some rash patient switched to ertapenam cx reports noted still awaiting organism - Current Medication List Current Medications: Active Medications Acetaminophen (Tylenol -) 650 mg PO DAILY [facility] Last Admin: 05/21/18 09:57 Dose: 650 mg Aspirin (Asa -) 81 mg PO DAILY [facility] Last Admin: 05/21/18 09:56 Dose: 81 mg Calcium Acetate (Phoslo -) 667 mg PO TIDCM [facility] Last Admin: 05/22/18 08:47 Dose: 667 mg Collagenase (Santyl -) 1 applic TP DAILY [facility] Last Admin: 05/21/18 10:17 Dose: Not Given Epoetin Horacio (Procrit -) 7,000 unit IVPUSH ONCE ONE Stop: 05/22/18 14:33 Folic Acid (Folic Acid -) 1 mg PO DAILY [facility] Last Admin: 05/21/18 09:56 Dose: 1 mg Gabapentin (Neurontin -) 100 mg PO DAILY [facility] Last Admin: 05/21/18 09:57 Dose: 100 mg Heparin Sodium (Porcine) (Heparin -) 5,000 unit SQ BID [facility] Last Admin: 05/21/18 21:52 Dose: 5,000 unit Heparin Sodium (Porcine) (Heparin -) 1,000 unit IVPUSH ONCE ONE Stop: 05/22/18 14:33 Hydralazine HCl (Apresoline -) 50 mg PO DAILY [facility] Last Admin: 05/21/18 09:56 Dose: 50 mg Sodium Chloride (Normal Saline -) 250 mls @ 3,000 mls/hr IV PRN PRN PRN Reason: Hypotension during Dialysis Stop: 05/22/18 14:32 Ertapenem 1 gm/ Sodium (Chloride) 50 mls @ 100 mls/hr IVPB DAILY [facility] Last Admin: 05/21/18 21:47 Dose: 100 mls/hr Insulin Detemir (Levemir Vial) 15 units SQ HS [facility] Last Admin: 05/21/18 21:55 Dose: 15 unit Isosorbide Mononitrate (Imdur -) 30 mg PO DAILY [facility] Last Admin: 05/21/18 09:57 Dose: 30 mg Levothyroxine Sodium (Synthroid -) 50 mcg PO AM [facility] Last Admin: 05/22/18 07:29 Dose: 50 mcg Metoprolol Succinate (Toprol Xl -) 200 mg PO DAILY [facility] Multivit/Ca Carb/B Cmplx/FA/Prenat (Nephro-Rebecca -) 1 tablet PO DAILY [facility] Last Admin: 05/21/18 09:57 Dose: 1 tablet Nystatin (Mycostatin Cream -) 1 applic TP DAILY [facility] Last Admin: 05/21/18 10:18 Dose: Not Given Pantoprazole Sodium (Protonix -) 20 mg PO DAILY [facility] Last Admin: 05/21/18 09:57 Dose: 20 mg Senna (Senna -) 1 tab PO DAILY [facility] Last Admin: 05/21/18 09:57 Dose: Not Given - Objective Vital Signs: Vital Signs Temperature 98.7 F 05/22/18 06:00 Pulse Rate 86 05/22/18 06:00 Respiratory Rate 20 05/22/18 06:00 Blood Pressure 157/57 L 05/22/18 06:00 O2 Sat by Pulse Oximetry (%) 98 05/21/18 21:00 Constitutional: Yes: No Distress, Calm HENT: Yes: Other (rt sided dialysis catheter) Cardiovascular: Yes: Regular Rate and Rhythm Respiratory: Yes: Regular, CTA Bilaterally Gastrointestinal: Yes: Normal Bowel Sounds, Soft Musculoskeletal: Yes: WNL Extremities: Yes: Other Wound/Incision: Yes: Dressing Dry and Intact Neurological: Yes: Alert, Oriented Psychiatric: Yes: Alert, Oriented Labs: CBC, BMP 05/21/18 05:15 05/20/18 10:20 Assessment/Plan 1. ESRD 2. DM 3. HTN 4. anemia 5. left leg ulcer 6. hypothyroidism all cx results noted patient refusing to remove his dressing for now plan still awaiting organism patient is going to need nursing home treatment will look at the wound and decide if debridement is needed once we have all the organism will decide final plan continue ertapenam as patient again had reaction to ertapenam and vanco once we have sensitivities then will decide if adjustment is needed
[2018-05-22] MEDS ORDERED: PT OWN MED DRAWER 7, Y5N ONE ×2 (09:12→09:43)
[2018-05-22] MEDS: ISOSORBIDE MONONITRATE 30 MG TAB.SR.24H (FP) PO SCH (09:49)
[2018-05-22] MEDS: ASPIRIN 81 MG CHEWABLE TABLETS PO SCH (09:49)
[2018-05-22] MEDS: VITAMIN B COMP W-C 1 EA TABLET PO SCH (09:49)
[2018-05-22] MEDS: ACETAMINOPHEN 325 MG TABLET (FP) PO SCH (09:49)
[2018-05-22] MEDS: FOLIC ACID 1 MG TABLET (FP) PO SCH (09:49)
[2018-05-22] MEDS: PANTOPRAZOLE 20 MG TABLET (FP) PO SCH (09:49)
[2018-05-22] MEDS: hydrALAZINE HCL 50 MG TABLET (FP) PO SCH (09:49)
[2018-05-22] MEDS: GABAPENTIN 100 MG CAPSULE (FP) PO SCH (09:50)
[2018-05-22] MEDS: HEPARIN NA (PORCINE) 5,000 UNITS/ML 1ML VIAL SQ SCH ×2 (09:50→22:28)
[2018-05-22] MEDS: SENNOSIDES 8.6MG TABLET (FP) PO SCH (09:50)
[2018-05-22] MEDS: ERTAPENEM SODIUM 1 GM in SODIUM CHLORIDE 50 ML IVPB SCH (09:51)
[2018-05-22] MEDS ORDERED: HEPARIN NA (PORCINE) 5,000 UNITS/ML 1ML VIAL IVPUSH ONE (10:45)
[2018-05-22] MEDS ORDERED: EPOETIN ALFA 10,000 UNIT/1 ML VIAL IVPUSH ONE (10:45)
[2018-05-22] MEDS ORDERED: VANCOMYCIN 1 GRAM (PRE-DOCKED) 1,000 MG/250 ML BAG IVPB SCH (12:00)
[2018-05-22 12:38] LABS: HEMOGLOBIN 9.3 GM/dL (11.7-16.9); MCH 29.8 pg (25.7-33.7); MCHC 33.2 g/dl (32.0-35.9); MEAN CELL VOLUME 89.8 fl (80-96); MEAN PLT VOLUME 7.8 fl (7.5-11.1); PLATELET COUNT 411 K/MM3 (134-434); RBC 3.12 M/mm3 (4.00-5.60); RDW 21.7 % (11.9-15.9); WHITE BLOOD COUNT 14.3 K/mm3 (4.0-10.0)
--- NOTE | 2018-05-22 12:42 | PN ---
Progress Note (short form) - Note Progress Note: Pt examined in HD c/o pain in foot Vital Signs - 24 hr 05/21/18 05/21/18 05/21/18 13:34 18:00 18:07 Temperature 98.9 F Pulse Rate Pulse Rate [ 80 81 Left Radial] Respiratory 18 18 Rate Blood Pressure Blood Pressure 159/97 183/67 H [Left Arm] O2 Sat by Pulse 93 L 100 100 Oximetry (%) 05/21/18 05/21/18 05/22/18 18:55 21:00 06:00 Temperature 97.6 F 98 F 98.7 F Pulse Rate 87 88 86 Pulse Rate [ Left Radial] Respiratory 18 20 20 Rate Blood Pressure 110/88 162/49 L 157/57 L Blood Pressure [Left Arm] O2 Sat by Pulse 98 Oximetry (%) Current Medications Generic Name Dose Route Start Last Admin Trade Name Freq PRN Reason Stop Dose Admin Acetaminophen 650 mg 05/21/18 10:00 05/22/18 09:49 Tylenol - PO 650 mg DAILY [facility] Administration Aspirin 81 mg 05/21/18 10:00 05/22/18 09:49 Asa - PO 81 mg DAILY [facility] Administration Calcium Acetate 667 mg 05/20/18 17:30 05/22/18 08:47 Phoslo - PO 667 mg TIDCM [facility] Administration Collagenase 1 applic 05/21/18 10:00 05/21/18 10:17 Santyl - TP Not Given DAILY [facility] Folic Acid 1 mg 05/21/18 10:00 05/22/18 09:49 Folic Acid - PO 1 mg DAILY [facility] Administration Gabapentin 100 mg 05/21/18 10:00 05/22/18 09:50 Neurontin - PO 100 mg DAILY [facility] Administration Heparin Sodium (Porcine) 5,000 unit 05/20/18 22:00 05/22/18 09:50 Heparin - SQ 5,000 unit BID [facility] Administration Hydralazine HCl 50 mg 05/21/18 10:00 05/22/18 09:49 Apresoline - PO 50 mg DAILY [facility] Administration Sodium Chloride 250 mls @ 3,000 mls/hr 05/21/18 14:32 Normal Saline - IV 05/22/18 14:32 PRN PRN Hypotension during Dialysis Ertapenem 1 gm/ Sodium 50 mls @ 100 mls/hr 05/21/18 20:15 05/22/18 09:51 Chloride IVPB 100 mls/hr DAILY [facility] Administration Insulin Detemir 15 units 05/20/18 22:00 05/21/18 21:55 Levemir Vial SQ 15 unit HS [facility] Administration Isosorbide Mononitrate 30 mg 05/21/18 10:00 05/22/18 09:49 Imdur - PO 30 mg DAILY [facility] Administration Levothyroxine Sodium 50 mcg 05/21/18 07:00 05/22/18 07:29 Synthroid - PO 50 mcg AM [facility] Administration Metoprolol Succinate 200 mg 05/22/18 10:00 05/22/18 09:49 Toprol Xl - PO 200 mg DAILY [facility] Administration Multivit/Ca Carb/B Cmplx/FA/Prenat 1 tablet 05/21/18 10:00 05/22/18 09:49 Nephro-Rebecca - PO 1 tablet DAILY [facility] Administration Nystatin 1 applic 05/21/18 10:00 05/21/18 10:18 Mycostatin Cream - TP Not Given DAILY [facility] Pantoprazole Sodium 20 mg 05/21/18 10:00 05/22/18 09:49 Protonix - PO 20 mg DAILY [facility] Administration Senna 1 tab 05/21/18 10:00 05/22/18 09:50 Senna - PO 1 tab DAILY [facility] Administration Vancomycin HCl 1,000 mg 05/22/18 12:00 Vancomycin (Pre-Docked) IVPB MoWeFr [facility] Laboratory Results - last 24 hr 05/20/18 05/21/18 05/22/18 17:42 17:56 12:00 WBC 14.3 H RBC 3.12 L Hgb 9.3 L Hct 28.0 L MCV 89.8 MCH 29.8 MCHC 33.2 RDW 21.7 H Plt Count 411 MPV 7.8 POC Glucometer [id number] Hepatitis A Ab Total Negative Hep Bs Antigen Negative Hep Bs Antibody Reactive Hep B Core Total Ab Negative Hep C Ab Diagnostic 0.4 S1 S2 RRR Lungs decreased Permacath+ Abd- soft, NT left foot dressing in place Rt AKA PLAN IV antibiotics wound cultures noted spoke with ID pain meds-- increase Tylenol -- can not give opioids as he has a severe morphine allergy increase Neurontin HD per renal vascular /wound care eval pending Problem List - Problems (1) Above knee amputation of right lower extremity Code(s): Z89.611 - ACQUIRED ABSENCE OF RIGHT LEG ABOVE KNEE (2) ESRD on hemodialysis Code(s): N18.6 - END STAGE RENAL DISEASE; Z99.2 - DEPENDENCE ON RENAL DIALYSIS (3) Insulin dependent diabetes mellitus Code(s): E11.9 - TYPE 2 DIABETES MELLITUS WITHOUT COMPLICATIONS; Z79.4 - JAIL (CURRENT) 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
--- NOTE | 2018-05-22 12:44 | PN ---
Progress Note, Physician History of Present Illness: Pt seen and examined at bedside. He is tolerating HD. He denies fevers or chills. - Current Medication List Current Medications: Active Medications Acetaminophen (Tylenol -) 650 mg PO DAILY [facility] Last Admin: 05/22/18 09:49 Dose: 650 mg Aspirin (Asa -) 81 mg PO DAILY [facility] Last Admin: 05/22/18 09:49 Dose: 81 mg Calcium Acetate (Phoslo -) 667 mg PO TIDCM [facility] Last Admin: 05/22/18 08:47 Dose: 667 mg Collagenase (Santyl -) 1 applic TP DAILY [facility] Last Admin: 05/21/18 10:17 Dose: Not Given Folic Acid (Folic Acid -) 1 mg PO DAILY [facility] Last Admin: 05/22/18 09:49 Dose: 1 mg Gabapentin (Neurontin -) 100 mg PO DAILY [facility] Last Admin: 05/22/18 09:50 Dose: 100 mg Heparin Sodium (Porcine) (Heparin -) 5,000 unit SQ BID [facility] Last Admin: 05/22/18 09:50 Dose: 5,000 unit Hydralazine HCl (Apresoline -) 50 mg PO DAILY [facility] Last Admin: 05/22/18 09:49 Dose: 50 mg Sodium Chloride (Normal Saline -) 250 mls @ 3,000 mls/hr IV PRN PRN PRN Reason: Hypotension during Dialysis Stop: 05/22/18 14:32 Ertapenem 1 gm/ Sodium (Chloride) 50 mls @ 100 mls/hr IVPB DAILY [facility] Last Admin: 05/22/18 09:51 Dose: 100 mls/hr Insulin Detemir (Levemir Vial) 15 units SQ HS [facility] Last Admin: 05/21/18 21:55 Dose: 15 unit Isosorbide Mononitrate (Imdur -) 30 mg PO DAILY [facility] Last Admin: 05/22/18 09:49 Dose: 30 mg Levothyroxine Sodium (Synthroid -) 50 mcg PO AM [facility] Last Admin: 05/22/18 07:29 Dose: 50 mcg Metoprolol Succinate (Toprol Xl -) 200 mg PO DAILY [facility] Last Admin: 05/22/18 09:49 Dose: 200 mg Multivit/Ca Carb/B Cmplx/FA/Prenat (Nephro-Rebecca -) 1 tablet PO DAILY [facility] Last Admin: 05/22/18 09:49 Dose: 1 tablet Nystatin (Mycostatin Cream -) 1 applic TP DAILY [facility] Last Admin: 05/21/18 10:18 Dose: Not Given Pantoprazole Sodium (Protonix -) 20 mg PO DAILY [facility] Last Admin: 05/22/18 09:49 Dose: 20 mg Senna (Senna -) 1 tab PO DAILY [facility] Last Admin: 05/22/18 09:50 Dose: 1 tab Vancomycin HCl (Vancomycin (Pre-Docked)) 1,000 mg IVPB MoWeFr [facility] - Objective Vital Signs: Vital Signs Temperature 98.7 F 05/22/18 06:00 Pulse Rate 86 05/22/18 06:00 Respiratory Rate 20 05/22/18 06:00 Blood Pressure 157/57 L 05/22/18 06:00 O2 Sat by Pulse Oximetry (%) 98 05/21/18 21:00 Constitutional: Yes: Calm Eyes: Yes: Conjunctiva Clear HENT: Yes: Atraumatic Neck: Yes: Supple Cardiovascular: Yes: S1, S2 Respiratory: Yes: CTA Bilaterally Gastrointestinal: Yes: Soft, Abdomen, Obese Genitourinary: Yes: WNL Musculoskeletal: Yes: Other (right aka) Edema: Yes Edema: LLE: 2+ Neurological: Yes: Oriented Psychiatric: Yes: Oriented Labs: CBC, BMP 05/22/18 12:00 Problem List - Problems (1) ESRD on hemodialysis Code(s): N18.6 - END STAGE RENAL DISEASE; Z99.2 - DEPENDENCE ON RENAL DIALYSIS (2) Non healing left heel wound Code(s): S91.302A - UNSPECIFIED OPEN WOUND, LEFT FOOT, INITIAL ENCOUNTER (3) HTN (hypertension) Code(s): I10 - ESSENTIAL (PRIMARY) HYPERTENSION Assessment/Plan Current Medications Generic Name Dose Route Start Last Admin Trade Name Freq PRN Reason Stop Dose Admin Acetaminophen 650 mg 05/21/18 10:00 05/22/18 09:49 Tylenol - PO 650 mg DAILY [facility] Administration Aspirin 81 mg 05/21/18 10:00 05/22/18 09:49 Asa - PO 81 mg DAILY [facility] Administration Calcium Acetate 667 mg 05/20/18 17:30 05/22/18 08:47 Phoslo - PO 667 mg TIDCM [facility] Administration Collagenase 1 applic 05/21/18 10:00 05/21/18 10:17 Santyl - TP Not Given DAILY [facility] Folic Acid 1 mg 05/21/18 10:00 05/22/18 09:49 Folic Acid - PO 1 mg DAILY [facility] Administration Gabapentin 100 mg 05/21/18 10:00 05/22/18 09:50 Neurontin - PO 100 mg DAILY [facility] Administration Heparin Sodium (Porcine) 5,000 unit 05/20/18 22:00 05/22/18 09:50 Heparin - SQ 5,000 unit BID [facility] Administration Hydralazine HCl 50 mg 05/21/18 10:00 05/22/18 09:49 Apresoline - PO 50 mg DAILY [facility] Administration Sodium Chloride 250 mls @ 3,000 mls/hr 05/21/18 14:32 Normal Saline - IV 05/22/18 14:32 PRN PRN Hypotension during Dialysis Ertapenem 1 gm/ Sodium 50 mls @ 100 mls/hr 05/21/18 20:15 05/22/18 09:51 Chloride IVPB 100 mls/hr DAILY [facility] Administration Insulin Detemir 15 units 05/20/18 22:00 05/21/18 21:55 Levemir Vial SQ 15 unit HS [facility] Administration Isosorbide Mononitrate 30 mg 05/21/18 10:00 05/22/18 09:49 Imdur - PO 30 mg DAILY [facility] Administration Levothyroxine Sodium 50 mcg 05/21/18 07:00 05/22/18 07:29 Synthroid - PO 50 mcg AM [facility] Administration Metoprolol Succinate 200 mg 05/22/18 10:00 05/22/18 09:49 Toprol Xl - PO 200 mg DAILY [facility] Administration Multivit/Ca Carb/B Cmplx/FA/Prenat 1 tablet 05/21/18 10:00 05/22/18 09:49 Nephro-Rebecca - PO 1 tablet DAILY [facility] Administration Nystatin 1 applic 05/21/18 10:00 05/21/18 10:18 Mycostatin Cream - TP Not Given DAILY [facility] Pantoprazole Sodium 20 mg 05/21/18 10:00 05/22/18 09:49 Protonix - PO 20 mg DAILY [facility] Administration Senna 1 tab 05/21/18 10:00 05/22/18 09:50 Senna - PO 1 tab DAILY [facility] Administration Vancomycin HCl 1,000 mg 05/22/18 12:00 Vancomycin (Pre-Docked) IVPB MoWeFr [facility] Impression 1. ESRD 2. DM 3. HTN 4. anemia 5. left leg ulcer 6. hypothyroidism Plan - HD today - abx per ID - epogen for anemia - cont wound care - discussed with ID - will follow Dr Apodaca
[2018-05-22] MEDS ORDERED: ACETAMINOPHEN 500 MG TABLET (FP) PO PRN (12:59)
[2018-05-22 13:14] LABS: ANION GAP 9 MMOL/L (8-16); BLOOD UREA NITROGEN 61 mg/dL (7-18); CALCIUM 8.3 mg/dL (8.5-10.1); CHLORIDE 97 mmol/L (98-107); CO2 30 mmol/L (21-32); CREATININE 7.3 mg/dL (0.55-1.3); GLUCOSE,RANDOM 139 mg/dL (74-106); POTASSIUM 4.7 mmol/L (3.5-5.1); SODIUM 136 mmol/L (136-145)
[2018-05-22] MEDS: BACLOFEN 10 MG TABLET (FP) PO SCH (17:38)
[2018-05-22] MEDS: NYSTATIN 100,000 UNIT/GM TOPICAL CREAM 15 GM TUBE TP SCH (17:39)
[2018-05-22] MEDS: COLLAGENASE CLOSTRIDIUM HIST. 30 GRAMS TUBE TP SCH (17:39)
[2018-05-22] MEDS: GABAPENTIN 300 MG CAPSULE (FP) PO SCH (22:28)
[2018-05-22] MEDS: INSULIN (LEVEMIR) 100 UNITS/ML UNITS SQ SCH (22:28)
[2018-05-23] MEDS: LEVOTHYROXINE NA 50 MCG TABLET (FP) PO SCH (06:13)
[2018-05-23] MEDS ORDERED: PT OWN MED DRAWER 7, Y5N ONE ×2 (09:05→10:53)
[2018-05-23] MEDS: ISOSORBIDE MONONITRATE 30 MG TAB.SR.24H (FP) PO SCH (09:12)
[2018-05-23] MEDS: BACLOFEN 10 MG TABLET (FP) PO SCH (09:12)
[2018-05-23] MEDS: hydrALAZINE HCL 50 MG TABLET (FP) PO SCH (09:12)
[2018-05-23] MEDS: GABAPENTIN 300 MG CAPSULE (FP) PO SCH ×3 (09:12→21:32)
[2018-05-23] MEDS: FOLIC ACID 1 MG TABLET (FP) PO SCH (09:12)
[2018-05-23] MEDS: SENNOSIDES 8.6MG TABLET (FP) PO SCH (09:12)
[2018-05-23] MEDS: ASPIRIN 81 MG CHEWABLE TABLETS PO SCH (09:12)
[2018-05-23] MEDS: HEPARIN NA (PORCINE) 5,000 UNITS/ML 1ML VIAL SQ SCH ×3 (09:13→21:32)
[2018-05-23] MEDS: PANTOPRAZOLE 20 MG TABLET (FP) PO SCH (09:13)
[2018-05-23] MEDS: VITAMIN B COMP W-C 1 EA TABLET PO SCH (09:13)
[2018-05-23] MEDS: CALCIUM ACETATE 667 MG CAPSULE (FP) PO SCH ×3 (09:13→18:00)
[2018-05-23] MEDS: COLLAGENASE CLOSTRIDIUM HIST. 30 GRAMS TUBE TP SCH (09:14)
[2018-05-23] MEDS: ERTAPENEM SODIUM 0.5 GM in SODIUM CHLORIDE 50 ML IVPB SCH (09:24)
[2018-05-23] MEDS: NYSTATIN 100,000 UNIT/GM TOPICAL CREAM 15 GM TUBE TP SCH (10:57)
--- NOTE | 2018-05-23 11:59 | PN ---
Progress Note (short form) - Note Progress Note: Pt examined c/o pain in foot Vital Signs - 24 hr 05/22/18 05/22/18 05/22/18 12:15 12:45 13:15 Temperature Pulse Rate 85 82 80 Respiratory 18 18 18 Rate Blood Pressure 178/109 H 179/96 H 183/78 H O2 Sat by Pulse Oximetry (%) 05/22/18 05/22/18 05/22/18 13:45 14:15 14:45 Temperature Pulse Rate 80 80 81 Respiratory 18 18 18 Rate Blood Pressure 167/70 146/54 L 143/64 O2 Sat by Pulse Oximetry (%) 05/22/18 05/22/18 05/22/18 15:15 15:45 16:00 Temperature Pulse Rate 81 80 80 Respiratory 18 18 18 Rate Blood Pressure 157/79 169/85 167/82 O2 Sat by Pulse Oximetry (%) 05/22/18 05/22/18 05/23/18 16:20 21:00 00:02 Temperature 97.7 F 98 F Pulse Rate 68 70 Respiratory 18 18 Rate Blood Pressure 159/68 149/71 O2 Sat by Pulse 96 Oximetry (%) 05/23/18 06:23 Temperature 98.3 F Pulse Rate 82 Respiratory 20 Rate Blood Pressure 156/95 O2 Sat by Pulse Oximetry (%) Current Medications Generic Name Dose Route Start Last Admin Trade Name Freq PRN Reason Stop Dose Admin Acetaminophen 1,000 mg 05/22/18 12:59 Tylenol - PO Q6H PRN MODERATE PAIN Aspirin 81 mg 05/21/18 10:00 05/23/18 09:12 Asa - PO 81 mg DAILY [facility] Administration Baclofen 10 mg 05/22/18 13:30 05/23/18 09:12 Lioresal - PO 10 mg DAILY [facility] Administration Calcium Acetate 667 mg 05/20/18 17:30 05/23/18 09:13 Phoslo - PO 667 mg TIDCM [facility] Administration Collagenase 1 applic 05/21/18 10:00 05/23/18 09:14 Santyl - TP 1 applic DAILY [facility] Administration Folic Acid 1 mg 05/21/18 10:00 05/23/18 09:12 Folic Acid - PO 1 mg DAILY [facility] Administration Gabapentin 300 mg 05/22/18 22:00 05/23/18 09:12 Neurontin - PO 300 mg BID [facility] Administration Heparin Sodium (Porcine) 5,000 unit 05/20/18 22:00 05/23/18 09:13 Heparin - SQ 5,000 unit BID [facility] Administration Hydralazine HCl 50 mg 05/21/18 10:00 05/23/18 09:12 Apresoline - PO 50 mg DAILY [facility] Administration Ertapenem 0.5 gm/ Sodium 50 mls @ 100 mls/hr 05/23/18 10:00 05/23/18 09:24 Chloride IVPB 100 mls/hr DAILY [facility] Administration Insulin Detemir 15 units 05/20/18 22:00 05/22/18 22:28 Levemir Vial SQ 15 unit HS [facility] Administration Isosorbide Mononitrate 30 mg 05/21/18 10:00 05/23/18 09:12 Imdur - PO 30 mg DAILY [facility] Administration Levothyroxine Sodium 50 mcg 05/21/18 07:00 05/23/18 06:13 Synthroid - PO 50 mcg AM [facility] Administration Metoprolol Succinate 200 mg 05/22/18 10:00 05/23/18 09:12 Toprol Xl - PO 200 mg DAILY [facility] Administration Multivit/Ca Carb/B Cmplx/FA/Prenat 1 tablet 05/21/18 10:00 05/23/18 09:13 Nephro-Rebecca - PO 1 tablet DAILY [facility] Administration Nystatin 1 applic 05/21/18 10:00 05/23/18 10:57 Mycostatin Cream - TP 1 applic DAILY [facility] Administration Pantoprazole Sodium 20 mg 05/21/18 10:00 05/23/18 09:13 Protonix - PO 20 mg DAILY [facility] Administration Senna 1 tab 05/21/18 10:00 05/23/18 09:12 Senna - PO 1 tab DAILY [facility] Administration Vancomycin HCl 1,000 mg 05/22/18 12:00 05/22/18 17:38 Vancomycin (Pre-Docked) IVPB 1,000 mg MoWeFr [facility] Administration Laboratory Results - last 24 hr 05/22/18 05/22/18 12:00 12:00 WBC 14.3 H RBC 3.12 L Hgb 9.3 L Hct 28.0 L MCV 89.8 MCH 29.8 MCHC 33.2 RDW 21.7 H Plt Count 411 MPV 7.8 Sodium 136 Potassium 4.7 Chloride 97 L Carbon Dioxide 30 Anion Gap 9 BUN 61 H Creatinine 7.3 H Creat Clearance w eGFR 8.97 Random Glucose 139 H Calcium 8.3 L S1 S2 RRR Lungs decreased Permacath+ Abd- soft, NT left foot dressing in place Rt AKA PLAN IV antibiotics wound cultures noted spoke with ID pain meds-- increase Tylenol -- can not give opioids as he has a severe morphine allergy increase Neurontin HD per renal vascular /wound care eval pending Problem List - Problems (1) Above knee amputation of right lower extremity Code(s): Z89.611 - ACQUIRED ABSENCE OF RIGHT LEG ABOVE KNEE (2) ESRD on hemodialysis Code(s): N18.6 - END STAGE RENAL DISEASE; Z99.2 - DEPENDENCE ON RENAL DIALYSIS (3) Insulin dependent diabetes mellitus Code(s): E11.9 - TYPE 2 DIABETES MELLITUS WITHOUT COMPLICATIONS; Z79.4 - CLIENT RELATIONSHIP CONSULTANT (CURRENT) 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
--- NOTE | 2018-05-23 15:56 | PN ---
Progress Note, Physician History of Present Illness: Pt seen and examined, events reviewed. Currently afebrile, denies itching after antibiotic switched from Zosyn to Ertapenem. Has Lt foot pain but appears comfortable. - Current Medication List Current Medications: Active Medications Acetaminophen (Tylenol -) 1,000 mg PO Q6H PRN PRN Reason: MODERATE PAIN Aspirin (Asa -) [address] [facility] Last Admin: 05/23/18 09:12 Dose: 81 mg Baclofen (Lioresal -) [address] [facility] Last Admin: 05/23/18 09:12 Dose: 10 mg Calcium Acetate (Phoslo -) [address] [facility] Last Admin: 05/23/18 13:06 Dose: 667 mg Collagenase (Santyl -) [address] [facility] Last Admin: 05/23/18 09:14 Dose: 1 applic Folic Acid (Folic Acid -) [address] [facility] Last Admin: 05/23/18 09:12 Dose: 1 mg Gabapentin (Neurontin -) [address] [facility] Last Admin: 05/23/18 09:12 Dose: 300 mg Heparin Sodium (Porcine) (Heparin -) 5,[address] [facility] Last Admin: 05/23/18 09:13 Dose: 5,000 unit Hydralazine HCl (Apresoline -) [address] [facility] Last Admin: 05/23/18 09:12 Dose: 50 mg Ertapenem 0.5 gm/ Sodium (Chloride) 50 mls @ 100 mls/hr IVPB DAILY [facility] Last Admin: 05/23/18 09:24 Dose: 100 mls/hr Insulin Detemir (Levemir Vial) [address] [facility] Last Admin: 05/22/18 22:28 Dose: 15 unit Isosorbide Mononitrate (Imdur -) [address] [facility] Last Admin: 05/23/18 09:12 Dose: 30 mg Levothyroxine Sodium (Synthroid -) [address] [facility] Last Admin: 05/23/18 06:13 Dose: 50 mcg Metoprolol Succinate (Toprol Xl -) [address] [facility] Last Admin: 05/23/18 09:12 Dose: 200 mg Multivit/Ca Carb/B Cmplx/FA/Prenat (Nephro-Rebecca -) [address] [facility] Last Admin: 05/23/18 09:13 Dose: 1 tablet Nystatin (Mycostatin Cream -) [address] [facility] Last Admin: 05/23/18 10:57 Dose: 1 applic Pantoprazole Sodium (Protonix -) [address] [facility] Last Admin: 05/23/18 09:13 Dose: 20 mg Senna (Senna -) [address] [facility] Last Admin: 05/23/18 09:12 Dose: 1 tab - Objective Vital Signs: Vital Signs Temperature 98.3 F 05/23/18 06:23 Pulse Rate 82 05/23/18 06:23 Respiratory Rate 20 05/23/18 06:23 Blood Pressure 156/95 05/23/18 06:23 O2 Sat by Pulse Oximetry (%) 96 05/23/18 09:00 Constitutional: Yes: No Distress, Calm Cardiovascular: Yes: Regular Rate and Rhythm Respiratory: Yes: Regular Gastrointestinal: Yes: Normal Bowel Sounds, Soft, Abdomen, Obese Extremities: Yes: Amputation (Rt AKA) Wound/Incision: Yes: Other (Lt foot plantar ulcer with serosanguinous drainage, lymphedema) Neurological: Yes: Alert, Oriented Labs: CBC, BMP 05/22/18 12:00 05/22/18 12:00 Microbiology 05/20/18 09:50 Foot - Left Plantar Gram Stain - Final 05/20/18 09:50 Foot - Left Plantar Wound Culture - Final Proteus Mirabilis Klebsiella Pneumoniae Staphylococcus Aureus Vr Ec Faecalis Escherichia Coli - ....Imaging MRI: Report Reviewed Problem List - Problems (1) ESRD on hemodialysis Code(s): N18.6 - END STAGE RENAL DISEASE; Z99.2 - DEPENDENCE ON RENAL DIALYSIS (2) Insulin dependent diabetes mellitus Code(s): E11.9 - TYPE 2 DIABETES MELLITUS WITHOUT COMPLICATIONS; Z79.4 - DETENTION (CURRENT) USE OF INSULIN (3) Legally blind Code(s): H54.8 - LEGAL BLINDNESS, DEFINED IN [place] (4) Non healing left heel wound Code(s): S91.302A - UNSPECIFIED OPEN WOUND, LEFT FOOT, INITIAL ENCOUNTER (5) Allergic reaction Code(s): T78.40XA - ALLERGY, UNSPECIFIED, INITIAL ENCOUNTER Assessment/Plan Lt plantar ulcer infection/OM DM ESRD on HD Legally blind Anemia Allergic reaction to Zosyn -- wound culture results reviewed -- d/c Vancomycin, will start Daptomycin post HD on dialysis days, check baseline CPK -- continue Ertapenem -- repeat cbc -- continue wound care
[2018-05-23] MEDS ORDERED: SODIUM CHLORIDE 250 ML IV PRN (16:29)
--- NOTE | 2018-05-23 16:29 | PN ---
Progress Note, Physician History of Present Illness: Pt seen and examined at bedside. He is awake and appears comfortable. He denies shortness of breath. - Current Medication List Current Medications: Active Medications Acetaminophen (Tylenol -) 1,000 mg PO Q6H PRN PRN Reason: MODERATE PAIN Aspirin (Asa -) 81 mg PO DAILY [facility] Last Admin: 05/23/18 09:12 Dose: 81 mg Baclofen (Lioresal -) 10 mg PO DAILY [facility] Last Admin: 05/23/18 09:12 Dose: 10 mg Calcium Acetate (Phoslo -) 667 mg PO TIDCM [facility] Last Admin: 05/23/18 13:06 Dose: 667 mg Collagenase (Santyl -) 1 applic TP DAILY [facility] Last Admin: 05/23/18 09:14 Dose: 1 applic Folic Acid (Folic Acid -) 1 mg PO DAILY [facility] Last Admin: 05/23/18 09:12 Dose: 1 mg Gabapentin (Neurontin -) 300 mg PO BID [facility] Last Admin: 05/23/18 09:12 Dose: 300 mg Heparin Sodium (Porcine) (Heparin -) 5,000 unit SQ BID [facility] Last Admin: 05/23/18 09:13 Dose: 5,000 unit Hydralazine HCl (Apresoline -) 50 mg PO DAILY [facility] Last Admin: 05/23/18 09:12 Dose: 50 mg Ertapenem 0.5 gm/ Sodium (Chloride) 50 mls @ 100 mls/hr IVPB DAILY [facility] Last Admin: 05/23/18 09:24 Dose: 100 mls/hr Daptomycin 700 mg/ Sodium (Chloride) 50 mls @ 100 mls/hr IVPB MOWEFR [facility]; Protocol Insulin Detemir (Levemir Vial) 15 units SQ HS [facility] Last Admin: 05/22/18 22:28 Dose: 15 unit Isosorbide Mononitrate (Imdur -) 30 mg PO DAILY [facility] Last Admin: 05/23/18 09:12 Dose: 30 mg Levothyroxine Sodium (Synthroid -) 50 mcg PO AM [facility] Last Admin: 05/23/18 06:13 Dose: 50 mcg Metoprolol Succinate (Toprol Xl -) 200 mg PO DAILY [facility] Last Admin: 05/23/18 09:12 Dose: 200 mg Multivit/Ca Carb/B Cmplx/FA/Prenat (Nephro-Rebecca -) 1 tablet PO DAILY [facility] Last Admin: 05/23/18 09:13 Dose: 1 tablet Nystatin (Mycostatin Cream -) 1 applic TP DAILY [facility] Last Admin: 05/23/18 10:57 Dose: 1 applic Pantoprazole Sodium (Protonix -) 20 mg PO DAILY [facility] Last Admin: 05/23/18 09:13 Dose: 20 mg Senna (Senna -) 1 tab PO DAILY [facility] Last Admin: 05/23/18 09:12 Dose: 1 tab - Objective Vital Signs: Vital Signs Temperature 98.3 F 05/23/18 06:23 Pulse Rate 82 05/23/18 06:23 Respiratory Rate 20 05/23/18 06:23 Blood Pressure 156/95 05/23/18 06:23 O2 Sat by Pulse Oximetry (%) 96 05/23/18 09:00 Constitutional: Yes: Calm Eyes: Yes: Conjunctiva Clear HENT: Yes: Atraumatic Neck: Yes: Supple Cardiovascular: Yes: S1, S2 Respiratory: Yes: CTA Bilaterally Gastrointestinal: Yes: Soft, Abdomen, Obese Edema: Yes Neurological: Yes: Oriented Psychiatric: Yes: Oriented Labs: CBC, BMP 05/22/18 12:00 05/22/18 12:00 Problem List - Problems (1) ESRD on hemodialysis Code(s): N18.6 - END STAGE RENAL DISEASE; Z99.2 - DEPENDENCE ON RENAL DIALYSIS (2) Non healing left heel wound Code(s): S91.302A - UNSPECIFIED OPEN WOUND, LEFT FOOT, INITIAL ENCOUNTER (3) HTN (hypertension) Code(s): I10 - ESSENTIAL (PRIMARY) HYPERTENSION Assessment/Plan Current Medications Generic Name Dose Route Start Last Admin Trade Name Freq PRN Reason Stop Dose Admin Acetaminophen 1,000 mg 05/22/18 12:59 Tylenol - PO Q6H PRN MODERATE PAIN Aspirin 81 mg 05/21/18 10:00 05/23/18 09:12 Asa - PO 81 mg DAILY [facility] Administration Baclofen 10 mg 05/22/18 13:30 05/23/18 09:12 Lioresal - PO 10 mg DAILY [facility] Administration Calcium Acetate 667 mg 05/20/18 17:30 05/23/18 13:06 Phoslo - PO 667 mg TIDCM [facility] Administration Collagenase 1 applic 05/21/18 10:00 05/23/18 09:14 Santyl - TP 1 applic DAILY [facility] Administration Folic Acid 1 mg 05/21/18 10:00 05/23/18 09:12 Folic Acid - PO 1 mg DAILY [facility] Administration Gabapentin 300 mg 05/22/18 22:00 05/23/18 09:12 Neurontin - PO 300 mg BID [facility] Administration Heparin Sodium (Porcine) 5,000 unit 05/20/18 22:00 05/23/18 09:13 Heparin - SQ 5,000 unit BID [facility] Administration Hydralazine HCl 50 mg 05/21/18 10:00 05/23/18 09:12 Apresoline - PO 50 mg DAILY [facility] Administration Ertapenem 0.5 gm/ Sodium 50 mls @ 100 mls/hr 05/23/18 10:00 05/23/18 09:24 Chloride IVPB 100 mls/hr DAILY [facility] Administration Daptomycin 700 mg/ Sodium 50 mls @ 100 mls/hr 05/24/18 15:00 Chloride IVPB MOWEFR [facility] Protocol Insulin Detemir 15 units 05/20/18 22:00 05/22/18 22:28 Levemir Vial SQ 15 unit HS [facility] Administration Isosorbide Mononitrate 30 mg 05/21/18 10:00 05/23/18 09:12 Imdur - PO 30 mg DAILY [facility] Administration Levothyroxine Sodium 50 mcg 05/21/18 07:00 05/23/18 06:13 Synthroid - PO 50 mcg AM [facility] Administration Metoprolol Succinate 200 mg 05/22/18 10:00 05/23/18 09:12 Toprol Xl - PO 200 mg DAILY [facility] Administration Multivit/Ca Carb/B Cmplx/FA/Prenat 1 tablet 05/21/18 10:00 05/23/18 09:13 Nephro-Rebecca - PO 1 tablet DAILY [facility] Administration Nystatin 1 applic 05/21/18 10:00 05/23/18 10:57 Mycostatin Cream - TP 1 applic DAILY [facility] Administration Pantoprazole Sodium 20 mg 05/21/18 10:00 05/23/18 09:13 Protonix - PO 20 mg DAILY [facility] Administration Senna 1 tab 05/21/18 10:00 05/23/18 09:12 Senna - PO 1 tab DAILY [facility] Administration Impression 1. ESRD 2. DM 3. HTN 4. anemia 5. left leg ulcer 6. hypothyroidism Plan - HD in am - abx per ID - epogen for anemia - cont wound care - discussed plan with pt - renal diet - will follow Dr Apodaca
--- NOTE | 2018-05-23 16:53 | PN ---
Progress Note (short form) - Note Progress Note: 27yo M known to the wound care clinic. Vascular/wound care team consulted to evaluate LLE heel wound. Pt states he has been treating with Santyl and compression dressing. 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 -elevate heel with ankle roll Code(s): L97.401 - NON-PRS CHR ULCER OF UNSP HEEL AND MIDFT LMT TO BRKDWN SKIN
--- NOTE | 2018-05-23 19:08 | PN ---
Progress Note (short form) - Note Progress Note: Vascular surgery Pt seen and examined. Left plantar foot ulcer with some eschar. No pus or any drainage found Pt has a palpable pulse. Cont santyl Dressing changed Do not walk on left leg. Ankit Rivas DO
[2018-05-23] MEDS: INSULIN (LEVEMIR) 100 UNITS/ML UNITS SQ SCH (21:29)
[2018-05-23] MEDS ORDERED: ACETAMINOPHEN 1000 MG/100 ML VIAL (NON FORMULARY) IVPB ONE (23:07)
[2018-05-24] MEDS: LEVOTHYROXINE NA 50 MCG TABLET (FP) PO SCH (06:31)
[2018-05-24 07:34] LABS: HEMATOCRIT 31.2 % (35.4-49); HEMOGLOBIN 10.1 GM/dL (11.7-16.9); LYMPH % 11.4 % (8-40); MCH 29.6 pg (25.7-33.7); MCHC 32.3 g/dl (32.0-35.9); MEAN CELL VOLUME 91.6 fl (80-96); MEAN PLT VOLUME 7.7 fl (7.5-11.1); MONO % 5.9 % (3.8-10.2); NEUT % 78.7 % (42.8-82.8); PLATELET COUNT 393 K/MM3 (134-434); WHITE BLOOD COUNT 14.6 K/mm3 (4.0-10.0)
[2018-05-24 08:02] LABS: ANION GAP 8 MMOL/L (8-16); BLOOD UREA NITROGEN 47 mg/dL (7-18); CALCIUM 8.5 mg/dL (8.5-10.1); CHLORIDE 100 mmol/L (98-107); CO2 29 mmol/L (21-32); CREATININE 6.6 mg/dL (0.55-1.3); GLUCOSE,RANDOM 139 mg/dL (74-106); POTASSIUM 4.3 mmol/L (3.5-5.1); SODIUM 137 mmol/L (136-145)
[2018-05-24] MEDS ORDERED: HEPARIN NA (PORCINE) 5,000 UNITS/ML 1ML VIAL IVPUSH ONE (09:45)
[2018-05-24] MEDS ORDERED: EPOETIN ALFA 2,000 UNIT/1 ML VIAL IVPUSH ONE (09:45)
[2018-05-24 10:00] LABS: ANISOCYTOSIS 1+; MACROCYTOSIS 0; PLATELET ESTIMATE NORMAL; TARGET CELLS 1+
[2018-05-24] MEDS: BACLOFEN 10 MG TABLET (FP) PO SCH (10:00)
[2018-05-24] MEDS: HEPARIN NA (PORCINE) 5,000 UNITS/ML 1ML VIAL SQ SCH ×3 (10:00→22:12)
--- NOTE | 2018-05-24 10:15 | PN ---
Progress Note (short form) - Note Progress Note: pt seen/ examined in dialysis. Comfortable No complaints offered Reports pain is okay Blood pressure elevated Vital Signs Temp 98.2 F 05/24/18 06:00 Pulse 84 05/24/18 09:50 Resp 18 05/24/18 09:50 BP 180/104 H 05/24/18 09:50 Pulse Ox 96 05/23/18 22:46 Intake & Output 05/23/18 05/23/18 05/24/18 11:59 23:59 11:59 Intake Total 450 290 Balance 450 290 Weight 254 lb 264 lb 14.4 oz Intake: IVPB 50 Oral 450 240 Other: Voiding Method Bedside Commode Bedside Commode Bowel Movement Yes # Bowel Movements 1 Height 5 ft 9 in Body Mass Index (BMI) 37.5 Weight Measurement [facility] Active Medications Acetaminophen (Tylenol -) 1,000 mg PO Q6H PRN PRN Reason: MODERATE PAIN Aspirin (Asa -) 81 mg PO DAILY [facility] Last Admin: 05/23/18 09:12 Dose: 81 mg Baclofen (Lioresal -) 10 mg PO DAILY [facility] Last Admin: 05/23/18 09:12 Dose: 10 mg Calcium Acetate (Phoslo -) 667 mg PO TIDCM [facility] Last Admin: 05/23/18 18:00 Dose: 667 mg Collagenase (Santyl -) 1 applic TP DAILY [facility] Last Admin: 05/23/18 09:14 Dose: 1 applic Folic Acid (Folic Acid -) 1 mg PO DAILY [facility] Last Admin: 05/23/18 09:12 Dose: 1 mg Gabapentin (Neurontin -) 300 mg PO BID [facility] Last Admin: 05/23/18 21:32 Dose: Not Given Heparin Sodium (Porcine) (Heparin -) 5,000 unit SQ BID [facility] Last Admin: 05/23/18 21:32 Dose: Not Given Hydralazine HCl (Apresoline -) 50 mg PO DAILY [facility] Last Admin: 05/23/18 09:12 Dose: 50 mg Ertapenem 0.5 gm/ Sodium (Chloride) 50 mls @ 100 mls/hr IVPB DAILY [facility] Last Admin: 05/23/18 09:24 Dose: 100 mls/hr Daptomycin 700 mg/ Sodium (Chloride) 50 mls @ 100 mls/hr IVPB [facility]EFR [facility]; Protocol Sodium Chloride (Normal Saline -) 250 mls @ 3,000 mls/hr IV PRN PRN PRN Reason: Hypotension during Dialysis Stop: 05/24/18 16:29 Insulin Detemir (Levemir Vial) 15 units SQ HS [facility] Last Admin: 05/23/18 21:29 Dose: 15 unit Isosorbide Mononitrate (Imdur -) 30 mg PO DAILY [facility] Last Admin: 05/23/18 09:12 Dose: 30 mg Levothyroxine Sodium (Synthroid -) 50 mcg PO AM [facility] Last Admin: 05/24/18 06:31 Dose: 50 mcg Metoprolol Succinate (Toprol Xl -) 200 mg PO DAILY [facility] Last Admin: 05/23/18 09:12 Dose: 200 mg Multivit/Ca Carb/B Cmplx/FA/Prenat (Nephro-Rebecca -) 1 tablet PO DAILY [facility] Last Admin: 05/23/18 09:13 Dose: 1 tablet Nystatin (Mycostatin Cream -) 1 applic TP DAILY [facility] Last Admin: 05/23/18 10:57 Dose: 1 applic Pantoprazole Sodium (Protonix -) 20 mg PO DAILY [facility] Last Admin: 05/23/18 09:13 Dose: 20 mg Senna (Senna -) 1 tab PO DAILY [facility] Last Admin: 05/23/18 09:12 Dose: 1 tab CBC, BMP 05/24/18 06:30 05/24/18 06:30 Microbiology 05/20/18 09:50 Gram Stain - Final Foot - Left Plantar Wound Culture - Final Proteus Mirabilis Klebsiella Pneumoniae Staphylococcus Aureus Vr Ec Faecalis Escherichia Coli PHYSICAL EXAM S1 S2 RRR Lungs decreased Permacath+ Abd- soft, NT left foot dressing in place Rt AKA PLAN IV antibiotics ID on case HD per renal vascular /wound care eval noted Monitor blood pressure Will discuss with ID Will follow Problem List - Problems (1) Insulin dependent diabetes mellitus Code(s): E11.9 - TYPE 2 DIABETES MELLITUS WITHOUT COMPLICATIONS; Z79.4 - PREPARATOR (CURRENT) USE OF INSULIN (2) Legally blind Code(s): H54.8 - LEGAL BLINDNESS, DEFINED IN [place] (3) Above knee amputation of right lower extremity Code(s): Z89.611 - ACQUIRED ABSENCE OF RIGHT LEG ABOVE KNEE (4) ESRD on hemodialysis Code(s): N18.6 - END STAGE RENAL DISEASE; Z99.2 - DEPENDENCE ON RENAL DIALYSIS (5) Non healing left heel wound Code(s): S91.302A - UNSPECIFIED OPEN WOUND, LEFT FOOT, INITIAL ENCOUNTER (6) HTN (hypertension) Code(s): I10 - ESSENTIAL (PRIMARY) HYPERTENSION
--- NOTE | 2018-05-24 11:01 | PN ---
Progress Note, Physician History of Present Illness: Pt seen and examined at bedside. He is tolerating HD. He denies shortness of breath. - Current Medication List Current Medications: Active Medications Acetaminophen (Tylenol -) 1,000 mg PO Q6H PRN PRN Reason: MODERATE PAIN Aspirin (Asa -) 81 mg PO DAILY [facility] Last Admin: 05/23/18 09:12 Dose: 81 mg Baclofen (Lioresal -) 10 mg PO DAILY [facility] Last Admin: 05/23/18 09:12 Dose: 10 mg Calcium Acetate (Phoslo -) 667 mg PO TIDCM [facility] Last Admin: 05/23/18 18:00 Dose: 667 mg Collagenase (Santyl -) 1 applic TP DAILY [facility] Last Admin: 05/23/18 09:14 Dose: 1 applic Folic Acid (Folic Acid -) 1 mg PO DAILY [facility] Last Admin: 05/23/18 09:12 Dose: 1 mg Gabapentin (Neurontin -) 300 mg PO BID [facility] Last Admin: 05/23/18 21:32 Dose: Not Given Heparin Sodium (Porcine) (Heparin -) 5,000 unit SQ BID [facility] Last Admin: 05/23/18 21:32 Dose: Not Given Hydralazine HCl (Apresoline -) 50 mg PO DAILY [facility] Last Admin: 05/23/18 09:12 Dose: 50 mg Ertapenem 0.5 gm/ Sodium (Chloride) 50 mls @ 100 mls/hr IVPB DAILY [facility] Last Admin: 05/23/18 09:24 Dose: 100 mls/hr Daptomycin 700 mg/ Sodium (Chloride) 50 mls @ 100 mls/hr IVPB [facility]FR [facility]; Protocol Sodium Chloride (Normal Saline -) 250 mls @ 3,000 mls/hr IV PRN PRN PRN Reason: Hypotension during Dialysis Stop: 05/24/18 16:29 Insulin Detemir (Levemir Vial) 15 units SQ HS [facility] Last Admin: 05/23/18 21:29 Dose: 15 unit Isosorbide Mononitrate (Imdur -) 30 mg PO DAILY [facility] Last Admin: 05/23/18 09:12 Dose: 30 mg Levothyroxine Sodium (Synthroid -) 50 mcg PO AM [facility] Last Admin: 05/24/18 06:31 Dose: 50 mcg Metoprolol Succinate (Toprol Xl -) 200 mg PO DAILY [facility] Last Admin: 05/23/18 09:12 Dose: 200 mg Multivit/Ca Carb/B Cmplx/FA/Prenat (Nephro-Rebecca -) 1 tablet PO DAILY [facility] Last Admin: 05/23/18 09:13 Dose: 1 tablet Nystatin (Mycostatin Cream -) 1 applic TP DAILY [facility] Last Admin: 05/23/18 10:57 Dose: 1 applic Pantoprazole Sodium (Protonix -) 20 mg PO DAILY [facility] Last Admin: 05/23/18 09:13 Dose: 20 mg Senna (Senna -) 1 tab PO DAILY [facility] Last Admin: 05/23/18 09:12 Dose: 1 tab - Objective Vital Signs: Vital Signs Temperature 98.2 F 05/24/18 06:00 Pulse Rate 84 05/24/18 09:50 Respiratory Rate 18 05/24/18 09:50 Blood Pressure 180/104 H 05/24/18 09:50 O2 Sat by Pulse Oximetry (%) 96 05/23/18 22:46 Constitutional: Yes: Calm Eyes: Yes: Conjunctiva Clear HENT: Yes: Atraumatic Neck: Yes: Supple Cardiovascular: Yes: S1, S2 Respiratory: Yes: CTA Bilaterally Gastrointestinal: Yes: Soft, Abdomen, Obese Genitourinary: Yes: WNL Edema: Yes Edema: RLE: 2+ Neurological: Yes: Oriented Psychiatric: Yes: Oriented Labs: CBC, BMP 05/24/18 06:30 05/24/18 06:30 Problem List - Problems (1) ESRD on hemodialysis Code(s): N18.6 - END STAGE RENAL DISEASE; Z99.2 - DEPENDENCE ON RENAL DIALYSIS (2) Non healing left heel wound Code(s): S91.302A - UNSPECIFIED OPEN WOUND, LEFT FOOT, INITIAL ENCOUNTER (3) HTN (hypertension) Code(s): I10 - ESSENTIAL (PRIMARY) HYPERTENSION Assessment/Plan Current Medications Generic Name Dose Route Start Last Admin Trade Name Freq PRN Reason Stop Dose Admin Acetaminophen 1,000 mg 05/22/18 12:59 Tylenol - PO Q6H PRN MODERATE PAIN Aspirin 81 mg 05/21/18 10:00 05/23/18 09:12 Asa - PO 81 mg DAILY [facility] Administration Baclofen 10 mg 05/22/18 13:30 05/23/18 09:12 Lioresal - PO 10 mg DAILY [facility] Administration Calcium Acetate 667 mg 05/20/18 17:30 05/23/18 18:00 Phoslo - PO 667 mg TIDCM [facility] Administration Collagenase 1 applic 05/21/18 10:00 05/23/18 09:14 Santyl - TP 1 applic DAILY [facility] Administration Folic Acid 1 mg 05/21/18 10:00 05/23/18 09:12 Folic Acid - PO 1 mg DAILY [facility] Administration Gabapentin 300 mg 05/22/18 22:00 05/23/18 21:32 Neurontin - PO Not Given BID [facility] Heparin Sodium (Porcine) 5,000 unit 05/20/18 22:00 05/23/18 21:32 Heparin - SQ Not Given BID [facility] Hydralazine HCl 50 mg 05/21/18 10:00 05/23/18 09:12 Apresoline - PO 50 mg DAILY [facility] Administration Ertapenem 0.5 gm/ Sodium 50 mls @ 100 mls/hr 05/23/18 10:00 05/23/18 09:24 Chloride IVPB 100 mls/hr DAILY [facility] Administration Daptomycin 700 mg/ Sodium 50 mls @ 100 mls/hr 05/24/18 15:00 Chloride IVPB [facility]FR [facility] Protocol Sodium Chloride 250 mls @ 3,000 mls/hr 05/23/18 16:29 Normal Saline - IV 05/24/18 16:29 PRN PRN Hypotension during Dialysis Insulin Detemir 15 units 05/20/18 22:00 05/23/18 21:29 Levemir Vial SQ 15 unit HS [facility] Administration Isosorbide Mononitrate 30 mg 05/21/18 10:00 05/23/18 09:12 Imdur - PO 30 mg DAILY [facility] Administration Levothyroxine Sodium 50 mcg 05/21/18 07:00 05/24/18 06:31 Synthroid - PO 50 mcg AM [facility] Administration Metoprolol Succinate 200 mg 05/22/18 10:00 05/23/18 09:12 Toprol Xl - PO 200 mg DAILY [facility] Administration Multivit/Ca Carb/B Cmplx/FA/Prenat 1 tablet 05/21/18 10:00 05/23/18 09:13 Nephro-Rebecca - PO 1 tablet DAILY [facility] Administration Nystatin 1 applic 05/21/18 10:00 05/23/18 10:57 Mycostatin Cream - TP 1 applic DAILY [facility] Administration Pantoprazole Sodium 20 mg 05/21/18 10:00 05/23/18 09:13 Protonix - PO 20 mg DAILY [facility] Administration Senna 1 tab 05/21/18 10:00 05/23/18 09:12 Senna - PO 1 tab DAILY [facility] Administration Impression 1. ESRD 2. DM 3. HTN 4. anemia 5. left leg ulcer 6. hypothyroidism Plan - HD today - abx per ID - epogen for anemia - cont wound care to leg - renal diet - will follow Dr Apodaca
[2018-05-24] MEDS: hydrALAZINE HCL 50 MG TABLET (FP) PO SCH (11:35)
[2018-05-24] MEDS: ISOSORBIDE MONONITRATE 30 MG TAB.SR.24H (FP) PO SCH (11:38)
[2018-05-24] MEDS: DAPTOMYCIN 700 MG in SODIUM CHLORIDE 50 ML IVPB SCH ×2 (13:11→14:07)
[2018-05-24] MEDS: GABAPENTIN 300 MG CAPSULE (FP) PO SCH ×2 (13:34→22:10)
[2018-05-24] MEDS: CALCIUM ACETATE 667 MG CAPSULE (FP) PO SCH ×3 (13:34→17:37)
[2018-05-24] MEDS: FOLIC ACID 1 MG TABLET (FP) PO SCH (13:35)
[2018-05-24] MEDS: PANTOPRAZOLE 20 MG TABLET (FP) PO SCH (13:35)
[2018-05-24] MEDS: ASPIRIN 81 MG CHEWABLE TABLETS PO SCH (13:36)
[2018-05-24] MEDS: ERTAPENEM SODIUM 0.5 GM in SODIUM CHLORIDE 50 ML IVPB SCH (13:37)
[2018-05-24] MEDS: VITAMIN B COMP W-C 1 EA TABLET PO SCH (13:38)
[2018-05-24] MEDS: NYSTATIN 100,000 UNIT/GM TOPICAL CREAM 15 GM TUBE TP SCH (13:39)
[2018-05-24] MEDS: COLLAGENASE CLOSTRIDIUM HIST. 30 GRAMS TUBE TP SCH (13:40)
[2018-05-24] MEDS: SENNOSIDES 8.6MG TABLET (FP) PO SCH (13:43)
--- NOTE | 2018-05-24 13:53 | PN ---
Progress Note, Physician History of Present Illness: stable says he had dirrhoea the other day no dirrhoea today antigen positive toxin negative - Current Medication List Current Medications: Active Medications Acetaminophen (Tylenol -) 1,000 mg PO Q6H PRN PRN Reason: MODERATE PAIN Aspirin (Asa -) 81 mg PO DAILY [facility] Last Admin: 05/24/18 13:36 Dose: Not Given Baclofen (Lioresal -) 10 mg PO DAILY [facility] Last Admin: 05/24/18 10:00 Dose: Not Given Calcium Acetate (Phoslo -) 667 mg PO TIDCM [facility] Last Admin: 05/24/18 13:41 Dose: Not Given Collagenase (Santyl -) 1 applic TP DAILY [facility] Last Admin: 05/24/18 13:40 Dose: 1 applic Folic Acid (Folic Acid -) 1 mg PO DAILY [facility] Last Admin: 05/24/18 13:35 Dose: 1 mg Gabapentin (Neurontin -) 300 mg PO BID [facility] Last Admin: 05/24/18 13:34 Dose: 300 mg Heparin Sodium (Porcine) (Heparin -) 5,000 unit SQ BID [facility] Last Admin: 05/24/18 10:00 Dose: Not Given Hydralazine HCl (Apresoline -) 50 mg PO DAILY [facility] Last Admin: 05/24/18 11:35 Dose: 50 mg Ertapenem 0.5 gm/ Sodium (Chloride) 50 mls @ 100 mls/hr IVPB DAILY [facility] Last Admin: 05/24/18 13:37 Dose: 100 mls/hr Daptomycin 700 mg/ Sodium (Chloride) 50 mls @ 100 mls/hr IVPB [facility]; Protocol Last Admin: 05/24/18 13:11 Dose: 100 mls/hr Sodium Chloride (Normal Saline -) 250 mls @ 3,000 mls/hr IV PRN PRN PRN Reason: Hypotension during Dialysis Stop: 05/24/18 16:29 Insulin Detemir (Levemir Vial) 15 units SQ HS [facility] Last Admin: 05/23/18 21:29 Dose: 15 unit Isosorbide Mononitrate (Imdur -) 30 mg PO DAILY [facility] Last Admin: 05/24/18 11:38 Dose: 30 mg Levothyroxine Sodium (Synthroid -) 50 mcg PO AM [facility] Last Admin: 05/24/18 06:31 Dose: 50 mcg Metoprolol Succinate (Toprol Xl -) 200 mg PO DAILY [facility] Last Admin: 05/24/18 11:38 Dose: 200 mg Multivit/Ca Carb/B Cmplx/FA/Prenat (Nephro-Rebecca -) 1 tablet PO DAILY [facility] Last Admin: 05/24/18 13:38 Dose: 1 tablet Nystatin (Mycostatin Cream -) 1 applic TP DAILY [facility] Last Admin: 05/24/18 13:39 Dose: 1 applic Pantoprazole Sodium (Protonix -) 20 mg PO DAILY [facility] Last Admin: 05/24/18 13:35 Dose: 20 mg Senna (Senna -) 1 tab PO DAILY [facility] Last Admin: 05/24/18 13:43 Dose: Not Given - Objective Vital Signs: Vital Signs Temperature 98.2 F 05/24/18 06:00 Pulse Rate 88 05/24/18 13:08 Respiratory Rate 18 05/24/18 13:08 Blood Pressure 207/108 H 05/24/18 13:08 O2 Sat by Pulse Oximetry (%) 96 05/23/18 22:46 Constitutional: Yes: No Distress, Calm Cardiovascular: Yes: Regular Rate and Rhythm Respiratory: Yes: Regular, CTA Bilaterally Gastrointestinal: Yes: Normal Bowel Sounds, Soft Musculoskeletal: Yes: Other Extremities: Yes: Other Neurological: Yes: Alert, Oriented Psychiatric: Yes: Alert, Oriented Labs: CBC, BMP 05/24/18 06:30 05/24/18 06:30 Assessment/Plan Problem List - Problems (1) ESRD on hemodialysis Code(s): N18.6 - END STAGE RENAL DISEASE; Z99.2 - DEPENDENCE ON RENAL DIALYSIS (2) Insulin dependent diabetes mellitus Code(s): E11.9 - TYPE 2 DIABETES MELLITUS WITHOUT COMPLICATIONS; Z79.4 - BEAMER 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
[2018-05-24] MEDS ORDERED: PT OWN MED DRAWER 7, Y5N ONE (14:01)
[2018-05-24] MEDS: hydrALAZINE HCL 25 MG TABLET (FP) PO SCH (22:11)
[2018-05-24] MEDS: INSULIN (LEVEMIR) 100 UNITS/ML UNITS SQ SCH (22:11)
[2018-05-25] MEDS: LEVOTHYROXINE NA 50 MCG TABLET (FP) PO SCH (07:40)
[2018-05-25] MEDS: hydrALAZINE HCL 25 MG TABLET (FP) PO SCH ×3 (07:40→22:18)
[2018-05-25] MEDS: CALCIUM ACETATE 667 MG CAPSULE (FP) PO SCH ×3 (08:30→17:23)
[2018-05-25] MEDS ORDERED: PT OWN MED DRAWER 7, Y5N ONE ×2 (10:26→20:14)
[2018-05-25] MEDS: BACLOFEN 10 MG TABLET (FP) PO SCH (10:30)
[2018-05-25] MEDS: ISOSORBIDE MONONITRATE 30 MG TAB.SR.24H (FP) PO SCH (10:30)
[2018-05-25] MEDS: VITAMIN B COMP W-C 1 EA TABLET PO SCH (10:30)
[2018-05-25] MEDS: FOLIC ACID 1 MG TABLET (FP) PO SCH (10:30)
[2018-05-25] MEDS: GABAPENTIN 300 MG CAPSULE (FP) PO SCH ×2 (10:30→22:18)
[2018-05-25] MEDS: PANTOPRAZOLE 20 MG TABLET (FP) PO SCH (10:30)
[2018-05-25] MEDS: ASPIRIN 81 MG CHEWABLE TABLETS PO SCH (10:30)
[2018-05-25] MEDS: SENNOSIDES 8.6MG TABLET (FP) PO SCH (10:30)
[2018-05-25] MEDS: COLLAGENASE CLOSTRIDIUM HIST. 30 GRAMS TUBE TP SCH (10:31)
[2018-05-25] MEDS: ERTAPENEM SODIUM 0.5 GM in SODIUM CHLORIDE 50 ML IVPB SCH (10:31)
[2018-05-25] MEDS: HEPARIN NA (PORCINE) 5,000 UNITS/ML 1ML VIAL SQ SCH ×2 (10:31→22:18)
[2018-05-25] MEDS: NYSTATIN 100,000 UNIT/GM TOPICAL CREAM 15 GM TUBE TP SCH (10:32)
--- NOTE | 2018-05-25 11:46 | PN ---
Progress Note (short form) - Note Progress Note: Pt examined has small amount of loose stools good appetite Vital Signs - 24 hr 05/24/18 05/24/18 05/24/18 12:20 12:50 13:08 Temperature Pulse Rate 82 88 88 Respiratory 18 18 18 Rate Blood Pressure 183/101 H 191/106 H 207/108 H O2 Sat by Pulse Oximetry (%) 05/24/18 05/24/18 05/24/18 14:31 16:30 21:00 Temperature 98.3 F 99.8 F H Pulse Rate 91 H 86 Respiratory 20 20 20 Rate Blood Pressure 152/66 174/86 H O2 Sat by Pulse 96 Oximetry (%) 05/24/18 05/25/18 22:00 07:03 Temperature 99.3 F 98.1 F Pulse Rate 88 94 H Respiratory 20 20 Rate Blood Pressure 182/89 H O2 Sat by Pulse Oximetry (%) Current Medications Generic Name Dose Route Start Last Admin Trade Name Freq PRN Reason Stop Dose Admin Acetaminophen 1,000 mg 05/22/18 12:59 Tylenol - PO Q6H PRN MODERATE PAIN Aspirin 81 mg 05/21/18 10:00 05/25/18 10:30 Asa - PO 81 mg DAILY [facility] Administration Baclofen 10 mg 05/22/18 13:30 05/25/18 10:30 Lioresal - PO 10 mg DAILY [facility] Administration Calcium Acetate 667 mg 05/20/18 17:30 05/25/18 08:30 Phoslo - PO 667 mg TIDCM [facility] Administration Collagenase 1 applic 05/21/18 10:00 05/25/18 10:31 Santyl - TP 1 applic DAILY [facility] Administration Folic Acid 1 mg 05/21/18 10:00 05/25/18 10:30 Folic Acid - PO 1 mg DAILY [facility] Administration Gabapentin 300 mg 05/22/18 22:00 05/25/18 10:30 Neurontin - PO 300 mg BID [facility] Administration Heparin Sodium (Porcine) 5,000 unit 05/20/18 22:00 05/25/18 10:31 Heparin - SQ 5,000 unit BID [facility] Administration Hydralazine HCl 25 mg 05/24/18 22:00 05/25/18 07:40 Apresoline - PO Not Given TID [facility] Ertapenem 0.5 gm/ Sodium 50 mls @ 100 mls/hr 05/23/18 10:00 05/25/18 10:31 Chloride IVPB 100 mls/hr DAILY [facility] Administration Daptomycin 700 mg/ Sodium 50 mls @ 100 mls/hr 05/24/18 15:00 05/24/18 14:07 Chloride IVPB Not Given [facility] Protocol Insulin Detemir 15 units 05/20/18 22:00 05/24/18 22:11 Levemir Vial SQ 15 unit HS [facility] Administration Isosorbide Mononitrate 30 mg 05/21/18 10:00 05/25/18 10:30 Imdur - PO 30 mg DAILY [facility] Administration Levothyroxine Sodium 50 mcg 05/21/18 07:00 05/25/18 07:40 Synthroid - PO Not Given AM [facility] Metoprolol Succinate 200 mg 05/22/18 10:00 05/25/18 10:30 Toprol Xl - PO 200 mg DAILY [facility] Administration Multivit/Ca Carb/B Cmplx/FA/Prenat 1 tablet 05/21/18 10:00 05/25/18 10:30 Nephro-Rebecca - PO 1 tablet DAILY [facility] Administration Nystatin 1 applic 05/21/18 10:00 05/25/18 10:32 Mycostatin Cream - TP 1 applic DAILY [facility] Administration Pantoprazole Sodium 20 mg 05/21/18 10:00 05/25/18 10:30 Protonix - PO 20 mg DAILY [facility] Administration Senna 1 tab 05/21/18 10:00 05/25/18 10:30 Senna - PO 1 tab DAILY [facility] Administration Laboratory Results - last 24 hr 05/21/18 05/22/18 05/22/18 21:53 07:28 16:36 POC Glucometer 120 96 142 05/22/18 05/23/18 05/23/18 20:36 05:30 11:53 POC Glucometer 155 124 102 05/23/18 05/23/18 05/24/18 17:26 21:28 06:30 POC Glucometer 158 194 162 05/24/18 05/24/18 05/25/18 17:36 22:07 11:40 POC Glucometer 221 221 214 S1 S2 RRR Lungs decreased Permacath+ Abd- soft, NT left foot dressing in place Rt AKA PLAN IV antibiotics wound cultures noted spoke with ID pain meds-- increase Tylenol -- can not give opioids as he has a severe morphine allergy increase Neurontin HD per renal vascular /wound care radha noted-- santyl dressing Problem List - Problems (1) Above knee amputation of right lower extremity Code(s): Z89.611 - ACQUIRED ABSENCE OF RIGHT LEG ABOVE KNEE (2) ESRD on hemodialysis Code(s): N18.6 - END STAGE RENAL DISEASE; Z99.2 - DEPENDENCE ON RENAL DIALYSIS (3) Insulin dependent diabetes mellitus Code(s): E11.9 - TYPE 2 DIABETES MELLITUS WITHOUT COMPLICATIONS; Z79.4 - ENTERTAINMENT MUSICIAN (CURRENT) 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
[2018-05-25] MEDS: LACTOBACILLUS ACIDOPHILUS 1 TABLET PO SCH (13:04)
--- NOTE | 2018-05-25 14:29 | PN ---
Progress Note, Physician History of Present Illness: Pt is alert and denies having any specific problems at this time. Did not have loose BMs today and has no abd pain. Temp of 99.8F yesterday, currently afebrile. - Current Medication List Current Medications: Active Medications Acetaminophen (Tylenol -) 1,000 mg PO Q6H PRN PRN Reason: MODERATE PAIN Aspirin (Asa -) 81 mg PO DAILY [facility] Last Admin: 05/25/18 10:30 Dose: 81 mg Baclofen (Lioresal -) 10 mg PO DAILY [facility] Last Admin: 05/25/18 10:30 Dose: 10 mg Calcium Acetate (Phoslo -) 667 mg PO TIDCM [facility] Last Admin: 05/25/18 13:02 Dose: 667 mg Collagenase (Santyl -) 1 applic TP DAILY [facility] Last Admin: 05/25/18 10:31 Dose: 1 applic Folic Acid (Folic Acid -) 1 mg PO DAILY [facility] Last Admin: 05/25/18 10:30 Dose: 1 mg Gabapentin (Neurontin -) 300 mg PO BID [facility] Last Admin: 05/25/18 10:30 Dose: 300 mg Heparin Sodium (Porcine) (Heparin -) 5,000 unit SQ BID [facility] Last Admin: 05/25/18 10:31 Dose: 5,000 unit Hydralazine HCl (Apresoline -) 25 mg PO TID [facility] Last Admin: 05/25/18 13:04 Dose: 25 mg Ertapenem 0.5 gm/ Sodium (Chloride) 50 mls @ 100 mls/hr IVPB DAILY [facility] Last Admin: 05/25/18 10:31 Dose: 100 mls/hr Daptomycin 700 mg/ Sodium (Chloride) 50 mls @ 100 mls/hr IVPB [facility]FR [facility]; Protocol Last Admin: 05/24/18 14:07 Dose: Not Given Insulin Detemir (Levemir Vial) 15 units SQ HS [facility] Last Admin: 05/24/18 22:11 Dose: 15 unit Isosorbide Mononitrate (Imdur -) 30 mg PO DAILY [facility] Last Admin: 05/25/18 10:30 Dose: 30 mg Lactobacillus Acidophilus (Bacid -) 1 tab PO DAILY [facility] Last Admin: 05/25/18 13:04 Dose: 1 tab Levothyroxine Sodium (Synthroid -) 50 mcg PO AM [facility] Last Admin: 05/25/18 07:40 Dose: Not Given Metoprolol Succinate (Toprol Xl -) 200 mg PO DAILY [facility] Last Admin: 05/25/18 10:30 Dose: 200 mg Multivit/Ca Carb/B Cmplx/FA/Prenat (Nephro-Rebecca -) 1 tablet PO DAILY [facility] Last Admin: 05/25/18 10:30 Dose: 1 tablet Nystatin (Mycostatin Cream -) 1 applic TP DAILY [facility] Last Admin: 05/25/18 10:32 Dose: 1 applic Pantoprazole Sodium (Protonix -) 20 mg PO DAILY [facility] Last Admin: 05/25/18 10:30 Dose: 20 mg Senna (Senna -) 1 tab PO DAILY [facility] Last Admin: 05/25/18 10:30 Dose: 1 tab - Objective Vital Signs: Vital Signs Temperature 98.1 F 05/25/18 07:03 Pulse Rate 94 H 05/25/18 07:03 Respiratory Rate 20 05/25/18 07:03 Blood Pressure 182/89 H 05/24/18 22:00 O2 Sat by Pulse Oximetry (%) 96 05/25/18 09:00 Constitutional: Yes: No Distress, Calm Cardiovascular: Yes: Regular Rate and Rhythm Respiratory: Yes: Regular Gastrointestinal: Yes: Normal Bowel Sounds, Soft, Abdomen, Obese Extremities: Yes: Amputation (Rt aka), Other (LLE edema/dressing intact) Neurological: Yes: Alert Labs: CBC, BMP 05/24/18 06:30 05/24/18 06:30 CPK - within normal limits Problem List - Problems (1) ESRD on hemodialysis Code(s): N18.6 - END STAGE RENAL DISEASE; Z99.2 - DEPENDENCE ON RENAL DIALYSIS (2) Insulin dependent diabetes mellitus Code(s): E11.9 - TYPE 2 DIABETES MELLITUS WITHOUT COMPLICATIONS; Z79.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
--- NOTE | 2018-05-25 15:13 | PN ---
Progress Note, Physician History of Present Illness: Pt seen and examined at bedside. He denies shortness. He denies fevers or chills. - Current Medication List Current Medications: Active Medications Acetaminophen (Tylenol -) 1,000 mg PO Q6H PRN PRN Reason: MODERATE PAIN Aspirin (Asa -) 81 mg PO DAILY [facility] Last Admin: 05/25/18 10:30 Dose: 81 mg Baclofen (Lioresal -) 10 mg PO DAILY [facility] Last Admin: 05/25/18 10:30 Dose: 10 mg Calcium Acetate (Phoslo -) 667 mg PO TIDCM [facility] Last Admin: 05/25/18 13:02 Dose: 667 mg Collagenase (Santyl -) 1 applic TP DAILY [facility] Last Admin: 05/25/18 10:31 Dose: 1 applic Folic Acid (Folic Acid -) 1 mg PO DAILY [facility] Last Admin: 05/25/18 10:30 Dose: 1 mg Gabapentin (Neurontin -) 300 mg PO BID [facility] Last Admin: 05/25/18 10:30 Dose: 300 mg Heparin Sodium (Porcine) (Heparin -) 5,000 unit SQ BID [facility] Last Admin: 05/25/18 10:31 Dose: 5,000 unit Hydralazine HCl (Apresoline -) 25 mg PO TID [facility] Last Admin: 05/25/18 13:04 Dose: 25 mg Ertapenem 0.5 gm/ Sodium (Chloride) 50 mls @ 100 mls/hr IVPB DAILY [facility] Last Admin: 05/25/18 10:31 Dose: 100 mls/hr Daptomycin 700 mg/ Sodium (Chloride) 50 mls @ 100 mls/hr IVPB MOWEFR [facility]; Protocol Last Admin: 05/24/18 14:07 Dose: Not Given Insulin Detemir (Levemir Vial) 15 units SQ HS [facility] Last Admin: 05/24/18 22:11 Dose: 15 unit Isosorbide Mononitrate (Imdur -) 30 mg PO DAILY [facility] Last Admin: 05/25/18 10:30 Dose: 30 mg Lactobacillus Acidophilus (Bacid -) 1 tab PO DAILY [facility] Last Admin: 05/25/18 13:04 Dose: 1 tab Levothyroxine Sodium (Synthroid -) 50 mcg PO AM [facility] Last Admin: 05/25/18 07:40 Dose: Not Given Metoprolol Succinate (Toprol Xl -) 200 mg PO DAILY [facility] Last Admin: 05/25/18 10:30 Dose: 200 mg Multivit/Ca Carb/B Cmplx/FA/Prenat (Nephro-Rebecca -) 1 tablet PO DAILY [facility] Last Admin: 05/25/18 10:30 Dose: 1 tablet Nystatin (Mycostatin Cream -) 1 applic TP DAILY [facility] Last Admin: 05/25/18 10:32 Dose: 1 applic Pantoprazole Sodium (Protonix -) 20 mg PO DAILY [facility] Last Admin: 05/25/18 10:30 Dose: 20 mg Senna (Senna -) 1 tab PO DAILY [facility] Last Admin: 05/25/18 10:30 Dose: 1 tab - Objective Vital Signs: Vital Signs Temperature 98.1 F 05/25/18 07:03 Pulse Rate 94 H 05/25/18 07:03 Respiratory Rate 20 05/25/18 07:03 Blood Pressure 182/89 H 05/24/18 22:00 O2 Sat by Pulse Oximetry (%) 96 05/25/18 09:00 Constitutional: Yes: Calm Eyes: Yes: Conjunctiva Clear HENT: Yes: Atraumatic Neck: Yes: Supple Cardiovascular: Yes: S1, S2 Respiratory: Yes: CTA Bilaterally Gastrointestinal: Yes: Soft, Abdomen, Obese Genitourinary: Yes: WNL Edema: Yes Edema: RLE: 2+ Neurological: Yes: Oriented Psychiatric: Yes: Oriented Labs: CBC, BMP 05/24/18 06:30 05/24/18 06:30 Problem List - Problems (1) ESRD on hemodialysis Code(s): N18.6 - END STAGE RENAL DISEASE; Z99.2 - DEPENDENCE ON RENAL DIALYSIS (2) Non healing left heel wound Code(s): S91.302A - UNSPECIFIED OPEN WOUND, LEFT FOOT, INITIAL ENCOUNTER (3) HTN (hypertension) Code(s): I10 - ESSENTIAL (PRIMARY) HYPERTENSION Assessment/Plan Current Medications Generic Name Dose Route Start Last Admin Trade Name Freq PRN Reason Stop Dose Admin Acetaminophen 1,000 mg 05/22/18 12:59 Tylenol - PO Q6H PRN MODERATE PAIN Aspirin 81 mg 05/21/18 10:00 05/25/18 10:30 Asa - PO 81 mg DAILY [facility] Administration Baclofen 10 mg 05/22/18 13:30 05/25/18 10:30 Lioresal - PO 10 mg DAILY NOA Administration Calcium Acetate 667 mg 05/20/18 17:30 05/25/18 13:02 Phoslo - PO 667 mg TIDCM NOA Administration Collagenase 1 applic 05/21/18 10:00 05/25/18 10:31 Santyl - TP 1 applic DAILY NOA Administration Folic Acid 1 mg 05/21/18 10:00 05/25/18 10:30 Folic Acid - PO 1 mg DAILY NOA Administration Gabapentin 300 mg 05/22/18 22:00 05/25/18 10:30 Neurontin - PO 300 mg BID NOA Administration Heparin Sodium (Porcine) 5,000 unit 05/20/18 22:00 05/25/18 10:31 Heparin - SQ 5,000 unit BID NOA Administration Hydralazine HCl 25 mg 05/24/18 22:00 05/25/18 13:04 Apresoline - PO 25 mg TID NOA Administration Ertapenem 0.5 gm/ Sodium 50 mls @ 100 mls/hr 05/23/18 10:00 05/25/18 10:31 Chloride IVPB 100 mls/hr DAILY NOA Administration Daptomycin 700 mg/ Sodium 50 mls @ 100 mls/hr 05/24/18 15:00 05/24/18 14:07 Chloride IVPB Not Given [facility]EFR [facility] Protocol Insulin Detemir 15 units 05/20/18 22:00 05/24/18 22:11 Levemir Vial SQ 15 unit HS NOA Administration Isosorbide Mononitrate 30 mg 05/21/18 10:00 05/25/18 10:30 Imdur - PO 30 mg DAILY NOA Administration Lactobacillus Acidophilus 1 tab 05/25/18 12:15 05/25/18 13:04 Bacid - PO 1 tab DAILY NOA Administration Levothyroxine Sodium 50 mcg 05/21/18 07:00 05/25/18 07:40 Synthroid - PO Not Given AM [facility] Metoprolol Succinate 200 mg 05/22/18 10:00 05/25/18 10:30 Toprol Xl - PO 200 mg DAILY NOA Administration Multivit/Ca Carb/B Cmplx/FA/Prenat 1 tablet 05/21/18 10:00 05/25/18 10:30 Nephro-Rebecca - PO 1 tablet DAILY NOA Administration Nystatin 1 applic 05/21/18 10:00 05/25/18 10:32 Mycostatin Cream - TP 1 applic DAILY NOA Administration Pantoprazole Sodium 20 mg 05/21/18 10:00 05/25/18 10:30 Protonix - PO 20 mg DAILY NOA Administration Senna 1 tab 05/21/18 10:00 05/25/18 10:30 Senna - PO 1 tab DAILY NOA Administration Impression 1. ESRD 2. DM 3. HTN 4. anemia 5. left leg ulcer 6. hypothyroidism Plan - next HD on Sunday - abx per ID - renal diet - epogen for anemia - cont wound care to leg - will follow Dr Apodaca
[2018-05-25] MEDS: INSULIN (LEVEMIR) 100 UNITS/ML UNITS SQ SCH (22:18)
[2018-05-26] MEDS: hydrALAZINE HCL 25 MG TABLET (FP) PO SCH ×3 (07:02→22:10)
[2018-05-26] MEDS: LEVOTHYROXINE NA 50 MCG TABLET (FP) PO SCH (07:02)
[2018-05-26 07:16] LABS: BASO % 0.9 % (0-2.0); EOS % 3.1 % (0-4.5); HEMATOCRIT 29.6 % (35.4-49); HEMOGLOBIN 9.7 GM/dL (11.7-16.9); LYMPH % 12.5 % (8-40); MCH 29.8 pg (25.7-33.7); MCHC 32.6 g/dl (32.0-35.9); MEAN CELL VOLUME 91.2 fl (80-96); MEAN PLT VOLUME 7.6 fl (7.5-11.1); MONO % 6.1 % (3.8-10.2); NEUT % 77.4 % (42.8-82.8); PLATELET COUNT 331 K/MM3 (134-434); RBC 3.24 M/mm3 (4.00-5.60); RDW 21.8 % (11.9-15.9); WHITE BLOOD COUNT 13.6 K/mm3 (4.0-10.0)
[2018-05-26] MEDS: CALCIUM ACETATE 667 MG CAPSULE (FP) PO SCH ×3 (08:52→17:07)
[2018-05-26] MEDS: LACTOBACILLUS ACIDOPHILUS 1 TABLET PO SCH (11:02)
[2018-05-26] MEDS: GABAPENTIN 300 MG CAPSULE (FP) PO SCH ×2 (11:03→22:10)
[2018-05-26] MEDS: BACLOFEN 10 MG TABLET (FP) PO SCH (11:03)
[2018-05-26] MEDS: FOLIC ACID 1 MG TABLET (FP) PO SCH (11:03)
[2018-05-26] MEDS: ISOSORBIDE MONONITRATE 30 MG TAB.SR.24H (FP) PO SCH (11:04)
[2018-05-26] MEDS: ASPIRIN 81 MG CHEWABLE TABLETS PO SCH (11:04)
[2018-05-26] MEDS: VITAMIN B COMP W-C 1 EA TABLET PO SCH (11:04)
[2018-05-26] MEDS: PANTOPRAZOLE 20 MG TABLET (FP) PO SCH (11:04)
[2018-05-26] MEDS: ERTAPENEM SODIUM 0.5 GM in SODIUM CHLORIDE 50 ML IVPB SCH (11:04)
[2018-05-26] MEDS: SENNOSIDES 8.6MG TABLET (FP) PO SCH (11:06)
[2018-05-26] MEDS: HEPARIN NA (PORCINE) 5,000 UNITS/ML 1ML VIAL SQ SCH ×2 (11:06→22:10)
--- NOTE | 2018-05-26 11:12 | PN ---
Progress Note (short form) - Note Progress Note: Pt examined has small amount of loose stools' itching all over back no rash noted Vital Signs - 24 hr 05/25/18 05/25/18 05/26/18 16:14 21:00 00:28 Temperature 98.2 F 98.4 F Pulse Rate 88 85 Respiratory 20 20 20 Rate Blood Pressure 160/90 176/90 H 05/26/18 06:00 Temperature 98.1 F Pulse Rate 89 Respiratory 20 Rate Blood Pressure 170/90 Current Medications Generic Name Dose Route Start Last Admin Trade Name Freq PRN Reason Stop Dose Admin Acetaminophen 1,000 mg 05/22/18 12:59 05/26/18 08:52 Tylenol - PO 1,000 mg Q6H PRN Administration MODERATE PAIN Aspirin 81 mg 05/21/18 10:00 05/26/18 11:04 Asa - PO 81 mg DAILY NOA Administration Baclofen 10 mg 05/22/18 13:30 05/26/18 11:03 Lioresal - PO 10 mg DAILY NOA Administration Calcium Acetate 667 mg 05/20/18 17:30 05/26/18 11:03 Phoslo - PO 667 mg TIDCM NOA Administration Collagenase 1 applic 05/21/18 10:00 05/25/18 10:31 Santyl - TP 1 applic DAILY NOA Administration Diphenhydramine HCl 25 mg 05/26/18 11:28 Benadryl Injection - IVPB Q8H PRN FOR ITCHING Folic Acid 1 mg 05/21/18 10:00 05/26/18 11:03 Folic Acid - PO 1 mg DAILY NOA Administration Gabapentin 300 mg 05/22/18 22:00 05/26/18 11:03 Neurontin - PO 300 mg BID NOA Administration Heparin Sodium (Porcine) 5,000 unit 05/20/18 22:00 05/26/18 11:06 Heparin - SQ 5,000 unit BID NOA Administration Hydralazine HCl 25 mg 05/24/18 22:00 05/26/18 07:02 Apresoline - PO 25 mg TID NOA Administration Ertapenem 0.5 gm/ Sodium 50 mls @ 100 mls/hr 05/23/18 10:00 05/26/18 11:04 Chloride IVPB 100 mls/hr DAILY NOA Administration Daptomycin 700 mg/ Sodium 50 mls @ 100 mls/hr 05/24/18 15:00 05/24/18 14:07 Chloride IVPB Not Given [facility] Protocol Insulin Detemir 15 units 05/20/18 22:00 05/25/18 22:18 Levemir Vial SQ 15 unit HS NOA Administration Isosorbide Mononitrate 30 mg 05/21/18 10:00 05/26/18 11:04 Imdur - PO 30 mg DAILY NOA Administration Lactobacillus Acidophilus 1 tab 05/25/18 12:15 05/26/18 11:02 Bacid - PO 1 tab DAILY NOA Administration Levothyroxine Sodium 50 mcg 05/21/18 07:00 05/26/18 07:02 Synthroid - PO 50 mcg AM NOA Administration Metoprolol Succinate 200 mg 05/22/18 10:00 05/26/18 11:06 Toprol Xl - PO Not Given DAILY [facility] Multivit/Ca Carb/B Cmplx/FA/Prenat 1 tablet 05/21/18 10:00 05/26/18 11:04 Nephro-Rebecca - PO 1 tablet DAILY NOA Administration Nystatin 1 applic 05/21/18 10:00 05/25/18 10:32 Mycostatin Cream - TP 1 applic DAILY NOA Administration Pantoprazole Sodium 20 mg 05/21/18 10:00 05/26/18 11:04 Protonix - PO 20 mg DAILY NOA Administration Senna 1 tab 05/21/18 10:00 05/26/18 11:06 Senna - PO Not Given DAILY [facility] Laboratory Results - last 24 hr 05/25/18 05/25/18 05/26/18 17:22 22:16 06:00 WBC 13.6 H RBC 3.24 L Hgb 9.7 L Hct 29.6 L MCV 91.2 MCH 29.8 MCHC 32.6 RDW 21.8 H Plt Count 331 MPV 7.6 Absolute Neuts (auto) 10.6 H Neutrophils % 77.4 Lymphocytes % 12.5 Monocytes % 6.1 Eosinophils % 3.1 Basophils % 0.9 Nucleated RBC % 0 POC Glucometer 180 174 05/26/18 05/26/18 07:01 11:12 WBC RBC Hgb Hct MCV MCH MCHC RDW Plt Count MPV Absolute Neuts (auto) Neutrophils % Lymphocytes % Monocytes % Eosinophils % Basophils % Nucleated RBC % POC Glucometer 147 148 S1 S2 RRR Lungs decreased Permacath+ Abd- soft, NT left foot dressing in place Rt AKA PLAN IV antibiotics wound cultures noted pain meds-- can not give opioids as he has a severe morphine allergy start Benadryl iv prn HD per renal vascular /wound care radha noted-- santyl dressing will need terminal worker antibiotics Problem List - Problems (1) Above knee amputation of right lower extremity Code(s): Z89.611 - ACQUIRED ABSENCE OF RIGHT LEG ABOVE KNEE (2) ESRD on hemodialysis Code(s): N18.6 - END STAGE RENAL DISEASE; Z99.2 - DEPENDENCE ON RENAL DIALYSIS (3) Insulin dependent diabetes mellitus Code(s): E11.9 - TYPE 2 DIABETES MELLITUS WITHOUT COMPLICATIONS; Z79.4 - USP (CURRENT) 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
--- NOTE | 2018-05-26 12:52 | PN ---
Progress Note, Physician History of Present Illness: Pt afebrile. Reports one BM today but no abd discomfort. - Current Medication List Current Medications: Active Medications Acetaminophen (Tylenol -) 1,000 mg PO Q6H PRN PRN Reason: MODERATE PAIN Last Admin: 05/26/18 08:52 Dose: 1,000 mg Aspirin (Asa -) 81 mg PO DAILY [facility] Last Admin: 05/26/18 11:04 Dose: 81 mg Baclofen (Lioresal -) 10 mg PO DAILY [facility] Last Admin: 05/26/18 11:03 Dose: 10 mg Calcium Acetate (Phoslo -) 667 mg PO TIDCM [facility] Last Admin: 05/26/18 11:03 Dose: 667 mg Collagenase (Santyl -) 1 applic TP DAILY [facility] Last Admin: 05/25/18 10:31 Dose: 1 applic Diphenhydramine HCl (Benadryl Injection -) 25 mg IVPB Q8H PRN PRN Reason: FOR ITCHING Last Admin: 05/26/18 12:15 Dose: 25 mg Folic Acid (Folic Acid -) 1 mg PO DAILY [facility] Last Admin: 05/26/18 11:03 Dose: 1 mg Gabapentin (Neurontin -) 300 mg PO BID [facility] Last Admin: 05/26/18 11:03 Dose: 300 mg Heparin Sodium (Porcine) (Heparin -) 5,000 unit SQ BID [facility] Last Admin: 05/26/18 11:06 Dose: 5,000 unit Hydralazine HCl (Apresoline -) 25 mg PO TID [facility] Last Admin: 05/26/18 07:02 Dose: 25 mg Ertapenem 0.5 gm/ Sodium (Chloride) 50 mls @ 100 mls/hr IVPB DAILY [facility] Last Admin: 05/26/18 11:04 Dose: 100 mls/hr Daptomycin 700 mg/ Sodium (Chloride) 50 mls @ 100 mls/hr IVPB [facility]; Protocol Last Admin: 05/24/18 14:07 Dose: Not Given Insulin Detemir (Levemir Vial) 15 units SQ HS [facility] Last Admin: 05/25/18 22:18 Dose: 15 unit Isosorbide Mononitrate (Imdur -) 30 mg PO DAILY [facility] Last Admin: 05/26/18 11:04 Dose: 30 mg Lactobacillus Acidophilus (Bacid -) 1 tab PO DAILY [facility] Last Admin: 05/26/18 11:02 Dose: 1 tab Levothyroxine Sodium (Synthroid -) 50 mcg PO AM [facility] Last Admin: 05/26/18 07:02 Dose: 50 mcg Metoprolol Succinate (Toprol Xl -) 200 mg PO DAILY [facility] Last Admin: 05/26/18 11:06 Dose: Not Given Multivit/Ca Carb/B Cmplx/FA/Prenat (Nephro-Rebecca -) 1 tablet PO DAILY [facility] Last Admin: 05/26/18 11:04 Dose: 1 tablet Nystatin (Mycostatin Cream -) 1 applic TP DAILY [facility] Last Admin: 05/25/18 10:32 Dose: 1 applic Pantoprazole Sodium (Protonix -) 20 mg PO DAILY [facility] Last Admin: 05/26/18 11:04 Dose: 20 mg Senna (Senna -) 1 tab PO DAILY [facility] Last Admin: 05/26/18 11:06 Dose: Not Given - Objective Vital Signs: Vital Signs Temperature 98.1 F 05/26/18 06:00 Pulse Rate 89 05/26/18 06:00 Respiratory Rate 05/26/18 06:00 Blood Pressure 170/90 05/26/18 06:00 O2 Sat by Pulse Oximetry (%) 96 05/25/18 09:00 Constitutional: Yes: No Distress, Calm Cardiovascular: Yes: Regular Rate and Rhythm Respiratory: Yes: Regular Gastrointestinal: Yes: Normal Bowel Sounds, Soft, Abdomen, Obese Extremities: Yes: Other (Rt AKA, LLE lymphedema) Integumentary: Yes: WNL Wound/Incision: Yes: Other (Lt foot dressing intact, LLE lymphedema) Neurological: Yes: Alert Labs: CBC, BMP 05/26/18 06:00 05/24/18 06:30 Microbiology 05/24/18 05:14 Stool Clostridium difficile Antigen ([place]) - Final 05/24/18 05:14 Stool Clostridium difficile Toxin Assay - Final 05/20/18 09:50 Foot - Left Plantar Gram Stain - Final 05/20/18 09:50 Foot - Left Plantar Wound Culture - Final Proteus Mirabilis Klebsiella Pneumoniae Staphylococcus Aureus Vr Ec Faecalis Escherichia Coli Problem List - Problems (1) ESRD on hemodialysis Code(s): N18.6 - END STAGE RENAL DISEASE; Z99.2 - DEPENDENCE ON RENAL DIALYSIS (2) Insulin dependent diabetes mellitus Code(s): E11.9 - TYPE 2 DIABETES MELLITUS WITHOUT COMPLICATIONS; Z79.4 - RETIREMENT (CURRENT) USE OF INSULIN (3) Legally blind Code(s): H54.8 - LEGAL BLINDNESS, DEFINED IN [place] (4) Non healing left heel wound Code(s): S91.302A - UNSPECIFIED OPEN WOUND, LEFT FOOT, INITIAL ENCOUNTER (5) Allergic reaction Code(s): T78.40XA - ALLERGY, UNSPECIFIED, INITIAL ENCOUNTER Assessment/Plan Lt plantar ulcer infection/OM DM ESRD on HD Legally blind Anemia Allergic reaction to Zosyn - Continue Ertapenem/Daptomycin - CDT neg/Ag +, no diarrhea today - repeat cpk in one week - pt is afebrile, leukocytosis improving - continue wound care
[2018-05-26] MEDS: NYSTATIN 100,000 UNIT/GM TOPICAL CREAM 15 GM TUBE TP SCH (15:10)
--- NOTE | 2018-05-26 17:16 | PN ---
Progress Note, Physician History of Present Illness: Pt seen and examined at bedside. He is awake and alert. He denies fevers or chills. - Current Medication List Current Medications: Active Medications Acetaminophen (Tylenol -) 1,000 mg PO Q6H PRN PRN Reason: MODERATE PAIN Last Admin: 05/26/18 08:52 Dose: 1,000 mg Aspirin (Asa -) 81 mg PO DAILY [facility] Last Admin: 05/26/18 11:04 Dose: 81 mg Baclofen (Lioresal -) 10 mg PO DAILY [facility] Last Admin: 05/26/18 11:03 Dose: 10 mg Calcium Acetate (Phoslo -) 667 mg PO TIDCM [facility] Last Admin: 05/26/18 17:07 Dose: 667 mg Collagenase (Santyl -) 1 applic TP DAILY [facility] Last Admin: 05/25/18 10:31 Dose: 1 applic Diphenhydramine HCl (Benadryl Injection -) 25 mg IVPB Q8H PRN PRN Reason: FOR ITCHING Last Admin: 05/26/18 12:15 Dose: 25 mg Folic Acid (Folic Acid -) 1 mg PO DAILY [facility] Last Admin: 05/26/18 11:03 Dose: 1 mg Gabapentin (Neurontin -) 300 mg PO BID [facility] Last Admin: 05/26/18 11:03 Dose: 300 mg Heparin Sodium (Porcine) (Heparin -) 5,000 unit SQ BID [facility] Last Admin: 05/26/18 11:06 Dose: 5,000 unit Hydralazine HCl (Apresoline -) 25 mg PO TID [facility] Last Admin: 05/26/18 15:09 Dose: 25 mg Ertapenem 0.5 gm/ Sodium (Chloride) 50 mls @ 100 mls/hr IVPB DAILY [facility] Last Admin: 05/26/18 11:04 Dose: 100 mls/hr Daptomycin 700 mg/ Sodium (Chloride) 50 mls @ 100 mls/hr IVPB [facility]; Protocol Last Admin: 05/24/18 14:07 Dose: Not Given Insulin Detemir (Levemir Vial) 15 units SQ HS [facility] Last Admin: 05/25/18 22:18 Dose: 15 unit Isosorbide Mononitrate (Imdur -) 30 mg PO DAILY [facility] Last Admin: 05/26/18 11:04 Dose: 30 mg Lactobacillus Acidophilus (Bacid -) 1 tab PO DAILY [facility] Last Admin: 05/26/18 11:02 Dose: 1 tab Levothyroxine Sodium (Synthroid -) 50 mcg PO AM [facility] Last Admin: 05/26/18 07:02 Dose: 50 mcg Metoprolol Succinate (Toprol Xl -) 200 mg PO DAILY [facility] Last Admin: 05/26/18 11:06 Dose: Not Given Multivit/Ca Carb/B Cmplx/FA/Prenat (Nephro-Rebecca -) 1 tablet PO DAILY [facility] Last Admin: 05/26/18 11:04 Dose: 1 tablet Nystatin (Mycostatin Cream -) 1 applic TP DAILY [facility] Last Admin: 05/26/18 15:10 Dose: 1 applic Pantoprazole Sodium (Protonix -) 20 mg PO DAILY [facility] Last Admin: 05/26/18 11:04 Dose: 20 mg Senna (Senna -) 1 tab PO DAILY [facility] Last Admin: 05/26/18 11:06 Dose: Not Given - Objective Vital Signs: Vital Signs Temperature 98.4 F 05/26/18 14:54 Pulse Rate 88 05/26/18 14:54 Respiratory Rate 05/26/18 14:54 Blood Pressure 168/84 05/26/18 13:00 O2 Sat by Pulse Oximetry (%) 98 05/26/18 09:00 Constitutional: Yes: Calm Eyes: Yes: Conjunctiva Clear HENT: Yes: Atraumatic Neck: Yes: Supple Cardiovascular: Yes: S1, S2 Respiratory: Yes: CTA Bilaterally Gastrointestinal: Yes: Soft, Abdomen, Obese Genitourinary: Yes: WNL Musculoskeletal: Yes: Other (left aka) Edema: RLE: 1+ Integumentary: Yes: Tattoos Wound/Incision: Yes: Dressing Dry and Intact Neurological: Yes: Oriented Psychiatric: Yes: Oriented Labs: CBC, BMP 05/26/18 06:00 05/24/18 06:30 Problem List - Problems (1) ESRD on hemodialysis Code(s): N18.6 - END STAGE RENAL DISEASE; Z99.2 - DEPENDENCE ON RENAL DIALYSIS (2) Non healing left heel wound Code(s): S91.302A - UNSPECIFIED OPEN WOUND, LEFT FOOT, INITIAL ENCOUNTER (3) HTN (hypertension) Code(s): I10 - ESSENTIAL (PRIMARY) HYPERTENSION Assessment/Plan Current Medications Generic Name Dose Route Start Last Admin Trade Name Freq PRN Reason Stop Dose Admin Acetaminophen 1,000 mg 05/22/18 12:59 05/26/18 08:52 Tylenol - PO 1,000 mg Q6H PRN Administration MODERATE PAIN Aspirin 81 mg 05/21/18 10:00 05/26/18 11:04 Asa - PO 81 mg DAILY NO[facility] Administration Baclofen 10 mg 05/22/18 13:30 05/26/18 11:03 Lioresal - PO 10 mg DAILY NO[facility] Administration Calcium Acetate 667 mg 05/20/18 17:30 05/26/18 17:07 Phoslo - PO 667 mg TIDCM NOA Administration Collagenase 1 applic 05/21/18 10:00 05/25/18 10:31 Santyl - TP 1 applic DAILY NO[facility] Administration Diphenhydramine HCl 25 mg 05/26/18 11:28 05/26/18 12:15 Benadryl Injection - IVPB 25 mg Q8H PRN Administration FOR ITCHING Folic Acid 1 mg 05/21/18 10:00 05/26/18 11:03 Folic Acid - PO 1 mg DAILY NOA Administration Gabapentin 300 mg 05/22/18 22:00 05/26/18 11:03 Neurontin - PO 300 mg BID NOA Administration Heparin Sodium (Porcine) 5,000 unit 05/20/18 22:00 05/26/18 11:06 Heparin - SQ 5,000 unit BID NO[facility] Administration Hydralazine HCl 25 mg 05/24/18 22:00 05/26/18 15:09 Apresoline - PO 25 mg TID NO[facility] Administration Ertapenem 0.5 gm/ Sodium 50 mls @ 100 mls/hr 05/23/18 10:00 05/26/18 11:04 Chloride IVPB 100 mls/hr DAILY [facility] Administration Daptomycin 700 mg/ Sodium 50 mls @ 100 mls/hr 05/24/18 15:00 05/24/18 14:07 Chloride IVPB Not Given [facility] Protocol Insulin Detemir 15 units 05/20/18 22:00 05/25/18 22:18 Levemir Vial SQ 15 unit HS [facility] Administration Isosorbide Mononitrate 30 mg 05/21/18 10:00 05/26/18 11:04 Imdur - PO 30 mg DAILY [facility] Administration Lactobacillus Acidophilus 1 tab 05/25/18 12:15 05/26/18 11:02 Bacid - PO 1 tab DAILY [facility] Administration Levothyroxine Sodium 50 mcg 05/21/18 07:00 05/26/18 07:02 Synthroid - PO 50 mcg AM [facility] Administration Metoprolol Succinate 200 mg 05/22/18 10:00 05/26/18 11:06 Toprol Xl - PO Not Given DAILY [facility] Multivit/Ca Carb/B Cmplx/FA/Prenat 1 tablet 05/21/18 10:00 05/26/18 11:04 Nephro-Rebecca - PO 1 tablet DAILY [facility] Administration Nystatin 1 applic 05/21/18 10:00 05/26/18 15:10 Mycostatin Cream - TP 1 applic DAILY [facility] Administration Pantoprazole Sodium 20 mg 05/21/18 10:00 05/26/18 11:04 Protonix - PO 20 mg DAILY [facility] Administration Senna 1 tab 05/21/18 10:00 05/26/18 11:06 Senna - PO Not Given DAILY [facility] Impression 1. ESRD 2. DM 3. HTN 4. anemia 5. left leg ulcer 6. hypothyroidism Plan - HD tomorrow - abx per ID - renal diet - epogen for anemia - cont wound care to leg - will follow Dr Apodaca
[2018-05-26] MEDS: COLLAGENASE CLOSTRIDIUM HIST. 30 GRAMS TUBE TP SCH (18:01)
[2018-05-26] MEDS: INSULIN (LEVEMIR) 100 UNITS/ML UNITS SQ SCH (22:10)
[2018-05-27] MEDS: hydrALAZINE HCL 25 MG TABLET (FP) PO SCH ×3 (06:52→22:50)
[2018-05-27] MEDS: LEVOTHYROXINE NA 50 MCG TABLET (FP) PO SCH (06:52)
[2018-05-27] MEDS: CALCIUM ACETATE 667 MG CAPSULE (FP) PO SCH ×3 (08:37→17:59)
[2018-05-27] MEDS ORDERED: SODIUM CHLORIDE 250 ML IV PRN (09:39)
[2018-05-27] MEDS ORDERED: EPOETIN ALFA 10,000 UNIT/1 ML VIAL IVPUSH ONE (10:00)
[2018-05-27 10:16] LABS: HEMATOCRIT 30.9 % (35.4-49); HEMOGLOBIN 10.3 GM/dL (11.7-16.9); MCH 30.3 pg (25.7-33.7); MCHC 33.4 g/dl (32.0-35.9); MEAN CELL VOLUME 90.6 fl (80-96); MEAN PLT VOLUME 7.8 fl (7.5-11.1); PLATELET COUNT 383 K/MM3 (134-434); RBC 3.41 M/mm3 (4.00-5.60); RDW 21.1 % (11.9-15.9)
[2018-05-27 10:54] LABS: ANION GAP 12 MMOL/L (8-16); BLOOD UREA NITROGEN 61 mg/dL (7-18); CALCIUM 8.2 mg/dL (8.5-10.1); CHLORIDE 99 mmol/L (98-107); CO2 26 mmol/L (21-32); GLUCOSE,RANDOM 126 mg/dL (74-106); POTASSIUM 4.2 mmol/L (3.5-5.1); SODIUM 137 mmol/L (136-145)
[2018-05-27 11:11] LABS: CREATININE 7.9 mg/dL (0.55-1.3)
--- NOTE | 2018-05-27 12:04 | PN ---
Progress Note (short form) - Note Progress Note: pt seen/ examined chart reviewed Comfortable itching better Vital Signs Temp 99.8 F H 05/27/18 06:00 Pulse 82 05/27/18 06:00 Resp 20 05/27/18 06:00 BP 161/82 05/27/18 06:00 Pulse Ox 98 05/26/18 09:00 Intake & Output 05/26/18 05/27/18 05/27/18 23:59 11:59 23:59 Intake Total 600 240 Balance 600 240 Weight 255 lb Intake: IVPB 100 Oral 500 Oral Supplement 240 Other: Voiding Method Bedpan Diaper Bowel Movement Yes Yes # Bowel Movements 2 1 Active Medications Acetaminophen (Tylenol -) 1,000 mg PO Q6H PRN PRN Reason: MODERATE PAIN Last Admin: 05/26/18 08:52 Dose: 1,000 mg Aspirin (Asa -) 81 mg PO DAILY [facility] Last Admin: 05/26/18 11:04 Dose: 81 mg Baclofen (Lioresal -) 10 mg PO DAILY [facility] Last Admin: 05/26/18 11:03 Dose: 10 mg Calcium Acetate (Phoslo -) 667 mg PO TIDCM [facility] Last Admin: 05/27/18 08:37 Dose: 667 mg Collagenase (Santyl -) 1 applic TP DAILY [facility] Last Admin: 05/26/18 18:01 Dose: 1 applic Diphenhydramine HCl (Benadryl Injection -) 25 mg IVPB Q8H PRN PRN Reason: FOR ITCHING Last Admin: 05/26/18 12:15 Dose: 25 mg Folic Acid (Folic Acid -) 1 mg PO DAILY [facility] Last Admin: 05/26/18 11:03 Dose: 1 mg Gabapentin (Neurontin -) 300 mg PO BID [facility] Last Admin: 05/26/18 22:10 Dose: 300 mg Heparin Sodium (Porcine) (Heparin -) 5,000 unit SQ BID [facility] Last Admin: 05/26/18 22:10 Dose: 5,000 unit Hydralazine HCl (Apresoline -) 25 mg PO TID [facility] Last Admin: 05/27/18 06:52 Dose: 25 mg Ertapenem 0.5 gm/ Sodium (Chloride) 50 mls @ 100 mls/hr IVPB DAILY [facility] Last Admin: 05/26/18 11:04 Dose: 100 mls/hr Daptomycin 700 mg/ Sodium (Chloride) 50 mls @ 100 mls/hr IVPB MOWEFR [facility]; Protocol Last Admin: 05/24/18 14:07 Dose: Not Given Insulin Detemir (Levemir Vial) 15 units SQ HS [facility] Last Admin: 05/26/18 22:10 Dose: 15 unit Isosorbide Mononitrate (Imdur -) 30 mg PO DAILY [facility] Last Admin: 05/26/18 11:04 Dose: 30 mg Lactobacillus Acidophilus (Bacid -) 1 tab PO DAILY [facility] Last Admin: 05/26/18 11:02 Dose: 1 tab Levothyroxine Sodium (Synthroid -) 50 mcg PO AM [facility] Last Admin: 05/27/18 06:52 Dose: 50 mcg Metoprolol Succinate (Toprol Xl -) 200 mg PO DAILY [facility] Last Admin: 05/26/18 11:06 Dose: Not Given Multivit/Ca Carb/B Cmplx/FA/Prenat (Nephro-Rebecca -) 1 tablet PO DAILY [facility] Last Admin: 05/26/18 11:04 Dose: 1 tablet Nystatin (Mycostatin Cream -) 1 applic TP DAILY [facility] Last Admin: 05/26/18 15:10 Dose: 1 applic Pantoprazole Sodium (Protonix -) 20 mg PO DAILY [facility] Last Admin: 05/26/18 11:04 Dose: 20 mg Senna (Senna -) 1 tab PO DAILY [facility] Last Admin: 05/26/18 11:06 Dose: Not Given CBC, BMP 05/27/18 09:50 05/27/18 09:50 PHYSICAL EXAM S1 S2 RRR Lungs decreased Permacath+ Abd- soft, NT left foot dressing in place Rt AKA PLAN Clinically stable Meds reviewed IV antibiotics--- As per ID ID on case HD per renal ---today vascular /wound care eval noted Monitor blood pressure Will follow Problem List - Problems (1) Insulin dependent diabetes mellitus Code(s): E11.9 - TYPE 2 DIABETES MELLITUS WITHOUT COMPLICATIONS; Z79.4 - LEAK DETECTOR (CURRENT) USE OF INSULIN (2) Legally blind Code(s): H54.8 - LEGAL BLINDNESS, DEFINED IN [place] (3) Above knee amputation of right lower extremity Code(s): Z89.611 - ACQUIRED ABSENCE OF RIGHT LEG ABOVE KNEE (4) ESRD on hemodialysis Code(s): N18.6 - END STAGE RENAL DISEASE; Z99.2 - DEPENDENCE ON RENAL DIALYSIS (5) Non healing left heel wound Code(s): S91.302A - UNSPECIFIED OPEN WOUND, LEFT FOOT, INITIAL ENCOUNTER (6) HTN (hypertension) Code(s): I10 - ESSENTIAL (PRIMARY) HYPERTENSION
[2018-05-27] MEDS: LACTOBACILLUS ACIDOPHILUS 1 TABLET PO SCH (12:10)
[2018-05-27] MEDS: ISOSORBIDE MONONITRATE 30 MG TAB.SR.24H (FP) PO SCH (12:10)
[2018-05-27] MEDS: HEPARIN NA (PORCINE) 5,000 UNITS/ML 1ML VIAL SQ SCH (12:10)
[2018-05-27] MEDS: GABAPENTIN 300 MG CAPSULE (FP) PO SCH ×2 (12:11→22:50)
[2018-05-27] MEDS: PANTOPRAZOLE 20 MG TABLET (FP) PO SCH (12:11)
[2018-05-27] MEDS: FOLIC ACID 1 MG TABLET (FP) PO SCH (12:11)
[2018-05-27] MEDS: ASPIRIN 81 MG CHEWABLE TABLETS PO SCH (12:11)
[2018-05-27] MEDS: BACLOFEN 10 MG TABLET (FP) PO SCH (12:11)
[2018-05-27] MEDS ORDERED: PT OWN MED DRAWER 7, Y5N ONE (12:13)
[2018-05-27] MEDS: VITAMIN B COMP W-C 1 EA TABLET PO SCH (12:13)
[2018-05-27] MEDS: NYSTATIN 100,000 UNIT/GM TOPICAL CREAM 15 GM TUBE TP SCH (12:18)
[2018-05-27] MEDS: SENNOSIDES 8.6MG TABLET (FP) PO SCH (12:19)
--- NOTE | 2018-05-27 13:05 | PN ---
Progress Note, Physician History of Present Illness: patient stable doing well no new issues - Current Medication List Current Medications: Active Medications Acetaminophen (Tylenol -) 1,000 mg PO Q6H PRN PRN Reason: MODERATE PAIN Last Admin: 05/26/18 08:52 Dose: 1,000 mg Aspirin (Asa -) 81 mg PO DAILY [facility] Last Admin: 05/27/18 12:11 Dose: 81 mg Baclofen (Lioresal -) 10 mg PO DAILY [facility] Last Admin: 05/27/18 12:11 Dose: 10 mg Calcium Acetate (Phoslo -) 667 mg PO TIDCM [facility] Last Admin: 05/27/18 12:13 Dose: 667 mg Collagenase (Santyl -) 1 applic TP DAILY [facility] Last Admin: 05/26/18 18:01 Dose: 1 applic Diphenhydramine HCl (Benadryl Injection -) 25 mg IVPB Q8H PRN PRN Reason: FOR ITCHING Last Admin: 05/26/18 12:15 Dose: 25 mg Folic Acid (Folic Acid -) 1 mg PO DAILY [facility] Last Admin: 05/27/18 12:11 Dose: 1 mg Gabapentin (Neurontin -) 300 mg PO BID [facility] Last Admin: 05/27/18 12:11 Dose: 300 mg Heparin Sodium (Porcine) (Heparin -) 5,000 unit SQ BID [facility] Last Admin: 05/27/18 12:10 Dose: 5,000 unit Hydralazine HCl (Apresoline -) 25 mg PO TID [facility] Last Admin: 05/27/18 06:52 Dose: 25 mg Ertapenem 0.5 gm/ Sodium (Chloride) 50 mls @ 100 mls/hr IVPB DAILY [facility] Last Admin: 05/26/18 11:04 Dose: 100 mls/hr Daptomycin 700 mg/ Sodium (Chloride) 50 mls @ 100 mls/hr IVPB MOWEFR [facility]; Protocol Last Admin: 05/24/18 14:07 Dose: Not Given Insulin Detemir (Levemir Vial) 15 units SQ HS [facility] Last Admin: 05/26/18 22:10 Dose: 15 unit Isosorbide Mononitrate (Imdur -) 30 mg PO DAILY [facility] Last Admin: 05/27/18 12:10 Dose: 30 mg Lactobacillus Acidophilus (Bacid -) 1 tab PO DAILY [facility] Last Admin: 05/27/18 12:10 Dose: 1 tab Levothyroxine Sodium (Synthroid -) 50 mcg PO AM [facility] Last Admin: 05/27/18 06:52 Dose: 50 mcg Metoprolol Succinate (Toprol Xl -) 200 mg PO DAILY [facility] Last Admin: 05/27/18 12:10 Dose: 200 mg Multivit/Ca Carb/B Cmplx/FA/Prenat (Nephro-Rebecca -) 1 tablet PO DAILY [facility] Last Admin: 05/27/18 12:13 Dose: 1 tablet Nystatin (Mycostatin Cream -) 1 applic TP DAILY [facility] Last Admin: 05/27/18 12:18 Dose: Not Given Pantoprazole Sodium (Protonix -) 20 mg PO DAILY [facility] Last Admin: 05/27/18 12:11 Dose: 20 mg Senna (Senna -) 1 tab PO DAILY [facility] Last Admin: 05/27/18 12:19 Dose: Not Given - Objective Vital Signs: Vital Signs Temperature 99.8 F H 05/27/18 06:00 Pulse Rate 82 05/27/18 06:00 Respiratory Rate 20 05/27/18 06:00 Blood Pressure 161/82 05/27/18 06:00 O2 Sat by Pulse Oximetry (%) 98 05/26/18 09:00 Constitutional: Yes: No Distress, Calm Cardiovascular: Yes: Regular Rate and Rhythm Respiratory: Yes: Regular, CTA Bilaterally Gastrointestinal: Yes: Normal Bowel Sounds, Soft Musculoskeletal: Yes: WNL Extremities: Yes: Other Wound/Incision: Yes: Dressing Dry and Intact Neurological: Yes: Alert, Oriented Psychiatric: Yes: Alert Labs: CBC, BMP 05/27/18 09:50 05/27/18 09:50 Assessment/Plan Problem List - Problems (1) ESRD on hemodialysis Code(s): N18.6 - END STAGE RENAL DISEASE; Z99.2 - DEPENDENCE ON RENAL DIALYSIS (2) Insulin dependent diabetes mellitus Code(s): E11.9 - TYPE 2 DIABETES MELLITUS WITHOUT COMPLICATIONS; Z79.4 - SURFACE BOSS (CURRENT) USE OF INSULIN (3) Legally blind Code(s): H54.8 - LEGAL BLINDNESS, DEFINED IN [place] (4) Non healing left heel wound Code(s): S91.302A - UNSPECIFIED OPEN WOUND, LEFT FOOT, INITIAL ENCOUNTER (5) Allergic reaction Code(s): T78.40XA - ALLERGY, UNSPECIFIED, INITIAL ENCOUNTER Assessment/Plan Lt plantar ulcer infection/OM DM ESRD on HD Legally blind Anemia Allergic reaction to Zosyn osteo of the left foot plan continue current abx patient will need to complete the course rest as per the team wound care dialysis
--- NOTE | 2018-05-27 16:22 | PN ---
Progress Note, Physician History of Present Illness: Pt seen and examined at bedside. He is awake and alert. He is tolerating HD. He denies fevers or chills. - Current Medication List Current Medications: Active Medications Acetaminophen (Tylenol -) 1,000 mg PO Q6H PRN PRN Reason: MODERATE PAIN Last Admin: 05/26/18 08:52 Dose: 1,000 mg Aspirin (Asa -) 81 mg PO DAILY [facility] Last Admin: 05/27/18 12:11 Dose: 81 mg Baclofen (Lioresal -) 10 mg PO DAILY [facility] Last Admin: 05/27/18 12:11 Dose: 10 mg Calcium Acetate (Phoslo -) 667 mg PO TIDCM [facility] Last Admin: 05/27/18 12:13 Dose: 667 mg Collagenase (Santyl -) 1 applic TP DAILY [facility] Last Admin: 05/26/18 18:01 Dose: 1 applic Diphenhydramine HCl (Benadryl Injection -) 25 mg IVPB Q8H PRN PRN Reason: FOR ITCHING Last Admin: 05/27/18 13:05 Dose: 25 mg Folic Acid (Folic Acid -) 1 mg PO DAILY [facility] Last Admin: 05/27/18 12:11 Dose: 1 mg Gabapentin (Neurontin -) 300 mg PO BID [facility] Last Admin: 05/27/18 12:11 Dose: 300 mg Heparin Sodium (Porcine) (Heparin -) 5,000 unit SQ BID [facility] Last Admin: 05/27/18 12:10 Dose: 5,000 unit Hydralazine HCl (Apresoline -) 25 mg PO TID [facility] Last Admin: 05/27/18 14:30 Dose: 25 mg Ertapenem 0.5 gm/ Sodium (Chloride) 50 mls @ 100 mls/hr IVPB DAILY [facility] Last Admin: 05/26/18 11:04 Dose: 100 mls/hr Daptomycin 700 mg/ Sodium (Chloride) 50 mls @ 100 mls/hr IVPB [facility]EFR [facility]; Protocol Last Admin: 05/24/18 14:07 Dose: Not Given Insulin Detemir (Levemir Vial) 15 units SQ HS [facility] Last Admin: 05/26/18 22:10 Dose: 15 unit Isosorbide Mononitrate (Imdur -) 30 mg PO DAILY [facility] Last Admin: 05/27/18 12:10 Dose: 30 mg Lactobacillus Acidophilus (Bacid -) 1 tab PO DAILY [facility] Last Admin: 05/27/18 12:10 Dose: 1 tab Levothyroxine Sodium (Synthroid -) 50 mcg PO AM [facility] Last Admin: 05/27/18 06:52 Dose: 50 mcg Metoprolol Succinate (Toprol Xl -) 200 mg PO DAILY [facility] Last Admin: 05/27/18 12:10 Dose: 200 mg Multivit/Ca Carb/B Cmplx/FA/Prenat (Nephro-Rebecca -) 1 tablet PO DAILY [facility] Last Admin: 05/27/18 12:13 Dose: 1 tablet Nystatin (Mycostatin Cream -) 1 applic TP DAILY [facility] Last Admin: 05/27/18 12:18 Dose: Not Given Pantoprazole Sodium (Protonix -) 20 mg PO DAILY [facility] Last Admin: 05/27/18 12:11 Dose: 20 mg Senna (Senna -) 1 tab PO DAILY [facility] Last Admin: 05/27/18 12:19 Dose: Not Given - Objective Vital Signs: Vital Signs Temperature 98.4 F 05/27/18 12:55 Pulse Rate 80 05/27/18 15:30 Respiratory Rate 18 05/27/18 15:30 Blood Pressure 170/93 05/27/18 15:30 O2 Sat by Pulse Oximetry (%) 98 05/26/18 09:00 Constitutional: Yes: Calm Eyes: Yes: Conjunctiva Clear HENT: Yes: Atraumatic Neck: Yes: Supple Cardiovascular: Yes: S1, S2 Respiratory: Yes: CTA Bilaterally Gastrointestinal: Yes: Soft, Abdomen, Obese Edema: RLE: 1+ Integumentary: Yes: Tattoos, Venous Stasis Changes Neurological: Yes: Oriented Psychiatric: Yes: Oriented Labs: CBC, BMP 05/27/18 09:50 05/27/18 09:50 Problem List - Problems (1) ESRD on hemodialysis Code(s): N18.6 - END STAGE RENAL DISEASE; Z99.2 - DEPENDENCE ON RENAL DIALYSIS (2) Non healing left heel wound Code(s): S91.302A - UNSPECIFIED OPEN WOUND, LEFT FOOT, INITIAL ENCOUNTER (3) HTN (hypertension) Code(s): I10 - ESSENTIAL (PRIMARY) HYPERTENSION Assessment/Plan Current Medications Generic Name Dose Route Start Last Admin Trade Name Freq PRN Reason Stop Dose Admin Acetaminophen 1,000 mg 05/22/18 12:59 05/26/18 08:52 Tylenol - PO 1,000 mg Q6H PRN Administration MODERATE PAIN Aspirin 81 mg 05/21/18 10:00 05/27/18 12:11 Asa - PO 81 mg DAILY [facility] Administration Baclofen 10 mg 05/22/18 13:30 05/27/18 12:11 Lioresal - PO 10 mg DAILY [facility] Administration Calcium Acetate 667 mg 05/20/18 17:30 05/27/18 12:13 Phoslo - PO 667 mg TIDCM [facility] Administration Collagenase 1 applic 05/21/18 10:00 05/26/18 18:01 Santyl - TP 1 applic DAILY [facility] Administration Diphenhydramine HCl 25 mg 05/26/18 11:28 05/27/18 13:05 Benadryl Injection - IVPB 25 mg Q8H PRN Administration FOR ITCHING Folic Acid 1 mg 05/21/18 10:00 05/27/18 12:11 Folic Acid - PO 1 mg DAILY [facility] Administration Gabapentin 300 mg 05/22/18 22:00 05/27/18 12:11 Neurontin - PO 300 mg BID [facility] Administration Heparin Sodium (Porcine) 5,000 unit 05/20/18 22:00 05/27/18 12:10 Heparin - SQ 5,000 unit BID [facility] Administration Hydralazine HCl 25 mg 05/24/18 22:00 05/27/18 14:30 Apresoline - PO 25 mg TID [facility] Administration Ertapenem 0.5 gm/ Sodium 50 mls @ 100 mls/hr 05/23/18 10:00 05/26/18 11:04 Chloride IVPB 100 mls/hr DAILY [facility] Administration Daptomycin 700 mg/ Sodium 50 mls @ 100 mls/hr 05/24/18 15:00 05/24/18 14:07 Chloride IVPB Not Given [facility] Protocol Insulin Detemir 15 units 05/20/18 22:00 05/26/18 22:10 Levemir Vial SQ 15 unit HS [facility] Administration Isosorbide Mononitrate 30 mg 05/21/18 10:00 05/27/18 12:10 Imdur - PO 30 mg DAILY [facility] Administration Lactobacillus Acidophilus 1 tab 05/25/18 12:15 05/27/18 12:10 Bacid - PO 1 tab DAILY [facility] Administration Levothyroxine Sodium 50 mcg 05/21/18 07:00 05/27/18 06:52 Synthroid - PO 50 mcg AM [facility] Administration Metoprolol Succinate 200 mg 05/22/18 10:00 05/27/18 12:10 Toprol Xl - PO 200 mg DAILY [facility] Administration Multivit/Ca Carb/B Cmplx/FA/Prenat 1 tablet 05/21/18 10:00 05/27/18 12:13 Nephro-Rebecca - PO 1 tablet DAILY [facility] Administration Nystatin 1 applic 05/21/18 10:00 05/27/18 12:18 Mycostatin Cream - TP Not Given DAILY [facility] Pantoprazole Sodium 20 mg 05/21/18 10:00 05/27/18 12:11 Protonix - PO 20 mg DAILY [facility] Administration Senna 1 tab 05/21/18 10:00 05/27/18 12:19 Senna - PO Not Given DAILY [facility] Impression 1. ESRD 2. DM 3. HTN 4. anemia 5. left leg ulcer 6. hypothyroidism Plan - HD today - abx per ID - renal diet - epogen for anemia - monitor hg - cont wound care to leg - will follow Dr Apodaca
[2018-05-27] MEDS: DAPTOMYCIN 700 MG in SODIUM CHLORIDE 50 ML IVPB SCH (16:42)
[2018-05-27] MEDS: ERTAPENEM SODIUM 0.5 GM in SODIUM CHLORIDE 50 ML IVPB SCH ×2 (17:47→18:29)
[2018-05-27] MEDS: INSULIN (LEVEMIR) 100 UNITS/ML UNITS SQ SCH (22:50)
[2018-05-27] MEDS: COLLAGENASE CLOSTRIDIUM HIST. 30 GRAMS TUBE TP SCH (22:51)
[2018-05-28] MEDS: hydrALAZINE HCL 25 MG TABLET (FP) PO SCH ×3 (06:47→22:04)
[2018-05-28] MEDS: LEVOTHYROXINE NA 50 MCG TABLET (FP) PO SCH (06:47)
[2018-05-28] MEDS: CALCIUM ACETATE 667 MG CAPSULE (FP) PO SCH ×3 (08:52→17:47)
[2018-05-28] MEDS ORDERED: PT OWN MED DRAWER 7, Y5N ONE (09:58)
[2018-05-28] MEDS: LACTOBACILLUS ACIDOPHILUS 1 TABLET PO SCH (10:00)
[2018-05-28] MEDS: PANTOPRAZOLE 20 MG TABLET (FP) PO SCH (10:00)
[2018-05-28] MEDS: ISOSORBIDE MONONITRATE 30 MG TAB.SR.24H (FP) PO SCH (10:01)
[2018-05-28] MEDS: FOLIC ACID 1 MG TABLET (FP) PO SCH (10:01)
[2018-05-28] MEDS: GABAPENTIN 300 MG CAPSULE (FP) PO SCH ×2 (10:01→22:04)
[2018-05-28] MEDS: BACLOFEN 10 MG TABLET (FP) PO SCH (10:01)
[2018-05-28] MEDS: ASPIRIN 81 MG CHEWABLE TABLETS PO SCH (10:01)
[2018-05-28] MEDS: VITAMIN B COMP W-C 1 EA TABLET PO SCH (10:02)
[2018-05-28] MEDS: SENNOSIDES 8.6MG TABLET (FP) PO SCH (10:02)
[2018-05-28] MEDS: ERTAPENEM SODIUM 0.5 GM in SODIUM CHLORIDE 50 ML IVPB SCH (10:02)
[2018-05-28] MEDS: COLLAGENASE CLOSTRIDIUM HIST. 30 GRAMS TUBE TP SCH (10:04)
[2018-05-28] MEDS: NYSTATIN 100,000 UNIT/GM TOPICAL CREAM 15 GM TUBE TP SCH (10:04)
--- NOTE | 2018-05-28 11:55 | PN ---
Progress Note, Physician History of Present Illness: patient stable no new issues - Current Medication List Current Medications: Active Medications Acetaminophen (Tylenol -) 1,000 mg PO Q6H PRN PRN Reason: MODERATE PAIN Last Admin: 05/26/18 08:52 Dose: 1,000 mg Aspirin (Asa -) 81 mg PO DAILY [facility] Last Admin: 05/28/18 10:01 Dose: 81 mg Baclofen (Lioresal -) 10 mg PO DAILY [facility] Last Admin: 05/28/18 10:01 Dose: 10 mg Calcium Acetate (Phoslo -) 667 mg PO TIDCM [facility] Last Admin: 05/28/18 08:52 Dose: 667 mg Collagenase (Santyl -) 1 applic TP DAILY [facility] Last Admin: 05/28/18 10:04 Dose: 1 applic Diphenhydramine HCl (Benadryl Injection -) 25 mg IVPB Q8H PRN PRN Reason: FOR ITCHING Last Admin: 05/28/18 10:02 Dose: 25 mg Folic Acid (Folic Acid -) 1 mg PO DAILY [facility] Last Admin: 05/28/18 10:01 Dose: 1 mg Gabapentin (Neurontin -) 300 mg PO BID [facility] Last Admin: 05/28/18 10:01 Dose: 300 mg Hydralazine HCl (Apresoline -) 25 mg PO TID [facility] Last Admin: 05/28/18 06:47 Dose: 25 mg Ertapenem 0.5 gm/ Sodium (Chloride) 50 mls @ 100 mls/hr IVPB DAILY [facility] Last Admin: 05/28/18 10:02 Dose: 100 mls/hr Daptomycin 700 mg/ Sodium (Chloride) 50 mls @ 100 mls/hr IVPB [facility]; Protocol Last Admin: 05/27/18 16:42 Dose: 100 mls/hr Insulin Detemir (Levemir Vial) 15 units SQ HS [facility] Last Admin: 05/27/18 22:50 Dose: 15 unit Isosorbide Mononitrate (Imdur -) 30 mg PO DAILY [facility] Last Admin: 05/28/18 10:01 Dose: 30 mg Lactobacillus Acidophilus (Bacid -) 1 tab PO DAILY [facility] Last Admin: 05/28/18 10:00 Dose: 1 tab Levothyroxine Sodium (Synthroid -) 50 mcg PO AM [facility] Last Admin: 05/28/18 06:47 Dose: 50 mcg Metoprolol Succinate (Toprol Xl -) 200 mg PO DAILY [facility] Last Admin: 05/28/18 10:00 Dose: 200 mg Multivit/Ca Carb/B Cmplx/FA/Prenat (Nephro-Rebecca -) 1 tablet PO DAILY [facility] Last Admin: 05/28/18 10:02 Dose: 1 tablet Nystatin (Mycostatin Cream -) 1 applic TP DAILY [facility] Last Admin: 05/28/18 10:04 Dose: 1 applic Pantoprazole Sodium (Protonix -) 20 mg PO DAILY [facility] Last Admin: 05/28/18 10:00 Dose: 20 mg Senna (Senna -) 1 tab PO DAILY [facility] Last Admin: 05/28/18 10:02 Dose: Not Given - Objective Vital Signs: Vital Signs Temperature 98.3 F 05/28/18 10:00 Pulse Rate 83 05/28/18 10:00 Respiratory Rate 16 05/28/18 10:00 Blood Pressure 164/93 05/28/18 10:00 O2 Sat by Pulse Oximetry (%) 92 L 05/27/18 21:00 Constitutional: Yes: No Distress, Calm Cardiovascular: Yes: Regular Rate and Rhythm Respiratory: Yes: Regular, CTA Bilaterally Gastrointestinal: Yes: Normal Bowel Sounds, Soft Musculoskeletal: Yes: Other Extremities: Yes: Other Wound/Incision: Yes: Dressing Dry and Intact Neurological: Yes: Alert, Oriented Psychiatric: Yes: Alert, Oriented Labs: CBC, BMP 05/27/18 09:50 05/27/18 09:50 Assessment/Plan Problem List - Problems (1) ESRD on hemodialysis Code(s): N18.6 - END STAGE RENAL DISEASE; Z99.2 - DEPENDENCE ON RENAL DIALYSIS (2) Insulin dependent diabetes mellitus Code(s): E11.9 - TYPE 2 DIABETES MELLITUS WITHOUT COMPLICATIONS; 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
--- NOTE | 2018-05-28 13:08 | DS ---
Physical Examination Vital Signs: Vital Signs Temperature 98.3 F 05/28/18 10:00 Pulse Rate 83 05/28/18 10:00 Respiratory Rate 16 05/28/18 10:00 Blood Pressure 164/93 05/28/18 10:00 O2 Sat by Pulse Oximetry (%) 92 L 05/27/18 21:00 Constitutional: Yes: No Distress, Calm Cardiovascular: Yes: Regular Rate and Rhythm Respiratory: Yes: CTA Bilaterally Gastrointestinal: Yes: Normal Bowel Sounds, Soft. No: Tenderness Edema: No Labs: CBC, BMP 05/27/18 09:50 05/27/18 09:50 Discharge Summary Reason For Visit: ESR/NON HEEL ULCER LT FOOT BREAK DN SKIN/HTN Current Active Problems Above knee amputation of right lower extremity (Acute) ESRD on hemodialysis (Acute) Insulin dependent diabetes mellitus (Acute) Legally blind (Acute) Non healing left heel wound (Acute) Hospital Course: Admitted for non healing foot wound Seen by ID and Vascular wound cultures positive \ Microbiology 05/24/18 05:14 Stool Clostridium difficile Antigen (MONICA) - Final 05/24/18 05:14 Stool Clostridium difficile Toxin Assay - Final 05/20/18 09:50 Foot - Left Plantar Gram Stain - Final 05/20/18 09:50 Foot - Left Plantar Wound Culture - Final Proteus Mirabilis Klebsiella Pneumoniae Staphylococcus Aureus Vr Ec Faecalis Escherichia Coli No surgical interventions good pulses Pt needs 4 weeks of antibiotics Stable for dc to [facility] Condition: Good - Instructions Referrals: ON STAFF,NOT [Primary Care Provider] - Disposition: [facility] - Home Medications Comprehensive Discharge Medication List: Ambulatory Orders Acetaminophen [Pain Relief] 650 mg PO DAILY 01/08/18 Calcium Acetate [Phoslo -] 667 mg PO TIDCM 01/08/18 Folic Acid 1 mg PO DAILY 01/08/18 Gabapentin 100 mg PO DAILY 01/08/18 Hydralazine HCl 50 mg PO DAILY 01/08/18 Isosorbide Mononitrate [Isosorbide Mononitrate ER] 30 mg PO DAILY 01/08/18 Levothyroxine [Synthroid -] 50 mcg PO DAILY 01/08/18 Metoprolol Succinate 200 mg PO DAILY 01/08/18 Sennosides [Senna] 8.6 mg PO DAILY 01/08/18 Vancomycin 1,000 mg IVPB [facility]OWEFR 04/19/18 Nystatin 100,000 units TP DAILY 04/26/18 Santyl 250 units TP DAILY 04/26/18 Amoxicillin - [Amoxicillin 500mg Capsule -] 500 mg PO TID 05/20/18 Aspirin [ASA -] 81 mg PO DAILY 05/20/18 Insulin Glargine,Hum.rec.anlog [Basaglar Kwikpen U-100] 12 unit SQ DAILY Insulin Glargine,Hum.rec.anlog [Basaglar Kwikpen U-100] 15 unit SQ HS 05/20/18 Omeprazole Magnesium [Prilosec Otc] 20 mg PO PRN 05/20/18 Vitamin B Comp W-C [Nephro-Rebecca -] 1 tablet PO DAILY 05/20/18
--- NOTE | 2018-05-28 15:47 | PN ---
Progress Note, Physician History of Present Illness: Pt seen and examined at bedside. He is awake and appears comfortable. He denies shortness of breath. - Current Medication List Current Medications: Active Medications Acetaminophen (Tylenol -) 1,000 mg PO Q6H PRN PRN Reason: MODERATE PAIN Last Admin: 05/26/18 08:52 Dose: 1,000 mg Aspirin (Asa -) 81 mg PO DAILY [facility] Last Admin: 05/28/18 10:01 Dose: 81 mg Baclofen (Lioresal -) 10 mg PO DAILY [facility] Last Admin: 05/28/18 10:01 Dose: 10 mg Calcium Acetate (Phoslo -) 667 mg PO TIDCM [facility] Last Admin: 05/28/18 12:16 Dose: 667 mg Collagenase (Santyl -) 1 applic TP DAILY [facility] Last Admin: 05/28/18 10:04 Dose: 1 applic Diphenhydramine HCl (Benadryl Injection -) 25 mg IVPB Q8H PRN PRN Reason: FOR ITCHING Last Admin: 05/28/18 10:02 Dose: 25 mg Folic Acid (Folic Acid -) 1 mg PO DAILY [facility] Last Admin: 05/28/18 10:01 Dose: 1 mg Gabapentin (Neurontin -) 300 mg PO BID [facility] Last Admin: 05/28/18 10:01 Dose: 300 mg Hydralazine HCl (Apresoline -) 25 mg PO TID [facility] Last Admin: 05/28/18 13:47 Dose: 25 mg Ertapenem 0.5 gm/ Sodium (Chloride) 50 mls @ 100 mls/hr IVPB DAILY [facility] Last Admin: 05/28/18 10:02 Dose: 100 mls/hr Daptomycin 700 mg/ Sodium (Chloride) 50 mls @ 100 mls/hr IVPB MOWEFR [facility]; Protocol Last Admin: 05/27/18 16:42 Dose: 100 mls/hr Insulin Detemir (Levemir Vial) 15 units SQ HS [facility] Last Admin: 05/27/18 22:50 Dose: 15 unit Isosorbide Mononitrate (Imdur -) 30 mg PO DAILY [facility] Last Admin: 05/28/18 10:01 Dose: 30 mg Lactobacillus Acidophilus (Bacid -) 1 tab PO DAILY [facility] Last Admin: 05/28/18 10:00 Dose: 1 tab Levothyroxine Sodium (Synthroid -) 50 mcg PO AM [facility] Last Admin: 05/28/18 06:47 Dose: 50 mcg Metoprolol Succinate (Toprol Xl -) 200 mg PO DAILY [facility] Last Admin: 05/28/18 10:00 Dose: 200 mg Multivit/Ca Carb/B Cmplx/FA/Prenat (Nephro-Rebecca -) 1 tablet PO DAILY [facility] Last Admin: 05/28/18 10:02 Dose: 1 tablet Nystatin (Mycostatin Cream -) 1 applic TP DAILY [facility] Last Admin: 05/28/18 10:04 Dose: 1 applic Pantoprazole Sodium (Protonix -) 20 mg PO DAILY [facility] Last Admin: 05/28/18 10:00 Dose: 20 mg Senna (Senna -) 1 tab PO DAILY [facility] Last Admin: 05/28/18 10:02 Dose: Not Given - Objective Vital Signs: Vital Signs Temperature 98.3 F 05/28/18 10:00 Pulse Rate 83 05/28/18 10:00 Respiratory Rate 16 05/28/18 10:00 Blood Pressure 164/93 05/28/18 10:00 O2 Sat by Pulse Oximetry (%) 92 L 05/27/18 21:00 Constitutional: Yes: Calm Eyes: Yes: Conjunctiva Clear HENT: Yes: Atraumatic Neck: Yes: Supple Cardiovascular: Yes: S1, S2 Respiratory: Yes: CTA Bilaterally Gastrointestinal: Yes: Soft, Abdomen, Obese Edema: No Neurological: Yes: Oriented Psychiatric: Yes: Oriented Labs: CBC, BMP 05/27/18 09:50 05/27/18 09:50 Problem List - Problems (1) ESRD on hemodialysis Code(s): N18.6 - END STAGE RENAL DISEASE; Z99.2 - DEPENDENCE ON RENAL DIALYSIS (2) Non healing left heel wound Code(s): S91.302A - UNSPECIFIED OPEN WOUND, LEFT FOOT, INITIAL ENCOUNTER (3) HTN (hypertension) Code(s): I10 - ESSENTIAL (PRIMARY) HYPERTENSION Assessment/Plan Current Medications Generic Name Dose Route Start Last Admin Trade Name Freq PRN Reason Stop Dose Admin Acetaminophen 1,000 mg 05/22/18 12:59 05/26/18 08:52 Tylenol - PO 1,000 mg Q6H PRN Administration MODERATE PAIN Aspirin 81 mg 05/21/18 10:00 05/28/18 10:01 Asa - PO 81 mg DAILY NOA Administration Baclofen 10 mg 05/22/18 13:30 05/28/18 10:01 Lioresal - PO 10 mg DAILY NOA Administration Calcium Acetate 667 mg 05/20/18 17:30 05/28/18 12:16 Phoslo - PO 667 mg TIDCM NOA Administration Collagenase 1 applic 05/21/18 10:00 05/28/18 10:04 Santyl - TP 1 applic DAILY NOA Administration Diphenhydramine HCl 25 mg 05/26/18 11:28 05/28/18 10:02 Benadryl Injection - IVPB 25 mg Q8H PRN Administration FOR ITCHING Folic Acid 1 mg 05/21/18 10:00 05/28/18 10:01 Folic Acid - PO 1 mg DAILY NOA Administration Gabapentin 300 mg 05/22/18 22:00 05/28/18 10:01 Neurontin - PO 300 mg BID NOA Administration Hydralazine HCl 25 mg 05/24/18 22:00 05/28/18 13:47 Apresoline - PO 25 mg TID NOA Administration Ertapenem 0.5 gm/ Sodium 50 mls @ 100 mls/hr 05/23/18 10:00 05/28/18 10:02 Chloride IVPB 100 mls/hr DAILY NOA Administration Daptomycin 700 mg/ Sodium 50 mls @ 100 mls/hr 05/24/18 15:00 05/27/18 16:42 Chloride IVPB 100 mls/hr MOWEFR NOA Administration Protocol Insulin Detemir 15 units 05/20/18 22:00 05/27/18 22:50 Levemir Vial SQ 15 unit HS NOA Administration Isosorbide Mononitrate 30 mg 05/21/18 10:00 05/28/18 10:01 Imdur - PO 30 mg DAILY NOA Administration Lactobacillus Acidophilus 1 tab 05/25/18 12:15 05/28/18 10:00 Bacid - PO 1 tab DAILY NOA Administration Levothyroxine Sodium 50 mcg 05/21/18 07:00 05/28/18 06:47 Synthroid - PO 50 mcg AM NOA Administration Metoprolol Succinate 200 mg 05/22/18 10:00 05/28/18 10:00 Toprol Xl - PO 200 mg DAILY NOA Administration Multivit/Ca Carb/B Cmplx/FA/Prenat 1 tablet 05/21/18 10:00 05/28/18 10:02 Nephro-Rebecca - PO 1 tablet DAILY NOA Administration Nystatin 1 applic 05/21/18 10:00 05/28/18 10:04 Mycostatin Cream - TP 1 applic DAILY NOA Administration Pantoprazole Sodium 20 mg 05/21/18 10:00 05/28/18 10:00 Protonix - PO 20 mg DAILY NOA Administration Senna 1 tab 05/21/18 10:00 05/28/18 10:02 Senna - PO Not Given DAILY NOA Impression 1. ESRD 2. DM 3. HTN 4. anemia 5. left leg ulcer 6. hypothyroidism Plan - next HD tomorrow - pt has HD set up - make sure abx are available in [facility] before discharge - abx per ID - renal diet - epogen for anemia - monitor hg - cont wound care to leg - will follow Dr Apodaca
[2018-05-28] MEDS: INSULIN (LEVEMIR) 100 UNITS/ML UNITS SQ SCH (22:04)
[2018-05-29] MEDS: LEVOTHYROXINE NA 50 MCG TABLET (FP) PO SCH (06:32)
[2018-05-29] MEDS: hydrALAZINE HCL 25 MG TABLET (FP) PO SCH ×3 (06:32→22:49)
[2018-05-29] MEDS: ISOSORBIDE MONONITRATE 30 MG TAB.SR.24H (FP) PO SCH ×2 (08:57→09:23)
[2018-05-29] MEDS: CALCIUM ACETATE 667 MG CAPSULE (FP) PO SCH ×2 (08:57→12:33)
[2018-05-29] MEDS ORDERED: PT OWN MED DRAWER 7, Y5N ONE (09:18)
[2018-05-29] MEDS: PANTOPRAZOLE 20 MG TABLET (FP) PO SCH (09:21)
[2018-05-29] MEDS: ASPIRIN 81 MG CHEWABLE TABLETS PO SCH (09:21)
[2018-05-29] MEDS: ERTAPENEM SODIUM 0.5 GM in SODIUM CHLORIDE 50 ML IVPB SCH (09:21)
[2018-05-29] MEDS: BACLOFEN 10 MG TABLET (FP) PO SCH (09:21)
[2018-05-29] MEDS: GABAPENTIN 300 MG CAPSULE (FP) PO SCH ×2 (09:21→22:49)
[2018-05-29] MEDS: LACTOBACILLUS ACIDOPHILUS 1 TABLET PO SCH (09:21)
[2018-05-29] MEDS: FOLIC ACID 1 MG TABLET (FP) PO SCH (09:21)
[2018-05-29] MEDS: VITAMIN B COMP W-C 1 EA TABLET PO SCH (09:22)
[2018-05-29] MEDS: NYSTATIN 100,000 UNIT/GM TOPICAL CREAM 15 GM TUBE TP SCH (09:22)
[2018-05-29] MEDS: COLLAGENASE CLOSTRIDIUM HIST. 30 GRAMS TUBE TP SCH (09:23)
[2018-05-29] MEDS: SENNOSIDES 8.6MG TABLET (FP) PO SCH (09:23)
--- NOTE | 2018-05-29 09:48 | PN ---
Progress Note, Physician History of Present Illness: patient stable doing well no new issues - Current Medication List Current Medications: Active Medications Acetaminophen (Tylenol -) 1,000 mg PO Q6H PRN PRN Reason: MODERATE PAIN Last Admin: 05/26/18 08:52 Dose: 1,000 mg Aspirin (Asa -) 81 mg PO DAILY [facility] Last Admin: 05/29/18 09:21 Dose: 81 mg Baclofen (Lioresal -) 10 mg PO DAILY [facility] Last Admin: 05/29/18 09:21 Dose: 10 mg Calcium Acetate (Phoslo -) 667 mg PO TIDCM [facility] Last Admin: 05/29/18 08:57 Dose: 667 mg Collagenase (Santyl -) 1 applic TP DAILY [facility] Last Admin: 05/29/18 09:23 Dose: 1 applic Diphenhydramine HCl (Benadryl Injection -) 25 mg IVPB Q8H PRN PRN Reason: FOR ITCHING Last Admin: 05/29/18 09:36 Dose: 25 mg Epoetin Horacio (Epogen -) 5,000 unit IVPUSH ONCE ONE Stop: 05/29/18 07:11 Folic Acid (Folic Acid -) 1 mg PO DAILY [facility] Last Admin: 05/29/18 09:21 Dose: 1 mg Gabapentin (Neurontin -) 300 mg PO BID [facility] Last Admin: 05/29/18 09:21 Dose: 300 mg Hydralazine HCl (Apresoline -) 25 mg PO TID [facility] Last Admin: 05/29/18 06:32 Dose: 25 mg Ertapenem 0.5 gm/ Sodium (Chloride) 50 mls @ 100 mls/hr IVPB DAILY [facility] Last Admin: 05/29/18 09:21 Dose: 100 mls/hr Daptomycin 700 mg/ Sodium (Chloride) 50 mls @ 100 mls/hr IVPB MOWEFR [facility]; Protocol Last Admin: 05/27/18 16:42 Dose: 100 mls/hr Sodium Chloride (Normal Saline -) 250 mls @ 3,000 mls/hr IV PRN PRN PRN Reason: Hypotension during Dialysis Stop: 05/30/18 07:10 Insulin Detemir (Levemir Vial) 15 units SQ HS [facility] Last Admin: 05/28/18 22:04 Dose: 15 unit Isosorbide Mononitrate (Imdur -) 30 mg PO DAILY [facility] Last Admin: 05/29/18 09:23 Dose: Not Given Lactobacillus Acidophilus (Bacid -) 1 tab PO DAILY [facility] Last Admin: 05/29/18 09:21 Dose: 1 tab Levothyroxine Sodium (Synthroid -) 50 mcg PO AM [facility] Last Admin: 05/29/18 06:32 Dose: 50 mcg Metoprolol Succinate (Toprol Xl -) 200 mg PO DAILY [facility] Last Admin: 05/29/18 09:23 Dose: Not Given Multivit/Ca Carb/B Cmplx/FA/Prenat (Nephro-Rebecca -) 1 tablet PO DAILY [facility] Last Admin: 05/29/18 09:22 Dose: 1 tablet Nystatin (Mycostatin Cream -) 1 applic TP DAILY [facility] Last Admin: 05/29/18 09:22 Dose: 1 applic Pantoprazole Sodium (Protonix -) 20 mg PO DAILY [facility] Last Admin: 05/29/18 09:21 Dose: 20 mg Senna (Senna -) 1 tab PO DAILY [facility] Last Admin: 05/29/18 09:23 Dose: Not Given - Objective Vital Signs: Vital Signs Temperature 97.5 F L 05/29/18 06:21 Pulse Rate 82 05/29/18 06:21 Respiratory Rate 20 05/29/18 06:21 Blood Pressure 142/82 05/29/18 06:21 O2 Sat by Pulse Oximetry (%) 93 L 05/28/18 21:00 Constitutional: Yes: No Distress, Calm, Obese Cardiovascular: Yes: Regular Rate and Rhythm Respiratory: Yes: Regular, CTA Bilaterally Gastrointestinal: Yes: Normal Bowel Sounds, Soft Musculoskeletal: Yes: WNL Extremities: Yes: Other Wound/Incision: Yes: Dressing Dry and Intact Neurological: Yes: Alert, Oriented Psychiatric: Yes: Alert, Oriented Labs: CBC, BMP 05/27/18 09:50 05/27/18 09:50 Assessment/Plan Problem List - Problems (1) ESRD on hemodialysis Code(s): N18.6 - END STAGE RENAL DISEASE; Z99.2 - DEPENDENCE ON RENAL DIALYSIS (2) Insulin dependent diabetes mellitus Code(s): E11.9 - TYPE 2 DIABETES MELLITUS WITHOUT COMPLICATIONS; Z79.4 - [employer] (CURRENT) USE OF INSULIN (3) Legally blind Code(s): H54.8 - LEGAL BLINDNESS, DEFINED IN [place] (4) Non healing left heel wound Code(s): S91.302A - UNSPECIFIED OPEN WOUND, LEFT FOOT, INITIAL ENCOUNTER (5) Allergic reaction Code(s): T78.40XA - ALLERGY, UNSPECIFIED, INITIAL ENCOUNTER Assessment/Plan Lt plantar ulcer infection/OM DM ESRD on HD Legally blind Anemia Allergic reaction to Zosyn osteo of the left foot plan continue current abx patient will need to complete the course rest as per the team wound care dialysis complete 4 week course
--- NOTE | 2018-05-29 11:39 | PN ---
Progress Note, Physician History of Present Illness: Pt seen and examined at bedside. He is awake and alert. - Current Medication List Current Medications: Active Medications Acetaminophen (Tylenol -) 1,000 mg PO Q6H PRN PRN Reason: MODERATE PAIN Last Admin: 05/26/18 08:52 Dose: 1,000 mg Aspirin (Asa -) 81 mg PO DAILY [facility] Last Admin: 05/29/18 09:21 Dose: 81 mg Baclofen (Lioresal -) 10 mg PO DAILY [facility] Last Admin: 05/29/18 09:21 Dose: 10 mg Calcium Acetate (Phoslo -) 667 mg PO TIDCM [facility] Last Admin: 05/29/18 08:57 Dose: 667 mg Collagenase (Santyl -) 1 applic TP DAILY [facility] Last Admin: 05/29/18 09:23 Dose: 1 applic Diphenhydramine HCl (Benadryl Injection -) 25 mg IVPB Q8H PRN PRN Reason: FOR ITCHING Last Admin: 05/29/18 09:36 Dose: 25 mg Epoetin Horacio (Epogen -) 5,000 unit IVPUSH ONCE ONE Stop: 05/29/18 07:11 Folic Acid (Folic Acid -) 1 mg PO DAILY [facility] Last Admin: 05/29/18 09:21 Dose: 1 mg Gabapentin (Neurontin -) 300 mg PO BID [facility] Last Admin: 05/29/18 09:21 Dose: 300 mg Hydralazine HCl (Apresoline -) 25 mg PO TID [facility] Last Admin: 05/29/18 06:32 Dose: 25 mg Ertapenem 0.5 gm/ Sodium (Chloride) 50 mls @ 100 mls/hr IVPB DAILY [facility] Last Admin: 05/29/18 09:21 Dose: 100 mls/hr Daptomycin 700 mg/ Sodium (Chloride) 50 mls @ 100 mls/hr IVPB MOWEFR [facility]; Protocol Last Admin: 05/27/18 16:42 Dose: 100 mls/hr Sodium Chloride (Normal Saline -) 250 mls @ 3,000 mls/hr IV PRN PRN PRN Reason: Hypotension during Dialysis Stop: 05/30/18 07:10 Insulin Detemir (Levemir Vial) 15 units SQ HS [facility] Last Admin: 05/28/18 22:04 Dose: 15 unit Isosorbide Mononitrate (Imdur -) 30 mg PO DAILY [facility] Last Admin: 05/29/18 09:23 Dose: Not Given Lactobacillus Acidophilus (Bacid -) 1 tab PO DAILY [facility] Last Admin: 05/29/18 09:21 Dose: 1 tab Levothyroxine Sodium (Synthroid -) 50 mcg PO AM [facility] Last Admin: 05/29/18 06:32 Dose: 50 mcg Metoprolol Succinate (Toprol Xl -) 200 mg PO DAILY [facility] Last Admin: 05/29/18 09:23 Dose: Not Given Multivit/Ca Carb/B Cmplx/FA/Prenat (Nephro-Rebecca -) 1 tablet PO DAILY [facility] Last Admin: 05/29/18 09:22 Dose: 1 tablet Nystatin (Mycostatin Cream -) 1 applic TP DAILY [facility] Last Admin: 05/29/18 09:22 Dose: 1 applic Pantoprazole Sodium (Protonix -) 20 mg PO DAILY [facility] Last Admin: 05/29/18 09:21 Dose: 20 mg Senna (Senna -) 1 tab PO DAILY [facility] Last Admin: 05/29/18 09:23 Dose: Not Given - Objective Vital Signs: Vital Signs Temperature 97.5 F L 05/29/18 06:21 Pulse Rate 82 05/29/18 06:21 Respiratory Rate 20 05/29/18 06:21 Blood Pressure 142/82 05/29/18 06:21 O2 Sat by Pulse Oximetry (%) 93 L 05/28/18 21:00 Constitutional: Yes: Calm Eyes: Yes: Conjunctiva Clear HENT: Yes: Atraumatic Cardiovascular: Yes: S1, S2 Respiratory: Yes: CTA Bilaterally Gastrointestinal: Yes: Soft Genitourinary: Yes: WNL Musculoskeletal: Yes: WNL Edema: Yes Integumentary: Yes: Tattoos Neurological: Yes: Oriented Psychiatric: Yes: Oriented Labs: CBC, BMP 05/27/18 09:50 05/27/18 09:50 Problem List - Problems (1) ESRD on hemodialysis Code(s): N18.6 - END STAGE RENAL DISEASE; Z99.2 - DEPENDENCE ON RENAL DIALYSIS (2) Non healing left heel wound Code(s): S91.302A - UNSPECIFIED OPEN WOUND, LEFT FOOT, INITIAL ENCOUNTER (3) HTN (hypertension) Code(s): I10 - ESSENTIAL (PRIMARY) HYPERTENSION Assessment/Plan Current Medications Generic Name Dose Route Start Last Admin Trade Name Freq PRN Reason Stop Dose Admin Acetaminophen 1,000 mg 05/22/18 12:59 05/26/18 08:52 Tylenol - PO 1,000 mg Q6H PRN Administration MODERATE PAIN Aspirin 81 mg 05/21/18 10:00 05/29/18 09:21 Asa - PO 81 mg DAILY NOA Administration Baclofen 10 mg 05/22/18 13:30 05/29/18 09:21 Lioresal - PO 10 mg DAILY NOA Administration Calcium Acetate 667 mg 05/20/18 17:30 05/29/18 08:57 Phoslo - PO 667 mg TIDCM NOA Administration Collagenase 1 applic 05/21/18 10:00 05/29/18 09:23 Santyl - TP 1 applic DAILY NOA Administration Diphenhydramine HCl 25 mg 05/26/18 11:28 05/29/18 09:36 Benadryl Injection - IVPB 25 mg Q8H PRN Administration FOR ITCHING Epoetin Horacio 5,000 unit 05/29/18 07:10 Epogen - IVPUSH 05/29/18 07:11 ONCE ONE Folic Acid 1 mg 05/21/18 10:00 05/29/18 09:21 Folic Acid - PO 1 mg DAILY NOA Administration Gabapentin 300 mg 05/22/18 22:00 05/29/18 09:21 Neurontin - PO 300 mg BID NOA Administration Hydralazine HCl 25 mg 05/24/18 22:00 05/29/18 06:32 Apresoline - PO 25 mg TID NOA Administration Ertapenem 0.5 gm/ Sodium 50 mls @ 100 mls/hr 05/23/18 10:00 05/29/18 09:21 Chloride IVPB 100 mls/hr DAILY NOA Administration Daptomycin 700 mg/ Sodium 50 mls @ 100 mls/hr 05/24/18 15:00 05/27/18 16:42 Chloride IVPB 100 mls/hr MOWEFR NOA Administration Protocol Sodium Chloride 250 mls @ 3,000 mls/hr 05/29/18 07:10 Normal Saline - IV 05/30/18 07:10 PRN PRN Hypotension during Dialysis Insulin Detemir 15 units 05/20/18 22:00 05/28/18 22:04 Levemir Vial SQ 15 unit HS NOA Administration Isosorbide Mononitrate 30 mg 05/21/18 10:00 05/29/18 09:23 Imdur - PO Not Given DAILY NOA Lactobacillus Acidophilus 1 tab 05/25/18 12:15 05/29/18 09:21 Bacid - PO 1 tab DAILY NOA Administration Levothyroxine Sodium 50 mcg 05/21/18 07:00 05/29/18 06:32 Synthroid - PO 50 mcg AM NOA Administration Metoprolol Succinate 200 mg 05/22/18 10:00 05/29/18 09:23 Toprol Xl - PO Not Given DAILY NOA Multivit/Ca Carb/B Cmplx/FA/Prenat 1 tablet 05/21/18 10:00 05/29/18 09:22 Nephro-Rebecca - PO 1 tablet DAILY NOA Administration Nystatin 1 applic 05/21/18 10:00 05/29/18 09:22 Mycostatin Cream - TP 1 applic DAILY NOA Administration Pantoprazole Sodium 20 mg 05/21/18 10:00 05/29/18 09:21 Protonix - PO 20 mg DAILY NOA Administration Senna 1 tab 05/21/18 10:00 05/29/18 09:23 Senna - PO Not Given DAILY NOA Impression 1. ESRD 2. DM 3. HTN 4. anemia 5. left leg ulcer 6. hypothyroidism Plan - HD today - discharge pending autorization for abx - renal diet - epogen for anemia - monitor hg - cont wound care to leg - will follow Dr Apodaca
--- NOTE | 2018-05-29 14:11 | PN ---
Progress Note (short form) - Note Progress Note: Pt examined has small amount of loose stools' no complaints Vital Signs - 24 hr 05/28/18 05/28/18 05/29/18 21:00 22:00 02:10 Temperature 98 F 98.2 F Pulse Rate 84 82 Respiratory 16 20 Rate Blood Pressure 190/77 H 169/97 O2 Sat by Pulse 93 L Oximetry (%) 05/29/18 06:21 Temperature 97.5 F L Pulse Rate 82 Respiratory 20 Rate Blood Pressure 142/82 O2 Sat by Pulse Oximetry (%) Current Medications Generic Name Dose Route Start Last Admin Trade Name Freq PRN Reason Stop Dose Admin Acetaminophen 1,000 mg 05/22/18 12:59 05/26/18 08:52 Tylenol - PO 1,000 mg Q6H PRN Administration MODERATE PAIN Aspirin 81 mg 05/21/18 10:00 05/29/18 09:21 Asa - PO 81 mg DAILY NOA Administration Baclofen 10 mg 05/22/18 13:30 05/29/18 09:21 Lioresal - PO 10 mg DAILY NOA Administration Calcium Acetate 667 mg 05/20/18 17:30 05/29/18 12:33 Phoslo - PO 667 mg TIDCM NOA Administration Collagenase 1 applic 05/21/18 10:00 05/29/18 09:23 Santyl - TP 1 applic DAILY NOA Administration Diphenhydramine HCl 25 mg 05/26/18 11:28 05/29/18 09:36 Benadryl Injection - IVPB 25 mg Q8H PRN Administration FOR ITCHING Epoetin Horacio 5,000 unit 05/29/18 07:10 Epogen - IVPUSH 05/29/18 07:11 ONCE ONE Folic Acid 1 mg 05/21/18 10:00 05/29/18 09:21 Folic Acid - PO 1 mg DAILY NOA Administration Gabapentin 300 mg 05/22/18 22:00 05/29/18 09:21 Neurontin - PO 300 mg BID NOA Administration Hydralazine HCl 25 mg 05/24/18 22:00 05/29/18 14:03 Apresoline - PO 25 mg TID NOA Administration Ertapenem 0.5 gm/ Sodium 50 mls @ 100 mls/hr 05/23/18 10:00 05/29/18 09:21 Chloride IVPB 100 mls/hr DAILY NOA Administration Daptomycin 700 mg/ Sodium 50 mls @ 100 mls/hr 05/24/18 15:00 05/27/18 16:42 Chloride IVPB 100 mls/hr MOWEFR NOA Administration Protocol Sodium Chloride 250 mls @ 3,000 mls/hr 05/29/18 07:10 Normal Saline - IV 05/30/18 07:10 PRN PRN Hypotension during Dialysis Insulin Detemir 15 units 05/20/18 22:00 05/28/18 22:04 Levemir Vial SQ 15 unit HS NOA Administration Isosorbide Mononitrate 30 mg 05/21/18 10:00 05/29/18 09:23 Imdur - PO Not Given DAILY NOA Lactobacillus Acidophilus 1 tab 05/25/18 12:15 05/29/18 09:21 Bacid - PO 1 tab DAILY NOA Administration Levothyroxine Sodium 50 mcg 05/21/18 07:00 05/29/18 06:32 Synthroid - PO 50 mcg AM NOA Administration Metoprolol Succinate 200 mg 05/22/18 10:00 05/29/18 09:23 Toprol Xl - PO Not Given DAILY NOA Multivit/Ca Carb/B Cmplx/FA/Prenat 1 tablet 05/21/18 10:00 05/29/18 09:22 Nephro-Rebecca - PO 1 tablet DAILY NOA Administration Nystatin 1 applic 05/21/18 10:00 05/29/18 09:22 Mycostatin Cream - TP 1 applic DAILY NOA Administration Pantoprazole Sodium 20 mg 05/21/18 10:00 05/29/18 09:21 Protonix - PO 20 mg DAILY NOA Administration Senna 1 tab 05/21/18 10:00 05/29/18 09:23 Senna - PO Not Given DAILY NOA Laboratory Results - last 24 hr 05/28/18 05/28/18 17:28 22:00 POC Glucometer 158 186 S1 S2 RRR Lungs decreased Permacath+ Abd- soft, NT left foot dressing in place Rt AKA left tunneled catheter PLAN IV antibiotics- 4 weeks total waiting for insurance authorization wound cultures noted pain meds-- can not give opioids as he has a severe morphine allergy HD per renal vascular /wound care eval noted-- santyl dressing Problem List - Problems (1) Above knee amputation of right lower extremity Code(s): Z89.611 - ACQUIRED ABSENCE OF RIGHT LEG ABOVE KNEE (2) ESRD on hemodialysis Code(s): N18.6 - END STAGE RENAL DISEASE; Z99.2 - DEPENDENCE ON RENAL DIALYSIS (3) Insulin dependent diabetes mellitus Code(s): E11.9 - TYPE 2 DIABETES MELLITUS WITHOUT COMPLICATIONS; Z79.4 - [facility] (CURRENT) 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
[2018-05-29] MEDS ORDERED: SODIUM CHLORIDE 250 ML IV PRN (15:12)
[2018-05-29] MEDS ORDERED: EPOETIN ALFA 2,000 UNIT/1 ML VIAL IVPUSH ONE (15:15)
[2018-05-29] MEDS: DAPTOMYCIN 700 MG in SODIUM CHLORIDE 50 ML IVPB SCH (17:36)
[2018-05-29] MEDS ORDERED: INSULIN (LEVEMIR) 100 UNITS/ML UNITS SQ ONE (21:39)
[2018-05-29] MEDS: INSULIN (LEVEMIR) 100 UNITS/ML UNITS SQ SCH (22:49)
[2018-05-30] MEDS: hydrALAZINE HCL 25 MG TABLET (FP) PO SCH (06:39)
[2018-05-30] MEDS: LEVOTHYROXINE NA 50 MCG TABLET (FP) PO SCH (06:39)
[2018-05-30] MEDS: CALCIUM ACETATE 667 MG CAPSULE (FP) PO SCH ×2 (07:18→08:30)
--- NOTE | 2018-05-30 09:23 | PN ---
Progress Note (short form) - Note Progress Note: pt seen/ examined chart reviewed awake/ comfortable Vital Signs Temp 98 F 05/29/18 22:00 Pulse 82 05/29/18 22:00 Resp 18 05/29/18 22:00 BP 140/86 05/29/18 22:00 Pulse Ox 93 L 05/29/18 20:46 Intake & Output 05/29/18 05/29/18 05/30/18 11:59 23:59 11:59 Intake Total 450 950 200 Balance 450 950 200 Weight 263 lb 2 oz 260 lb 1.6 oz Intake: IVPB 50 Oral 450 900 200 Other: Voiding Method Incontinent Incontinent Bowel Movement Yes # Bowel Movements 2 Weight Measurement Method Built in Bedscale Built in Bedscale Active Medications Acetaminophen (Tylenol -) 1,000 mg PO Q6H PRN PRN Reason: MODERATE PAIN Last Admin: 05/26/18 08:52 Dose: 1,000 mg Aspirin (Asa -) 81 mg PO DAILY [facility] Last Admin: 05/29/18 09:21 Dose: 81 mg Baclofen (Lioresal -) 10 mg PO DAILY [facility] Last Admin: 05/29/18 09:21 Dose: 10 mg Calcium Acetate (Phoslo -) 667 mg PO TIDCM [facility] Last Admin: 05/30/18 07:18 Dose: Not Given Collagenase (Santyl -) 1 applic TP DAILY [facility] Last Admin: 05/29/18 09:23 Dose: 1 applic Diphenhydramine HCl (Benadryl Injection -) 25 mg IVPB Q8H PRN PRN Reason: FOR ITCHING Last Admin: 05/29/18 17:25 Dose: 25 mg Folic Acid (Folic Acid -) 1 mg PO DAILY [facility] Last Admin: 05/29/18 09:21 Dose: 1 mg Gabapentin (Neurontin -) 300 mg PO BID [facility] Last Admin: 05/29/18 22:49 Dose: 300 mg Hydralazine HCl (Apresoline -) 25 mg PO TID [facility] Last Admin: 05/30/18 06:39 Dose: 25 mg Ertapenem 0.5 gm/ Sodium (Chloride) 50 mls @ 100 mls/hr IVPB DAILY [facility] Last Admin: 05/29/18 09:21 Dose: 100 mls/hr Daptomycin 700 mg/ Sodium (Chloride) 50 mls @ 100 mls/hr IVPB MOWEFR [facility]; Protocol Last Admin: 05/29/18 17:36 Dose: 100 mls/hr Insulin Detemir (Levemir Vial) 15 units SQ HS [facility] Last Admin: 05/29/18 22:49 Dose: 15 unit Isosorbide Mononitrate (Imdur -) 30 mg PO DAILY [facility] Last Admin: 05/29/18 09:23 Dose: Not Given Lactobacillus Acidophilus (Bacid -) 1 tab PO DAILY [facility] Last Admin: 05/29/18 09:21 Dose: 1 tab Levothyroxine Sodium (Synthroid -) 50 mcg PO AM [facility] Last Admin: 05/30/18 06:39 Dose: 50 mcg Metoprolol Succinate (Toprol Xl -) 200 mg PO DAILY [facility] Last Admin: 05/29/18 09:23 Dose: Not Given Multivit/Ca Carb/B Cmplx/FA/Prenat (Nephro-Rebecca -) 1 tablet PO DAILY [facility] Last Admin: 05/29/18 09:22 Dose: 1 tablet Nystatin (Mycostatin Cream -) 1 applic TP DAILY [facility] Last Admin: 05/29/18 09:22 Dose: 1 applic Pantoprazole Sodium (Protonix -) 20 mg PO DAILY [facility] Last Admin: 05/29/18 09:21 Dose: 20 mg Senna (Senna -) 1 tab PO DAILY [facility] Last Admin: 05/29/18 09:23 Dose: Not Given CBC, BMP 05/27/18 09:50 05/27/18 09:50 physical exam Awake and comfortable S1 S2 RRR Lungs decreased---At bases Permacath+ Abd- soft, NT left foot dressing in place Rt AKA left tunneled catheter PLAN clinically stable IV antibiotics- 4 weeks total waiting for insurance authorization ----Anticipated discharge today wound cultures noted pain under control HD per renal vascular /wound care eval noted-- santyl dressing. see detailed discharge summary of Dr. San--- a few days ago discussed with nursing staff. 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
[2018-05-30] MEDS ORDERED: PT OWN MED DRAWER 7, Y5N ONE (10:27)
[2018-05-30] MEDS: GABAPENTIN 300 MG CAPSULE (FP) PO SCH (10:29)
[2018-05-30] MEDS: ASPIRIN 81 MG CHEWABLE TABLETS PO SCH (10:29)
[2018-05-30] MEDS: BACLOFEN 10 MG TABLET (FP) PO SCH (10:29)
[2018-05-30] MEDS: SENNOSIDES 8.6MG TABLET (FP) PO SCH (10:29)
[2018-05-30] MEDS: FOLIC ACID 1 MG TABLET (FP) PO SCH (10:29)
[2018-05-30] MEDS: LACTOBACILLUS ACIDOPHILUS 1 TABLET PO SCH (10:29)
[2018-05-30] MEDS: PANTOPRAZOLE 20 MG TABLET (FP) PO SCH (10:29)
[2018-05-30] MEDS: ISOSORBIDE MONONITRATE 30 MG TAB.SR.24H (FP) PO SCH (10:29)
[2018-05-30] MEDS: VITAMIN B COMP W-C 1 EA TABLET PO SCH (10:30)
[2018-05-30] MEDS: NYSTATIN 100,000 UNIT/GM TOPICAL CREAM 15 GM TUBE TP SCH (10:32)
[2018-05-30] MEDS: COLLAGENASE CLOSTRIDIUM HIST. 30 GRAMS TUBE TP SCH (10:32)
[2018-05-30 11:39] VITALS: BP 136/56; PULSE 78; TEMP 98.6
== END 2018-05-30 11:12 | DRG 344 ==
LOC: JER 09:18 → JERBED 10:25 → J8W 05-21 18:30
PROVIDERS: ADMIT Internal Medicine; ATTEND Internal Medicine
PROC: 02HV33Z Insertion of Infusion Device into Superior Vena Cava, Percutaneous Approach (ICD-10-PCS; principal; 2018-05-20)
PROC: B518ZZA Fluoroscopy of Superior Vena Cava, Guidance (ICD-10-PCS; 2018-05-20)
PROC: 5A1D70Z Performance of Urinary Filtration, Intermittent, Less than 6 Hours Per Day (ICD-10-PCS; 2018-05-20)
PROC: 5A1D70Z Performance of Urinary Filtration, Intermittent, Less than 6 Hours Per Day (ICD-10-PCS; 2018-05-22)
PROC: 5A1D70Z Performance of Urinary Filtration, Intermittent, Less than 6 Hours Per Day (ICD-10-PCS; 2018-05-24)
PROC: 5A1D70Z Performance of Urinary Filtration, Intermittent, Less than 6 Hours Per Day (ICD-10-PCS; 2018-05-27)
PROC: 5A1D70Z Performance of Urinary Filtration, Intermittent, Less than 6 Hours Per Day (ICD-10-PCS; 2018-05-29)
DX: E11.621 Type 2 diabetes mellitus with foot ulcer (principal); E11.69 Type 2 diabetes mellitus with other specified complication; L97.428 Non-pressure chronic ulcer of left heel and midfoot with other specified severity; E03.9 Hypothyroidism, unspecified; E66.8 Other obesity; M86.8X7 Other osteomyelitis, ankle and foot; Z68.38 Body mass index [BMI] 38.0-38.9, adult; I12.0 Hypertensive chronic kidney disease with stage 5 chronic kidney disease or end stage renal disease; E11.22 Type 2 diabetes mellitus with diabetic chronic kidney disease; N18.6 End stage renal disease; D64.9 Anemia, unspecified; T36.0X5A Adverse effect of penicillins, initial encounter; H54.8 Legal blindness, as defined in USA; Z79.4 Long term (current) use of insulin; Z99.2 Dependence on renal dialysis; Z89.611 Acquired absence of right leg above knee
CPT/HCPCS: 36415; 36558; 71045-TC-FY; 73718-LT; 80048; 80053; 80061; 82550; 82553; 82962; 83036; 83721; 84443; 85025; 85027; 85651; 86704; 86706; 86708; 86803; 87070; 87186; 87205; 87324; 87340; 87449; 93005; 93010; 99283-25; G0480; J0131; J0475; J0878; J0885; J1644

== ENCOUNTER 2018-06-19 13:04 | Emergency (ER) | payer OTHER ==
[2018-06-19] MEDS ORDERED: CALCIUM CHLORIDE 1 GM/10 ML *DISP.SYRIN ONE (13:24)
[2018-06-19] MEDS ORDERED: DEXTROSE 50%-WATER 25 GM/50 ML DISP.SYRIN ONE (13:34)
[2018-06-19] MEDS ORDERED: AMIODARONE HCL 150 MG/3 ML VIAL ONE (13:43)
[2018-06-19] MEDS ORDERED: ATROPINE SULFATE 1 MG/10 ML DISP.SYRIN ONE (13:55)
[2018-06-19 14:16] LABS: EOS % 4.7 % (0-4.5); HEMATOCRIT 38.9 % (35.4-49); HEMOGLOBIN 12.3 GM/dL (11.7-16.9); LYMPH % 35.5 % (8-40); MCH 30.6 pg (25.7-33.7); MCHC 31.7 g/dl (32.0-35.9); MEAN CELL VOLUME 96.7 fl (80-96); MONO % 5.1 % (3.8-10.2); NEUT % 51.7 % (42.8-82.8); PLATELET COUNT 354 K/MM3 (134-434); RBC 4.03 M/mm3 (4.00-5.60); RDW 19.4 % (11.9-15.9); WHITE BLOOD COUNT 12.9 K/mm3 (4.0-10.0)
[2018-06-19 14:22] LABS: VENOUS PO2 21.1 mmHg (28-48)
[2018-06-19 14:29] LABS: INR 1.23 (0.83-1.09); PROTHROMBIN TIME (PATIENT) 14.6 SEC (9.7-13.0)
[2018-06-19 14:41] LABS: ALBUMIN 2.5 g/dl (3.4-5.0); ALK PHOS 308 U/L (45-117); ANION GAP 15 MMOL/L (8-16); BILIRUBIN,TOTAL 0.9 mg/dL (0.2-1); BLOOD UREA NITROGEN 67 mg/dL (7-18); CALCIUM 11.6 mg/dL (8.5-10.1); CHLORIDE 97 mmol/L (98-107); CO2 24 mmol/L (21-32); GLUCOSE,RANDOM 127 mg/dL (74-106); SGOT/AST 34 U/L (15-37); SGPT/ALT 22 U/L (13-61); SODIUM 135 mmol/L (136-145); TOT PROT 7.5 g/dl (6.4-8.2)
[2018-06-19 14:43] LABS: CREATININE 7.5 mg/dL (0.55-1.3)
[2018-06-19 14:48] LABS: ACTIVATED PTT 130.3 SECONDS (25.2-36.5)
[2018-06-19 15:22] VITALS: BP 96/60; PULSE 42; TEMP 98.4; BMI 43.0
--- NOTE | 2018-06-19 16:37 | PDOC ---
History of Present Illness - General Chief Complaint: Seizure Stated Complaint: SEIZURE Time Seen by Provider: 06/19/18 14:27 History Source: Patient Exam Limitations: Clinical Condition - History of Present Illness Initial Comments: History obtained from patient and chart review. 27 yo M w a hx of ESRD - M,W,F - Right chest permacath - s/p R AKA, anemia, hx of sacral wound, insulin-dependent diabetes, legally blind and L heel wound, and multiple other comorbities presents to the ER after a he experienced a seizure while receiving hyperbaric therapy for a left heel wound. In the ER it was immediately noted that he was bradycardic, unstable and had a severely altered mental status. He was not speaking at any point in the ER and it his pulse was noted to be bradycardic. A 12 lead EKG was applied which showed PEA. PCP: Herminia Ramires Allergies: Morphine, Pipercillin, tazobactam Past History - Past Medical History Allergies/Adverse Reactions: Allergies Allergy/AdvReac Type Severity Reaction Status Date / Time morphine Allergy Severe Swelling Verified 05/20/18 10:27 piperacillin [From Zosyn] AdvReac Mild Itching Verified 05/20/18 12:18 tazobactam [From Zosyn] AdvReac Mild Itching Verified 05/20/18 12:18 Home Medications: Ambulatory Orders Acetaminophen [Pain Relief] 650 mg PO DAILY 01/08/18 Calcium Acetate [Phoslo -] 667 mg PO TIDCM 01/08/18 Folic Acid 1 mg PO DAILY 01/08/18 Hydralazine HCl 50 mg PO DAILY 01/08/18 Isosorbide Mononitrate [Isosorbide Mononitrate ER] 30 mg PO DAILY 01/08/18 Levothyroxine [Synthroid -] 50 mcg PO DAILY 01/08/18 Metoprolol Succinate 200 mg PO DAILY 01/08/18 Sennosides [Senna] 8.6 mg PO DAILY 01/08/18 Nystatin 100,000 units TP DAILY 04/26/18 Santyl 250 units TP DAILY 04/26/18 Aspirin [ASA -] 81 mg PO DAILY 05/20/18 Insulin Glargine,Hum.rec.anlog [Basaglar Kwikpen U-100] 12 unit SQ DAILY Insulin Glargine,Hum.rec.anlog [Basaglar Kwikpen U-100] 15 unit SQ HS 05/20/18 Omeprazole Magnesium [Prilosec Otc] 20 mg PO PRN 05/20/18 Vitamin B Comp W-C [Nephro-Rebecca -] 1 tablet PO DAILY 05/20/18 Daptomycin [Cubicin (Restricted To Id) -] 700 mg IVPB MOWEFR #28 vial 05/28/18 Ertapenem Sodium [Invanz -] 0.5 gm IVPB DAILY #28 vial 05/28/18 Gabapentin [Neurontin -] 300 mg PO BID #60 capsule 05/28/18 Lactobacillus Acidophilus [Bacid -] 1 tab PO DAILY #30 tab 05/28/18 Collagenase Clostridium Hist. [Santyl -] 1 appful TP DAILY 06/11/18 Diphenhydramine HCl [Benadryl Capsule -] 25 mg PO Q8H PRN 06/11/18 COPD: No Diabetes: Yes Dialysis: Yes ([facility], permacath R chest) Disorders: Yes (ESRD-MWF) HTN: Yes Hypercholesterolemia: Yes - Suicide/Smoking/Psychosocial Hx Smoking History: Unknown if ever smoked Have you smoked in the past 12 months: No Information on smoking cessation initiated: No Hx Alcohol Use: No Drug/Substance Use Hx: No Substance Use Type: None Review of Systems - Review of Systems Able to Perform ROS?: No (unconscious) *Physical Exam - Vital Signs Last Vital Signs Temp Pulse Resp BP Pulse Ox 98.4 F 42 L 14 96/60 06/19/18 13:04 06/19/18 13:04 06/19/18 13:53 06/19/18 13:04 - Physical Exam Comments: left foot ulcer (dressing in place) General Appearance: Yes: Apparent Distress, Obese, Other (unconscious) HEENT: positive: Other (NC/AT). negative: KARIME (Pupils are 2mm and non-reactive ), Normal ENT Inspection, Normal Voice, Pharynx Normal (significant oropharyngeal secretions. ), Nasal Congestion, Rhinorrhea Neck: positive: Trachea midline Respiratory/Chest: positive: Lungs Clear, Other (Intubated - b/l breath sounds. Vascular catheter in the right chest. picc line in the left chest) Cardiovascular: positive: S1, S2, Edema, Bradycardia, Gallop/S3, Irregularly Irregular, Irregular. negative: Regular Rhythm, Regular Rate Vascular Pulses: Femoral (R): 0, Femoral (L): 0, Carotid (R): 0, Carotid (L): 0 Gastrointestinal/Abdominal: positive: Soft, Distended. negative: Pulsatile Mass Male Genitalia: positive: normal genitalia. negative: discharge Rectal Exam: positive: deferred Lymphatic: negative: Adenopathy Extremity: positive: Pedal Edema, Other (Right lower knee amputation. ). negative: Normal Capillary Refill Integumentary: positive: Normal Color, Dry, Cyanotic, Pale, Cold Neurologic: negative: product/device technologist II-XII NML intact, Fully Oriented, Normal Mood/Affect , Normal Response, Motor Strength 5/5, Respond to painful stimul, Responsive, EOM Palsy, Facial Droop, Finger to Nose Moderate Sedation - Procedure Monitoring Vital Signs: Procedure Monitoring Vital Signs Temperature 98.4 F 06/19/18 13:04 Pulse Rate 42 L 06/19/18 13:04 Respiratory Rate 14 06/19/18 13:53 Blood Pressure 96/60 06/19/18 13:04 O2 Sat by Pulse Oximetry (%) Procedures - Bedside Ultrasound Bedside Ultrasound: Focused Assessment w/Sonography for Trauma (Cardiac Standstill + small pericardial effusion.) - Intubation Time of Intubation: 01:30 Intubation Method: orotracheal Blade used: Mac (3) Tube Size (Fr): 8.0 Tube position @ lip (cm): 24 Tube position confirmed by: Direct visualization, CO2 detector, Chest x-ray, Breath sounds Breath Sounds after Intubation: equal Intubation Complications: no complications Post Intubation Xray: Yes - Additional Procedures Additional Procedures: CPR (Performed for close to an hour multiple times), cardioversion/defib (Defibrillated multiple times and received ROSC at first. ) ED Treatment Course - LABORATORY CBC & Chemistry Diagram: 06/19/18 14:05 06/19/18 14:05 - ADDITIONAL ORDERS Additional order review: Laboratory Results 06/19/18 06/19/18 06/19/18 14:05 14:05 14:05 PT with INR INR PTT (Actin FS) VBG pH POC VBG pCO2 POC VBG pO2 Mixed VBG HCO3 Sodium Potassium Chloride Carbon Dioxide Anion Gap BUN Creatinine Creat Clearance w eGFR Random Glucose Lactic Acid 6.2 H* Calcium Total Bilirubin AST ALT Alkaline Phosphatase Troponin I 0.12 H Total Protein Albumin Blood Type A POSITIVE Antibody Screen Negative 06/19/18 06/19/18 06/19/18 14:05 14:05 14:05 PT with INR 14.60 H INR 1.23 H PTT (Actin FS) 130.3 H VBG pH 7.00 L* D POC VBG pCO2 103.0 H* D POC VBG pO2 21.1 L Mixed VBG HCO3 24.0 Sodium 135 L Potassium 5.0 Chloride 97 L Carbon Dioxide 24 Anion Gap 15 BUN 67 H Creatinine 7.5 H* Creat Clearance w eGFR 8.70 Random Glucose 127 H Lactic Acid Calcium 11.6 H Total Bilirubin 0.9 AST 34 ALT 22 Alkaline Phosphatase 308 H Troponin I Total Protein 7.5 Albumin 2.5 L Blood Type Antibody Screen 06/19/18 14:05 RBC 4.03 MCV 96.7 H D MCHC 31.7 L RDW 19.4 H MPV 8.0 Neutrophils % 51.7 D Lymphocytes % 35.5 D Monocytes % 5.1 Eosinophils % 4.7 H Basophils % 3.0 H D - RADIOLOGY Radiology Studies Ordered: Category Date Time Status CHEST X-RAY PORTABLE* [RAD] Stat Radiology 06/19/18 14:02 Taken Medical Decision Making - Medical Decision Making 27 yo M w a hx of ESRD - M,W,F - Right chest permacath - s/p R AKA, anemia, hx of sacral wound, insulin-dependent diabetes, legally blind and L heel wound, and multiple other comorbities presents to the ER after a he experienced a seizure while receiving hyperbaric therapy for a left heel wound. In the ER it was immediately noted that he was bradycardic, unstable and had a severely altered mental status. He was not speaking at any point in the ER and it his pulse was noted to be bradycardic. A 12 lead EKG was applied which showed PEA. Vital Signs Temp Pulse Resp BP Pulse Ox 98.4 F 42 L 14 96/60 06/19/18 13:04 06/19/18 13:04 06/19/18 13:53 06/19/18 13:04 Patient was in hyperbarics when it was said that he experienced a seizure. In the ER he was noted to be symptomatically bradycardic requiring atropine. The patient then became apneic at which point we immediately bagged the patient and intubated him with an 8.0 ET tube. There were b/l breath sounds after intubation. After multiple rounds of atropine, epi, and transcutaneous pacing without successful capture the patient transitioned into pulseless VTACH and required defibrillation. After multiple defibrillations at 200J ROSC was achieved for a very short time period, no longer than ten minutes. We tried maintaining the rhythym with amiodorone without sucess. After the short period of ROSC he returned to PEA. We tried reversing it with calcium chloride and bicarbonate but these attempts were not successful. We tried multiple rounds of epi but the cardiac US at bedside showed no cardiac movement and a small pericardial effusion. ultimately the patient developed Asystole and we could not revive him. We performed standard ACLS guidelines for nearly 45 minutes before declaring the patient . - ME was contacted and released the case. IL #[id number] Time of - 2:10 pm. - Attempted to inform patients mother but she is in [place] and could not be reached. Voicemaill was left. - Grandmother came to ER and was informed about the situation. [facility] and PCP notified. *DC/Admit/Observation/Transfer Diagnosis at time of Disposition: Cardiac arrest - Discharge Dispostion Disposition: Condition at time of disposition: Critical Decision to Admit order: No - Referrals Referrals: Declan Vázquez MD [Primary Care Provider] - - Patient Instructions - Post Discharge Activity
--- NOTE | 2018-06-19 17:15 | PDOC ---
Attending Attestation - Resident Resident Name: ChetsaundraGodwin - ED Attending Attestation I have performed the following: I have examined & evaluated the patient, The case was reviewed & discussed with the resident, I agree w/resident's findings & plan, Exceptions are as noted - HPI HPI: 06/19/18 17:15 Patient seen and evaluated immediately upon arrival in the ER. This note is being documented after patient . 27-year-old male with multiple comorbidities was brought into the ER from the [facility] after a witnessed generalized tonic clonic seizure. In the ER , patient is obtunded, moans to sternal rub with oropharyngeal secretions present associated with drooling. Patient was placed in recovery position and suctioned. He was noted to be bradycardic and shortly thereafter became apneic requiring immediate to patient. Patient received several doses of atropine and transferred cutaneous pacing was initiated without mechanical capture. Shortly thereafter, patient became pulseless with bradycardic PEA on a rhythm strip and chest compressions were started. Patient received IV push of calcium chloride and bicarbonate, atropine and epinephrine without return of spontaneous circulation. Asystole developed. Bedside echocardiogram revealed small pericardial effusion and a questionable clot within the right atrium. As CPR continued, patient developed ventricular fibrillation and was defibrillated 3 times at 200 J. Rosc was obtained EKG showed wide complex tachycardia and amiodarone was initiated. After a period of several minutes, patient decompensated again with bradycardic PEA. Repeat Bedside echocardiogram revealed no cardiac activity, persistent small pericardial effusion was present. ACLS was initiated with chest compressions, epinephrine, atropine and calcium chloride and sodium bicarbonate. The rest was obtained and patient was pronounced at 2:10 PM. MD was contacted and released the case. MD #[id number] - Physicial Exam PE: 06/19/18 17:23 On arrival, patient is noted to be unresponsive, morbidly obese, drooling; Normocephalic and atraumatic Pupils: 2 mm, round, nonreactive Oropharyngeal secretions noted cta; vasc cath to right chest; picc line to left chest rrr r. aka left foot ulcer (dressing in place) 06/19/18 17:29 - Medical Decision Making 06/19/18 17:24 27-year-old male with multiple comorbidities transferred from [facility] to ER after witnessed seizure and decompensated shortly thereafter. Resuscitative efforts were initiated and patient was intubated. Patient was ultimately pronounced at 2:10. Me released the case. Patient's grandmother was informed at bedside. I left a voice message for the patient's mother who is currently in [place]. Long-term care facility was informed as well.
--- NOTE | 2018-06-20 15:43 | EKG ---
Test Reason : Blood Pressure : / mmHG Vent. Rate : 149 BPM Atrial Rate : 166 BPM P-R Int : 000 ms QRS Dur : 102 ms QT Int : 276 ms P-R-T Axes : 000 -59 075 degrees QTc Int : 434 ms POOR DATA QUALITY, INTERPRETATION MAY BE ADVERSELY AFFECTED UNDETERMINED RHYTHM LEFT AXIS DEVIATION NONSPECIFIC T WAVE ABNORMALITY ABNORMAL ECG Confirmed by LANDON WETZEL MD ([id number]) on 06/20/2018 3:42:57 PM Referred By: Confirmed By:LANDON WETZEL MD
--- NOTE | 2018-07-02 10:55 | EKG ---
Test Reason : Blood Pressure : / mmHG Vent. Rate : 060 BPM Atrial Rate : 053 BPM P-R Int : 000 ms QRS Dur : 208 ms QT Int : 664 ms P-R-T Axes : 000 -74 170 degrees QTc Int : 664 ms UNDETERMINED RHYTHM REPEAT EKG IF CLINICALLY INDICATED Confirmed by Meek Zepeda MD ([id number]) on 07/02/2018 10:54:43 AM Referred By: Confirmed By:Meek Zepeda MD
== END 2018-06-19 17:09 | disposition expired ==
LOC: JER 13:04
DX: I46.9 Cardiac arrest, cause unspecified (principal); E11.22 Type 2 diabetes mellitus with diabetic chronic kidney disease; N18.6 End stage renal disease; H54.7 Unspecified visual loss; L89.629 Pressure ulcer of left heel, unspecified stage
CPT/HCPCS: 36415; 71045-TC-FY; 80053; 82803; 82962; 83605; 84484; 85025; 85610; 85730; 86850; 86900; 86901; 93005; 93010; 99284-25; G0277